=== PATIENT | male | born 1965 | race Caucasian/White ===

== ENCOUNTER 2020-07-29 06:48 | Outpatient (REF) | payer MEDICAID, SELFPAY ==
[2020-07-29 08:15] LABS: INTERNATIONAL NORM RATIO 3.4 (0.9-1.1); Prothrombin Time 40.4 SEC (10.8-13.0)
== END 2020-07-29 06:49 | disposition home or self-care (01) ==
LOC: HO.LAB 06:48
PROVIDERS: PCP Internal Medicine; Visit Provider Pharmacist
DX: Z95.2 Presence of prosthetic heart valve (principal)
CPT/HCPCS: 36415; 85610

== ENCOUNTER 2020-08-05 06:44 | Outpatient (REF) | payer MEDICAID, SELFPAY ==
[2020-08-05 07:52] LABS: INTERNATIONAL NORM RATIO 2.4 (0.9-1.1); Prothrombin Time 29.1 SEC (10.8-13.0)
== END 2020-08-05 06:45 | disposition home or self-care (01) ==
LOC: HO.LABR 06:44
PROVIDERS: PCP Internal Medicine; Visit Provider Pharmacist
DX: Z95.2 Presence of prosthetic heart valve (principal)
CPT/HCPCS: 36415; 85610

== ENCOUNTER 2020-08-12 06:46 | Outpatient (REF) | payer MEDICAID, SELFPAY ==
[2020-08-12 08:30] LABS: Prothrombin Time 24.5 SEC (10.8-13.0)
== END 2020-08-12 06:47 | disposition home or self-care (01) ==
LOC: HO.LABR 06:46
PROVIDERS: Visit Provider Pharmacist
DX: Z95.2 Presence of prosthetic heart valve (principal)
CPT/HCPCS: 36415; 85610

== ENCOUNTER 2020-08-15 07:01 | Outpatient (REF) | payer MEDICAID, SELFPAY ==
[2020-08-15 08:21] LABS: INTERNATIONAL NORM RATIO 3.2 (0.9-1.1)
== END 2020-08-15 07:02 | disposition home or self-care (01) ==
LOC: HO.LABR 07:01
PROVIDERS: Visit Provider Pharmacist
DX: Z95.2 Presence of prosthetic heart valve (principal)
CPT/HCPCS: 36415; 85610

== ENCOUNTER 2020-08-22 07:08 | Outpatient (REF) | payer MEDICAID, SELFPAY ==
[2020-08-22 08:06] LABS: INTERNATIONAL NORM RATIO 3.6 (0.9-1.1); Prothrombin Time 43.8 SEC (10.8-13.0)
== END 2020-08-22 07:09 | disposition home or self-care (01) ==
LOC: HO.LAB 07:08
PROVIDERS: Visit Provider Pharmacist
DX: Z95.2 Presence of prosthetic heart valve (principal)
CPT/HCPCS: 36415; 85610

== ENCOUNTER 2020-08-29 06:44 | Outpatient (REF) | payer MEDICAID, SELFPAY ==
[2020-08-29 07:38] LABS: INTERNATIONAL NORM RATIO 3.6 (0.9-1.1); Prothrombin Time 42.8 SEC (10.8-13.0)
== END 2020-08-29 06:45 | disposition home or self-care (01) ==
LOC: HO.LABR 06:44
PROVIDERS: Visit Provider Pharmacist
DX: Z95.2 Presence of prosthetic heart valve (principal)
CPT/HCPCS: 36415; 85610

== ENCOUNTER 2020-09-05 07:10 | Outpatient (REF) | payer MEDICAID, SELFPAY ==
[2020-09-05 08:44] LABS: INTERNATIONAL NORM RATIO 2.8 (0.9-1.1); Prothrombin Time 33.9 SEC (10.8-13.0)
== END 2020-09-05 07:11 | disposition home or self-care (01) ==
LOC: HO.LABR 07:10
PROVIDERS: Visit Provider Pharmacist
DX: Z95.2 Presence of prosthetic heart valve (principal)
CPT/HCPCS: 36415; 85610

== ENCOUNTER 2020-09-12 07:18 | Outpatient (REF) | payer MEDICAID, SELFPAY ==
[2020-09-12 07:45] LABS: INTERNATIONAL NORM RATIO 3.1 (0.9-1.1); Prothrombin Time 37.2 SEC (10.8-13.0)
== END 2020-09-12 07:19 | disposition home or self-care (01) ==
LOC: HO.LABR 07:18
PROVIDERS: Visit Provider Pharmacist
DX: Z95.2 Presence of prosthetic heart valve (principal)
CPT/HCPCS: 36415; 85610

== ENCOUNTER 2020-09-23 06:58 | Outpatient (REF) | payer MEDICAID, SELFPAY ==
[2020-09-23 07:52] LABS: INTERNATIONAL NORM RATIO 1.9 (0.9-1.1)
== END 2020-09-23 06:59 | disposition home or self-care (01) ==
LOC: HO.LABR 06:58
PROVIDERS: PCP Registered Nurse; Visit Provider Pharmacist
DX: Z95.2 Presence of prosthetic heart valve (principal)
CPT/HCPCS: 36415; 85610

== ENCOUNTER 2020-09-26 07:18 | Outpatient (REF) | payer MEDICAID, SELFPAY ==
[2020-09-26 09:14] LABS: INTERNATIONAL NORM RATIO 2.7 (0.9-1.1); Prothrombin Time 32.2 SEC (10.8-13.0)
== END 2020-09-26 07:19 | disposition home or self-care (01) ==
LOC: HO.LABR 07:18
PROVIDERS: PCP Registered Nurse; Visit Provider Pharmacist
DX: Z95.2 Presence of prosthetic heart valve (principal)
CPT/HCPCS: 36415; 85610

== ENCOUNTER 2020-10-03 07:23 | Outpatient (REF) | payer MEDICAID, SELFPAY ==
[2020-10-03 09:02] LABS: INTERNATIONAL NORM RATIO 2.5 (0.9-1.1); Prothrombin Time 29.7 SEC (10.8-13.0)
== END 2020-10-03 07:24 | disposition home or self-care (01) ==
LOC: HO.LABR 07:23
PROVIDERS: PCP Registered Nurse; Visit Provider Pharmacist
DX: Z95.2 Presence of prosthetic heart valve (principal); Z51.81 Encounter for therapeutic drug level monitoring
CPT/HCPCS: 36415; 85610

== ENCOUNTER 2020-10-16 06:57 | Outpatient (REF) | payer MEDICAID, SELFPAY ==
[2020-10-16 07:38] LABS: Prothrombin Time 36.2 SEC (10.8-13.0)
== END 2020-10-16 06:58 | disposition home or self-care (01) ==
LOC: HO.LABR 06:57
PROVIDERS: PCP Registered Nurse; Visit Provider Pharmacist
DX: Z95.2 Presence of prosthetic heart valve (principal)
CPT/HCPCS: 36415; 85610

== ENCOUNTER 2020-11-06 07:38 | Outpatient (REF) | payer MEDICAID, SELFPAY ==
[2020-11-06 08:28] LABS: INTERNATIONAL NORM RATIO 3.6 (0.9-1.1); Prothrombin Time 43.1 SEC (10.8-13.0)
== END 2020-11-06 07:39 | disposition home or self-care (01) ==
LOC: HO.LABR 07:38
PROVIDERS: PCP Registered Nurse; Visit Provider Pharmacist
DX: Z95.2 Presence of prosthetic heart valve (principal)
CPT/HCPCS: 36415; 85610

== ENCOUNTER 2020-11-27 07:01 | Outpatient (REF) | payer MEDICAID, SELFPAY ==
[2020-11-27 07:52] LABS: INTERNATIONAL NORM RATIO 3.3 (0.9-1.1); Prothrombin Time 39.4 SEC (10.8-13.0)
== END 2020-11-27 07:02 | disposition home or self-care (01) ==
LOC: HO.LABR 07:01
PROVIDERS: PCP Registered Nurse; Visit Provider Pharmacist
DX: Z95.2 Presence of prosthetic heart valve (principal)
CPT/HCPCS: 36415; 85610

== ENCOUNTER 2020-12-18 06:29 | Outpatient (REF) | payer MEDICAID, SELFPAY ==
[2020-12-18 07:20] LABS: INTERNATIONAL NORM RATIO 2.4 (0.9-1.1); Prothrombin Time 28.3 SEC (10.8-13.0)
== END 2020-12-18 06:30 | disposition home or self-care (01) ==
LOC: HO.LABR 06:29
PROVIDERS: PCP Registered Nurse; Visit Provider Pharmacist
DX: Z95.2 Presence of prosthetic heart valve (principal)
CPT/HCPCS: 36415; 85610

== ENCOUNTER 2021-01-08 06:42 | Outpatient (REF) | payer MEDICAID, SELFPAY ==
[2021-01-08 07:18] LABS: INTERNATIONAL NORM RATIO 3.3 (0.9-1.1); Prothrombin Time 39.4 SEC (10.8-13.0)
== END 2021-01-08 06:43 | disposition home or self-care (01) ==
LOC: HO.LABR 06:42
PROVIDERS: PCP Registered Nurse; Visit Provider Pharmacist
DX: Z95.2 Presence of prosthetic heart valve (principal)
CPT/HCPCS: 36415; 85610

== ENCOUNTER → 2021-01-29 07:12 | Outpatient (REF) | payer MEDICAID, SELFPAY ==
[2021-01-29 08:09] LABS: INTERNATIONAL NORM RATIO 2.7 (0.9-1.1); Prothrombin Time 32.3 SEC (10.8-13.0)
--- NOTE | 2021-01-29 09:30 | CA_ITS ---
Transthoracic Echocardiogram Patient (Last, First, Middle): Danis Mauricio, Gender: Male Date of : 1965 Age: 55 Procedure Date: 01/29/2021 Procedure Type: Transthoracic Echocardiogram Location: OP Height: 172.72 cm Weight: 63.5 kg BSA: 1.76 m2 Heart Rate: bpm BP: 122 / 80 mmHg Railway Signal Operator: Referring MD: Luiz Costa MD E Commerce Solution Architect: Julio Cesar Johnston MD Symptoms: I42.9 CARDIOMYOPATHY Study Quality: Fair ECG Rhythm: Sinus Conclusions: - 1. Severe LV systolic dysfunction by biplane method with LVEF of 25-30% with impaired relaxation filling pattern 2. Mechanical prosthesis in mitral position which appears to be function normally with mean gradient of 4 mm of mercury 3. Normal RV systolic pressure 4. No pericardial effusion Findings Left Ventricle Normal left ventricular cavity size. There is normal left ventricular wall thickness. The left ventricular systolic function is severely decreased. The visually estimated ejection fraction is between 25-30%. There is severe global hypokinesis. There is paradoxical septal motion consistent with post operative status. Spectral Doppler is indicative of an impaired relaxation filling pattern. Right Ventricle Normal right ventricular cavity size and systolic function. Atria The left atrium was not well visualized. Interatrial shunt cannot be excluded. The right atrium is normal in size. Aortic Valve Normal aortic valve structure and function. There is no aortic valve stenosis. There is no aortic valve regurgitation. Mitral Valve A mechanical prosthetic mitral valve is present. The prosthetic mitral valve appears to be functioning normally. The mitral valve was not well visualized. The mean mitral valve gradient is 4.00 mmHg. Mean gradient across mitral valve of 4 mm of mercury at heart rate of 81 beats per minute which is at acceptable level. The valve is well seated without abnormal rocking motion. Mitral regurgitation cannot be evaluated on this study Pulmonic Valve The pulmonic valve was not well visualized. Tricuspid Valve Likely normal tricuspid valve structure and function. The right ventricular systolic pressure is normal. The right ventricular systolic pressure is 19 mmHg. Normal right atrial pressure. There is no evidence of pulmonary hypertension. Great Vessels All visible segments of the aorta are normal in size. The pulmonary artery was not well visualized. Venous The inferior vena cava is normal in size and collapses greater than 50% with inspiration. Pericardium/Pleural There is no evidence of pericardial effusion. Prior Study Comparison No prior study available for comparison. Measurements 2D Linear Measurements IVSd: 0.78 0.6-0.9/0.6-1.0 cm LVIDd: 4.28 3.9-5.3/4.2-5.9 cm LVIDd Index: 2.43 2.4-3.2/2.2-3.1 cm/m2 LVIDs: 3.47 2.0-3.6 cm LVPWd: 0.86 0.7-1.1 cm Ao Root: 2.90 2.1-3.5 cm LA Diam: 3.30 2.7-3.8/3.0-4.0 cm LAIDs Index: 1.88 1.5-2.3 cm/m2 LV Mass: 134.02 67-162/88-224 g LV Mass Index: 76.15 43-95/49-115 g/m2 LVOT Diam: 1.90 3.0+(-)1.3 cm 2D Systolic Function EF 4C: 35.90 >55% EF 2C: 12.80 >55% Mitral Valve MV VTI: 0.38 MV Pk Romeo: 1.48 MV Mn Romeo: 0.94 MV Pk Grad: 9.00 MV Mn Grad: 5.00 MV Pk E: 1.19 MV PK A: 1.45 MV Decel Time: 155.00 E/A: 0.80 E'Lateral: 7.40 E'Medial: 6.20 E/E' Med: 19.20 E/E' Lat: 16.10 PHT: 45.00 MVA PHT: 4.89 MVA Continuity: 1.60 Decel [place]: 7.70 Aortic Valve AoV Pk Romeo: 1.24 AoV Mn Romeo: 0.85 AoV VTI: 0.26 AoV Pk Grad: 6.00 Aov Mn Grad: 3.00 BUBBA Cont.VTI: 2.33 LVOT LVOT Pk Romeo: 0.87 LVOT Mn Romeo: 0.51 LVOT VTI: 0.21 LVOT Pk Grad: 3.00 LVOT Mn Grad: 1.00 LVOT Diam: 1.90 LVOT Area: 2.84 Diastolic Function MV Pk E: 1.19 MV Pk A: 1.45 E/A: 0.80 E'Medial: 6.20 E/E' Med: 19.20 E' Laterial: 7.40 E/E' Lat: 16.10 Tricuspid Valve TR Pk Romeo: 1.99 TR Pk Grad: 16.00 RA Press: 3.00 RVSP: 19.00 Great Vessels Aorta Ao Root-2D: 2.90 2.0-3.7 cm Pulmonary Valve PV Pk Romeo: 0.98 Peak PV Grad: 4.00 Updated in Other Vendor System with Status of Final Julio Cesar Johnston MD electronically signed on 01/29/2021 5:16:19 PM with status of Final
== END ==
LOC: HO.CARD 07:12
PROVIDERS: Absent Provider Pharmacist; PCP Registered Nurse; Visit Provider Internal Medicine Cardiovascular Disease
DX: I42.9 Cardiomyopathy, unspecified (principal); Z95.2 Presence of prosthetic heart valve
CPT/HCPCS: 36415; 85610; 93306

== ENCOUNTER 2021-02-03 07:27 | Outpatient (REF) | payer MEDICAID, SELFPAY ==
[2021-02-03 08:45] LABS: INTERNATIONAL NORM RATIO 1.4 (0.9-1.1); Prothrombin Time 16.4 SEC (10.8-13.0)
== END 2021-02-03 07:28 | disposition home or self-care (01) ==
LOC: HO.LABR 07:27
PROVIDERS: PCP Registered Nurse; Visit Provider Pharmacist
DX: Z95.2 Presence of prosthetic heart valve (principal)
CPT/HCPCS: 36415; 85610

== ENCOUNTER 2021-02-06 06:35 | Day surgery (SDC) | payer MEDICAID, SELFPAY ==
[2021-02-03 09:24] VITALS: BMI 22.8
--- NOTE | 2021-02-05 10:26 | HO.ANESPROP2 ---
Documented by User: Renetta Tomas 02/05/21 10:30 HPI - Anesthesia Eval Consult details Narrative: 55yo M for Colonoscopy Coumadin for Mitral Valve Replacement - to bridge with lovenox Cardiac clear @ moderate risk PMFSH Active Problems Active Problems: All Active Problems (Updated 01/31/21 @ 12:54 by Carlene Hanson) History of mitral valve repair (Acute) On anticoagulant therapy (Acute) Screening for colon cancer (Acute) Past Medical History Medical History Elevated cholesterol On anticoagulant therapy Screening for colon cancer Family History Family History Father No problems noted. Mother Hx of breast cancer Surgical History Surgical History Hx of mitral valve replacement Hx of removal of cyst Social History Social History Alcohol intake: never Smoking Status: Never smoker Use of substances other than those prescribed or required for medical reasons: Yes Have you been hit, kicked, punched, or otherwise hurt by someone within the past year? If so, by whom?: No Advance Directives: Yes Advance Directives Information Provided: Yes Advance Directives on File: Yes Advance Directives Date on File: 07/31/20 Meds Allergies Allergy/AdvReac Type Severity Reaction Status Date / Time No Known Allergies Allergy Unverified 07/11/20 16:18 Home Medications Medication Instructions Recorded Confirmed Last Taken Type atorvastatin 40 mg tablet 40 mg PO BEDTIME 11/06/20 02/03/21 Unknown History warfarin 2 mg tablet 2 mg PO DAILY 11/06/20 02/03/21 Unknown History Exam Exam Date and Time: February 05, 2021 1026 Height,Weight and Vital Signs: Height 5 ft 7 in Weight 66.09 kg Narrative Narrative: Echo 01/29/21 Conclusions: - 1. Severe LV systolic dysfunction by biplane method with LVEF of 25-30% with impaired relaxation filling pattern 2. Mechanical prosthesis in mitral position which appears to be function normally with mean gradient of 4 mm of mercury 3. Normal RV systolic pressure 4. No pericardial effusion EKG 04/2020 SR with short OR @ 90 Assessment and Plan Assessment Anesthesia Assessment: Chart Reviewed Documented by User: Mónica Polk 02/06/21 07:31 PMFSH Past Medical History Medical History Elevated cholesterol On anticoagulant therapy Screening for colon cancer Family History Family History Father No problems noted. Mother Hx of breast cancer Surgical History Surgical History Hx of mitral valve replacement Hx of removal of cyst Social History Social History Alcohol intake: never Smoking Status: Never smoker Use of substances other than those prescribed or required for medical reasons: Yes Have you been hit, kicked, punched, or otherwise hurt by someone within the past year? If so, by whom?: No Advance Directives: Yes Advance Directives Information Provided: Yes Advance Directives on File: Yes Advance Directives Date on File: 07/31/20 Meds Allergies Allergy/AdvReac Type Severity Reaction Status Date / Time No Known Allergies Allergy Unverified 07/11/20 16:18 Home Medications Medication Instructions Recorded Confirmed Last Taken Type atorvastatin 40 mg tablet 40 mg PO BEDTIME 11/06/20 02/03/21 Unknown History warfarin 2 mg tablet 2 mg PO DAILY 11/06/20 02/03/21 Unknown History Exam Airway Mallampati Class: II TM Dist: >3cm Neck ROM: Full Loose/Missing/Broken Teeth: No Heart: RRR Lungs: CTA Assessment and Plan Assessment Anesthesia Assessment: Anesthesia Plan Discussed and Chart Reviewed Final Anesthetic Review NPO: Yes ASA Class: III Final Preanesthetic Review: Meds/Allgs Chart Reviewed, Consent Obtained/Reviewed and Anes Risks/Benef Reviewed Patient Risk: Intermediate Procedure Risk: Low Anesthetic Plan Anesthetic Plan: MAC: Disposition: Standard PACU
[2021-02-06 06:45] VITALS: BP 126/85; PULSE 94; RESP 18; TEMP 36.2; O2SAT 99
[2021-02-06 06:59] LABS: INTERNATIONAL NORM RATIO 1.1 (0.9-1.1); Prothrombin Time 12.6 SEC (10.8-13.0)
--- NOTE | 2021-02-06 07:08 | P.OP_ITS ---
Operative Note Operative Note Date of Service: 02/06/21 Narrative: Pre-op diagnosis: Colon cancer screening Post-op diagnosis: other (These colon polyps, diverticulosis, hemorrhoids) Procedure: COLONOSCOPY TILL CECUM WITH BIOPSIES Consent: Indications for the procedure and potential complications of bleeding, perforation, reaction to medications and missed diagnosis were discussed with the patient and informed consent was obtained. Instrument: Olympus PCF H 190 L variable stiffness pediatric colonoscope Monitoring: Vital signs and clinical assessment, intermittent blood pressure monitoring, continuous EKG monitoring, Pulse oximetry and Carbon Dioxide monitoring were done throughout the procedure. Colon withdrawl time was 14 minutes. Procedure: The patient was placed in the left lateral decubitis position and pre-procedure medications were administered. After a digital rectal examination of the ano-rectum, the video colonoscope was inserted into the rectum and advanced through the colon to the cecum. The colonoscope was slowly withdrawn in a retrograde panoramic fashion and the colon mucosa was carefully examined including a retroflexed view of the rectum. Findings and interventions are described below. Procedure Difficulty: Without difficulty Findings: Terminal Ileum: Not evaluated Cecum: Normal Ascending Colon: Normal Transverse Colon: Normal Descending Colon: Normal Sigmoid Colon: A few 3-4 mm diminutive polyps in recto-sigmoid colon - two were removed with a cold biopsy. Moderate diverticulosis Rectum: A few 3-4 mm diminutive polyps in recto-sigmoid colon. Ano-rectum: Moderate internal hemorrhoids Colon preparation: Good Impression and Post Procedure Diagnosis: Colonoscopy Findings: Two small diminutive appearing polyps removed Moderate diverticulosis seen in the sigmoid colon Moderate hemorrhoids on retroflexed exam. Plan: Await pathology results Pt to resume warfarin at previous dose tonight and have a prothrombin time checked on 02/11/21. Continue Lovenox injections till 02/10/21 Patient has an appointment on 03/05/21 in the GI Clinic with Randi Morris M.D.. Repeat Colonoscopy interval based on path results - in 5 years if polyps are adenomatous and 10 years if polyps are hyperplastic. Above findings were reviewed with the patient and colon polyps and diverticulosis handouts were given in the discharge area Surgeon: Tomas Barrios MD Anesthesia: MAC (Yumiko Banerjee, KAYLYNN) Motor Vehicle Dispatcher: Carmen Telles Estimated blood loss (mL): 0 Pathology: other (A. Sigmoid colon polyps) Condition: stable Disposition: PACU
--- NOTE | 2021-02-06 07:08 | MHC.SHP ---
Pre-Procedural Eval Section A The patient is an INPATIENT: No The History & Physical has been completed within 30 days and I have reviewed it.: No Section B Chief Complaint: Screening Present Medications: see Short Stay Collaborative assessment Medical History: Significant History (On anticoagulant therapy, Screening for colon cancer) History of Previous Operations: Relevant previous surgery/procedure and date(s) (History of mitral valve repair, Hx of removal of cyst) Allergies: Allergies Allergy/AdvReac Type Severity Reaction Status Date / Time No Known Allergies Allergy Unverified 07/11/20 16:18 Review of Systems Sugical H&P ROS: Negative: Constitution, Cardiovascular, Respiratory and Gastrointestinal Exam Surgical H&P Exam: Normal: Heart, Normal: Lungs, Normal: Extremities and Normal: Abdomen Plan Diagnosis/Plan: Unchanged I have reviewed the history and physical and performed a pertinent physical examination on my patient. No changes have occurred unless specified.
[2021-02-06] MEDS: Lactated Ringers 1,000 ML 20 ML IVCONT (07:14)
[2021-02-06 08:10] VITALS: BP 103/73; PULSE 83; RESP 20; TEMP 36.2; O2SAT 100
[2021-02-06 08:25] VITALS: BP 105/78; PULSE 80; RESP 18; O2SAT 98
== END 2021-02-06 08:55 | disposition home or self-care (01) ==
PROVIDERS: Nurse Practitioner; PCP Registered Nurse; Visit Provider Internal Medicine Gastroenterology
PROC: 0DJD8ZZ Inspection of Lower Intestinal Tract, Via Natural or Artificial Opening Endoscopic (ICD-10-PCS; CPT 45378; principal; 2021-02-06 07:30)
DX: Z12.11 Encounter for screening for malignant neoplasm of colon (principal); K63.5 Polyp of colon; K57.30 Diverticulosis of large intestine without perforation or abscess without bleeding; K64.8 Other hemorrhoids; Z95.2 Presence of prosthetic heart valve; Z79.01 Long term (current) use of anticoagulants; Z79.899 Other long term (current) drug therapy
CPT/HCPCS: 45380; 36415; 85610; 88305

== ENCOUNTER 2021-02-10 06:48 | Outpatient (REF) | payer MEDICAID, SELFPAY ==
[2021-02-10 08:49] LABS: INTERNATIONAL NORM RATIO 1.3 (0.9-1.1); Prothrombin Time 15.7 SEC (10.8-13.0)
== END 2021-02-10 06:49 | disposition home or self-care (01) ==
LOC: HO.LABR 06:48
PROVIDERS: PCP Registered Nurse; Visit Provider Pharmacist
DX: Z95.2 Presence of prosthetic heart valve (principal)
CPT/HCPCS: 36415; 85610

== ENCOUNTER 2021-02-12 07:08 | Outpatient (REF) | payer MEDICAID, SELFPAY ==
[2021-02-12 08:22] LABS: INTERNATIONAL NORM RATIO 1.9 (0.9-1.1); Prothrombin Time 22.7 SEC (10.8-13.0)
== END 2021-02-12 07:09 | disposition home or self-care (01) ==
LOC: HO.LABR 07:08
PROVIDERS: PCP Registered Nurse; Visit Provider Pharmacist
DX: Z95.2 Presence of prosthetic heart valve (principal); Z79.01 Long term (current) use of anticoagulants; Z51.81 Encounter for therapeutic drug level monitoring
CPT/HCPCS: 36415; 85610

== ENCOUNTER 2021-02-14 06:37 | Outpatient (REF) | payer MEDICAID, SELFPAY ==
[2021-02-14 07:10] LABS: INTERNATIONAL NORM RATIO 2.5 (0.9-1.1); Prothrombin Time 29.5 SEC (10.8-13.0)
== END 2021-02-14 06:38 | disposition home or self-care (01) ==
LOC: HO.LABR 06:37
PROVIDERS: PCP Registered Nurse; Visit Provider Pharmacist
DX: Z95.2 Presence of prosthetic heart valve (principal); Z79.01 Long term (current) use of anticoagulants; Z51.81 Encounter for therapeutic drug level monitoring
CPT/HCPCS: 36415; 85610

== ENCOUNTER 2021-02-18 06:51 | Outpatient (REF) | payer MEDICAID, SELFPAY ==
[2021-02-18 07:29] LABS: INTERNATIONAL NORM RATIO 1.9 (0.9-1.1); Prothrombin Time 22.8 SEC (10.8-13.0)
== END 2021-02-18 06:52 | disposition home or self-care (01) ==
LOC: HO.LABR 06:51
PROVIDERS: PCP Registered Nurse; Visit Provider Pharmacist
DX: Z95.2 Presence of prosthetic heart valve (principal)
CPT/HCPCS: 36415; 85610

== ENCOUNTER 2021-02-21 06:34 | Outpatient (REF) | payer MEDICAID, SELFPAY ==
[2021-02-21 08:23] LABS: INTERNATIONAL NORM RATIO 2.3 (0.9-1.1); Prothrombin Time 27.2 SEC (10.8-13.0)
== END 2021-02-21 06:35 | disposition home or self-care (01) ==
LOC: HO.LABR 06:34
PROVIDERS: PCP Registered Nurse; Visit Provider Pharmacist
DX: Z95.2 Presence of prosthetic heart valve (principal)
CPT/HCPCS: 36415; 85610

== ENCOUNTER 2021-02-26 06:52 | Outpatient (REF) | payer MEDICAID, SELFPAY ==
[2021-02-26 09:06] LABS: INTERNATIONAL NORM RATIO 3.3 (0.9-1.1); Prothrombin Time 39.8 SEC (10.8-13.0)
== END 2021-02-26 06:53 | disposition home or self-care (01) ==
LOC: HO.LABR 06:52
PROVIDERS: PCP Registered Nurse; Visit Provider Pharmacist
DX: Z95.2 Presence of prosthetic heart valve (principal)
CPT/HCPCS: 36415; 85610

== ENCOUNTER 2021-03-05 06:51 | Outpatient (REF) | payer MEDICAID, SELFPAY ==
[2021-03-05 07:50] LABS: Prothrombin Time 23.7 SEC (10.8-13.0)
== END 2021-03-05 06:52 | disposition home or self-care (01) ==
LOC: HO.LABR 06:51
PROVIDERS: PCP Registered Nurse; Visit Provider Pharmacist
DX: Z95.2 Presence of prosthetic heart valve (principal)
CPT/HCPCS: 36415; 85610

== ENCOUNTER 2021-03-10 06:44 | Outpatient (REF) | payer MEDICAID, SELFPAY ==
[2021-03-10 07:08] LABS: INTERNATIONAL NORM RATIO 1.9 (0.9-1.1); Prothrombin Time 22.4 SEC (10.8-13.0)
== END 2021-03-10 06:45 | disposition home or self-care (01) ==
LOC: HO.LABR 06:44
PROVIDERS: PCP Registered Nurse; Visit Provider Pharmacist
DX: Z95.2 Presence of prosthetic heart valve (principal)
CPT/HCPCS: 36415; 85610

== ENCOUNTER 2021-03-13 06:31 | Outpatient (REF) | payer MEDICAID, SELFPAY ==
[2021-03-13 07:26] LABS: INTERNATIONAL NORM RATIO 2.4 (0.9-1.1); Prothrombin Time 28.8 SEC (10.8-13.0)
== END 2021-03-13 06:32 | disposition home or self-care (01) ==
LOC: HO.LABR 06:31
PROVIDERS: PCP Registered Nurse; Visit Provider Pharmacist
DX: Z95.2 Presence of prosthetic heart valve (principal)
CPT/HCPCS: 36415; 85610

== ENCOUNTER 2021-03-19 06:41 | Outpatient (REF) | payer MEDICAID, SELFPAY ==
[2021-03-19 07:58] LABS: INTERNATIONAL NORM RATIO 2.3 (0.9-1.1); Prothrombin Time 27.6 SEC (10.8-13.0)
== END 2021-03-19 06:42 | disposition home or self-care (01) ==
LOC: HO.LABR 06:41
PROVIDERS: PCP Registered Nurse; Visit Provider Pharmacist
DX: Z95.2 Presence of prosthetic heart valve (principal)
CPT/HCPCS: 36415; 85610

== ENCOUNTER 2021-03-31 06:30 | Outpatient (REF) | payer MEDICAID, SELFPAY ==
[2021-03-31 07:11] LABS: INTERNATIONAL NORM RATIO 1.6 (0.9-1.1); Prothrombin Time 18.9 SEC (10.8-13.0)
== END 2021-03-31 06:31 | disposition home or self-care (01) ==
LOC: HO.LABR 06:30
PROVIDERS: PCP Registered Nurse; Visit Provider Pharmacist
DX: Z95.2 Presence of prosthetic heart valve (principal)
CPT/HCPCS: 36415; 85610

== ENCOUNTER 2021-04-02 06:31 | Outpatient (REF) | payer MEDICAID, SELFPAY ==
[2021-04-02 08:14] LABS: INTERNATIONAL NORM RATIO 2.9 (0.9-1.1); Prothrombin Time 34.4 SEC (10.8-13.0)
== END 2021-04-02 06:32 | disposition home or self-care (01) ==
LOC: HO.LABR 06:31
PROVIDERS: PCP Registered Nurse; Visit Provider Pharmacist
DX: Z95.2 Presence of prosthetic heart valve (principal)
CPT/HCPCS: 36415; 85610

== ENCOUNTER 2021-04-09 06:39 | Outpatient (REF) | payer MEDICAID, SELFPAY ==
[2021-04-09 08:08] LABS: INTERNATIONAL NORM RATIO 2.7 (0.9-1.1)
== END 2021-04-09 06:40 | disposition home or self-care (01) ==
LOC: HO.LABR 06:39
PROVIDERS: Visit Provider Pharmacist
DX: Z95.2 Presence of prosthetic heart valve (principal)
CPT/HCPCS: 36415; 85610

== ENCOUNTER 2021-04-29 09:26 | Outpatient (REF) | payer MEDICAID, SELFPAY ==
[2021-04-29 10:29] LABS: INTERNATIONAL NORM RATIO 2.9 (0.9-1.1); Prothrombin Time 33.4 SEC (9.9-13.0)
== END 2021-04-29 09:27 | disposition home or self-care (01) ==
LOC: HO.LAB 09:26
PROVIDERS: PCP Registered Nurse; Visit Provider Pharmacist
DX: Z95.2 Presence of prosthetic heart valve (principal); Z79.01 Long term (current) use of anticoagulants; Z51.81 Encounter for therapeutic drug level monitoring
CPT/HCPCS: 36415; 85610

== ENCOUNTER 2021-05-13 06:36 | Outpatient (REF) | payer MEDICAID, SELFPAY ==
[2021-05-13 07:57] LABS: INTERNATIONAL NORM RATIO 3.8 (0.9-1.1)
== END 2021-05-13 06:37 | disposition home or self-care (01) ==
LOC: HO.LABR 06:36
PROVIDERS: PCP Registered Nurse; Visit Provider Pharmacist
DX: Z95.2 Presence of prosthetic heart valve (principal)
CPT/HCPCS: 36415; 85610

== ENCOUNTER 2021-05-27 06:52 | Outpatient (REF) | payer MEDICAID, SELFPAY ==
[2021-05-27 07:38] LABS: INTERNATIONAL NORM RATIO 3.3 (0.9-1.1); Prothrombin Time 38.3 SEC (9.9-13.0)
== END 2021-05-27 06:53 | disposition home or self-care (01) ==
LOC: HO.LABR 06:52
PROVIDERS: PCP Registered Nurse; Visit Provider Pharmacist
DX: Z95.2 Presence of prosthetic heart valve (principal)
CPT/HCPCS: 36415; 85610

== ENCOUNTER 2021-06-11 06:46 | Outpatient (REF) | payer MEDICAID, SELFPAY ==
[2021-06-11 07:47] LABS: INTERNATIONAL NORM RATIO 3.4 (0.9-1.1); Prothrombin Time 39.1 SEC (9.9-13.0)
== END 2021-06-11 06:47 | disposition home or self-care (01) ==
LOC: HO.LABR 06:46
PROVIDERS: PCP Registered Nurse; Visit Provider Pharmacist
DX: Z95.2 Presence of prosthetic heart valve (principal)
CPT/HCPCS: 36415; 85610

== ENCOUNTER 2021-07-02 07:03 | Outpatient (REF) | payer MEDICAID, SELFPAY ==
[2021-07-02 07:59] LABS: INTERNATIONAL NORM RATIO 2.5 (0.9-1.1); Prothrombin Time 28.5 SEC (9.9-13.0)
== END 2021-07-02 07:04 | disposition home or self-care (01) ==
LOC: HO.LABR 07:03
PROVIDERS: PCP Registered Nurse; Visit Provider Pharmacist
DX: Z95.2 Presence of prosthetic heart valve (principal)
CPT/HCPCS: 36415; 85610

== ENCOUNTER 2021-07-21 06:42 | Outpatient (REF) | payer MEDICAID, SELFPAY ==
[2021-07-21 09:04] LABS: INTERNATIONAL NORM RATIO 4.5 (0.9-1.1); Prothrombin Time 52.3 SEC (9.9-13.0)
== END 2021-07-21 06:43 | disposition home or self-care (01) ==
LOC: HO.LABR 06:42
PROVIDERS: PCP Registered Nurse; Visit Provider Pharmacist
DX: Z95.2 Presence of prosthetic heart valve (principal); Z79.01 Long term (current) use of anticoagulants; Z51.81 Encounter for therapeutic drug level monitoring
CPT/HCPCS: 36415; 85610

== ENCOUNTER 2021-08-06 06:29 | Outpatient (REF) | payer MEDICAID, SELFPAY ==
[2021-08-06 07:28] LABS: INTERNATIONAL NORM RATIO 3.8 (0.9-1.1); Prothrombin Time 44.9 SEC (9.9-13.0)
== END 2021-08-06 06:30 | disposition home or self-care (01) ==
LOC: HO.LABR 06:29
PROVIDERS: PCP Registered Nurse; Visit Provider Pharmacist
DX: Z95.2 Presence of prosthetic heart valve (principal)
CPT/HCPCS: 36415; 85610

== ENCOUNTER 2021-08-13 06:29 | Outpatient (REF) | payer MEDICAID, SELFPAY ==
[2021-08-13 07:35] LABS: INTERNATIONAL NORM RATIO 3.9 (0.9-1.1); Prothrombin Time 45.7 SEC (9.9-13.0)
== END 2021-08-13 06:30 | disposition home or self-care (01) ==
LOC: HO.LABR 06:29
PROVIDERS: PCP Nurse Practitioner Family; Visit Provider Pharmacist
DX: Z95.2 Presence of prosthetic heart valve (principal)
CPT/HCPCS: 36415; 85610

== ENCOUNTER 2021-08-18 06:34 | Outpatient (REF) | payer MEDICAID, SELFPAY ==
[2021-08-18 08:01] LABS: INTERNATIONAL NORM RATIO 2.5 (0.9-1.1); Prothrombin Time 28.6 SEC (9.9-13.0)
== END 2021-08-18 06:35 | disposition home or self-care (01) ==
LOC: HO.LABR 06:34
PROVIDERS: PCP Registered Nurse; Visit Provider Pharmacist
DX: Z95.2 Presence of prosthetic heart valve (principal)
CPT/HCPCS: 36415; 85610

== ENCOUNTER 2021-08-25 06:46 | Outpatient (REF) | payer MEDICAID, SELFPAY ==
[2021-08-25 07:36] LABS: INTERNATIONAL NORM RATIO 3.5 (0.9-1.1); Prothrombin Time 41.1 SEC (9.9-13.0)
== END 2021-08-25 06:47 | disposition home or self-care (01) ==
LOC: HO.LABR 06:46
PROVIDERS: PCP Registered Nurse; Visit Provider Pharmacist
DX: Z95.2 Presence of prosthetic heart valve (principal)
CPT/HCPCS: 36415; 85610

== ENCOUNTER 2021-09-04 06:31 | Outpatient (REF) | payer MEDICAID, SELFPAY ==
[2021-09-04 07:44] LABS: INTERNATIONAL NORM RATIO 3.2 (0.9-1.1); Prothrombin Time 37.4 SEC (9.9-13.0)
== END 2021-09-04 06:32 | disposition home or self-care (01) ==
LOC: HO.LABR 06:31
PROVIDERS: PCP Registered Nurse; Visit Provider Pharmacist
DX: Z95.2 Presence of prosthetic heart valve (principal)
CPT/HCPCS: 36415; 85610

== ENCOUNTER 2021-09-12 09:56 | Outpatient (REF) | payer MEDICAID, SELFPAY ==
--- NOTE | ~2021-09-12 | XR_ITS ---
EXAMINATION: XR TIBIA AND FIBULA, LEFT CLINICAL INFORMATION: Localized swelling, mass and lump left lower leg. COMPARISON: None TECHNIQUE: AP and lateral views of the left tibia and fibula were obtained. FINDINGS: Focal soft tissue swelling is noted along the anterior aspect of the proximal shaft of the tibia. There is no underlying bony abnormality. The remainder of the tibia and fibula are normal. There is vascular calcification. XR/XR tibia fibula LT 2V IMPRESSION: Focal soft tissue swelling. No bony abnormality.
== END 2021-09-12 09:57 | disposition home or self-care (01) ==
LOC: HO.XRAY 09:56
PROVIDERS: Absent Provider Registered Nurse; PCP Registered Nurse; Visit Provider Registered Nurse Community Health
DX: R22.42 Localized swelling, mass and lump, left lower limb (principal)
CPT/HCPCS: 73590

== ENCOUNTER 2021-09-17 06:32 | Outpatient (REF) | payer MEDICAID, SELFPAY ==
[2021-09-17 07:44] LABS: INTERNATIONAL NORM RATIO 2.8 (0.9-1.1); Prothrombin Time 32.5 SEC (9.9-13.0)
== END 2021-09-17 06:33 | disposition home or self-care (01) ==
LOC: HO.LABR 06:32
PROVIDERS: PCP Registered Nurse; Visit Provider Pharmacist
DX: Z95.2 Presence of prosthetic heart valve (principal)
CPT/HCPCS: 36415; 85610

== ENCOUNTER 2021-10-01 06:31 | Outpatient (REF) | payer MEDICAID, SELFPAY ==
[2021-10-01 07:40] LABS: Prothrombin Time 22.7 SEC (9.9-13.0)
== END 2021-10-01 06:32 | disposition home or self-care (01) ==
LOC: HO.LABR 06:31
PROVIDERS: PCP Registered Nurse; Visit Provider Pharmacist
DX: Z95.2 Presence of prosthetic heart valve (principal)
CPT/HCPCS: 36415; 85610

== ENCOUNTER 2021-10-08 06:42 | Outpatient (REF) | payer MEDICAID, SELFPAY ==
[2021-10-08 07:26] LABS: INTERNATIONAL NORM RATIO 2.7 (0.9-1.1); Prothrombin Time 30.9 SEC (9.9-13.0)
== END 2021-10-08 06:43 | disposition home or self-care (01) ==
LOC: HO.LABR 06:42
PROVIDERS: PCP Registered Nurse; Visit Provider Pharmacist
DX: Z95.2 Presence of prosthetic heart valve (principal)
CPT/HCPCS: 36415; 85610

== ENCOUNTER 2021-10-15 06:26 | Outpatient (REF) | payer MEDICAID, SELFPAY ==
[2021-10-15 07:09] LABS: INTERNATIONAL NORM RATIO 2.6 (0.9-1.1); Prothrombin Time 29.9 SEC (9.9-13.0)
== END 2021-10-15 06:27 | disposition home or self-care (01) ==
LOC: HO.LABR 06:26
PROVIDERS: PCP Registered Nurse; Visit Provider Pharmacist
DX: Z95.2 Presence of prosthetic heart valve (principal)
CPT/HCPCS: 36415; 85610

== ENCOUNTER 2021-10-22 07:09 | Outpatient (REF) | payer MEDICAID, SELFPAY ==
[2021-10-22 07:44] LABS: INTERNATIONAL NORM RATIO 2.6 (0.9-1.1); Prothrombin Time 30.2 SEC (9.9-13.0)
== END 2021-10-22 07:10 | disposition home or self-care (01) ==
LOC: HO.LABR 07:09
PROVIDERS: PCP Registered Nurse; Visit Provider Pharmacist
DX: Z95.2 Presence of prosthetic heart valve (principal); Z79.01 Long term (current) use of anticoagulants; Z51.81 Encounter for therapeutic drug level monitoring
CPT/HCPCS: 36415; 85610

== ENCOUNTER 2021-11-05 06:31 | Outpatient (REF) | payer MEDICAID, SELFPAY ==
[2021-11-05 07:31] LABS: INTERNATIONAL NORM RATIO 2.8 (0.9-1.1); Prothrombin Time 32.9 SEC (9.9-13.0)
== END 2021-11-05 06:32 | disposition home or self-care (01) ==
LOC: HO.LABR 06:31
PROVIDERS: PCP Registered Nurse; Visit Provider Pharmacist
DX: Z95.2 Presence of prosthetic heart valve (principal)
CPT/HCPCS: 36415; 85610

== ENCOUNTER 2021-11-26 06:44 | Outpatient (REF) | payer MEDICAID, SELFPAY ==
[2021-11-26 07:15] LABS: Prothrombin Time 34.6 SEC (9.9-13.0)
== END 2021-11-26 06:45 | disposition home or self-care (01) ==
LOC: HO.LABR 06:44
PROVIDERS: PCP Registered Nurse; Visit Provider Pharmacist
DX: Z95.2 Presence of prosthetic heart valve (principal)
CPT/HCPCS: 36415; 85610

== ENCOUNTER 2021-12-24 06:56 | Outpatient (REF) | payer MEDICAID, SELFPAY ==
[2021-12-24 08:22] LABS: Prothrombin Time 35.3 SEC (9.9-13.0)
== END 2021-12-24 06:57 | disposition home or self-care (01) ==
LOC: HO.LABR 06:56
PROVIDERS: PCP Registered Nurse; Visit Provider Pharmacist
DX: Z95.2 Presence of prosthetic heart valve (principal)
CPT/HCPCS: 36415; 85610

== ENCOUNTER 2022-01-21 06:36 | Outpatient (REF) | payer MEDICAID, SELFPAY ==
[2022-01-21 07:44] LABS: INTERNATIONAL NORM RATIO 3.1 (0.9-1.1); Prothrombin Time 35.7 SEC (9.9-13.0)
== END 2022-01-21 06:37 | disposition home or self-care (01) ==
LOC: HO.LABR 06:36
PROVIDERS: PCP Registered Nurse; Visit Provider Pharmacist
DX: Z95.2 Presence of prosthetic heart valve (principal)
CPT/HCPCS: 36415; 85610

== ENCOUNTER 2022-02-19 06:10 | Outpatient (REF) | payer MEDICAID, SELFPAY ==
[2022-02-19 07:45] LABS: Prothrombin Time 75.9 SEC (9.9-13.0)
[2022-02-19 08:04] LABS: INTERNATIONAL NORM RATIO 6.4 (0.9-1.1)
== END 2022-02-19 06:11 | disposition home or self-care (01) ==
LOC: HO.LABR 06:10
PROVIDERS: PCP Registered Nurse; Visit Provider Pharmacist
DX: Z95.2 Presence of prosthetic heart valve (principal)
CPT/HCPCS: 36415; 85610

== ENCOUNTER 2022-02-20 06:30 | Outpatient (REF) | payer MEDICAID, SELFPAY ==
[2022-02-20 07:50] LABS: INTERNATIONAL NORM RATIO 4.9 (0.9-1.1)
== END 2022-02-20 06:31 | disposition home or self-care (01) ==
LOC: HO.LABR 06:30
PROVIDERS: PCP Registered Nurse; Visit Provider Pharmacist
DX: Z95.2 Presence of prosthetic heart valve (principal)
CPT/HCPCS: 36415; 85610

== ENCOUNTER 2022-02-23 07:24 | Outpatient (REF) | payer MEDICAID, SELFPAY ==
[2022-02-23 08:15] LABS: INTERNATIONAL NORM RATIO 2.5 (0.9-1.1); Prothrombin Time 29.5 SEC (9.9-13.0)
== END 2022-02-23 07:25 | disposition home or self-care (01) ==
LOC: HO.LABR 07:24
PROVIDERS: Visit Provider Pharmacist
DX: Z95.2 Presence of prosthetic heart valve (principal)
CPT/HCPCS: 36415; 85610

== ENCOUNTER 2022-02-23 08:43 | Observation (INO) | payer MEDICAID, SELFPAY ==
--- NOTE | ~2022-02-23 | US_ITS ---
EXAMINATION: US-RIGHT CALF. CLINICAL INFORMATION: Right lower extremity pain and swelling. COMPARISON: None TECHNIQUE: Targeted ultrasound of the right medial calf. FINDINGS: Targeted ultrasound of the right medial calf posteriorly corresponding to the site of the pain and swelling shows abnormal sonographic appearance of the medial head of the gastrocnemius muscle showing discontinuity near the myotendinous junction, consistent with tear. Evidence of soft tissue hematoma is also noted within the muscle belly. Follow-up MRI may be considered for further confirmation, if clinically appropriate. US/US extremity nonvascular IMPRESSION: Abnormal ultrasound suggestive of medial head of the right gastrocnemius muscle tear at the myotendinous junction. Follow-up MRI may be considered for further confirmation, if clinically appropriate.
[2022-02-23 08:55] VITALS: BP 129/85; PULSE 99; RESP 14; TEMP 35.9; O2SAT 97; BMI 21.2
--- NOTE | 2022-02-23 12:44 | ED.LOWEXIN ---
HPI - Extremity Injury (Lower) General Chief Complaint: Extremity Injury, Lower Stated Complaint: pain in right foot and calf Time Seen by Provider: 02/23/22 10:20 Source: patient Mode of arrival: ambulatory History of Present Illness HPI Narrative: 56-year-old male with a past medical history hyperlipidemia, valve replacement on Coumadin, presenting to the ED complaining of right calf pain and swelling s/p mechanical fall yesterday. States was standing on a metal metal gave how and fell, landing on feet standing upright. Admits since incident unable to bear weight secondary to calf pain/tightness. Denies numbness, tingling, weakness, injury to the area MD complaint: leg injury Onset (ago): day(s) Related Data Home Medications Medication Instructions Recorded Confirmed atorvastatin 40 mg tablet 40 mg PO BEDTIME 11/06/20 02/03/21 warfarin 2 mg tablet 2 mg PO DAILY 11/06/20 02/03/21 Allergies Allergy/AdvReac Type Severity Reaction Status Date / Time No Known Allergies Allergy Unverified 07/11/20 16:18 Review of Systems Review of Systems: Constitutional: No Fever, No Chills ENT/Mouth: No Ear Pain, No Nasal Congestion, No Sinus Pain, No Hoarseness, No sore throat, No Rhinorrhea, No Swallowing Difficulty Cardiovascular: No Chest Pain, No SOB Respiratory: No Cough, No Sputum, No Wheezing Gastrointestinal: No Nausea, No Vomiting, No Diarrhea, No Constipation, No Abdominal pain Genitourinary:, No Dysuria, No Urinary Frequency, No Hematuria, No Urinary Incontinence, No Urgency, No Flank Pain Musculoskeletal: + joint pain, No Myalgias, + Joint Swelling Skin: No Skin Lesions, No rash Neuro: No Weakness, No Numbness, No Paresthesias Yes all other systems are reviewed and are negative [facility] Past Medical History Attestation statement: The following information was validated with the patient. Medical History Elevated cholesterol On anticoagulant therapy Screening for colon cancer Surgical History Hx of mitral valve replacement Hx of removal of cyst Family History Family History Father No problems noted. Mother Hx of breast cancer Social History Social History Alcohol intake: never Advance Directives: Yes Advance Directives on File: Yes Advance Directives Date on File: 07/31/20 Physical Exam Vital Signs: Vital Signs: Last Vital Signs Temp 96.7 F L 02/23/22 08:55 Pulse 99 02/23/22 08:55 Resp 14 02/23/22 08:55 BP 129/85 02/23/22 08:55 Pulse Ox 97 02/23/22 08:55 BMI result Body Mass Index 21.2 Const: General: cooperative, healthy appearing and no acute distress Orientation/consciousness: patient oriented x3 Limitations: no limitations HEENT: Head: Yes normal to inspection and Yes atraumatic Ears: hearing grossly normal bilaterally General nose exam: Normal external nose present Face and sinus: Yes normal facial exam Eyes: General: appearance normal, both eyes and all related structures EOM: EOMs intact bilaterally Neck: Neck: Yes normal visual inspection and Yes no meningeal signs Resp: Effort & Inspection: normal respiratory effort and no respiratory distress Cardio: Rate: regular rate Heart sounds: S1 normal heart sound present and S2 normal heart sound present Peripheral pulses: dorsalis pedis present GI: Inspection: Yes normal to inspection Skin: Rashes: no rashes Wounds: no wounds Neuro: General: patient oriented x3, tone normal and no meningeal signs Gait exam (Neuro): Normal gait present Extrem: Other: Please refer to image above. +right proximal calf with noted swelling, tense but compartments soft, tender to palpation. Mazariegos test negative. Neurovascular intact distally. No ecchymosis/erythema Course Course Course Narrative: US extremity nonvascular IMPRESSION: Abnormal ultrasound suggestive of medial head of the right gastrocnemius muscle tear at the myotendinous junction. Follow-up MRI may be considered for further confirmation, if clinically appropriate. > INR 2.5 on outpatient labs this morning. -Case discussed with Dr. Branch who also evaluated patient in the ED. Concern with swelling/hematoma and muscle tensity for impending compartment syndrome. Plan will be to admit for observation. Orthopedics Dr. Orellana consulted and will evaluate patient in the ED MDM - Extremity Injury (Lower) MDM Narrative Medical decision making narrative: 56-year-old male with a past medical history hyperlipidemia, valve replacement on Coumadin, presenting to the ED complaining of right calf pain and swelling s/p mechanical fall yesterday. On exam vital signs stable, in the ED, physical exam as above. Concern for gastrocnemius muscle tear versus Achilles tendon injury. Low concern for DVT. Low concern for compartment syndrome at this time Plan: US Medical Records Attestation: I reviewed the patient's medical records. Lab Data Attestation: I reviewed the patient's lab results. Discharge Plan Discharge Clinical Impression: Gastrocnemius tear Patient Disposition: Admitted as Observation
--- NOTE | 2022-02-23 14:08 | P.HPHOSP_ITS ---
History of Present Illness Date of Service: 02/23/22 Chief Complaint: right calf pain and swelling 56-year-old male with a past medical history hyperlipidemia, [employer] Mechanical mitral valve since April 2020 on Coumadin, presenting to the ED complaining of right calf pain and swelling s/p mechanical fall yesterday.? States was standing on a metal, his leg gave out and and fell, landing on feet standing upright.? He has since been having difficulty bearing weight and has noted pain and swelling in the right calf. Ultrasound is suggestive of medial head of the right gastrocnemius muscle tear at the myotendinous junction. INR is 2.2. There was no head injury during the fall Review of Systems Review of Systems: Gen: no fever Resp: no sob, no cough CV: no chest, no TODD, no leg edema GI: No n/v, no abd pain Neuro: No confusion MSK: pain in the right calf Yes all other systems are reviewed and are negative [facility] Medical History Elevated cholesterol On anticoagulant therapy Screening for colon cancer Family History Father No problems noted. Mother Hx of breast cancer Surgical History Hx of mitral valve replacement Hx of removal of cyst Social History Alcohol intake: never Advance Directives: Yes Advance Directives on File: Yes Advance Directives Date on File: 07/31/20 Meds Allergies Allergy/AdvReac Type Severity Reaction Status Date / Time No Known Allergies Allergy Unverified 07/11/20 16:18 Home Medications Medication Instructions Recorded Confirmed Last Taken Type atorvastatin 40 mg tablet 40 mg PO BEDTIME 11/06/20 02/03/21 Unknown History warfarin 2 mg tablet 2 mg PO DAILY 11/06/20 02/03/21 Unknown History Physical Exam Vital Signs and Narrative: Vital Signs: Last Vital Signs Temp 96.7 F L 02/23/22 08:55 Pulse 99 02/23/22 08:55 Resp 14 02/23/22 08:55 BP 129/85 02/23/22 08:55 Pulse Ox 97 02/23/22 08:55 BMI result Body Mass Index 21.2 Const: Other: Constitutional: Alert, in no distress, Mental Status: Oriented to person, place and time. Eyes: Pupils are equal, round and reactive to light. Ear, Nose and Throat: Oropharynx clear, mucous membranes moist. Ears and nose without eformities. Trachea midline. Respiratory: Clear to auscultation. No wheezing, rales or rhonchi. Cardiovascular: S1 S2 regular. No murmurs, rubs or gallops. Gastrointestinal: Abdomen soft, non-tender, non-distended. Normal bowel sounds.? Neurologic: Cranial nerves II-XII grossly intact. No focal neurological deficits. Moves all extremities spontaneously.? Skin: No rashes or lesions.? Musculoskeletal: No cyanosis or clubbing, noted tense, swelling and tenderness of the right calf, there is no cynosis, normal distal palses bilaterally Psychiatric: Normal mood and affect? Results Labs CBC and Chem 7: 02/23/22 14:42 02/23/22 14:02 Imaging Radiologist's Impressions: Impressions Extremity Ultrasound 02/23/22 11:17 IMPRESSION: Abnormal ultrasound suggestive of medial head of the right gastrocnemius muscle tear at the myotendinous junction. Follow-up MRI may be considered for further confirmation, if clinically appropriate. Assessment and Plan (1) Gastrocnemius tear: Status: Acute (2) History of mitral valve repair: Status: Acute (3) On anticoagulant therapy: Status: Acute Plan 56 year old male with [employer] Ger[employer] mechanical mitral valve on coumadin here with medial head of the right gastrocnemius muscle tear at the myotendinous junction with associated hematoma.. plan: Given that patient states the injury is stable since yesterday, good pulse and no evidence of compartment syndrome, han observe without reversing INR given that he has a mechanical valve with in mitral position with extremely manjula risk for thombotic event, will consult ortho. Will reserve doing an MRI unless deemed appropriate by ortho. He will likely need just conservative management with crutches, ofloading Ortho boots. Pain control. oxycodone for pain. Quality Stroke Does the patient have a stroke diagnosis?: No VTE Prior VTE?: No VTE Risk Level:: Medical - low VTE Device Contraindication: Treatment Not Tolerated VTE Drug Contraindication: N/A - Med Ordered
[2022-02-23 14:11] LABS: MANUAL DIFF FLAG NO
[2022-02-23 14:24] LABS: COVID-19 Test Negative (Negative)
[2022-02-23 14:33] LABS: Anion Gap 11 (12-20); Blood Urea Nitrogen 14 mg/dL (9-16); Calcium 9.7 mg/dL (8.4-10.2); Carbon Dioxide 27 mmol/L (22-29); Chloride 105 mmol/L (96-108); Creatinine Clr Calc Pharmacy 85.1; Estimated Glomerular Filt Rate > 60; Glucose Random 99 mg/dL (60-115); Potassium 4.5 mmol/L (3.3-5.1); Sodium 138 mmol/L (135-145)
[2022-02-23 14:37] LABS: Basophils Absolute Auto 0.1 X10*3/uL (0.0-0.2); Basophils Percent Auto 0.5 % (0-2); Eosinophils Percent Auto 0.3 % (0-4); Hematocrit 42.6 % (42.0-52.0); Hemoglobin 13.6 g/dl (14.0-18.0); Imm Gran Abs Auto 0.04 X10*3/uL (0.00-0.03); Imm Gran Pct Auto 0.4 % (0.0-0.4); Lymphocytes Absolute Auto 1.9 X10*3/uL (1.2-4.9); Lymphocytes Percent Auto 17.4 % (20-40); Mean Corpuscular HGB Conc 31.9 g/dl (31.0-36.0); Mean Corpuscular Hemoglobin 27.4 pg (27.0-33.0); Mean Corpuscular Volume 85.9 fL (80.0-98.0); Mean Platelet Volume 11.5 fL (9.4-12.4); Monocytes Absolute Auto 0.8 X10*3/uL (0.1-1.2); Monocytes Percent Auto 7.1 % (2-11); Neutrophils Absolute Auto 8.3 x10*3/uL (2.0-8.3); Neutrophils Percent Auto 74.3 % (45-73); Platelet Count 247 X10*3/uL (160-400); Red Blood Count 4.96 X10*6/uL (4.60-5.80); White Blood Count 11.2 X10*3/uL (4.8-10.8)
[2022-02-23 14:49] LABS: Hematocrit 39.9 % (42.0-52.0); Hemoglobin 12.9 g/dl (14.0-18.0); Mean Corpuscular HGB Conc 32.3 g/dl (31.0-36.0); Mean Corpuscular Hemoglobin 27.6 pg (27.0-33.0); Mean Corpuscular Volume 85.3 fL (80.0-98.0); Platelet Count 223 X10*3/uL (160-400); Red Blood Count 4.68 X10*6/uL (4.60-5.80); White Blood Count 9.4 X10*3/uL (4.8-10.8)
[2022-02-23] MEDS: 0.9 % Sodium Chloride Flush 3 ML SYRINGE IVFLUSH (16:12)
[2022-02-23 16:25] VITALS: BP 129/82; PULSE 88; RESP 16; TEMP 36.7; O2SAT 99
--- NOTE | 2022-02-23 18:30 | PHA.MEDREC ---
Pharmacy Consult ? Medication Reconciliation Pharmacy has completed the medication reconciliation. Patient had handwritten list of meds with him. he states he did not take any medications today. He reported taking 7 mg of warfarin on and wed and 8 mg on all other days. spoke with pt via yard goods salesperson.
--- NOTE | 2022-02-23 20:08 | PC.NURSE ---
REPORT CALLED TO RN ON S3.
[2022-02-23 21:06] VITALS: BP 113/67; PULSE 85; RESP 16; TEMP 36.6; O2SAT 98
[2022-02-23 22:35] VITALS: BMI 21.2
[2022-02-23 23:50] VITALS: BP 110/71; PULSE 86; RESP 17; TEMP 36.8; O2SAT 95
[2022-02-24] MEDS: 0.9 % Sodium Chloride Flush 3 ML SYRINGE IVFLUSH ×3 (01:12→17:32)
[2022-02-24] MEDS: oxyCODONE HCl Immed Release 5 MG TABLET PO (01:29)
--- NOTE | 2022-02-24 03:37 | PC.NURSE ---
Addendum entered by Trudy Walker RN 02/24/22 03:42: Dr. Bowman was paged for diet order. Original Note: Assumed care on pt at 1999, alert and oriented, jig boring machine operator for metal was called in alter, noted with swelling and tenderness on the right calf and hard to palpate circumference was measured at 38cm, +PP, special boot was in place and maintained, prn Oxycodone given with effect.
[2022-02-24 03:41] VITALS: BP 117/79; PULSE 85; RESP 17; TEMP 36.3; O2SAT 96
[2022-02-24 06:06] LABS: INTERNATIONAL NORM RATIO 2.7 (0.9-1.1); Prothrombin Time 31.6 SEC (9.9-13.0)
[2022-02-24 07:30] VITALS: BP 110/72; PULSE 83; RESP 18; TEMP 36; O2SAT 100
--- NOTE | 2022-02-24 08:35 | P.PNIM_ITS ---
Subjective Subjective Date of Service: 02/24/22 Interval History: right calf pain and swelling Review of Systems still has calf pain Denies any chest pain shortness breath abdominal pain fever chills Physical Exam Vital Signs: Vital Signs: Last Vital Signs Temp 96.8 F 02/24/22 07:30 Pulse 83 02/24/22 07:30 Resp 18 02/24/22 07:30 BP 110/72 02/24/22 07:30 Pulse Ox 100 02/24/22 07:30 BMI result Body Mass Index 21.2 Appearance: Alert.? Oriented X3.? not in distress.? cvs: rrr, [id number] , no murmur res: clear to auscultation ,no rhonchii or wheezing abd: no rebound or guarding ,nt, bs present. ext pulses present , no cyanosis , right calf pain and swelling. neuro: axo3 , nonfocal. Objective Data Active Medications Acetaminophen (Acetaminophen 325 Mg Tablet) 650 mg PO Q6H PRN PRN Reason: Pain, Mild (Pain Scale 1-3) Amiodarone HCl (Amiodarone Hcl 200 Mg Tablet) 200 mg PO DAILY [facility] Atorvastatin Calcium (Atorvastatin Calcium 40 Mg Tablet) 40 mg PO BEDTIME PEG Docusate Sodium (Docusate Sodium 100 Mg Capsule) 100 mg PO BID PRN PRN Reason: constipation Furosemide (Furosemide 20 Mg Tablet) 20 mg PO DAILY [facility]; Protocol Melatonin (Melatonin 3 Mg Tablet) 6 mg PO BEDTIME PRN PRN Reason: Insomnia Metoprolol Succinate (Metoprolol Succinate Er 50 Mg Tab.Er.24h) 50 mg PO DAILY [facility]; Protocol Oxycodone HCl (Oxycodone Hcl Immed Release 5 Mg Tablet) 5 mg PO Q6H PRN PRN Reason: Pain, Severe (Pain Scale 7-10) Last Admin: 02/24/22 01:29 Dose: 5 mg Documented by: АНДРЕЙ Sacubitril/Valsartan (Sacubitril/Valsartan 1 Tab Tablet) 1 tab PO BID [facility]; Protocol Sodium Chloride (0.9 % Sodium Chloride Flush 3 Ml Syringe) 3 ml IVFLUSH QSHIFT [facility] Last Admin: 02/24/22 01:12 Dose: 3 ml Documented by: АНДРЕЙ Labs CBC & Chem 7: 02/23/22 14:42 02/23/22 14:02 Labs: Laboratory Results - last 24 hr 02/23/22 02/23/22 02/23/22 13:53 14:02 14:02 MCV 85.9 MCH 27.4 MCHC 31.9 RDW 15.0 Plt Count 247 MPV 11.5 Immature Gran % (Auto) 0.4 Neut % (Auto) 74.3 H Lymph % (Auto) 17.4 L [place] % (Auto) 7.1 Eos % (Auto) 0.3 Baso % (Auto) 0.5 Lymph # (Auto) 1.9 [place] # (Auto) 0.8 Eos # (Auto) 0.0 Baso # (Auto) 0.1 Abs Immat Gran (auto) 0.04 H Absolute Neuts (auto) 8.3 Absolute Nucleated RBC 0.000 Nucleated RBC % (auto) 0.0 PT INR Anion Gap 11 L Estim Creat Clear Calc 85.1 Estimated GFR > 60 Random Glucose 99 Calcium 9.7 COVID-19 ([facility]) Negative COVID-19 Clin Com See Note 02/23/22 02/24/22 14:42 05:30 MCV 85.3 MCH 27.6 MCHC 32.3 RDW 15.0 Plt Count 223 MPV 11.0 Immature Gran % (Auto) Neut % (Auto) Lymph % (Auto) [place] % (Auto) Eos % (Auto) Baso % (Auto) Lymph # (Auto) [place] # (Auto) Eos # (Auto) Baso # (Auto) Abs Immat Gran (auto) Absolute Neuts (auto) Absolute Nucleated RBC 0.000 Nucleated RBC % (auto) 0.0 PT 31.6 H INR 2.7 H Anion Gap Estim Creat Clear Calc Estimated GFR Random Glucose Calcium COVID-19 ([facility]) COVID-19 Clin Com Assessment and Plan (1) History of mitral valve repair: Status: Acute (2) Gastrocnemius tear: Status: Acute Plan 56 year old male with [facility] Gerardo mechanical mitral valve on coumadin here with ?medial head of the right gastrocnemius muscle tear at the myotendinous junction with associated hematoma.. 1. right gastrocnemius muscle tear at the myotendinous junction with associated hematoma. moniter closely inr 2.7 ortho eval pending 2. hlp: continue statin 3.hx pf [facility] Gerardo mechanical mitral valve on coumadin: inr 2.7 continue amio,bb,lasix cardio eval pending -for further warfrain use. dvt prophylax: warfarin need for inpatient:right gastrocnemius muscle tear at the myotendinous junction with associated hematoma Quality Stroke Does the patient have a stroke diagnosis?: No VTE Prior VTE?: No VTE Risk Level:: Medical - low VTE Device Contraindication: Treatment Not Tolerated VTE Drug Contraindication: N/A - Med Ordered
[2022-02-24] MEDS: Sacubitril/Valsartan 24/26 1 TAB TABLET PO ×2 (10:34→19:31)
[2022-02-24] MEDS: Metoprolol Succinate ER 50 MG TAB.ER.24H PO (10:34)
[2022-02-24] MEDS: Amiodarone HCL 200 MG TABLET PO (10:35)
[2022-02-24] MEDS: Furosemide 20 MG TABLET PO (10:35)
[2022-02-24 11:20] VITALS: BP 118/79; PULSE 87; RESP 18; TEMP 36.2; O2SAT 100
--- NOTE | 2022-02-24 12:25 | HE.PHANOTE ---
beverly cantrell at Dr Calderon's office, pt on amiodarone
--- NOTE | 2022-02-24 14:33 | MHC.CM.PN ---
JUVENAL 02/24, EMR REVIEWED, PT ADMITTED AFTER A FALL W/RIGHT CALF INJURY, PLAN FOR PT TO SEE ORTHO/CARDIOLOGY AND HOSPITALIST REPORT HE ANTIC PT TO REMAIN AT [facility] 1-2 DAYS. CM MET W/PT VIA ROUTE SPECIALIST, PT REPORTS HE IS INDEPENDENT W/ALL CARE, DENIES USE OF DME AND NO HOME SERVICES, PT DOES HAVE CRUTCHES AND OFFLOADING ORTHO BOOT. PT VERIFIES PCP IS AT [facility] AND CM WET POUR MIXER CONFIRMS PT SEES DWAY[facility], LAST SEEN IN DECEMBER AND NEXT APPT SCHED 03/04 AT 4PM. PT REPORTS HE IS COVID VACC X3 HOWEVER UNSURE IF HE HAD MODERNA OR FIZER, PT PROVIDED W/EDUCATION ON HCP'S AND CURRENTLY DECLINES TO COMPLETE ONE. D/C HOME VS HOME W/SERVICES, PT'S LIZ SQUIRES FOR TRANSPORT.
--- NOTE | 2022-02-24 15:11 | P.CONCA_ITS ---
History of Present Illness History of Present Illness Date of Service: 02/24/22 Requesting physician: Carlie Barreto Chief complaint: mechanical mitral valve, gastrocnemius tear Narrative: 56-year-old gentleman who has background history of mitral valve replacement with mechanical mitral valve and has been on aspirin and Coumadin. He is presenting for fall with injury to right calf and gastrocnemius muscle tear. We have been asked to help manage his Coumadin. It appears he has been seen by Orthopedic and they are thinking about conservatively managing him. He has no other symptoms right now. His leg is in a brace. [facility] Past Medical History Medical History Elevated cholesterol On anticoagulant therapy Screening for colon cancer Family History Family History Father No problems noted. Mother Hx of breast cancer Surgical History Surgical History Hx of mitral valve replacement Hx of removal of cyst Social History Social History Household Members: Spouse and Family Housing: Apartment Do you presently have visiting nurse or other home services: No Alcohol intake: never Patient Tobacco Use Status: Never used Tobacco Use of substances other than those prescribed or required for medical reasons: No Currently Displaying Signs/Symptoms of Drug Intoxication Withdrawal: No Have you been hit, kicked, punched, or otherwise hurt by someone within the past year? If so, by whom?: No Do you feel safe in your current relationship?: No Is there a partner from a previous relationship who is making you feel unsafe now?: No Are you made to feel afraid or neglected: No Advance Directives: Yes Advance Directives Information Provided: No Advance Directives on File: Yes Advance Directives Date on File: 07/31/20 Do you have thoughts of harming others: None Do you have a plan to hurt others: No Plan Recently lost weight without trying: No Eating poorly because of decreased appetite: No Nutrition Risks: No Nutritional Risk Poor oral hygiene: No service: No Current occupational status: employed Meds Allergies Allergy/AdvReac Type Severity Reaction Status Date / Time No Known Allergies Allergy Unverified 07/11/20 16:18 Active Medications: Current Medications Acetaminophen (Acetaminophen 325 Mg Tablet) 650 mg PO Q6H PRN PRN Reason: Pain, Mild (Pain Scale 1-3) Amiodarone HCl (Amiodarone Hcl 200 Mg Tablet) 200 mg PO DAILY [facility] Last Admin: 02/24/22 10:35 Dose: 200 mg Documented by: Atorvastatin Calcium (Atorvastatin Calcium 40 Mg Tablet) 40 mg PO BEDTIME [facility] Docusate Sodium (Docusate Sodium 100 Mg Capsule) 100 mg PO BID PRN PRN Reason: constipation Furosemide (Furosemide 20 Mg Tablet) 20 mg PO DAILY [facility]; Protocol Last Admin: 02/24/22 10:35 Dose: 20 mg Documented by: Melatonin (Melatonin 3 Mg Tablet) 6 mg PO BEDTIME PRN PRN Reason: Insomnia Metoprolol Succinate (Metoprolol Succinate Er 50 Mg Tab.Er.24h) 50 mg PO DAILY [facility]; Protocol Last Admin: 02/24/22 10:34 Dose: 50 mg Documented by: Oxycodone HCl (Oxycodone Hcl Immed Release 5 Mg Tablet) 5 mg PO Q6H PRN PRN Reason: Pain, Severe (Pain Scale 7-10) Last Admin: 02/24/22 01:29 Dose: 5 mg Documented by: Sacubitril/Valsartan (Sacubitril/Valsartan 1 Tab Tablet) 1 tab PO BID [facility]; Protocol Last Admin: 02/24/22 10:34 Dose: 1 tab Documented by: Sodium Chloride (0.9 % Sodium Chloride Flush 3 Ml Syringe) 3 ml IVFSH [facility] Last Admin: 02/24/22 10:35 Dose: 3 ml Documented by: Home Medications Medication Instructions Recorded Confirmed Last Taken Type amiodarone 200 mg tablet 1 tab PO DAILY 02/23/22 02/23/22 02/22/22 History aspirin 81 mg tablet,delayed 81 mg PO DAILY 02/23/22 02/23/22 02/22/22 History release atorvastatin 40 mg tablet 1 tab PO DAILY 02/23/22 02/23/22 02/22/22 History docusate sodium 100 mg capsule 1 cap PO BID PRN 02/23/22 02/23/22 Unknown History furosemide 20 mg tablet 1 tab PO DAILY 02/23/22 02/23/22 02/22/22 History metoprolol succinate 50 mg 1 tab PO DAILY 02/23/22 02/23/22 02/22/22 History tablet,extended release 24 hr sacubitril 24 mg-valsartan 26 mg 1 tab PO BID 02/23/22 02/23/22 02/22/22 History tablet (Entresto) warfarin 2 mg tablet 7 mg PO TUWE@1800 02/23/22 02/23/22 02/18/22 History warfarin 2 mg tablet 8 mg PO SUMOTHFRSA@1800 02/23/22 02/23/22 02/22/22 History Physical Exam Vital Signs: Vital Signs: Last Vital Signs Temp 97.1 F 02/24/22 11:20 Pulse 87 02/24/22 11:20 Resp 18 02/24/22 11:20 BP 118/79 02/24/22 11:20 Pulse Ox 100 02/24/22 11:20 BMI result Body Mass Index 21.2 GENERAL APPEARANCE: in no acute distress, pleasant. NECK: no carotid bruit, no jugular venous distention. SKIN: no suspicious lesions, warm and dry. HEART: no murmurs, regular rate and rhythm. First heart sound is mechanical. LUNGS: clear to auscultation bilaterally. ABDOMEN: soft, nontender. EXTREMITIES: no edema. Right calf is swollen and tender. PERIPHERAL PULSES: equal. NEUROLOGIC: No gross deficits, AAO X 3 Objective Labs and Meds Result diagrams: 02/23/22 14:42 02/23/22 14:02 Lab results: Laboratory Results - last 24 hr 02/24/22 05:30 PT 31.6 H INR 2.7 H Assessment and Plan (1) On anticoagulant therapy: Status: Acute (2) Gastrocnemius tear: Status: Acute (3) History of mitral valve repair: Status: Acute Plan 56-year-old gentleman who is presenting with mechanical injury to his right calf and muscle tear. He has bleeding and swelling in the right calf. No neurological issues or concerns for compartment syndrome. He has a mechanical mitral valve which is high risk for thrombosis when anticoagulation is stopped. I think the treatment for this situation is conservative. I think the Coumadin should not be stopped and he should stay on Coumadin going forward with INR target of 2.5-3.5. I think he can hold aspirin for now till he has improvement in his muscle tear and the hematoma improves. At that stage aspirin can be resumed too. Follow-up with his algorithm developer at [facility]. Signing off. Thank you for allowing me to participate in the care of your patient. Please feel free to contact me if you have any questions. Procedures Date of Service Date of Service: 02/24/22
[2022-02-24 15:38] VITALS: BP 118/86; PULSE 90; RESP 18; TEMP 36.2; O2SAT 100
[2022-02-24] MEDS: Atorvastatin Calcium 40 MG TABLET PO (19:34)
[2022-02-24] MEDS: Warfarin Sodium 4 MG, Warfarin Sodium 3 MG 7 MG PO (19:43)
[2022-02-24 19:47] VITALS: BP 102/75; PULSE 90; RESP 18; TEMP 36.6; O2SAT 100
[2022-02-24 23:33] VITALS: BP 100/70; PULSE 85; RESP 18; TEMP 36.1; O2SAT 100
[2022-02-25] MEDS: 0.9 % Sodium Chloride Flush 3 ML SYRINGE IVFLUSH ×2 (01:03→09:35)
[2022-02-25 03:32] VITALS: BP 93/56; PULSE 101; RESP 17; TEMP 36.4; O2SAT 99
[2022-02-25 06:52] LABS: Hematocrit 46.2 % (42.0-52.0); Hemoglobin 14.4 g/dl (14.0-18.0)
[2022-02-25 07:06] LABS: INTERNATIONAL NORM RATIO 2.7 (0.9-1.1); Prothrombin Time 31.3 SEC (9.9-13.0)
[2022-02-25 07:51] VITALS: BP 109/78; PULSE 96; RESP 18; TEMP 36.3; O2SAT 100
[2022-02-25] MEDS: Metoprolol Succinate ER 50 MG TAB.ER.24H PO (09:34)
[2022-02-25] MEDS: Furosemide 20 MG TABLET PO (09:35)
[2022-02-25] MEDS: Sacubitril/Valsartan 24/26 1 TAB TABLET PO (09:35)
[2022-02-25] MEDS: Amiodarone HCL 200 MG TABLET PO (09:35)
--- NOTE | 2022-02-25 11:48 | PM.CNOR ---
History of Present Illness HPI Consult date: 02/24/22 Chief complaint: mechanical mitral valve, gastrocnemius tear Narrative: 56-year-old male with a past medical history hyperlipidemia, valve replacement on Coumadin, who came to the ED complaining of right calf pain and swelling s/p mechanical fall 1 day ago.? States he was standing on a piece of metal which gave out and he fell, landing on his feet standing upright.? He states since the incident he has been unable to bear weight secondary to calf pain/tightness. He was admitted to the medical service and orthopedics was consulted. ? Review of Systems Review of Systems: negative except for hpi PMFSH Past Medical History Medical History Elevated cholesterol On anticoagulant therapy Screening for colon cancer Family History Family History Father No problems noted. Mother Hx of breast cancer Surgical History Surgical History Hx of mitral valve replacement Hx of removal of cyst Social History Social History Household Members: Spouse and Family Housing: Apartment Do you presently have visiting nurse or other home services: No Alcohol intake: never Patient Tobacco Use Status: Never used Tobacco Advance Directives Date on File: 07/31/20 service: No Current occupational status: employed Meds Allergies Allergy/AdvReac Type Severity Reaction Status Date / Time No Known Allergies Allergy Unverified 03/09/22 09:56 Active Medications: Current Medications Acetaminophen (Acetaminophen 325 Mg Tablet) 650 mg PO Q6H PRN PRN Reason: Pain, Mild (Pain Scale 1-3) Amiodarone HCl (Amiodarone Hcl 200 Mg Tablet) 200 mg PO DAILY [facility] Last Admin: 02/25/22 09:35 Dose: 200 mg Documented by: Atorvastatin Calcium (Atorvastatin Calcium 40 Mg Tablet) 40 mg PO BEDTIME PEG Last Admin: 02/24/22 19:34 Dose: 40 mg Documented by: Docusate Sodium (Docusate Sodium 100 Mg Capsule) 100 mg PO BID PRN PRN Reason: constipation Furosemide (Furosemide 20 Mg Tablet) 20 mg PO DAILY [facility]; Protocol Last Admin: 02/25/22 09:35 Dose: 20 mg Documented by: Melatonin (Melatonin 3 Mg Tablet) 6 mg PO BEDTIME PRN PRN Reason: Insomnia Metoprolol Succinate (Metoprolol Succinate Er 50 Mg Tab.Er.24h) 50 mg PO DAILY [facility]; Protocol Last Admin: 02/25/22 09:34 Dose: 50 mg Documented by: Oxycodone HCl (Oxycodone Hcl Immed Release 5 Mg Tablet) 5 mg PO Q6H PRN PRN Reason: Pain, Severe (Pain Scale 7-10) Last Admin: 02/24/22 01:29 Dose: 5 mg Documented by: Sacubitril/Valsartan (Sacubitril/Valsartan 24/26 1 Tab Tablet) 1 tab PO BID [facility]; Protocol Last Admin: 02/25/22 09:35 Dose: 1 tab Documented by: Sodium Chloride (0.9 % Sodium Chloride Flush 3 Ml Syringe) 3 ml IVFLUSH [facility] Last Admin: 02/25/22 09:35 Dose: 3 ml Documented by: Warfarin Sodium (Warfarin Sodium 4 Mg Tablet) 8 mg PO SUMOTHFRSA@1800 [facility] Warfarin Sodium 4 mg/ Warfarin (Sodium 3 mg) 7 mg PO TuWe@1800 [facility] Last Admin: 02/24/22 19:43 Dose: 7 mg Documented by: Home Medications Medication Instructions Recorded Confirmed Last Taken Type amiodarone 200 mg tablet 1 tab PO DAILY 02/23/22 02/23/22 02/22/22 History aspirin 81 mg tablet,delayed 81 mg PO DAILY 02/23/22 02/23/22 02/22/22 History release atorvastatin 40 mg tablet 1 tab PO DAILY 02/23/22 02/23/22 02/22/22 History docusate sodium 100 mg capsule 1 cap PO BID PRN 02/23/22 02/23/22 Unknown History furosemide 20 mg tablet 1 tab PO DAILY 02/23/22 02/23/22 02/22/22 History metoprolol succinate 50 mg 1 tab PO DAILY 02/23/22 02/23/22 02/22/22 History tablet,extended release 24 hr sacubitril 24 mg-valsartan 26 mg 1 tab PO BID 02/23/22 02/23/22 02/22/22 History tablet (Entresto) warfarin 2 mg tablet 7 mg PO TUWE@1800 02/23/22 02/23/22 02/18/22 History warfarin 2 mg tablet 8 mg PO SUMOTHFRSA@1800 02/23/22 02/23/22 02/22/22 History Physical Exam Vital Signs: Vital Signs: Last Vital Signs Temp 97.4 F 02/25/22 07:51 Pulse 96 02/25/22 07:51 Resp 18 02/25/22 07:51 BP 109/78 02/25/22 07:51 Pulse Ox 100 02/25/22 07:51 BMI result Body Mass Index 21.2 Const: General: cooperative, healthy appearing, comfortable and no acute distress Extrem: Other: Right calf intact, no muscle deformity, there is pain along the belly of the calf muscle with bruising. He is anle to plantar and dorsi flex. NVI. Results Labs Result Diagrams: 02/25/22 06:00 02/23/22 14:02 Labs: Abnormal lab results 02/25/22 Range/Units 06:00 PT 31.3 H (9.9-13.0) SEC INR 2.7 H (0.9-1.1) H & H 02/23/22 02/23/22 02/25/22 Range/Units 14:02 14:42 06:00 Hgb 13.6 L 12.9 L 14.4 (14.0-18.0) g/dl Hct 42.6 39.9 L 46.2 (42.0-52.0) % Coagulation 02/24/22 02/25/22 Range/Units 05:30 06:00 INR 2.7 H 2.7 H (0.9-1.1) All other labs normal. Assessment and Plan (1) Gastrocnemius tear: Status: Acute Plan Gastroc tear right calf, He can wbat and work on ankle pumps and elevation. No surgical intervention warranted. Can follow up out patient as needed. Procedures Date of Service Date of Service: 02/24/22
[2022-02-25 12:00] VITALS: BP 96/67; PULSE 79; RESP 18; TEMP 36.2; O2SAT 100
--- NOTE | 2022-02-25 13:26 | PM.DS ---
DS: Providers Provider Date of Service: 02/25/22 Date of admission: 02/23/22 15:54 Primary care physician: [facility] Consults: 02/23/22 15:54 Consult to Orthopedics Routine Consulting Provider: Bryan Orellana Reason for consultation: uggestive of medial head of the right gastrocnemius muscle tear 02/24/22 08:27 Consult to Cardiology Routine Consulting Provider: [facility] Reason for consultation: fall/right gasterocenmius muscle tear/hematoma/mech valve/AC Has provider been notified: No DS: Diagnosis Discharge Diagnosis (1) Gastrocnemius tear: Status: Acute DS: Summary Hospital Course Hospital Course: 56-year-old male with a past medical history hyperlipidemia, [facility] Gerardo Mechanical mitral valve? since April 2020 on Coumadin, presenting to the ED complaining of right calf pain and swelling s/p mechanical fall yesterday.? States was standing on a metal, his leg gave out and and fell, landing on feet standing upright.? He has since been having difficulty bearing weight and has noted pain and swelling in the right calf. Ultrasound is suggestive??of medial head of the right gastrocnemius muscle tear at the myotendinous junction.?INR is 2.2. There was no head injury during the fall. Hospital course: Patient came with gastrocnemius tear right calf and hematoma: Admitted for monitoring and surgical evaluation-seen by surgery recommended conservative management-with wbat and work on ankle pump and elevation. No surgical intervention and outpatient follow-up with Ortho. Patient was seen by cardiology due to mechanical mitral wall on Coumadin and aspirin-patient INR is therapeutic in 2.7 range, cardio recommended to hold off aspirin for a week until sees PCP and reassess his right calf, continue warfarin and monitor INR and cbc outpatientin 1week. Further management outpatient as per PCP. Above management discussed with the patient in detail length he understand and in agreement with the above plan, time spent 50 minutes and 50% time spent on counseling. Significant findings: As above. Procedures performed: None. Treatment and response: As above. Complications: None. Time Spent with Patient Time attestation: Total time spent providing and/or coordinating discharge services: Discharge coordination time: Greater than 30 minutes Quality: Safe Use of Opioids Does Pt have an Active Cancer Diagnosis on the Problem List?: No Quality: Stroke Does the patient have a stroke diagnosis?: No Physical Exam Vital Signs: Vital Signs: Last Vital Signs Temp 97.2 F 02/25/22 12:00 Pulse 79 02/25/22 12:00 Resp 18 02/25/22 12:00 BP 96/67 02/25/22 12:00 Pulse Ox 100 02/25/22 12:00 BMI result Body Mass Index 21.2 Appearance: Alert.? Oriented X3.? not in distress.? cvs: rrr, [id number] , no murmur res: clear to auscultation ,no rhonchii or wheezing abd: no rebound or guarding ,nt, bs present. ext pulses present , no cyanosis , right calf pain and swelling seems improved significantly. able to move right knee much better today. neuro: axo3 , nonfocal. DS: Data Data Completed and Pending Labs on day of discharge: Laboratory Results - last 24 hr 02/25/22 02/25/22 06:00 06:00 Hgb 14.4 Hct 46.2 PT 31.3 H INR 2.7 H US/US extremity nonvascular IMPRESSION: Abnormal ultrasound suggestive of medial head of the right gastrocnemius muscle tear at the myotendinous junction. Follow-up MRI may be considered for further confirmation, if clinically appropriate. Additional Comments Additional comments: ? 02/23/22 02/23/22 02/23/22 ? 13:53 14:02 14:02 MCV ? ?85.9 ? MCH ? ?27.4 ? MCHC ? ?31.9 ? RDW ? ?15.0 ? Plt Count ? ?247 ? MPV ? ?11.5 ? Immature Gran % (Auto) ? ?0.4 ? Neut % (Auto) ? ?74.3 H ? Lymph % (Auto) ? ?17.4 L ? [place] % (Auto) ? ?7.1 ? Eos % (Auto) ? ?0.3 ? Baso % (Auto) ? ?0.5 ? Lymph # (Auto) ? ?1.9 ? [place] # (Auto) ? ?0.8 ? Eos # (Auto) ? ?0.0 ? Baso # (Auto) ? ?0.1 ? Abs Immat Gran (auto) ? ?0.04 H ? Absolute Neuts (auto) ? ?8.3 ? Absolute Nucleated RBC ? ?0.000 ? Nucleated RBC % (auto) ? ?0.0 ? PT ? ? ? INR ? ? ? Anion Gap ? ? ?11 L Estim Creat Clear Calc ? ? ?85.1 Estimated GFR ? ? ?> 60 Random Glucose ? ? ?99 Calcium ? ? ?9.7 COVID-19 ([facility]) ?Negative ? ? COVID-19 Clin Com ?See Note ? ? ? 02/23/22 02/24/22 ? 14:42 05:30 MCV ?85.3 ? MCH ?27.6 ? MCHC ?32.3 ? RDW ?15.0 ? Plt Count ?223 ? MPV ?11.0 Discharge Plan Discharge Patient Disposition: Home, Self-Care Discharge Diagnosis: Gastroc tear right calf. Referrals: Bryan Orellana MD [Physician] - 1 Week (follow up outpatiently ) Eliza Carmona FNP [Nurse Practitioner] - 03/04/22 4:00 pm () Discharge Medications: New acetaminophen [Athenol] 325 mg tablet 650 mg PO Q6H PRN (Reason: pain) Qty: 10 0RF Continued atorvastatin 40 mg tablet 1 tab PO DAILY 0RF amiodarone 200 mg tablet 1 tab PO DAILY 0RF metoprolol succinate 50 mg tablet extended release 24 hr 1 tab PO DAILY 0RF warfarin 2 mg tablet 8 mg PO SUMOTHFRSA@1800 0RF warfarin 2 mg tablet 7 mg PO TUWE@1800 0RF docusate sodium 100 mg capsule 1 cap PO BID PRN (Reason: constipation) 0RF furosemide 20 mg tablet 1 tab PO DAILY 0RF Entresto 24-26 mg tablet 1 tab PO BID 0RF Held aspirin 81 mg Tablet,Delayed Release (Dr/Ec) 81 mg PO DAILY 0RF Hold Instructions: Resume on 03/03/22. start in 1week after sees pcp. Discharge Orders: Discharge Order (Routine); Ordered 02/25/22 Ordered By: Carlie Barreto Diet: advance to usual diet Activity on Discharge: As tolerated Stand Alone Forms: Patient Portal Discharge page Care Plan Goals: Patient came with gastrocnemius tear right calf and hematoma: Admitted for monitoring and surgical evaluation-seen by surgery recommended conservative management-with wbat and work on ankle pump and elevation. No surgical intervention and outpatient follow-up with Ortho. Patient was seen by cardiology due to mechanical mitral wall on Coumadin and aspirin-patient INR is therapeutic in 2.7 range, cardio recommended to hold off aspirin for a week until sees PCP and reassess his right calf, continue warfarin and monitor INR and cbc outpatientin 1week. Further management outpatient as per PCP. Health Concerns: As above. Plan of Treatment: As above. Assessment: As above. Discharge Date/Time: 02/25/22 15:48
--- NOTE | 2022-02-25 13:27 | MHC.CM.PN ---
PATIENT IS DISCHARGED HOME - SELF CARE RN AWARE OF PLAN.
== END 2022-02-25 15:48 | disposition home or self-care (01) ==
LOC: HO.ED 13:45 → HO.EDOVER 16:09 → HO.S3 19:20
PROVIDERS: Physician Assistant; Admitting Provider Internal Medicine; Emergency Provider Emergency Medicine; PCP Registered Nurse; Visit Provider Internal Medicine
DX: S86.111A Strain of other muscle(s) and tendon(s) of posterior muscle group at lower leg level, right leg, initial encounter (principal); W18.30XA Fall on same level, unspecified, initial encounter; Y93.9 Activity, unspecified; Y92.9 Unspecified place or not applicable; Y99.8 Other external cause status; E78.5 Hyperlipidemia, unspecified; E78.00 Pure hypercholesterolemia, unspecified; Z20.822 Contact with and (suspected) exposure to COVID-19; Z95.2 Presence of prosthetic heart valve; Z98.890 Other specified postprocedural states; Z79.01 Long term (current) use of anticoagulants; Z79.899 Other long term (current) drug therapy
CPT/HCPCS: 36415; 76882; 80048; 85014; 85018; 85025; 85027; 85610; 87635; 99218; 99285

== ENCOUNTER 2022-03-06 07:48 | Outpatient (REF) | payer MEDICAID, SELFPAY ==
[2022-03-06 08:45] LABS: INTERNATIONAL NORM RATIO 3.3 (0.9-1.1); Prothrombin Time 38.5 SEC (9.9-13.0)
== END 2022-03-06 07:49 | disposition home or self-care (01) ==
LOC: HO.LABR 07:48
PROVIDERS: PCP Registered Nurse; Visit Provider Pharmacist
DX: Z95.2 Presence of prosthetic heart valve (principal); Z79.01 Long term (current) use of anticoagulants
CPT/HCPCS: 36415; 85610

== ENCOUNTER → 2022-03-09 09:43 | Outpatient (BNVA) | payer MEDICAID, SELFPAY | PROVIDERS: PCP Registered Nurse; Visit Provider Physician Assistant | DX: S86.111A Strain of other muscle(s) and tendon(s) of posterior muscle group at lower leg level, right leg, initial encounter (principal) | CPT/HCPCS: 99212 ==

== ENCOUNTER 2022-03-10 07:31 | Outpatient (REF) | payer MEDICAID, SELFPAY ==
[2022-03-10 08:24] LABS: INTERNATIONAL NORM RATIO 3.2 (0.9-1.1); Prothrombin Time 37.8 SEC (9.9-13.0)
== END 2022-03-10 07:32 | disposition home or self-care (01) ==
LOC: HO.LABR 07:31
PROVIDERS: PCP Registered Nurse; Visit Provider Pharmacist
DX: Z95.2 Presence of prosthetic heart valve (principal)
CPT/HCPCS: 36415; 85610

== ENCOUNTER 2022-03-17 06:59 | Outpatient (REF) | payer MEDICAID, SELFPAY ==
[2022-03-17 07:32] LABS: INTERNATIONAL NORM RATIO 3.3 (0.9-1.1)
== END 2022-03-17 07:00 | disposition home or self-care (01) ==
LOC: HO.LABR 06:59
PROVIDERS: PCP Registered Nurse; Visit Provider Pharmacist
DX: Z95.2 Presence of prosthetic heart valve (principal)
CPT/HCPCS: 36415; 85610

== ENCOUNTER 2022-03-25 06:38 | Outpatient (REF) | payer MEDICAID, SELFPAY ==
[2022-03-25 07:22] LABS: Prothrombin Time 34.5 SEC (9.9-13.0)
== END 2022-03-25 06:39 | disposition home or self-care (01) ==
LOC: HO.LABR 06:38
PROVIDERS: PCP Registered Nurse; Visit Provider Pharmacist
DX: Z95.2 Presence of prosthetic heart valve (principal)
CPT/HCPCS: 36415; 85610

== ENCOUNTER → 2022-04-06 09:37 | Outpatient (BNVA) | payer MEDICAID, SELFPAY | PROVIDERS: PCP Registered Nurse; Visit Provider Physician Assistant | DX: S86.111D Strain of other muscle(s) and tendon(s) of posterior muscle group at lower leg level, right leg, subsequent encounter (principal) | CPT/HCPCS: 99212 ==

== ENCOUNTER 2022-04-08 06:42 | Outpatient (REF) | payer MEDICAID, SELFPAY ==
[2022-04-08 07:18] LABS: INTERNATIONAL NORM RATIO 3.6 (0.9-1.1); Prothrombin Time 42.3 SEC (9.9-13.0)
== END 2022-04-08 06:43 | disposition home or self-care (01) ==
LOC: HO.LABR 06:42
PROVIDERS: PCP Registered Nurse; Visit Provider Pharmacist
DX: Z95.2 Presence of prosthetic heart valve (principal)
CPT/HCPCS: 36415; 85610

== ENCOUNTER 2022-04-22 06:21 | Outpatient (REF) | payer MEDICAID, SELFPAY ==
[2022-04-22 08:23] LABS: INTERNATIONAL NORM RATIO 4.8 (0.9-1.1)
== END 2022-04-22 06:22 | disposition home or self-care (01) ==
LOC: HO.LABR 06:21
PROVIDERS: PCP Registered Nurse; Visit Provider Pharmacist
DX: Z95.2 Presence of prosthetic heart valve (principal)
CPT/HCPCS: 36415; 85610

== ENCOUNTER 2022-04-24 07:25 | Outpatient (REF) | payer MEDICAID, SELFPAY ==
[2022-04-24 08:17] LABS: INTERNATIONAL NORM RATIO 2.1 (0.9-1.1); Prothrombin Time 24.3 SEC (10.0-13.1)
== END 2022-04-24 07:26 | disposition home or self-care (01) ==
LOC: HO.LABR 07:25
PROVIDERS: PCP Registered Nurse; Visit Provider Pharmacist
DX: Z95.2 Presence of prosthetic heart valve (principal)
CPT/HCPCS: 36415; 85610

== ENCOUNTER 2022-04-30 06:50 | Outpatient (REF) | payer MEDICAID, SELFPAY ==
[2022-04-30 07:40] LABS: INTERNATIONAL NORM RATIO 4.3 (0.9-1.1); Prothrombin Time 52.2 SEC (10.0-13.1)
== END 2022-04-30 06:51 | disposition home or self-care (01) ==
LOC: HO.LABR 06:50
PROVIDERS: PCP Registered Nurse; Visit Provider Pharmacist
DX: Z95.2 Presence of prosthetic heart valve (principal); Z79.01 Long term (current) use of anticoagulants
CPT/HCPCS: 36415; 85610

== ENCOUNTER 2022-05-04 06:29 | Outpatient (REF) | payer MEDICAID, SELFPAY ==
[2022-05-04 08:17] LABS: INTERNATIONAL NORM RATIO 3.8 (0.9-1.1)
== END 2022-05-04 06:30 | disposition home or self-care (01) ==
LOC: HO.LABR 06:29
PROVIDERS: PCP Registered Nurse; Visit Provider Pharmacist
DX: Z95.2 Presence of prosthetic heart valve (principal)
CPT/HCPCS: 36415; 85610

== ENCOUNTER 2022-05-11 06:16 | Outpatient (REF) | payer MEDICAID, SELFPAY ==
[2022-05-11 07:30] LABS: INTERNATIONAL NORM RATIO 4.8 (0.9-1.1); Prothrombin Time 59.2 SEC (10.0-13.1)
== END 2022-05-11 06:17 | disposition home or self-care (01) ==
LOC: HO.LABR 06:16
PROVIDERS: PCP Registered Nurse; Visit Provider Pharmacist
DX: Z95.2 Presence of prosthetic heart valve (principal)
CPT/HCPCS: 36415; 85610

== ENCOUNTER 2022-05-14 06:35 | Outpatient (REF) | payer MEDICAID, SELFPAY ==
[2022-05-14 07:38] LABS: INTERNATIONAL NORM RATIO 4.4 (0.9-1.1); Prothrombin Time 54.1 SEC (10.0-13.1)
== END 2022-05-14 06:36 | disposition home or self-care (01) ==
LOC: HO.LABR 06:35
PROVIDERS: PCP Registered Nurse; Visit Provider Pharmacist
DX: Z95.2 Presence of prosthetic heart valve (principal)
CPT/HCPCS: 36415; 85610

== ENCOUNTER 2022-05-19 06:46 | Outpatient (REF) | payer MEDICAID, SELFPAY ==
[2022-05-19 07:36] LABS: INTERNATIONAL NORM RATIO 4.2 (0.9-1.1); Prothrombin Time 51.4 SEC (10.0-13.1)
== END 2022-05-19 06:47 | disposition home or self-care (01) ==
LOC: HO.LABR 06:46
PROVIDERS: PCP Registered Nurse; Visit Provider Pharmacist
DX: Z95.2 Presence of prosthetic heart valve (principal)
CPT/HCPCS: 36415; 85610

== ENCOUNTER 2022-05-25 06:46 | Outpatient (REF) | payer MEDICAID, SELFPAY ==
[2022-05-25 07:35] LABS: INTERNATIONAL NORM RATIO 3.6 (0.9-1.1); Prothrombin Time 44.1 SEC (10.0-13.1)
== END 2022-05-25 06:47 | disposition home or self-care (01) ==
LOC: HO.LAB 06:46
PROVIDERS: Visit Provider Pharmacist
DX: Z95.2 Presence of prosthetic heart valve (principal)
CPT/HCPCS: 36415; 85610

== ENCOUNTER 2022-06-01 06:50 | Outpatient (REF) | payer MEDICAID, SELFPAY ==
[2022-06-01 07:36] LABS: Prothrombin Time 84.6 SEC (10.0-13.1)
[2022-06-01 09:37] LABS: INTERNATIONAL NORM RATIO 6.8 (0.9-1.1)
== END 2022-06-01 06:51 | disposition home or self-care (01) ==
LOC: HO.LABR 06:50
PROVIDERS: PCP Registered Nurse; Visit Provider Pharmacist
DX: Z95.2 Presence of prosthetic heart valve (principal)
CPT/HCPCS: 36415; 85610

== ENCOUNTER 2022-06-03 06:55 | Outpatient (REF) | payer MEDICAID, SELFPAY ==
[2022-06-03 07:43] LABS: INTERNATIONAL NORM RATIO 3.4 (0.9-1.1); Prothrombin Time 40.9 SEC (10.0-13.1)
== END 2022-06-03 06:56 | disposition home or self-care (01) ==
LOC: HO.LAB 06:55
PROVIDERS: PCP Registered Nurse; Visit Provider Pharmacist
DX: Z95.2 Presence of prosthetic heart valve (principal)
CPT/HCPCS: 36415; 85610

== ENCOUNTER 2022-06-08 06:41 | Outpatient (REF) | payer MEDICAID, SELFPAY ==
[2022-06-08 08:01] LABS: INTERNATIONAL NORM RATIO 3.5 (0.9-1.1); Prothrombin Time 41.8 SEC (10.0-13.1)
== END 2022-06-08 06:42 | disposition home or self-care (01) ==
LOC: HO.LABR 06:41
PROVIDERS: PCP Registered Nurse; Visit Provider Pharmacist
DX: Z95.2 Presence of prosthetic heart valve (principal)
CPT/HCPCS: 36415; 85610

== ENCOUNTER 2022-06-12 07:19 | Outpatient (REF) | payer MEDICAID, SELFPAY ==
[2022-06-12 07:56] LABS: INTERNATIONAL NORM RATIO 4.1 (0.9-1.1); Prothrombin Time 50.5 SEC (10.0-13.1)
== END 2022-06-12 07:20 | disposition home or self-care (01) ==
LOC: HO.LABR 07:19
PROVIDERS: PCP Registered Nurse; Visit Provider Pharmacist
DX: Z95.2 Presence of prosthetic heart valve (principal)
CPT/HCPCS: 36415; 85610

== ENCOUNTER 2022-06-18 06:49 | Outpatient (REF) | payer MEDICAID, SELFPAY ==
[2022-06-18 07:45] LABS: INTERNATIONAL NORM RATIO 3.8 (0.9-1.1); Prothrombin Time 46.4 SEC (10.0-13.1)
== END 2022-06-18 06:50 | disposition home or self-care (01) ==
LOC: HO.LABR 06:49
PROVIDERS: PCP Registered Nurse; Visit Provider Pharmacist
DX: Z95.2 Presence of prosthetic heart valve (principal)
CPT/HCPCS: 36415; 85610

== ENCOUNTER 2022-06-23 06:56 | Outpatient (REF) | payer MEDICAID, SELFPAY ==
[2022-06-23 07:55] LABS: INTERNATIONAL NORM RATIO 4.7 (0.9-1.1); Prothrombin Time 58.1 SEC (10.0-13.1)
== END 2022-06-23 06:57 | disposition home or self-care (01) ==
LOC: HO.LABR 06:56
PROVIDERS: PCP Registered Nurse; Visit Provider Pharmacist
DX: Z95.2 Presence of prosthetic heart valve (principal)
CPT/HCPCS: 36415; 85610

== ENCOUNTER 2022-06-26 13:17 | Outpatient (REF) | payer MEDICAID, SELFPAY ==
[2022-06-26 14:05] LABS: INTERNATIONAL NORM RATIO 2.6 (0.9-1.1); Prothrombin Time 31.6 SEC (10.0-13.1)
== END 2022-06-26 13:18 | disposition home or self-care (01) ==
LOC: HO.LABR 13:17
PROVIDERS: PCP Registered Nurse; Visit Provider Pharmacist
DX: Z95.2 Presence of prosthetic heart valve (principal)
CPT/HCPCS: 36415; 85610

== ENCOUNTER 2022-07-03 06:38 | Outpatient (REF) | payer MEDICAID, SELFPAY ==
[2022-07-03 07:27] LABS: INTERNATIONAL NORM RATIO 2.8 (0.9-1.1); Prothrombin Time 34.1 SEC (10.0-13.1)
== END 2022-07-03 06:39 | disposition home or self-care (01) ==
LOC: HO.LABR 06:38
PROVIDERS: PCP Registered Nurse; Visit Provider Pharmacist
DX: Z95.2 Presence of prosthetic heart valve (principal)
CPT/HCPCS: 36415; 85610

== ENCOUNTER 2022-07-10 06:51 | Outpatient (REF) | payer MEDICAID, SELFPAY ==
[2022-07-10 07:38] LABS: Prothrombin Time 35.6 SEC (10.0-13.1)
== END 2022-07-10 06:52 | disposition home or self-care (01) ==
LOC: HO.LABR 06:51
PROVIDERS: PCP Registered Nurse; Visit Provider Pharmacist
DX: Z95.2 Presence of prosthetic heart valve (principal)
CPT/HCPCS: 36415; 85610

== ENCOUNTER 2022-07-16 06:29 | Outpatient (REF) | payer MEDICAID, SELFPAY ==
[2022-07-16 07:52] LABS: INTERNATIONAL NORM RATIO 4.2 (0.9-1.1); Prothrombin Time 51.6 SEC (10.0-13.1)
== END 2022-07-16 06:30 | disposition home or self-care (01) ==
LOC: HO.LABR 06:29
PROVIDERS: PCP Registered Nurse; Visit Provider Pharmacist
DX: Z95.2 Presence of prosthetic heart valve (principal)
CPT/HCPCS: 36415; 85610

== ENCOUNTER 2022-07-23 06:44 | Outpatient (REF) | payer MEDICAID, SELFPAY ==
[2022-07-23 08:15] LABS: INTERNATIONAL NORM RATIO 3.5 (0.9-1.1); Prothrombin Time 41.9 SEC (10.0-13.1)
== END 2022-07-23 06:45 | disposition home or self-care (01) ==
LOC: HO.LABR 06:44
PROVIDERS: PCP Registered Nurse; Visit Provider Pharmacist
DX: Z95.2 Presence of prosthetic heart valve (principal)
CPT/HCPCS: 36415; 85610

== ENCOUNTER 2022-07-30 06:34 | Outpatient (REF) | payer MEDICAID, SELFPAY ==
[2022-07-30 07:37] LABS: Prothrombin Time 24.2 SEC (10.0-13.1)
== END 2022-07-30 06:35 | disposition home or self-care (01) ==
LOC: HO.LABR 06:34
PROVIDERS: PCP Registered Nurse; Visit Provider Pharmacist
DX: Z95.2 Presence of prosthetic heart valve (principal)
CPT/HCPCS: 36415; 85610

== ENCOUNTER 2022-08-06 06:35 | Outpatient (REF) | payer MEDICAID, SELFPAY ==
[2022-08-06 07:26] LABS: INTERNATIONAL NORM RATIO 2.8 (0.9-1.1); Prothrombin Time 33.1 SEC (10.0-13.1)
== END 2022-08-06 06:36 | disposition home or self-care (01) ==
LOC: HO.LABR 06:35
PROVIDERS: PCP Registered Nurse; Visit Provider Pharmacist
DX: Z95.2 Presence of prosthetic heart valve (principal)
CPT/HCPCS: 36415; 85610

== ENCOUNTER 2022-08-13 06:28 | Outpatient (REF) | payer MEDICAID, SELFPAY ==
[2022-08-13 07:37] LABS: INTERNATIONAL NORM RATIO 2.8 (0.9-1.1); Prothrombin Time 33.9 SEC (10.0-13.1)
== END 2022-08-13 06:29 | disposition home or self-care (01) ==
LOC: HO.LABR 06:28
PROVIDERS: PCP Registered Nurse; Visit Provider Pharmacist
DX: Z95.2 Presence of prosthetic heart valve (principal)
CPT/HCPCS: 36415; 85610

== ENCOUNTER 2022-08-20 06:39 | Outpatient (REF) | payer MEDICAID, SELFPAY ==
[2022-08-20 07:34] LABS: INTERNATIONAL NORM RATIO 2.1 (0.9-1.1); Prothrombin Time 25.1 SEC (10.0-13.1)
== END 2022-08-20 06:40 | disposition home or self-care (01) ==
LOC: HO.LABR 06:39
PROVIDERS: PCP Registered Nurse; Visit Provider Pharmacist
DX: Z95.2 Presence of prosthetic heart valve (principal)
CPT/HCPCS: 36415; 85610

== ENCOUNTER 2022-08-27 07:07 | Outpatient (REF) | payer MEDICAID, SELFPAY ==
[2022-08-27 07:31] LABS: INTERNATIONAL NORM RATIO 3.4 (0.9-1.1); Prothrombin Time 41.6 SEC (10.0-13.1)
== END 2022-08-27 07:08 | disposition home or self-care (01) ==
LOC: HO.LABR 07:07
PROVIDERS: PCP Registered Nurse; Visit Provider Pharmacist
DX: Z95.2 Presence of prosthetic heart valve (principal)
CPT/HCPCS: 36415; 85610

== ENCOUNTER 2022-09-03 06:41 | Outpatient (REF) | payer MEDICAID, SELFPAY ==
[2022-09-03 07:47] LABS: INTERNATIONAL NORM RATIO 4.2 (0.9-1.1); Prothrombin Time 51.6 SEC (10.0-13.1)
== END 2022-09-03 06:42 | disposition home or self-care (01) ==
LOC: HO.LABR 06:41
PROVIDERS: PCP Registered Nurse; Visit Provider Pharmacist
DX: Z95.2 Presence of prosthetic heart valve (principal)
CPT/HCPCS: 36415; 85610

== ENCOUNTER 2022-09-10 06:59 | Outpatient (REF) | payer MEDICAID, SELFPAY ==
[2022-09-10 07:32] LABS: INTERNATIONAL NORM RATIO 2.9 (0.9-1.1); Prothrombin Time 35.4 SEC (10.0-13.1)
== END 2022-09-10 07:00 | disposition home or self-care (01) ==
LOC: HO.LABR 06:59
PROVIDERS: PCP Registered Nurse; Visit Provider Pharmacist
DX: Z95.2 Presence of prosthetic heart valve (principal)
CPT/HCPCS: 36415; 85610

== ENCOUNTER 2022-09-16 06:51 | Outpatient (REF) | payer MEDICAID, SELFPAY ==
[2022-09-16 07:33] LABS: INTERNATIONAL NORM RATIO 2.4 (0.9-1.1); Prothrombin Time 28.6 SEC (10.0-13.1)
== END 2022-09-16 06:52 | disposition home or self-care (01) ==
LOC: HO.LABR 06:51
PROVIDERS: PCP Registered Nurse; Visit Provider Pharmacist
DX: Z95.2 Presence of prosthetic heart valve (principal)
CPT/HCPCS: 36415; 85610

== ENCOUNTER 2022-09-24 06:50 | Outpatient (REF) | payer MEDICAID, SELFPAY ==
[2022-09-24 07:45] LABS: INTERNATIONAL NORM RATIO 2.9 (0.9-1.1); Prothrombin Time 34.2 SEC (10.0-13.1)
== END 2022-09-24 06:51 | disposition home or self-care (01) ==
LOC: HO.LABR 06:50
PROVIDERS: PCP Registered Nurse; Visit Provider Pharmacist
DX: Z95.2 Presence of prosthetic heart valve (principal)
CPT/HCPCS: 36415; 85610

== ENCOUNTER 2022-10-05 07:27 | Outpatient (REF) | payer MEDICAID, SELFPAY ==
[2022-10-05 08:41] LABS: INTERNATIONAL NORM RATIO 2.7 (0.9-1.1); Prothrombin Time 32.1 SEC (10.0-13.1)
== END 2022-10-05 07:28 | disposition home or self-care (01) ==
LOC: HO.LABR 07:27
PROVIDERS: Visit Provider Pharmacist
DX: Z95.2 Presence of prosthetic heart valve (principal)
CPT/HCPCS: 36415; 85610

== ENCOUNTER 2022-10-12 06:34 | Outpatient (REF) | payer MEDICAID, SELFPAY ==
[2022-10-12 08:00] LABS: INTERNATIONAL NORM RATIO 2.7 (0.9-1.1); Prothrombin Time 32.5 SEC (10.0-13.1)
== END 2022-10-12 06:35 | disposition home or self-care (01) ==
LOC: HO.LABR 06:34
PROVIDERS: PCP Registered Nurse; Visit Provider Pharmacist
DX: Z95.2 Presence of prosthetic heart valve (principal)
CPT/HCPCS: 36415; 85610

== ENCOUNTER 2022-10-27 06:40 | Outpatient (REF) | payer MEDICAID, SELFPAY ==
[2022-10-27 07:52] LABS: INTERNATIONAL NORM RATIO 2.2 (0.9-1.1); Prothrombin Time 25.9 SEC (10.0-13.1)
== END 2022-10-27 06:41 | disposition home or self-care (01) ==
LOC: HO.LABR 06:40
PROVIDERS: PCP Registered Nurse; Visit Provider Pharmacist
DX: Z95.2 Presence of prosthetic heart valve (principal)
CPT/HCPCS: 36415; 85610

== ENCOUNTER 2022-11-10 06:57 | Outpatient (REF) | payer MEDICAID, SELFPAY ==
[2022-11-10 07:50] LABS: INTERNATIONAL NORM RATIO 1.9 (0.9-1.1)
== END 2022-11-10 06:58 | disposition home or self-care (01) ==
LOC: HO.LABR 06:57
PROVIDERS: PCP Registered Nurse; Visit Provider Pharmacist
DX: Z95.2 Presence of prosthetic heart valve (principal)
CPT/HCPCS: 36415; 85610

== ENCOUNTER 2022-11-17 08:03 | Outpatient (REF) | payer MEDICAID, SELFPAY ==
[2022-11-17 08:38] LABS: INTERNATIONAL NORM RATIO 1.7 (0.9-1.1); Prothrombin Time 19.9 SEC (10.0-13.1)
== END 2022-11-17 08:04 | disposition home or self-care (01) ==
LOC: HO.LABR 08:03
PROVIDERS: PCP Registered Nurse; Visit Provider Pharmacist
DX: Z95.2 Presence of prosthetic heart valve (principal)
CPT/HCPCS: 36415; 85610

== ENCOUNTER 2022-11-19 06:21 | Outpatient (REF) | payer MEDICAID, SELFPAY ==
[2022-11-19 07:32] LABS: INTERNATIONAL NORM RATIO 2.2 (0.9-1.1); Prothrombin Time 26.2 SEC (10.0-13.1)
== END 2022-11-19 06:22 | disposition home or self-care (01) ==
LOC: HO.LABR 06:21
PROVIDERS: PCP Registered Nurse; Visit Provider Pharmacist
DX: Z95.2 Presence of prosthetic heart valve (principal)
CPT/HCPCS: 36415; 85610

== ENCOUNTER 2022-11-24 06:37 | Outpatient (REF) | payer MEDICAID, SELFPAY ==
[2022-11-24 08:09] LABS: INTERNATIONAL NORM RATIO 1.7 (0.9-1.1); Prothrombin Time 19.6 SEC (10.0-13.1)
== END 2022-11-24 06:38 | disposition home or self-care (01) ==
LOC: HO.LABR 06:37
PROVIDERS: PCP Registered Nurse; Visit Provider Pharmacist
DX: Z95.2 Presence of prosthetic heart valve (principal)
CPT/HCPCS: 36415; 85610

== ENCOUNTER 2022-11-26 06:40 | Outpatient (REF) | payer MEDICAID, SELFPAY ==
[2022-11-26 07:54] LABS: INTERNATIONAL NORM RATIO 2.2 (0.9-1.1); Prothrombin Time 26.3 SEC (10.0-13.1)
== END 2022-11-26 06:41 | disposition home or self-care (01) ==
LOC: HO.LAB 06:40
PROVIDERS: PCP Registered Nurse; Visit Provider Pharmacist
DX: Z95.2 Presence of prosthetic heart valve (principal)
CPT/HCPCS: 36415; 85610

== ENCOUNTER 2022-12-01 06:38 | Outpatient (REF) | payer MEDICAID, SELFPAY ==
[2022-12-01 07:33] LABS: INTERNATIONAL NORM RATIO 2.6 (0.9-1.1); Prothrombin Time 31.3 SEC (10.0-13.1)
== END 2022-12-01 06:39 | disposition home or self-care (01) ==
LOC: HO.LABR 06:38
PROVIDERS: PCP Registered Nurse; Visit Provider Pharmacist
DX: Z95.2 Presence of prosthetic heart valve (principal)
CPT/HCPCS: 36415; 85610

== ENCOUNTER 2022-12-08 06:37 | Outpatient (REF) | payer MEDICAID, SELFPAY ==
[2022-12-08 07:40] LABS: INTERNATIONAL NORM RATIO 2.4 (0.9-1.1)
== END 2022-12-08 06:38 | disposition home or self-care (01) ==
LOC: HO.LABR 06:37
PROVIDERS: PCP Registered Nurse; Visit Provider Pharmacist
DX: Z95.2 Presence of prosthetic heart valve (principal)
CPT/HCPCS: 36415; 85610

== ENCOUNTER 2022-12-15 06:39 | Outpatient (REF) | payer MEDICAID, SELFPAY ==
[2022-12-15 08:20] LABS: INTERNATIONAL NORM RATIO 3.4 (0.9-1.1)
== END 2022-12-15 06:40 | disposition home or self-care (01) ==
LOC: HO.LABR 06:39
PROVIDERS: PCP Registered Nurse; Visit Provider Pharmacist
DX: Z95.2 Presence of prosthetic heart valve (principal)
CPT/HCPCS: 36415; 85610

== ENCOUNTER 2022-12-22 07:10 | Outpatient (REF) | payer MEDICAID, SELFPAY ==
[2022-12-22 08:00] LABS: INTERNATIONAL NORM RATIO 3.3 (0.9-1.1); Prothrombin Time 39.4 SEC (10.0-13.1)
== END 2022-12-22 07:11 | disposition home or self-care (01) ==
LOC: HO.LABR 07:10
PROVIDERS: PCP Registered Nurse; Visit Provider Pharmacist
DX: Z95.2 Presence of prosthetic heart valve (principal)
CPT/HCPCS: 36415; 85610

== ENCOUNTER 2022-12-29 06:56 | Outpatient (REF) | payer MEDICAID, SELFPAY ==
[2022-12-29 07:49] LABS: INTERNATIONAL NORM RATIO 2.9 (0.9-1.1); Prothrombin Time 35.3 SEC (10.0-13.1)
== END 2022-12-29 06:57 | disposition home or self-care (01) ==
LOC: HO.LABR 06:56
PROVIDERS: PCP Registered Nurse; Visit Provider Pharmacist
DX: Z95.2 Presence of prosthetic heart valve (principal)
CPT/HCPCS: 36415; 85610

== ENCOUNTER 2023-01-12 07:07 | Outpatient (REF) | payer MEDICAID, SELFPAY ==
[2023-01-12 07:46] LABS: Prothrombin Time 36.4 SEC (10.0-13.1)
== END 2023-01-12 07:08 | disposition home or self-care (01) ==
LOC: HO.LABR 07:07
PROVIDERS: PCP Registered Nurse; Visit Provider Pharmacist
DX: Z95.2 Presence of prosthetic heart valve (principal)
CPT/HCPCS: 36415; 85610

== ENCOUNTER 2023-01-26 06:56 | Outpatient (REF) | payer MEDICAID, SELFPAY ==
[2023-01-26 07:55] LABS: INTERNATIONAL NORM RATIO 1.9 (0.9-1.1); Prothrombin Time 22.4 SEC (10.0-13.1)
== END 2023-01-26 06:57 | disposition home or self-care (01) ==
LOC: HO.LABR 06:56
PROVIDERS: Visit Provider Pharmacist
DX: Z95.2 Presence of prosthetic heart valve (principal)
CPT/HCPCS: 36415; 85610

== ENCOUNTER 2023-01-29 06:47 | Outpatient (REF) | payer MEDICAID, SELFPAY ==
[2023-01-29 07:27] LABS: INTERNATIONAL NORM RATIO 2.7 (0.9-1.1); Prothrombin Time 32.5 SEC (10.0-13.1)
== END 2023-01-29 06:48 | disposition home or self-care (01) ==
LOC: HO.LABR 06:47
PROVIDERS: Visit Provider Pharmacist
DX: Z95.2 Presence of prosthetic heart valve (principal)
CPT/HCPCS: 36415; 85610

== ENCOUNTER 2023-02-10 06:40 | Outpatient (REF) | payer MEDICAID, SELFPAY ==
[2023-02-10 07:21] LABS: INTERNATIONAL NORM RATIO 3.1 (0.9-1.1)
== END 2023-02-10 06:41 | disposition home or self-care (01) ==
LOC: HO.LABR 06:40
PROVIDERS: PCP Registered Nurse; Visit Provider Pharmacist
DX: Z95.2 Presence of prosthetic heart valve (principal)
CPT/HCPCS: 36415; 85610

== ENCOUNTER 2023-02-17 06:30 | Outpatient (REF) | payer MEDICAID, SELFPAY ==
[2023-02-17 07:27] LABS: INTERNATIONAL NORM RATIO 2.8 (0.9-1.1); Prothrombin Time 33.8 SEC (10.0-13.1)
== END 2023-02-17 06:31 | disposition home or self-care (01) ==
LOC: HO.LABR 06:30
PROVIDERS: PCP Registered Nurse; Visit Provider Pharmacist
DX: Z95.2 Presence of prosthetic heart valve (principal)
CPT/HCPCS: 36415; 85610

== ENCOUNTER 2023-03-03 06:49 | Outpatient (REF) | payer MEDICAID, SELFPAY ==
[2023-03-03 07:41] LABS: INTERNATIONAL NORM RATIO 2.8 (0.9-1.1); Prothrombin Time 34.1 SEC (10.0-13.1)
== END 2023-03-03 06:50 | disposition home or self-care (01) ==
LOC: HO.LABR 06:49
PROVIDERS: PCP Registered Nurse; Visit Provider Pharmacist
DX: Z95.2 Presence of prosthetic heart valve (principal)
CPT/HCPCS: 36415; 85610

== ENCOUNTER 2023-03-17 06:35 | Outpatient (REF) | payer MEDICAID, SELFPAY ==
[2023-03-17 08:27] LABS: INTERNATIONAL NORM RATIO 2.9 (0.9-1.1); Prothrombin Time 34.2 SEC (10.0-13.1)
== END 2023-03-17 06:36 | disposition home or self-care (01) ==
LOC: HO.LABR 06:35
PROVIDERS: PCP Registered Nurse; Visit Provider Pharmacist
DX: Z95.2 Presence of prosthetic heart valve (principal)
CPT/HCPCS: 36415; 85610

== ENCOUNTER 2023-04-01 06:17 | Outpatient (REF) | payer MEDICAID, SELFPAY ==
[2023-04-01 07:47] LABS: INTERNATIONAL NORM RATIO 2.6 (0.9-1.1); Prothrombin Time 31.1 SEC (10.0-13.1)
== END 2023-04-01 06:18 | disposition home or self-care (01) ==
LOC: HO.LABR 06:17
PROVIDERS: PCP Registered Nurse; Visit Provider Pharmacist
DX: Z95.2 Presence of prosthetic heart valve (principal)
CPT/HCPCS: 36415; 85610

== ENCOUNTER 2023-04-22 08:22 | Outpatient (REF) | payer MEDICAID, SELFPAY ==
[2023-04-22 09:08] LABS: INTERNATIONAL NORM RATIO 2.2 (0.9-1.1)
== END 2023-04-22 08:23 | disposition home or self-care (01) ==
LOC: HO.LAB 08:22
PROVIDERS: Visit Provider Pharmacist
DX: Z95.2 Presence of prosthetic heart valve (principal)
CPT/HCPCS: 36415; 85610

== ENCOUNTER 2023-05-14 06:32 | Outpatient (REF) | payer MEDICAID, SELFPAY ==
[2023-05-14 08:55] LABS: Prothrombin Time 36.5 SEC (10.0-13.1)
== END 2023-05-14 06:33 | disposition home or self-care (01) ==
LOC: HO.LABR 06:32
PROVIDERS: PCP Registered Nurse; Visit Provider Pharmacist
DX: Z95.2 Presence of prosthetic heart valve (principal)
CPT/HCPCS: 36415; 85610

== ENCOUNTER 2023-06-10 06:42 | Outpatient (REF) | payer MEDICAID, SELFPAY ==
[2023-06-10 07:40] LABS: INTERNATIONAL NORM RATIO 3.1 (0.9-1.1); Prothrombin Time 37.8 SEC (11.1-13.3)
== END 2023-06-10 06:43 | disposition home or self-care (01) ==
LOC: HO.LABR 06:42
PROVIDERS: PCP Registered Nurse; Visit Provider Pharmacist
DX: Z95.2 Presence of prosthetic heart valve (principal)
CPT/HCPCS: 36415; 85610

== ENCOUNTER 2023-07-07 06:29 | Outpatient (REF) | payer MEDICAID, SELFPAY ==
[2023-07-07 07:30] LABS: Prothrombin Time 90.3 SEC (11.1-13.3)
[2023-07-07 08:37] LABS: INTERNATIONAL NORM RATIO 7.4 (0.9-1.1)
== END 2023-07-07 06:30 | disposition home or self-care (01) ==
LOC: HO.LABR 06:29
PROVIDERS: PCP Registered Nurse; Visit Provider Pharmacist
DX: Z95.2 Presence of prosthetic heart valve (principal)
CPT/HCPCS: 36415; 85610

== ENCOUNTER 2023-07-09 06:24 | Outpatient (REF) | payer MEDICAID, SELFPAY ==
[2023-07-09 08:53] LABS: INTERNATIONAL NORM RATIO 3.3 (0.9-1.1); Prothrombin Time 40.1 SEC (11.1-13.3)
== END 2023-07-09 06:25 | disposition home or self-care (01) ==
LOC: HO.LABR 06:24
PROVIDERS: PCP Registered Nurse; Visit Provider Pharmacist
DX: Z95.2 Presence of prosthetic heart valve (principal)
CPT/HCPCS: 36415; 85610

== ENCOUNTER 2023-07-15 06:33 | Outpatient (REF) | payer MEDICAID, SELFPAY ==
[2023-07-15 07:34] LABS: INTERNATIONAL NORM RATIO 4.3 (0.9-1.1); Prothrombin Time 52.3 SEC (11.1-13.3)
== END 2023-07-15 06:34 | disposition home or self-care (01) ==
LOC: HO.LABR 06:33
PROVIDERS: PCP Registered Nurse; Visit Provider Pharmacist
DX: Z95.2 Presence of prosthetic heart valve (principal)
CPT/HCPCS: 36415; 85610

== ENCOUNTER 2023-07-22 06:34 | Outpatient (REF) | payer MEDICAID, SELFPAY ==
[2023-07-22 07:12] LABS: INTERNATIONAL NORM RATIO 4.8 (0.9-1.1); Prothrombin Time 58.4 SEC (11.1-13.3)
== END 2023-07-22 06:35 | disposition home or self-care (01) ==
LOC: HO.LABR 06:34
PROVIDERS: PCP Registered Nurse; Visit Provider Pharmacist
DX: Z95.2 Presence of prosthetic heart valve (principal)
CPT/HCPCS: 36415; 85610

== ENCOUNTER 2023-08-10 06:28 | Outpatient (REF) | payer MEDICAID, SELFPAY ==
[2023-08-10 07:50] LABS: INTERNATIONAL NORM RATIO 2.7 (0.9-1.1); Prothrombin Time 33.3 SEC (11.1-13.3)
== END 2023-08-10 06:29 | disposition home or self-care (01) ==
LOC: HO.LABR 06:28
PROVIDERS: PCP Registered Nurse; Visit Provider Pharmacist
DX: Z95.2 Presence of prosthetic heart valve (principal)
CPT/HCPCS: 36415; 85610

== ENCOUNTER 2023-08-17 06:39 | Outpatient (REF) | payer MEDICAID, SELFPAY ==
[2023-08-17 07:39] LABS: INTERNATIONAL NORM RATIO 3.2 (0.9-1.1); Prothrombin Time 38.7 SEC (11.1-13.3)
== END 2023-08-17 06:40 | disposition home or self-care (01) ==
LOC: HO.LABR 06:39
PROVIDERS: PCP Registered Nurse; Visit Provider Pharmacist
DX: Z95.2 Presence of prosthetic heart valve (principal)
CPT/HCPCS: 36415; 85610

== ENCOUNTER 2023-08-23 08:11 | Outpatient (REF) | payer MEDICAID, SELFPAY ==
[2023-08-23 12:15] LABS: Cholesterol 142 mg/dL (<200); HDL Cholesterol 39 mg/dL (>40); LDL Cholesterol Calculated 83 mg/dL (<100); Triglycerides 101 mg/dL (<150)
== END 2023-08-23 08:12 | disposition home or self-care (01) ==
LOC: HO.HHCL 08:11
PROVIDERS: Visit Provider Registered Nurse
DX: E78.2 Mixed hyperlipidemia (principal)
CPT/HCPCS: 36415; 80061

== ENCOUNTER 2023-08-24 06:17 | Outpatient (REF) | payer MEDICAID, SELFPAY ==
[2023-08-24 07:35] LABS: INTERNATIONAL NORM RATIO 4.9 (0.9-1.1); Prothrombin Time 59.5 SEC (11.1-13.3)
== END 2023-08-24 06:18 | disposition home or self-care (01) ==
LOC: HO.LABR 06:17
PROVIDERS: PCP Registered Nurse; Visit Provider Pharmacist
DX: Z95.2 Presence of prosthetic heart valve (principal)
CPT/HCPCS: 36415; 85610

== ENCOUNTER 2023-08-30 06:40 | Outpatient (REF) | payer MEDICAID, SELFPAY ==
[2023-08-30 07:39] LABS: INTERNATIONAL NORM RATIO 3.8 (0.9-1.1)
== END 2023-08-30 06:41 | disposition home or self-care (01) ==
LOC: HO.LAB 06:40
PROVIDERS: PCP Registered Nurse; Visit Provider Pharmacist
DX: Z95.2 Presence of prosthetic heart valve (principal)
CPT/HCPCS: 36415; 85610

== ENCOUNTER 2023-09-06 06:33 | Outpatient (REF) | payer MEDICAID, SELFPAY ==
[2023-09-06 07:46] LABS: INTERNATIONAL NORM RATIO 3.6 (0.9-1.1); Prothrombin Time 43.7 SEC (11.1-13.3)
== END 2023-09-06 06:34 | disposition home or self-care (01) ==
LOC: HO.LABR 06:33
PROVIDERS: PCP Registered Nurse; Visit Provider Pharmacist
DX: Z95.2 Presence of prosthetic heart valve (principal)
CPT/HCPCS: 36415; 85610

== ENCOUNTER 2023-09-22 06:48 | Outpatient (REF) | payer MEDICAID, SELFPAY ==
[2023-09-22 07:40] LABS: INTERNATIONAL NORM RATIO 2.4 (0.9-1.1); Prothrombin Time 29.4 SEC (11.1-13.3)
== END 2023-09-22 06:49 | disposition home or self-care (01) ==
LOC: HO.LABR 06:48
PROVIDERS: PCP Registered Nurse; Visit Provider Pharmacist
DX: Z95.2 Presence of prosthetic heart valve (principal)
CPT/HCPCS: 36415; 85610

== ENCOUNTER 2023-10-06 07:25 | Outpatient (REF) | payer MEDICAID, SELFPAY ==
[2023-10-06 08:17] LABS: INTERNATIONAL NORM RATIO 3.5 (0.9-1.1); Prothrombin Time 42.6 SEC (11.1-13.3)
== END 2023-10-06 07:26 | disposition home or self-care (01) ==
LOC: HO.LABR 07:25
PROVIDERS: Visit Provider Pharmacist
DX: Z95.2 Presence of prosthetic heart valve (principal)
CPT/HCPCS: 36415; 85610

== ENCOUNTER 2023-10-20 06:42 | Outpatient (REF) | payer MEDICAID, SELFPAY ==
[2023-10-20 07:32] LABS: INTERNATIONAL NORM RATIO 3.9 (0.9-1.1); Prothrombin Time 47.2 SEC (11.1-13.3)
== END 2023-10-20 06:43 | disposition home or self-care (01) ==
LOC: HO.LABR 06:42
PROVIDERS: Visit Provider Pharmacist
DX: Z95.2 Presence of prosthetic heart valve (principal); Z79.01 Long term (current) use of anticoagulants
CPT/HCPCS: 36415; 85610

== ENCOUNTER 2023-11-03 06:35 | Outpatient (REF) | payer MEDICAID, SELFPAY ==
[2023-11-03 07:44] LABS: INTERNATIONAL NORM RATIO 2.6 (0.9-1.1); Prothrombin Time 31.8 SEC (11.1-13.3)
== END 2023-11-03 06:36 | disposition home or self-care (01) ==
LOC: HO.LABR 06:35
PROVIDERS: Visit Provider Pharmacist
DX: Z95.2 Presence of prosthetic heart valve (principal)
CPT/HCPCS: 36415; 85610

== ENCOUNTER 2023-11-17 06:53 | Outpatient (REF) | payer MEDICAID, SELFPAY ==
[2023-11-17 08:17] LABS: INTERNATIONAL NORM RATIO 3.3 (0.9-1.1); Prothrombin Time 39.6 SEC (11.1-13.3)
== END 2023-11-17 06:54 | disposition home or self-care (01) ==
LOC: HO.LAB 06:53
PROVIDERS: PCP Registered Nurse; Visit Provider Pharmacist
DX: Z95.2 Presence of prosthetic heart valve (principal)
CPT/HCPCS: 36415; 85610

== ENCOUNTER 2023-12-01 06:50 | Outpatient (REF) | payer MEDICAID, SELFPAY ==
[2023-12-01 07:47] LABS: INTERNATIONAL NORM RATIO 3.6 (0.9-1.1); Prothrombin Time 43.3 SEC (11.1-13.3)
== END 2023-12-01 06:51 | disposition home or self-care (01) ==
LOC: HO.LABR 06:50
PROVIDERS: PCP Registered Nurse; Visit Provider Pharmacist
DX: Z95.2 Presence of prosthetic heart valve (principal); Z51.81 Encounter for therapeutic drug level monitoring; Z79.01 Long term (current) use of anticoagulants
CPT/HCPCS: 36415; 85610

== ENCOUNTER 2023-12-15 06:38 | Outpatient (REF) | payer MEDICAID, SELFPAY ==
[2023-12-15 07:03] LABS: INTERNATIONAL NORM RATIO 3.7 (0.9-1.1)
== END 2023-12-15 06:39 | disposition home or self-care (01) ==
LOC: HO.LAB 06:38
PROVIDERS: PCP Registered Nurse; Visit Provider Pharmacist
DX: Z95.2 Presence of prosthetic heart valve (principal)
CPT/HCPCS: 36415; 85610

== ENCOUNTER 2023-12-22 07:03 | Outpatient (REF) | payer MEDICAID, SELFPAY ==
[2023-12-22 07:36] LABS: INTERNATIONAL NORM RATIO 3.5 (0.9-1.1); Prothrombin Time 42.5 SEC (11.1-13.3)
== END 2023-12-22 07:04 | disposition home or self-care (01) ==
LOC: HO.LABR 07:03
PROVIDERS: PCP Registered Nurse; Visit Provider Pharmacist
DX: Z95.2 Presence of prosthetic heart valve (principal)
CPT/HCPCS: 36415; 85610

== ENCOUNTER 2024-01-04 07:37 | Outpatient (REF) | payer MEDICAID, SELFPAY ==
[2024-01-04 08:35] LABS: INTERNATIONAL NORM RATIO 1.3 (0.9-1.1); Prothrombin Time 15.2 SEC (11.1-13.3)
== END 2024-01-04 07:38 | disposition home or self-care (01) ==
LOC: HO.LABR 07:37
PROVIDERS: PCP Registered Nurse; Visit Provider Pharmacist
DX: Z95.2 Presence of prosthetic heart valve (principal)
CPT/HCPCS: 36415; 85610

== ENCOUNTER 2024-01-07 07:19 | Outpatient (REF) | payer MEDICAID, SELFPAY ==
[2024-01-07 07:59] LABS: INTERNATIONAL NORM RATIO 1.6 (0.9-1.1); Prothrombin Time 19.6 SEC (11.1-13.3)
== END 2024-01-07 07:20 | disposition home or self-care (01) ==
LOC: HO.LABR 07:19
PROVIDERS: PCP Registered Nurse; Visit Provider Pharmacist
DX: Z95.2 Presence of prosthetic heart valve (principal)
CPT/HCPCS: 36415; 85610

== ENCOUNTER 2024-01-13 06:30 | Outpatient (REF) | payer MEDICAID, SELFPAY ==
[2024-01-13 07:30] LABS: INTERNATIONAL NORM RATIO 3.2 (0.9-1.1)
== END 2024-01-13 06:31 | disposition home or self-care (01) ==
LOC: HO.LABR 06:30
PROVIDERS: PCP Registered Nurse; Visit Provider Pharmacist
DX: Z95.2 Presence of prosthetic heart valve (principal); Z79.01 Long term (current) use of anticoagulants; Z51.81 Encounter for therapeutic drug level monitoring
CPT/HCPCS: 36415; 85610

== ENCOUNTER 2024-01-19 07:02 | Outpatient (REF) | payer MEDICAID, SELFPAY ==
[2024-01-19 07:24] LABS: INTERNATIONAL NORM RATIO 4.1 (0.9-1.1); Prothrombin Time 49.4 SEC (11.1-13.3)
== END 2024-01-19 07:03 | disposition home or self-care (01) ==
LOC: HO.LABR 07:02
PROVIDERS: PCP Registered Nurse; Visit Provider Pharmacist
DX: Z95.2 Presence of prosthetic heart valve (principal)
CPT/HCPCS: 36415; 85610

== ENCOUNTER 2024-01-26 06:32 | Outpatient (REF) | payer MEDICAID, SELFPAY ==
[2024-01-26 07:22] LABS: INTERNATIONAL NORM RATIO 1.8 (0.9-1.1); Prothrombin Time 22.1 SEC (11.1-13.3)
== END 2024-01-26 06:33 | disposition home or self-care (01) ==
LOC: HO.LABR 06:32
PROVIDERS: PCP Registered Nurse; Visit Provider Pharmacist
DX: Z95.2 Presence of prosthetic heart valve (principal)
CPT/HCPCS: 36415; 85610

== ENCOUNTER 2024-02-02 07:00 | Outpatient (REF) | payer MEDICAID, SELFPAY ==
[2024-02-02 07:53] LABS: INTERNATIONAL NORM RATIO 3.1 (0.9-1.1); Prothrombin Time 37.6 SEC (11.1-13.3)
== END 2024-02-02 07:01 | disposition home or self-care (01) ==
LOC: HO.LABR 07:00
PROVIDERS: PCP Registered Nurse; Visit Provider Pharmacist
DX: Z95.2 Presence of prosthetic heart valve (principal)
CPT/HCPCS: 36415; 85610

== ENCOUNTER 2024-02-16 06:30 | Outpatient (REF) | payer MEDICAID, SELFPAY ==
[2024-02-16 08:40] LABS: Prothrombin Time 23.8 SEC (11.1-13.3)
== END 2024-02-16 06:31 | disposition home or self-care (01) ==
LOC: HO.LABR 06:30
PROVIDERS: PCP Registered Nurse; Visit Provider Pharmacist
DX: Z95.2 Presence of prosthetic heart valve (principal)
CPT/HCPCS: 36415; 85610

== ENCOUNTER 2024-03-01 06:26 | Outpatient (REF) | payer MEDICAID, SELFPAY ==
[2024-03-01 08:11] LABS: INTERNATIONAL NORM RATIO 1.9 (0.9-1.1); Prothrombin Time 23.6 SEC (11.1-13.3)
== END 2024-03-01 06:27 | disposition home or self-care (01) ==
LOC: HO.LABR 06:26
PROVIDERS: PCP Registered Nurse; Visit Provider Pharmacist
DX: Z95.2 Presence of prosthetic heart valve (principal)
CPT/HCPCS: 36415; 85610

== ENCOUNTER 2024-03-15 06:12 | Outpatient (REF) | payer MEDICAID, SELFPAY ==
[2024-03-15 08:00] LABS: INTERNATIONAL NORM RATIO 1.6 (0.9-1.1); Prothrombin Time 19.8 SEC (11.1-13.3)
== END 2024-03-15 06:13 | disposition home or self-care (01) ==
LOC: HO.LABR 06:12
PROVIDERS: PCP Registered Nurse; Visit Provider Pharmacist
DX: Z95.2 Presence of prosthetic heart valve (principal)
CPT/HCPCS: 36415; 85610

== ENCOUNTER 2024-03-21 06:15 | Outpatient (REF) | payer MEDICAID, SELFPAY ==
[2024-03-21 08:20] LABS: INTERNATIONAL NORM RATIO 2.7 (0.9-1.1); Prothrombin Time 32.8 SEC (11.1-13.3)
== END 2024-03-21 06:16 | disposition home or self-care (01) ==
LOC: HO.LABR 06:15
PROVIDERS: PCP Registered Nurse; Visit Provider Pharmacist
DX: Z95.2 Presence of prosthetic heart valve (principal)
CPT/HCPCS: 36415; 85610

== ENCOUNTER 2024-03-28 06:18 | Outpatient (REF) | payer MEDICAID, SELFPAY ==
[2024-03-28 08:10] LABS: INTERNATIONAL NORM RATIO 2.2 (0.9-1.1); Prothrombin Time 27.3 SEC (11.1-13.3)
== END 2024-03-28 06:19 | disposition home or self-care (01) ==
LOC: HO.LABR 06:18
PROVIDERS: PCP Registered Nurse; Visit Provider Pharmacist
DX: Z95.2 Presence of prosthetic heart valve (principal)
CPT/HCPCS: 36415; 85610

== ENCOUNTER 2024-04-04 06:15 | Outpatient (REF) | payer MEDICAID, SELFPAY ==
[2024-04-04 07:38] LABS: INTERNATIONAL NORM RATIO 2.6 (0.9-1.1); Prothrombin Time 31.6 SEC (11.1-13.3)
== END 2024-04-04 06:16 | disposition home or self-care (01) ==
LOC: HO.LABR 06:15
PROVIDERS: PCP Registered Nurse; Visit Provider Pharmacist
DX: Z95.2 Presence of prosthetic heart valve (principal)
CPT/HCPCS: 36415; 85610

== ENCOUNTER 2024-04-11 06:21 | Outpatient (REF) | payer MEDICAID, SELFPAY ==
[2024-04-11 08:16] LABS: INTERNATIONAL NORM RATIO 2.5 (0.9-1.1)
== END 2024-04-11 06:22 | disposition home or self-care (01) ==
LOC: HO.LABR 06:21
PROVIDERS: PCP Registered Nurse; Visit Provider Pharmacist
DX: Z95.2 Presence of prosthetic heart valve (principal)
CPT/HCPCS: 36415; 85610

== ENCOUNTER 2024-04-24 06:59 | Outpatient (REF) | payer MEDICAID, SELFPAY ==
[2024-04-24 08:38] LABS: INTERNATIONAL NORM RATIO 2.4 (0.9-1.1); Prothrombin Time 29.7 SEC (11.1-13.3)
== END 2024-04-24 07:00 | disposition home or self-care (01) ==
LOC: HO.LABR 06:59
PROVIDERS: PCP Registered Nurse; Visit Provider Pharmacist
DX: Z95.2 Presence of prosthetic heart valve (principal)
CPT/HCPCS: 36415; 85610

== ENCOUNTER 2024-05-08 06:30 | Outpatient (REF) | payer MEDICAID, SELFPAY ==
[2024-05-08 07:10] LABS: Prothrombin Time 24.4 SEC (11.1-13.3)
== END 2024-05-08 06:31 | disposition home or self-care (01) ==
LOC: HO.LAB 06:30
PROVIDERS: PCP Registered Nurse; Visit Provider Pharmacist
DX: Z95.2 Presence of prosthetic heart valve (principal)
CPT/HCPCS: 36415; 85610

== ENCOUNTER 2024-05-15 06:19 | Outpatient (REF) | payer MEDICAID, SELFPAY ==
[2024-05-15 08:10] LABS: INTERNATIONAL NORM RATIO 2.4 (0.9-1.1); Prothrombin Time 29.1 SEC (11.1-13.3)
== END 2024-05-15 06:20 | disposition home or self-care (01) ==
LOC: HO.LABR 06:19
PROVIDERS: PCP Registered Nurse; Visit Provider Pharmacist
DX: Z95.2 Presence of prosthetic heart valve (principal)
CPT/HCPCS: 36415; 85610

== ENCOUNTER 2024-05-22 06:32 | Outpatient (REF) | payer MEDICAID, SELFPAY ==
[2024-05-22 07:55] LABS: INTERNATIONAL NORM RATIO 1.8 (0.9-1.1); Prothrombin Time 21.4 SEC (11.1-13.3)
== END 2024-05-22 06:33 | disposition home or self-care (01) ==
LOC: HO.LAB 06:32
PROVIDERS: PCP Registered Nurse; Visit Provider Pharmacist
DX: Z95.2 Presence of prosthetic heart valve (principal)
CPT/HCPCS: 36415; 85610

== ENCOUNTER 2024-05-29 06:32 | Outpatient (REF) | payer MEDICAID, SELFPAY ==
[2024-05-29 07:42] LABS: INTERNATIONAL NORM RATIO 3.3 (0.9-1.1); Prothrombin Time 40.5 SEC (11.1-13.3)
== END 2024-05-29 06:33 | disposition home or self-care (01) ==
LOC: HO.LABR 06:32
PROVIDERS: PCP Registered Nurse; Visit Provider Pharmacist
DX: Z95.2 Presence of prosthetic heart valve (principal)
CPT/HCPCS: 36415; 85610

== ENCOUNTER 2024-06-05 06:27 | Outpatient (REF) | payer MEDICAID, SELFPAY ==
[2024-06-05 07:08] LABS: INTERNATIONAL NORM RATIO 3.5 (0.9-1.1)
== END 2024-06-05 06:28 | disposition home or self-care (01) ==
LOC: HO.LABR 06:27
PROVIDERS: PCP Registered Nurse; Visit Provider Pharmacist
DX: Z95.2 Presence of prosthetic heart valve (principal)
CPT/HCPCS: 36415; 85610

== ENCOUNTER 2024-06-12 06:44 | Outpatient (REF) | payer MEDICAID, SELFPAY ==
[2024-06-12 07:21] LABS: INTERNATIONAL NORM RATIO 2.9 (0.9-1.1); Prothrombin Time 35.4 SEC (11.1-13.3)
== END 2024-06-12 06:45 | disposition home or self-care (01) ==
LOC: HO.LABR 06:44
PROVIDERS: PCP Registered Nurse; Visit Provider Pharmacist
DX: Z95.2 Presence of prosthetic heart valve (principal)
CPT/HCPCS: 36415; 85610

== ENCOUNTER 2024-06-23 06:44 | Outpatient (REF) | payer MEDICARE, SELFPAY ==
[2024-06-23 07:19] LABS: INTERNATIONAL NORM RATIO 2.9 (0.9-1.1); Prothrombin Time 35.8 SEC (11.1-13.3)
== END 2024-06-23 06:45 | disposition home or self-care (01) ==
LOC: HO.LABR 06:44
PROVIDERS: PCP Registered Nurse; Visit Provider Pharmacist
DX: Z95.2 Presence of prosthetic heart valve (principal)
CPT/HCPCS: 36415; 85610

== ENCOUNTER 2024-06-27 06:51 | Outpatient (REF) | payer MEDICARE, SELFPAY ==
[2024-06-27 07:05] LABS: MANUAL DIFF FLAG NO
[2024-06-27 07:27] LABS: Basophils Percent Auto 0.7 % (0-2); Eosinophils Absolute Auto 0.2 X10*3/uL (0.0-0.4); Eosinophils Percent Auto 2.9 % (0-4); Hemoglobin 14.3 g/dl (14.0-18.0); Imm Gran Abs Auto 0.01 X10*3/uL (0.00-0.03); Imm Gran Pct Auto 0.2 % (0.0-0.4); Lymphocytes Absolute Auto 1.5 X10*3/uL (1.2-4.9); Lymphocytes Percent Auto 26.4 % (20-40); Mean Corpuscular HGB Conc 32.5 g/dl (31.0-36.0); Mean Corpuscular Hemoglobin 27.8 pg (27.0-33.0); Mean Corpuscular Volume 85.4 fL (80.0-98.0); Mean Platelet Volume 11.1 fL (9.4-12.4); Monocytes Absolute Auto 0.4 X10*3/uL (0.1-1.2); Monocytes Percent Auto 7.8 % (2-11); Neutrophils Absolute Auto 3.4 x10*3/uL (2.0-8.3); Platelet Count 233 X10*3/uL (160-400); Red Blood Count 5.15 X10*6/uL (4.60-5.80); Red Cell Distribution Width 14.4 % (11.0-16.0); White Blood Count 5.5 X10*3/uL (4.8-10.8)
[2024-06-27 07:35] LABS: Estimated Average Glucose 105 mg/dL; Hemoglobin A1c % 5.3 % (<6.0)
[2024-06-27 08:05] LABS: Alanine Aminotransferase 36 U/L (0-40); Albumin Level 4.1 g/dL (3.5-5.0); Alkaline Phosphatase 58 U/L (39-117); Anion Gap 11 (12-20); Aspartate Amino Transferase 27 U/L (5-37); Bilirubin Total 0.6 mg/dL (0.0-1.0); Blood Urea Nitrogen 11 mg/dL (9-16); Calcium 9.2 mg/dL (8.4-10.2); Carbon Dioxide 27 mmol/L (22-29); Chloride 109 mmol/L (96-108); Cholesterol 144 mg/dL (<200); Estimated Glomerular Filt Rate > 60; Glucose Random 100 mg/dL (60-115); HDL Cholesterol 36 mg/dL (>40); LDL Cholesterol Calculated 85 mg/dL (<100); Sodium 143 mmol/L (135-145); Triglycerides 116 mg/dL (<150)
[2024-06-27 08:11] LABS: Prostate Specific Antigen 0.55 ng/mL (<0.05-4.0)
[2024-06-27 08:13] LABS: HBc Num1 0.09 S/CO (0.00-0.79); HBsAGNum1 0.28 S/CO (0.00-0.99); HIV AB/AG Nonreactive (Nonreactive); HIV Num 1 0.06 S/CO (0.00-0.99); Hepatitis B Core Antibody Nonreactive (Nonreactive); Hepatitis B Surface Antigen Negative (Negative); ~Hepatitis B Surface Antibody NONREACTIVE (Nonreactive)
[2024-06-27 08:18] LABS: Creatinine Urine 320.43 mg/dL; Microalbum/Creatinine Ratio Ur 13.4 ug/mg cr (<30)
[2024-06-27 08:23] LABS: TSH reflex Free T4 1.74 uIU/mL (0.32-4.0)
[2024-06-28 11:53] LABS: HCV Log PCR <1.18 NOT DETECTED Log IU/mL (NOT DETECTED); HepC Viral Load <15 NOT DETECTED IU/mL (NOT DETECTED)
[2024-06-28 16:09] LABS: RPR Rapid Plasma Reagin NON-REACTIVE (NON-REACTIVE)
== END 2024-06-27 06:52 | disposition home or self-care (01) ==
LOC: HO.LAB 06:51
PROVIDERS: PCP Registered Nurse; Visit Provider Registered Nurse
DX: Z00.00 Encounter for general adult medical examination without abnormal findings (principal); N52.9 Male erectile dysfunction, unspecified; Z12.5 Encounter for screening for malignant neoplasm of prostate; Z13.1 Encounter for screening for diabetes mellitus
CPT/HCPCS: 36415; 80053; 80061; 82043; 82570; 83036; 84153; 84443; 85025; 86592; 86704; 86706; 87340; 87389; 87522

== ENCOUNTER 2024-07-07 06:19 | Outpatient (REF) | payer MEDICARE, SELFPAY ==
[2024-07-07 07:24] LABS: INTERNATIONAL NORM RATIO 3.4 (0.9-1.1); Prothrombin Time 41.6 SEC (11.1-13.3)
== END 2024-07-07 06:20 | disposition home or self-care (01) ==
LOC: HO.LABR 06:19
PROVIDERS: PCP Registered Nurse; Visit Provider Pharmacist
DX: Z95.2 Presence of prosthetic heart valve (principal)
CPT/HCPCS: 36415; 85610

== ENCOUNTER 2024-07-21 06:24 | Outpatient (REF) | payer MEDICARE, SELFPAY ==
[2024-07-21 07:18] LABS: INTERNATIONAL NORM RATIO 2.6 (0.9-1.1); Prothrombin Time 30.2 SEC (10.9-12.4)
== END 2024-07-21 06:25 | disposition home or self-care (01) ==
LOC: HO.LABR 06:24
PROVIDERS: PCP Registered Nurse; Visit Provider Pharmacist
DX: Z95.2 Presence of prosthetic heart valve (principal)
CPT/HCPCS: 36415; 85610

== ENCOUNTER 2024-08-04 06:33 | Outpatient (REF) | payer MEDICARE, SELFPAY ==
[2024-08-04 07:44] LABS: INTERNATIONAL NORM RATIO 2.7 (0.9-1.1); Prothrombin Time 31.8 SEC (10.9-12.4)
== END 2024-08-04 06:34 | disposition home or self-care (01) ==
LOC: HO.LAB 06:33
PROVIDERS: PCP Registered Nurse; Visit Provider Pharmacist
DX: Z95.2 Presence of prosthetic heart valve (principal)
CPT/HCPCS: 36415; 85610

== ENCOUNTER 2024-08-17 06:31 | Outpatient (REF) | payer MEDICARE, SELFPAY ==
[2024-08-17 08:02] LABS: INTERNATIONAL NORM RATIO 2.9 (0.9-1.1); Prothrombin Time 33.5 SEC (10.9-12.4)
== END 2024-08-17 06:32 | disposition home or self-care (01) ==
LOC: HO.LABR 06:31
PROVIDERS: PCP Registered Nurse; Visit Provider Pharmacist
DX: Z95.2 Presence of prosthetic heart valve (principal)
CPT/HCPCS: 36415; 85610

== ENCOUNTER 2024-08-18 13:04 | Outpatient (AMB) | payer MEDICARE, SELFPAY ==
--- NOTE | 2024-08-18 13:08 | A.OFFVIS_ITS ---
Intake Visit Reasons: erectile dysfunction Intake Note: Patient is present for ERECTILE DYSFUNTION Urology Medication:FUROSEMIDE Antibiotics allergies: NONE Blood Thinner:NONE Punch Press Feeder Required: No Allergies No Known Allergies Allergy (Verified 08/18/24 13:09) HPI Comments Details: Danis is a 58-year-old gentleman who is here as a new patient evaluation for concerns regarding erections. He states that the problem has been worsening over the last few years. He denies irritative voiding symptoms. I have discussed further evaluation with testosterone level and other pertinent hormone levels. PFSH Medical History Elevated cholesterol On anticoagulant therapy Screening for colon cancer Surgical History Hx of mitral valve replacement Hx of removal of cyst Family History Father No problems noted. Mother Hx of breast cancer Social History Household Members: Spouse and Family Housing: Apartment Do you presently have visiting nurse or other home services: No Alcohol intake: never Patient Tobacco Use Status: Never used Tobacco Advance Directives Date on File: 07/31/20 service: No Current occupational status: employed Review of Systems Const All systems reviewed & are unremarkable except as noted in HPI and below Reports no additional complaints Eyes Reports no additional complaints ENT Reports no additional complaints Card Reports no additional complaints Resp Reports no additional complaints GI Reports no additional complaints Reports as per HPI Musc Reports no additional complaints Skin/Breast Reports system reviewed and no additional complaints, except as documented Neuro Reports no additional complaints Psych Reports no additional complaints Endo Reports no additional complaints Vitaly/Lymph Reports no additional complaints Aller/Immun Reports no additional complaints Physical Exam Const General: healthy appearing, no acute distress and well developed Orientation/consciousness: patient oriented x3 HEENT Head: Yes normocephalic and Yes atraumatic Eyes Conjunctivae: conjunctivae normal Neck Neck: Yes normal visual inspection Chest Chest palpation & inspection: normal inspection of the chest Resp Effort & Inspection: normal respiratory effort Cardio Rate: regular rate GI Inspection: Yes normal to inspection Palpation (GI): Soft to palpation Skin General skin exam: no rashes or lesions noted Neuro General: patient oriented x3 Extrem General: No pedal edema Psych Appearance: grossly normal Affect: normal affect Results AMB Urinalysis, Automated UA Leukoctes 0 Yudy/uL Last Edit by DEVANTE Hernandez on 08/18/24 13:29 UA Nitrite Negative Last Edit by DEVANTE Hernandez on 08/18/24 13:29 UA Urobilinogen 0.2 mg/dL Last Edit by DEVANTE Heranndez on 08/18/24 13:2 9 UA Protein 0 mg/dL Last Edit by DEVANTE Hernandez on 08/18/24 13:29 UA pH 6.0 Last Edit by DEVANTE Hernandez on 08/18/24 13:29 UA Blood 0 Ramin/uL Last Edit by DEVANTE Hernandez on 08/18/24 13:29 UA Specific Diggs 1.025 Last Edit by DEVANTE Hernandez on 08/18/24 13: 29 UA Ketone Positive Last Edit by DEVANTE Hernandez on 08/18/24 13:29 UA Bilirubin 0 mg/dL Last Edit by DEVANTE Hernandez on 08/18/24 13:29 UA Glucose 0 mg/dL Last Edit by DEVANTE Hernandez on 08/18/24 13:29 Results Reviewed Results Reviewed: Laboratory Last Values Urine pH (Auto) 6.0 08/18/24 13:28 Specific Diggs (Auto) 1.025 08/18/24 13:28 Urine Protein (Auto) 0 mg/dL 08/18/24 13:28 Glucose (UA)(Auto) 0 mg/dL 08/18/24 13:28 Urine Ketones (Auto) Positive 08/18/24 13:28 Urine Blood (Auto) 0 Ramin/uL 08/18/24 13:28 Urine Nitrite (Auto) Negative 08/18/24 13:28 Urine Bilirubin (Auto) 0 mg/dL 08/18/24 13:28 Urine Urobilinogen (Auto) 0.2 mg/dL 08/18/24 13:28 Leukocyte Esterase (Auto) 0 Yudy/uL 08/18/24 13:28 Assessment & Plan Assessment & Plan (1) Erectile dysfunction: Code(s): N52.9 - Male erectile dysfunction, unspecified Category: Medical (2) Screening PSA (prostate specific antigen): Code(s): Z12.5 - Encounter for screening for malignant neoplasm of prostate Category: Medical Plan Check hormone levels Orders: Orders AMB Urinalysis Automated 08/18/24 Z13.9 - Encounter for screening, unspecified Patient Instructions: The patient had an opportunity to ask questions regarding treatment plan. The patient expressed understanding and agreement with the above treatment plan. The patient is aware they should contact our office by phone for worsening of their current condition or the appearance of new symptoms. Compliance is encouraged with any medications and followup testing that is ordered. It is a privilege to be allowed the opportunity to participate in the urologic care of your patient. If you have any questions or concerns regarding treatment for the above conditions please do not hesitate to contact me. The office telephone contact is [phone]. This note is constructed in part using voice recognition software. While every effort has been made to ensure accuracy electrotherapist errors may have been included. Yours sincerely, Kale Whelan MD Coding Level of Care Code New Pt Level 3 (40108) Diagnoses Erectile dysfunction N52.9 Screening PSA (prostate specific antigen) Z12.5
== END 2024-08-18 14:15 | disposition home or self-care (01) ==
PROVIDERS: PCP Registered Nurse; Visit Provider Urology
DX: N52.9 Male erectile dysfunction, unspecified (principal); Z12.5 Encounter for screening for malignant neoplasm of prostate
CPT/HCPCS: 99203

== ENCOUNTER → 2024-08-18 13:04 | Outpatient (BNVA) | payer MEDICARE, SELFPAY | PROVIDERS: PCP Registered Nurse; Visit Provider Urology | DX: Z12.5 Encounter for screening for malignant neoplasm of prostate (principal); N52.9 Male erectile dysfunction, unspecified | CPT/HCPCS: 81003; 99202 ==

== ENCOUNTER 2024-08-31 06:39 | Outpatient (REF) | payer MEDICARE, SELFPAY ==
[2024-08-31 07:20] LABS: INTERNATIONAL NORM RATIO 2.3 (0.9-1.1)
== END 2024-08-31 06:40 | disposition home or self-care (01) ==
LOC: HO.LAB 06:39
PROVIDERS: PCP Registered Nurse; Visit Provider Pharmacist
DX: Z95.2 Presence of prosthetic heart valve (principal)
CPT/HCPCS: 36415; 85610

== ENCOUNTER 2024-09-11 07:09 | Outpatient (REF) | payer MEDICARE, SELFPAY ==
[2024-09-11 08:00] LABS: Glucose Fasting 96 mg/dL (60-99)
[2024-09-11 08:24] LABS: PSA,Total (Free>4and<10) 0.56 ng/mL (0.00-4.00)
[2024-09-12 10:09] LABS: Follicle Stimulating Hormone 5.6 mIU/mL (1.4-12.8); Lutenizing Hormone 4.5 mIU/mL (1.5-9.3)
[2024-09-16 14:33] LABS: Testosterone, Free 97.1 pg/mL (35.0-155.0); Testosterone, Total 555 ng/dL (250-1100)
== END 2024-09-11 07:10 | disposition home or self-care (01) ==
LOC: HO.LAB 07:09
PROVIDERS: PCP Registered Nurse; Visit Provider Urology
DX: N52.9 Male erectile dysfunction, unspecified (principal); Z12.5 Encounter for screening for malignant neoplasm of prostate
CPT/HCPCS: 36415; 82947; 83001; 83002; 84146; 84153; 84402; 84403

== ENCOUNTER 2024-09-14 06:42 | Outpatient (REF) | payer MEDICARE, SELFPAY ==
[2024-09-14 07:35] LABS: INTERNATIONAL NORM RATIO 2.7 (0.9-1.1); Prothrombin Time 31.8 SEC (10.9-12.4)
== END 2024-09-14 06:43 | disposition home or self-care (01) ==
LOC: HO.LABR 06:42
PROVIDERS: PCP Registered Nurse; Visit Provider Pharmacist
DX: Z95.2 Presence of prosthetic heart valve (principal)
CPT/HCPCS: 36415; 85610

== ENCOUNTER 2024-09-28 06:39 | Outpatient (REF) | payer MEDICARE, SELFPAY ==
[2024-09-28 07:46] LABS: INTERNATIONAL NORM RATIO 2.2 (0.9-1.1); Prothrombin Time 26.2 SEC (10.9-12.4)
== END 2024-09-28 06:40 | disposition home or self-care (01) ==
LOC: HO.LABR 06:39
PROVIDERS: PCP Registered Nurse; Visit Provider Pharmacist
DX: Z95.2 Presence of prosthetic heart valve (principal)
CPT/HCPCS: 36415; 85610

== ENCOUNTER 2024-09-28 11:54 | Outpatient (AMB) | payer MEDICARE, SELFPAY ==
--- NOTE | 2024-09-28 11:56 | A.OFFVIS_ITS ---
Intake Visit Reasons: 4w/Testo(set) Intake Note: Patient is Present for Telephone Follow Up Testosterone Urology Med: None Antibiotic Allergy: None Blood Thinner: Warfarin, Aspirin Recent lab: 09/11- PSA- 0.56 Testosterone- 555 FSH- 5.6 LH- 4.5 Trail Construction Worker Required: Yes Trail Construction Worker Language: Ukrainian Accompanied by: Self / Same As Patient Allergies No Known Allergies Allergy (Verified 09/28/24 12:05) HPI Comments Details: 09/28/24--kayla is a 59-year-old male who I am following for erectile dysfunction. Discussed testosterone results are within normal limits. Normal testosterone levels. Tadalafil 5 mg daily. Recent lab: 09/11- PSA- 0.56 Testosterone- 555 FSH- 5.6 LH- 4.5 Review of chart: 08/18/24--Danis is a 58-year-old gentleman who is here as a new patient evaluation for concerns regarding erections. He states that the problem has been worsening over the last few years. He denies irritative voiding symptoms. I have discussed further evaluation with testosterone level and other pertinent hormone levels. [facility] Medical History Elevated cholesterol On anticoagulant therapy Screening for colon cancer Surgical History Hx of mitral valve replacement Hx of removal of cyst Family History Father No problems noted. Mother Hx of breast cancer Social History Household Members: Spouse and Family Housing: Apartment Do you presently have visiting nurse or other home services: No Alcohol intake: never Patient Tobacco Use Status: Never used Tobacco Advance Directives Date on File: 07/31/20 service: No Current occupational status: employed Review of Systems Const All systems reviewed & are unremarkable except as noted in HPI and below Reports no additional complaints Eyes Reports no additional complaints ENT Reports no additional complaints Card Reports no additional complaints Resp Reports no additional complaints GI Reports no additional complaints Reports as per HPI Musc Reports no additional complaints Skin/Breast Reports system reviewed and no additional complaints, except as documented Neuro Reports no additional complaints Psych Reports no additional complaints Endo Reports no additional complaints Vitaly/Lymph Reports no additional complaints Aller/Immun Reports no additional complaints Telehealth Telehealth Telehealth Platform: Telephone Location of provider rendering services: practice address Location of patient: address on file Patient Identification confirmed using: Name, : Yes Telehealth method: voice only Patient verbally consented to treatment: Yes Patient verbally consented to billing insurance company: Yes Patient informed of any privacy concerns related to visit: Yes Assessment & Plan Assessment & Plan (1) Erectile dysfunction: Code(s): N52.9 - Male erectile dysfunction, unspecified Category: Medical (2) Screening PSA (prostate specific antigen): Code(s): Z12.5 - Encounter for screening for malignant neoplasm of prostate Category: Medical Plan ED. normal testosterone levels. Tadalafil 5 mg daily. Patient Instructions: The patient had an opportunity to ask questions regarding treatment plan. The patient expressed understanding and agreement with the above treatment plan. The patient is aware they should contact our office by phone for worsening of their current condition or the appearance of new symptoms. Compliance is encouraged with any medications and followup testing that is ordered. It is a privilege to be allowed the opportunity to participate in the urologic care of your patient. If you have any questions or concerns regarding treatment for the above conditions please do not hesitate to contact me. The office telephone contact is [phone]. This note is constructed in part using voice recognition software. While every effort has been made to ensure accuracy garnett fixer errors may have been included. Yours sincerely, Kale Whelan MD Coding Level of Care Code Tele Est Pt Level 3 (09644) Diagnoses Erectile dysfunction N52.9 Screening PSA (prostate specific antigen) Z12.5
== END 2024-09-28 13:55 | disposition home or self-care (01) ==
LOC: HO.HUSH 11:54
PROVIDERS: PCP Registered Nurse; Visit Provider Urology
DX: N52.9 Male erectile dysfunction, unspecified (principal); Z12.5 Encounter for screening for malignant neoplasm of prostate
CPT/HCPCS: 99442

== ENCOUNTER 2024-10-10 07:00 | Outpatient (REF) | payer MEDICARE, SELFPAY ==
[2024-10-10 08:41] LABS: INTERNATIONAL NORM RATIO 2.6 (0.9-1.1); Prothrombin Time 30.4 SEC (10.9-12.4)
== END 2024-10-10 07:01 | disposition home or self-care (01) ==
LOC: HO.LABR 07:00
PROVIDERS: PCP Registered Nurse; Visit Provider Pharmacist
DX: Z95.2 Presence of prosthetic heart valve (principal)
CPT/HCPCS: 36415; 85610

== ENCOUNTER 2024-10-30 06:45 | Outpatient (REF) | payer MEDICARE, SELFPAY ==
[2024-10-30 08:23] LABS: INTERNATIONAL NORM RATIO 3.2 (0.9-1.1); Prothrombin Time 37.5 SEC (10.9-12.4)
== END 2024-10-30 06:46 | disposition home or self-care (01) ==
LOC: HO.LABR 06:45
PROVIDERS: PCP Registered Nurse; Visit Provider Pharmacist
DX: Z95.2 Presence of prosthetic heart valve (principal)
CPT/HCPCS: 36415; 85610

== ENCOUNTER 2024-11-27 07:12 | Outpatient (REF) | payer MEDICARE, SELFPAY ==
--- OUTSIDE RECORDS SUMMARY | 2024-11-27 07:14 | XMS_ITS | Encounter Summary ---
Author Organization [employer] Address [address] [place] [address] Care Team Providers Care E Learning Specialist Name Role Phone Eliza Carmona KELL Primary Care Provider [phone] Kale Spencer MD Unavailable Encounter Details Date Type Department Care Team (Latest Contact Info) Description 11/03/2024 Travel Social History Tobacco Use Types Packs/Day Years Used Date Smoking Tobacco: Never Smokeless Tobacco: Never Alcohol Use Standard Drinks/Week Comments Never 0 (1 standard drink = 0.6 oz pur e alcohol) Depression Answer Date Recorded Patient Health Questionnaire-9 Score 3 11/03/2024 Patient Health Questionnaire-9 Score 3 11/03/2024 Last PHQ-9: Questionnaire Data Not on file 0 11/03/2024 Housing Stability Answer Date Recorded What is your housing situation today? I have violeta flores 11/03/[address] you li ve. Do you have problems with any of the following? I am not sure 11/03/2024 Food Insecurity Answer Date Recorded Within the past 12 months, y ou worried that your food would run out before you got money to buy more: Never True 11/03/2024 Within the past 12 months,th e food you bought just didn't last and you didn't have enough money to get more: Never True 07/2025 Transportation Answer Date Recorded In the past 12 months, has l ack of transportation kept you from medical appts, meetings, work or from getting things needed for daily living? No 11/03/2024 Utilities Answer Date Recorded In the past 12 months, has t he electric, gas, oil or water company threatened to shut off services in your home? No 11/03/2024 Depression Answer Date Recorded Patient Health Questionnaire-2 Score 2 11/03/2024 Internet Access Answer Date Recorded Internet Access Q1 Yes 11/03/2024 Internet Access Q2 Not on file 11/03/2024 Sex and Gender Information Value Date Recorded Sex Assigned at Male 08/24/2022 10:17 AM EDT Legal Sex Male 10:17 AM EDT Gender Identity Male 08/24/2022 10:17 AM EDT Sexual Orientation Choose not to disclose 2021 10:17 AM EDT documented as of this encounter Plan of Treatment Not on file documented as of this encounter Visit Diagnoses Not on filedocumented in this encounter Additional Health Concerns Assessment Noted Time PHQ-9 Depression Total Score: 3 11/03/19 1:27 PM EST documented as of this encounter Care Teams E Learning Specialist Relationship Specialty Start Date End Date Eliza Camrona FNP [address] [place] [phone] PCP - General Family Medicine 08/15/21 Kale Spencer MD [address] [place] [address] [place] [id number] Urology 11/03/24 documented as of this encounter
--- OUTSIDE RECORDS SUMMARY | 2024-11-27 07:14 | XMS_ITS | Encounter Summary ---
Author Organization [employer] Address [address] [place] [address] Care Team Providers Care Contract Designer Name Role Phone Eliza Carmona KELL Primary Care Provider [phone] Kale Spencer MD Unavailable Encounter Details Date Type Department Care Team (Late st Contact Info) Description 07/03/2024 Orders Only [facility] [address] [place], [place] [phone] ProviderShakira MD Social History Tobacco Use Types Packs/Day Years Used Date Smoking Tobacco: Never Smokeless Tobacco: Never Alcohol Use Standard Drinks/Week Comments Never 0 (1 standard drink = 0.6 oz pur e alcohol) Depression Answer Date Recorded Patient Health Questionnaire-9 Score 7 08/13/2023 Patient Health Questionnaire-9 Score 7 08/13/2023 Last PHQ-9: Questionnaire Data Not on file 1 Housing Stability Answer Date Recorded What is your housing situation today? I have violetabakari flores 08/13/[address] you li ve. Do you have problems with any of the following? None of the above 08/13/2023 Food Insecurity Answer Date Recorded Within the past 12 months, y ou worried that your food would run out before you got money to buy more: Never True 08/13/2023 Within the past 12 months,th e food you bought just didn't last and you didn't have enough money to get more: Never True Transportation Answer Date Recorded In the past 12 months, has l ack of transportation kept you from medical appts, meetings, work or from getting things needed for daily living? No 08/13/2023 Utilities Answer Date Recorded In the past 12 months, has t he electric, gas, oil or water [employer] threatened to shut off services in your home? No 08/13/2023 Depression Answer Date Recorded Patient Health Questionnaire-2 Score 2 08/13/2023 Sex and Gender Information Value Date Recorded Sex Assigned at Male 08/24/2022 10:17 AM EDT Legal Sex Male 10:17 AM EDT Gender Identity Male 08/24/2022 10:17 AM EDT Sexual Orientation Choose not to disclose 2021 10:17 AM EDT documented as of this encounter Plan of Treatment Not on file documented as of this encounter Procedures Procedure Name Priority Date/Time Associated Diagnosis Comments PSA, TOTAL WITH REFLEX TO PSA, FREE Routine 09/11/2024 7:20 AM EST PROLACTIN Routine 09/11/2024 7:20 AM EST TESTOSTERONE, FREE (DIALYSIS) AND TOTAL,MS Routine 09/11/2024 7:20 AM EST LH Routine 09/11/2024 7:20 AM EST FSH Routine 09/11/2024 7:20 AM EST GLUCOSE Routine 09/11/2024 7:20 AM EST HM COLONOSCOPY Routine 03/06/2021 2:24 PM EDT documented in this encounter Results * Testosterone, Free (Dialysis) And Total, MS (09/11/2024 7:20 AM EST) Testosterone, Total 555 250 - 1100 ng/dL [facility] Comment:For additional infor isai, please refer [email or web address].Bridgestream.Software 2000/faq/[email or web address](This link is being provided for informational/educational purposes only.)This test was developed and its analytical performancecharacteristics have been determined by [employer] [place], [place]. It hasnot been cleared or approved by the U.S. Food and DrugAdministration. This assay has been validated pursuantto the CLIA regulations and is used for clinicalpurposes. Testosterone, Free 97.1 35.0 - 155.0 pg/mL [facility] Comment:This test was develo ped and its analytical performancecharacteristics have been determined by [employer] [place], [place]. It hasnot been cleared or approved by the U.S. Food and DrugAdministration. This assay has been validated pursuantto the CLIA regulations and is used for clinicalpurposes.THIS TEST WAS PERFORMED AT:[employer] [place] [address]YWPISKNPRAVEEN DUBOIS MD,PHD 09/11/2024 7:20 AM EST 09/11/2024 7:20 AM EST Generic External Data Provider LAB BLOOD ORDERAB LES Final Result Performing Organization Address [facility]/ZIP Co de Phone Number [facility] [address] [place] [phone] * Prolactin (09/11/2024 7:20 AM EST) Prolactin 18.0 2.0 - 18.0 ng/mL [facility] Comment:THIS TEST WAS PERFOR MED AT:[employer] [id number] [place] [address]LWIILTORY SOTO MD 09/11/2024 7:20 AM EST 09/11/2024 7:20 AM EST Generic External Data Provider LAB BLOOD ORDERAB LES Final Result Performing Organization Address [facility] Co de Phone Number [facility] [address] [place] [phone] * LH (09/11/2024 7:20 AM EST) Lutenizing Hormone 4.5 1.5 - 9.3 mIU/mL [facility] Comment:THIS TEST WAS PERFOR MED AT:[employer] [id number] [place] [address]AGRYATORY SOTO MD 09/11/2024 7:20 AM EST 09/11/2024 7:20 AM EST Generic External Data Provider LAB BLOOD ORDERAB LES Final Result Performing Organization Address [facility]/ZIP Co de Phone Number [facility] [address] [place] [phone] * FSH (09/11/2024 7:20 AM EST) Follicle Stimulating Hormone 5.6 1.4 - 12.8 mIU/mL [facility] Comment:THIS TEST WAS PERFOR MED AT:[facility] [place] [phone] SOTO MD 09/11/2024 7:20 AM EST 09/11/2024 7:20 AM EST Generic External Data Provider LAB BLOOD ORDERAB LES Final Result Performing Organization Address City/[facility]/ZIP Co de Phone Number [facility] [address] [place] [phone] * PSA, Total With Reflex to PSA, Free (09/11/2024 7:20 AM EST) PSA,Total (Free>4and<10) 0.56 0.00 - 4.00 ng/mL [facility] Comment:A Free PSA was not p erformed: The percentage of Free PSA can be used to enhance the differentiation of prostate cancer from benign prostatic disease in subjects whose PSA levels are between 4.0 and 10.0 ng/mL. For subjects whose PSA levels are below 4.0 or above 10.0 ng/mL, the risk of prostate cancer is determined on the basis of the PSA alone. Therefore the % Free PSA is recommended only for those subjects whose PSA levels are between 4.0 and 10.0 ng/mL.PSA methodology: Kumar Alinity i ChemiluminescentMicroparticle Immunoassay (CMIA) 09/11/2024 7:20 AM EST 09/11/2024 7:20 AM EST us Generic External Data Provider LAB BLOOD ORDERAB LES Final Result Performing Organization Address [facility] Co de Phone Number [facility] [address] [place] [phone] [phone] * Glucose (09/11/2024 7:20 AM EST) Glucose Fasting 96 60 - 99 mg/dL [facility] 09/11/2024 7:20 AM EST 09/11/2024 7:20 AM EST Generic External Data Provider LAB BLOOD ORDERAB LES Final Result Performing Organization Address [facility] de Phone Number [facility] [address] [place] [phone] * Hm Colonoscopy (03/06/2021 2:24 PM EDT) Historical Provider HEALTH MAINTENANCE Final Result documented in this encounter Visit Diagnoses Not on filedocumented in this encounter Additional Health Concerns Assessment Noted Time PHQ-9 Depression Total Score: 7 08/13/20 23 9:49 AM EDT documented as of this encounter Care Teams Contract Designer Relationship Specialty Start Date End Date Eliza Carmona FNP [address] [place] [phone] PCP - General Family Medicine 08/15/21 Kale Spencer MD [address] [place] [address] Urology 11/03/24 documented as of this encounter
--- OUTSIDE RECORDS SUMMARY | 2024-11-27 07:14 | XMS_ITS | Encounter Summary ---
Author Organization [employer] Address [address] [facility] [address] [place] [address] Care Team Providers Care Cra Name Role Phone Eliza Carmona Primary Care Provider Kale Spencer MD Unavailable Encounter Details Date Type Department Care Team (Latest Contact Info) Description 11/03/2024 1:45 PM EST Office Visit [facility] MED & PEDS [address] [place], [place] [phone] Eliza Carmona FNP [address] [place], [place] [phone] Other restrictive cardiomyopathy (CMS/HCC) (Primary Dx); Encounter for immunization; Erectile dysfunction, unspecified erectile dysfunction type Social History Tobacco Use Types Packs/Day Years [...] AM EDT documented as of this encounter Last Filed Vital Signs Vital Sign Reading Time Taken Comments Blood Pressure 115/70 11/03/2024 1:16 PM EST Pulse 90 11/03/2024 1:16 PM EST Temperature 36.6 ??C (97.8 ??F) 11/03/2024 1:16 PM ES T Respiratory Rate 20 11/03/2024 1:16 PM EST Oxygen Saturation 99% 11/03/2024 1:16 PM EST Inhaled Oxygen Concentration - - Weight 63 kg (139 lb) 11/03/2024 1:16 PM EST Height 172.7 cm (5' 8 ) 11/03/2024 1:16 PM EST Body Mass Index 21.13 11/03/2024 1:16 PM EST documented in this encounter Progress Notes * Eliza Carmona, KELL - 11/03/2024 1:45 PM EST Subjective: Danis Mauricio is a 59 y.o. male with a history of mitral valve repair (2016) with subsequent mitral valve replacement with mechanical valve (March 2020) on chronic coumadin, HTN, HLD, and cardiomyopathy who presents to the office for a follow up visit - CDM. HPI: Last PCP appt: 06/12/24. Doing well overall. Recent unexpected passing of his father in [place].Encouraged to follow-up if interested in speaking with one of our behavioral health team members Established with [facility] urology for erectile dysfunction. Hormone testing normal. Continues with tadalafil 5 mg daily with good response. Denies any shortness of breath chest pain or palpitations. Reports consistent med adherence at home. Social History Social History Narrative - School/employment: Has not been employed following the mitral valve replacement d/t the dizziness. Education up to 8th grade in [place]. - Exercise: During winter, uses indoor bicycle 2-3 times per week for exercise - Diet: Tries to eat a low fat, low salt diet given cardiac history - Living: Lives with a female watch dial printer (not ). Feels safe in current living situation. - Mental Health: Reports doing well overall. Has social support with family and friends Review of Systems Constitutional: Negative for chills and fever. Respiratory: Negative for shortness of breath and wheezing. Cardiovascular: Negative for chest pain and palpitations. Gastrointestinal: Negative for diarrhea and vomiting. Genitourinary: Negative for penile pain, penile swelling and testicular pain. Neurological: Negative for headaches. Objective Visit Vitals BP 115/70 (BP Location: Left arm, Patient Position: Sitting, BP Cuff Size: Adult) Pulse 90 Temp 97.8 ??F (36.6 ??C) (Oral) Resp 20 Ht 5' 8 (1.727 m) Wt 139 lb (63 kg) SpO2 99% BMI 21.13 kg/m?? Smoking Status Never BSA 1.74 m?? Physical Exam Vitals reviewed. Constitutional: Appearance: Normal appearance. HENT: Head: Atraumatic. Right Ear: External ear normal. Left Ear: External ear normal. Cardiovascular: Rate and Rhythm: Normal rate and regular rhythm. Heart sounds: No murmur heard. Pulmonary: Effort: Pulmonary effort is normal. Breath sounds: Normal breath sounds. Neurological: Mental Status: He is alert and oriented to person, place, and time. Psychiatric: Mood and Affect: Mood normal. Behavior: Behavior normal. Assessment/Plan Problem List Items Addressed This Visit Circulatory Other restrictive cardiomyopathy (CMS/HCC) - Primary Overview Nov 2022: Nuclear Stress Test, EF 43%, no sign of ischemia Followed by [facility] - Dr. Costa 08/29/24: ADRIANNA - ordered by Dr. Costa. Stable compared to previous. EF 50-55%. Mild-to-mod tricuspid regurgitation present, no evidence of pulm HTN. Current Assessment & Plan -Continue DASH diet -Continue current CARDs regimen: furosemide 20mg daily sacubetril-valsartan 24-26mg tablet BID (provider will call office to request that med be sent to [facility] pharmacy) metoprolol succinate ER 50mg daily aspirin 81mg daily amiodarone 200mg daily atorvastatin 80mg at daily (forgot to take when at bedtime) LDL goal < 70 -Monitor BP daily and when symptomatic. Call office with any concerns or worsening of symptoms Relevant Medications atorvastatin (Lipitor) 80 MG tablet Genitourinary Erectile dysfunction Overview Following with [facility] urology (Dr. Whelan) Continues with tadalafil 5mg daily with good response Current Assessment & Plan Cont current therapy Other Visit Diagnoses Encounter for immunization Relevant Orders FLU VACCINE TRIVALENT (Fluarix) 6 mo + (Completed) HEPATITIS B VACCINE ADULT 20 yrs + (Completed) Follow up: 3 months chronic conditions, sooner PRN documented in this encounter Miscellaneous Notes * Assessment & Plan Note - KELL Kearney - 11/03/2024 1:42 PM ESTAssociated Problem(s): Erectile dysfunction Cont current therapy * Assessment & Plan Note - KELL Kearney - 11/03/2024 1:39 PM ESTAssociated Problem(s): Other restrictive cardiomyopathy (CMS/HCC) -Continue DASH diet -Continue current CARDs regimen: furosemide 20mg daily sacubetril-valsartan 24-26mg tablet BID (provider will call office to request that med be sent to [facility] pharmacy) metoprolol succinate ER 50mg daily aspirin 81mg daily amiodarone 200mg daily atorvastatin 80mg at daily (forgot to take when at bedtime) LDL goal < 70 -Monitor BP daily and when symptomatic. Call office with any concerns or worsening of symptoms documented in this encounter Plan of Treatment Not on file documented as of this encounter Visit Diagnoses Diagnosis Other restrictive cardiomyopathy (CMS/HCC)- Primary Encounter for immunization Erectile dysfunction, unspecified erectile dysfunction type documented in this encounter Additional Health Concerns Assessment Noted Time PHQ-9 Depression Total Score: 3 11/03/19 25 1:27 PM EST documented as of this encounter Care Teams Cra Relationship Specialty Start Date End Date Eliza Carmona FNP [address] [place] [id number] PCP - General Family Medicine 08/15/21 Kale Spencer MD [address] [place] [address] [place] [id number] Urology 11/03/24 documented as of this encounter
--- OUTSIDE RECORDS SUMMARY | 2024-11-27 07:14 | XMS_ITS | Encounter Summary ---
Author Organization [employer] Address [address] [facility] 7[address] [place] [address] Care Team Providers Care Control Panel Operator Name Role Phone Eliza Carmona Primary Care Provider [phone] Kale Spencer MD Unavailable Reason for Visit * Reason Comments Med Refill Encounter Details Date Type Department Care Team ([facility] st Contact Info) Description 01/30/2023 Refill [facility] CHC MED & PEDS [address] [place] [address] Allyssa Yoo FNP [address] [place] [address] Dept [place] [address] Nasal congestion Social History Tobacco Use Types Packs/Day Years Used Date Smoking Tobacco: Never Smokeless Tobacco: Never Alcohol Use Standard Drinks/Week Comments Never 0 (1 standard drink = 0.6 oz pur e alcohol) Sex and Gender Information Value Date Recorded Sex Assigned at Male 08/24/2022 10:17 AM EDT Legal Sex Male 10:17 AM EDT Gender Identity Male 08/24/2022 10:17 AM EDT Sexual Orientation Choose not to disclose 2021 10:17 AM EDT documented as of this encounter Plan of Treatment Not on file documented as of this encounter Visit Diagnoses Diagnosis Nasal congestion Other diseases of nasal cavity and sinuses documented in this encounter Care Teams Control Panel Operator Relationship Specialty Start Date End Date Eliza Carmona FNP [address] [place] [address] PCP - General Family Medicine 08/15/21 Kale Spencer MD [address] [place] [address] Drive [address] [place] [address] Urology 11/03/24 documented as of this encounter
--- OUTSIDE RECORDS SUMMARY | 2024-11-27 07:14 | XMS_ITS | Encounter Summary ---
Author Organization [employer] Address [address] [facility] 7[address] [place] [address] Care Team Providers Care Performance Manager Name Role Phone Eliza Carmona Primary Care Provider [phone] Kale Spencer MD Unavailable Reason for Visit * Reason Comments Med Refill Encounter Details Date Type Department Care Team ([facility] Contact Info) Description 03/13/2023 Refill [facility] CHC MED & PEDS [address] [place], [place] [phone] Eliza Carmona FNP [address] [place] [address] Nasal congestion Social History Tobacco Use Types [...] not to disclose 2021 10:17 AM EDT COVID-19 Exposure Response Date Recorded In the last 10 days, have yo u been in contact with someone who was confirmed or suspected to have Coronavirus/COVID-19? No / Unsure 03/08/2023 8:35 AM EDT documented as of this encounter Plan of Treatment Not on file documented as of this encounter Visit Diagnoses Diagnosis Nasal congestion Other diseases of nasal cavity and sinuses documented in this encounter Care Teams Performance Manager Relationship Specialty Start Date End Date Eliza Carmona FNP [address] [place] [address] PCP - General Family Medicine 08/15/21 Kale Spencer MD [address] [place] [address] Drive [address] [place] [address] Urology 11/03/24 documented as of this encounter
--- OUTSIDE RECORDS SUMMARY | 2024-11-27 07:14 | XMS_ITS | Clinical Summary ---
Author Organization [employer] Address [address] [facility] [address] [place] [address] Care Team Providers Care Product Management Intern Name Role Phone Eliza Carmona KELL Primary Care Provider [phone] Kale Spencer MD Unavailable Allergies No known active allergies Medications amiodarone (Pacerone) 200 MG tablet Take 200 mg by mouth in the morning. 04/08/20 22 Active aspirin (Scott Low Dose) 81 MG EC tablet Take 1 tablet by mouth in the morning. 06/21/20 17 Active chlorhexidine (Peridex) 0.12 % solution SWISH 15 ML'S IN MOUTH FOR 30 SECONDS THEN SPIT OUT 2 TIMES A DAY AFTER MEALS 01/20/20 22 Active furosemide (Lasix) 20 MG tablet Take 20 mg by mouth in the morning. 07/21/20 22 Active sacubitril-valsart an (Entresto) 24-26 MG tablet Take 1 tablet by mouth every 12 (twelve) hours. Active warfarin (Coumadin) 5 MG tablet TAKE 1 TABLET BY MOUTH DAILY,INSTR: DIRECTED BY THE COUMADIN CLINIC 08/06/20 22 Active fluticasone (Flonase) 50 MCG/ACT nasal sprayIndications:S ensation of fullness in right ear ADMINISTER 1 SPRAY INTO EACH NOSTRIL IF NEEDED EACH DAY (NASAL CONGESTION OR SENSATION OF EAR FULLNESS). SHAKE GENTLY. BEFORE FIRST USE, PRIME PUMP. AFTER USE, CLEAN TIP AND REPLACE CAP. 48 mL 1 11/30/19 23 Active ketotifen (Zaditor) 0.025 % ophthalmic solution Administer 1 drop into both eyes if needed in the morning and at bedtime (seasonal alleriges). 5 mL 2 03/08/20 23 Active lidocaine (Lidoderm) 5 % patchIndications:U pper back pain on right side Apply 1 patch topically in the morning. Remove & discard patch within 12 hours or as directed by MD. 30 patch 3 11/26/19 24 Active acetaminophen (Tylenol) 325 MG tabletIndications: Upper back pain on right side Take 1-2 tablets every 6 hours as needed for pain or fever 100 tablet 1 11/26/19 24 Active metoprolol succinate XL (Toprol-XL) 50 MG 24 hr tabletIndications: Palpitations TOME IDA TABLETA TODOS LOS THOMPSON 90 tablet 3 12/05/19 24 Active docusate sodium (Colace) 100 MG capsuleIndications :Constipation, unspecified constipation type Take 1 capsule (100 mg) by mouth if needed in the morning and at bedtime for constipation. 180 capsule 3 03/13/20 24 Active atorvastatin (Lipitor) 80 MG tabletIndications: Other restrictive cardiomyopathy (CMS/HCC) Take 1 tablet (80 mg) by mouth Once per day. 90 tablet 1 11/03/19 25 026 Active atorvastatin (Lipitor) 40 MG tabletIndications: Hyperlipidemia, unspecified TOME IDA TABLETA POR VIA ORAL TODOS [place] THOMPSON ANTES DE ACOSTAR PARA COLESTEROL 90 tablet 3 10/04/20 23 025 Discontin ued(Dose adjustmen t) Active Problems Problem Noted Date Diagnosed Date Erectile dysfunction 11/03/2024 Overview (11/03/2024): [place] [facility] [place]hel[place]) Continues with tadalafil 5mg daily with good response Assessment & Plan (11/03/2024 1:42 PM EST): Cont current therapy Constipation 03/14/2024 Assessment & Plan (03/14/2024 8:05 AM EDT): -Cont Colace BID PRN -Encourage fiber-rich diet and adequate hydration Routine health maintenance 03/08/2023 Overview (06/13/2024): Optometry: CEE 03/12/22 Dental: [facility] [place] [facility] [place]. Check path report for follow up interval. PSA: ordered 06/12/24 Assessment & Plan (08/15/2023 6:17 PM EDT): ?? Optometry: CEE 03/12/22 ?? Dental: pt to present to [facility] Dental after today's appt to request scheduling for tooth extraction. ?? Colonoscopy: completed January 2021 - due January 2031 ?? COVID-19 Vaccine: primary series complete, boosted x 1. Encouraged updated booster. ?? Flu and pneumococcal vaccines administered today. VIS sheets provided. Assessment & Plan (03/08/2023 9:32 AM EDT): ?? Optometry: CEE 03/12/22 ?? Dental: pt to present to [facility] Dental after today's appt to request scheduling for tooth extraction. Pre-op completed Aril 2021 ?? Colonoscopy: completed January 2021 - due January 2031 ?? COVID-19 Vaccine: primary series complete, boosted x 1. Encouraged bivalent booster. History of Coumadin therapy 03/08/2023 Overview (08/15/2023): ?? Managed by [facility] ?? Per Cards consult note March 2023 Dr. Costa: For dental procedures should have abx prophylactic, but does NOT need to stop coumadin. Essential hypertension 10/26/2022 Assessment & Plan (06/13/2024 11:09 AM EDT): - Well controlled - Continue DASH diet and lifestyle interventions Continue current CARDs medication regimen: furosemide 20mg daily metoprolol succinate ER 50mg daily Entresto 24-26mg BID amiodarone 200mg daily atorvastatin 40mg nightly Assessment & Plan (08/15/2023 6:15 PM EDT): Continue DASH diet Continue current CARDs medication regimen: ?? furosemide 20mg daily ?? metoprolol succinate ER 50mg daily ?? Entresto 24-26mg BID ?? amiodarone 200mg daily ?? atorvastatin 40mg nightly Assessment & Plan (03/08/2023 7:40 AM EDT): Continue DASH diet Continue current CARDs medication regimen: ?? furosemide 20mg daily ?? lisinopril 5mg daily ?? metoprolol succinate ER 50mg daily ?? aspirin 81mg daily ?? amiodarone 200mg daily ?? 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 - Dr. Costa 08/29/24: ADRIANNA - ordered by Dr. Costa. Stable compared to previous. EF 50-55%. Mild-to-mod tricuspid regurgitation present, no evidence of pulm HTN. Assessment & Plan (11/03/2024 1:40 PM EST): -Continue DASH diet -Continue current CARDs regimen: furosemide 20mg daily sacubetril-valsartan 24-26mg tablet BID (provider will call office to request that med be sent to [facility] pharmacy) metoprolol succinate ER 50mg daily aspirin 81mg daily amiodarone 200mg daily atorvastatin 80mg at daily (forgot to take when at bedtime) LDL goal < 70 -Monitor BP daily and when symptomatic. Call office with any concerns or worsening of symptoms Assessment & Plan (08/15/2023 6:11 PM EDT): -Continue DASH diet -Continue current CARDs regimen: ?? furosemide 20mg daily ?? sacubetril-valsartan 24-26mg tablet BID (provider will call office to request that med be sent to [facility] pharmacy) ?? metoprolol succinate ER 50mg daily ?? aspirin 81mg daily ?? amiodarone 200mg daily ?? atorvastatin 40mg at bedtime -Monitor BP daily and when symptomatic. Call office with any concerns or worsening of symptoms Assessment & Plan (10/26/2022 10:25 AM EST): -EKG without acute concern -Continue DASH diet -Continue current CARDs regimen: -furosemide 20mg daily -sacubetril-valsartan 24-26mg tablet BID -metoprolol succinate ER 50mg daily -aspirin 81mg daily -amiodarone 200mg daily -atorvastatin 40mg at bedtime -Monitor BP daily and when symptomatic. Call office with any concerns or worsening of symptoms Dizziness 01/17/2022 Hyperlipidemia 07/19/2017 Assessment & Plan (03/14/2024 8:06 AM EDT): -LDL goal < 70 -Lipid panel Jul 2023: TC 142, LDL 83, HDL 39, TG 101 -Continues with atorvastatin 40mg daily. Continue taking in the morning as was forgetting to take before bed. Assessment & Plan (11/28/2023 9:19 AM EST): -LDL goal < 70 -Lipid panel Jul 2023: TC 142, LDL 83, HDL 39, TG 101 -Continues with atorvastatin 40mg daily. Currently taking in the morning instead of evening. Encouraged to take statin before bed and increase lifestyle interventions. -If continues to be above goal despite plan above, consider increase to atorvastatin 80mg nightly Assessment & Plan (08/15/2023 6:16 PM EDT): FLP ordered Mitral valve prolapse 07/19/2017 Encounters Date Type Department Care Team Description 11/03/2024 1:45 PM EST Office Visit [facility] [address] [place] [address] Eliza Carmona FNP Other restrictive cardiomyopathy (CMS/HCC) (Primary Dx); Encounter for immunization; Erectile dysfunction, unspecified erectile dysfunction type 11/03/2024 Travel 10/30/2024 Telephone [facility] [address] [place] [address] Mark Conn MA Chart Prep 09/28/2024 Travel 09/12/2024 Telephone [facility] [address] [place] [address] Eliza Carmona FNP September recall from Last 3 Months Immunizations Name Administration Dates Next Due Hep B, adult 11/03/2024 Influenza injectable quadriv alent preservative free 08/13/2023,08/10/2022,06/28/2020,08/28,08/09/2017 Influenza, seasonal, injecta ble, preservative free 11/03/2024 Pneumococcal Conjugate PCV 20 08/13/2023 Pneumococcal Polysaccharide PPSV23 06/17/2017 Td (adult), 5 Lf tetanus tox oid, preservative free, adsorbed 02/08/2017 Tdap 08/28/2019 Zoster, Recombinant 06/22/2022,04/08/2022 Social History Tobacco Use Types Packs/Day Years Used Date Smoking Tobacco: Never Smokeless Tobacco: Never Tobacco Cessation:Counseling Given: Not Answered Alcohol Use Standard Drinks/Week Comments Never 0 [...] not to disclose 2021 10:17 AM EDT Last Filed Vital Signs Vital Sign Reading [...] Mass Index 21.13 11/03/2024 1:16 PM EST Plan of Treatment Health Maintenance Due Date Last Done Comments CT Colonography 1965 FIT DNA/Cologuard 1965 FIT 1965 FOBT 1965 Sigmoidoscopy 1965 Dental X-Ray: Bitewings 01/20/2023 01/19/2022, 05/18 COVID-19 Vaccine ( season) 2024 01/19/2022, 06/03/2021, 05/13/2021 Dental Oral Exam 07/30/2024 01/28/2024, , 01/19/2022, Additional history exists Dental Prophylaxis 08/26/2024 02/23/2024 Hepatitis B Vaccines (2 of 3 - 19+ 3-dose series) 12/01/2024 11/03/2024 Dental X-Ray: Full Mouth 01/20/2025 01/19/2022, 04/25 Alcohol/Substance Use Screening 11/03/2025 11/03/2024 Depression Screening 11/03/2025 11/03/2024, 11/03/19 SDOH Screening 11/03/2025 11/03/2024 Tobacco Screening 11/03/2025 11/03/2024 Lipid Panel 06/27/2029 06/27/2024, 07/27, 11/11/2021 DTaP/Tdap/Td Vaccines (2 - Td or Tdap) 08/28/2029 08/28/2019, 02/08/2017 Colonoscopy 03/06/2031 03/06/2021 Colorectal Cancer Screening 03/06/2031 RSV Patients and Patients Aged 60 years or older (1 - 1-dose 75+ series) 2040 Zoster Vaccines Completed 06/22/2022, 04/08/2022 Pneumococcal Vaccine: 50+ Years Completed 08/13/2023, 06/17/2017 Pneumococcal Vaccine: Pediatrics (0 to 5 Years) and At-Risk Patients (6 to 49) Years) Completed 08/13/2023, 06/17/2017 HIV Screening Completed 06/27/2024, 11/11/2021 Hepatitis C Screening Completed 06/27/2024, 022 Influenza Vaccine Completed 11/03/2024, , 08/10/2022, Additional history exists HIB Vaccines Aged Out No longer eligi ble based on patient's age to complete this topic HPV Vaccines Aged Out No longer eligi ble based on patient's age to complete this topic Hepatitis A Vaccines Aged Out No long er eligible based on patient's age to complete this topic IPV Vaccines Aged Out No longer eligi ble based on patient's age to complete this topic Meningococcal Vaccine Aged Out No salma jamila eligible based on patient's age to complete this topic RSV under 20 months Aged Out No longe r eligible based on patient's age to complete this topic Rotavirus Vaccines Aged Out No longer eligible based on patient's age to complete this topic Procedures Procedure Name Priority Date/Time Associated Diagnosis Comments TESTOSTERONE, FREE (DIALYSIS) AND TOTAL,MS Routine 09/11/2024 7:20 AM EST PROLACTIN Routine 09/11/2024 7:20 AM EST LH Routine 09/11/2024 7:20 AM EST FSH Routine 09/11/2024 7:20 AM EST PSA, TOTAL WITH REFLEX TO PSA, FREE Routine 09/11/2024 7:20 AM EST GLUCOSE Routine 09/11/2024 7:20 AM EST HEPATITIS C VIRAL RNA, QUANTITATIVE, REAL-TIME PCR Routine 06/27/2024 6:57 AM EDT Routine health maintenance HIV 1/2 ANTIGEN/ANTIBODY, FOURTH GENERATION W/RFL Routine 06/27/2024 6:57 AM EDT Routine health maintenance LIPID PANEL, STANDARD Routine 06/27/2024 6:57 AM EDT Routine health maintenance PROPHYLAXIS - ADULT Routine 02/23/2024 9 :00 AM EDT PERIODIC ORAL EVALUATION - ESTABLISHED PATIENT Routine 01/28/2024 8:00 AM EDT DIAGNOSTIC - DIAGNOSTIC IMAGING - INTRAORAL - COMPREHENSIVE SERIES OF RADIOGRAPHIC IMAGES Routine 01/19/2022 12:00 AM EDT HM COLONOSCOPY Routine 03/06/2021 2:24 PM EDT from Last 3 Months or Most Recently Relevant to Health Maintenance Results * PSA, Total With Reflex to PSA, Free (09/11/2024 7:20 AM EST) PSA,Total (Free>4and<10) 0.56 0.00 - 4.00 ng/mL [facility] Comment:A Free PSA was not [...] Provider LAB BLOOD ORDERAB LES Final Result [facility] [address] [place] [address] [phone] * Prolactin (09/11/2024 7:20 AM EST) Prolactin 18.0 2.0 - 18.0 ng/mL [facility] Comment:THIS TEST WAS PERFOR MED AT:[facility] [address] [id number] SOTO MD 09/11/2024 7:20 AM EST 09/11/2024 7:20 AM EST us Generic External Data Provider LAB BLOOD ORDERAB LES Final Result [facility] [address] [place] [phone] * Testosterone, Free (Dialysis) And Total, MS (09/11/2024 7:20 AM EST) Testosterone, Total 555 250 - 1100 ng/dL [facility] Comment:For additional infor mation, please refer tohttp://education.Averail/faq/YvzitEpzvbhlwxxitRNMGVOWDV419(This link is being provided for informational/educational purposes only.)This test was developed and its analytical performancecharacteristics have been determined by [employer] [place], [place]. It hasnot been cleared or approved by the U.S. Food and DrugAdministration. This assay has been validated pursuantto the CLIA regulations and is used for clinicalpurposes. Testosterone, Free 97.1 35.0 - 155.0 pg/mL [facility] Comment:This test was develo ped and its analytical performancecharacteristics have been determined by [employer] [place], [place]. It hasnot been cleared or approved by the U.S. Food and DrugAdministration. This assay has been validated pursuantto the CLIA regulations and is used for clinicalpurposes.THIS TEST WAS PERFORMED AT:[facility]/[employer] [id number] [place] [id number] DUBOIS MD,PHD 09/11/2024 7:20 AM EST 09/11/2024 7:20 AM EST us Generic External Data Provider LAB BLOOD ORDERAB LES Final Result Performing Organization Address [facility] Co de Phone Number [facility] [address] [place] [phone] * LH (09/11/2024 7:20 AM EST) Lutenizing Hormone 4.5 1.5 - 9.3 mIU/mL [facility] Comment:THIS TEST WAS PERFOR MED AT:[facility] [address] [phone] SOTO MD 09/11/2024 7:20 AM EST 09/11/2024 7:20 AM EST us Generic External Data Provider LAB BLOOD ORDERAB LES Final Result Performing Organization Address [facility] de Phone Number [facility] [address] [place] [phone] * FSH (09/11/2024 7:20 AM EST) Follicle Stimulating Hormone 5.6 1.4 - 12.8 mIU/mL [facility] Comment:THIS TEST WAS PERFOR MED AT:[facility] [address] [phone] SOTO MD 09/11/2024 7:20 AM EST 09/11/2024 7:20 AM EST us Generic External Data Provider LAB BLOOD ORDERAB LES Final Result Performing Organization Address [facility]/ZIP Co de Phone Number [facility] [address] [place] [phone] * Glucose (09/11/2024 7:20 AM EST) Pathologist [facility] Glucose Fasting 96 60 - 99 mg/dL [facility] 09/11/2024 7:20 AM EST 09/11/2024 7:20 AM EST us Generic External Data Provider LAB BLOOD ORDERAB LES Final Result Performing Organization Address [facility] Co de Phone Number [facility] [address] [place] [phone] * Hepatitis C Viral RNA, Quantitative, Real-Time PCR (06/27/2024 6:57 AM EDT) [facility] Hepatitis C Viral Load <15 NOT DETECTED NOT DETECTED IU/mL [facility] HCV Log PCR <1.18 NOT DETECTED NOT DETECTED Log IU/mL [facility] Comment:For additional infor isai, please refer tohttp://education.Averail/faq/MTN90c7(This link is being provided for informational/educational purposes only.)THIS TEST WAS PERFORMED AT:[facility] [place] [phone] SOTO MD Blood 06/27/2024 6:57 AM EDT 06/27/2024 7:03 AM EDT us Eliza Carmona [employer] LAB BLOOD ORDERABLES Final Res ult Performing Organization Address [facility] Co de Phone Number [facility] [address] [place] [phone] * HIV-1/2 Antigen and Antibodies, Fourth Generation, with Reflexes (06/27/2024 6:57 AM EDT) [facility] HIV AB/AG Nonreactive Nonreactive [facility] Comment:HIV-1 p24 Ag and/or HIV-1/HIV-2 Ab not detected.A test result that is nonreactive does not exclude thepossibility of exposure to or infection with HIV-1 and/orHIV-2. Nonreactive results in this assay for individualswith prior exposure to HIV-1 and/or HIV-2 may be due toantigen and antibody levels that are below the limit ofdetection of this assay.[employer] HIV Ag/Ab Combo assay result andsupplemental assay results should be interpreted inconjunction with the patient's clinical presentation,history and other laboratory results. If the results areinconsistent with clinical evidence, additional testing issuggested to confirm the result. Blood Venous blood specimen / Unknown 06/27/2024 6:57 AM EDT 06/27/2024 7:03 AM EDT us Eliza Carmona [employer] LAB BLOOD ORDERABLES Final Res ult [facility] [address] [place] [phone] * (ABNORMAL) Lipid Panel, Standard (06/27/2024 6:57 AM EDT) Triglycerides 116 <150 mg/dL [facility] Comment:Desirable Triglyceri de: less than 150 mg/dLBorderline High Triglyceride 150-199 mg/dLHigh Triglyceride: 200-499 mg/dLVery High Triglyceride: greater than or equal to 5OO mg/dL Cholesterol 144 <200 mg/dL [facility] Comment:Desirable Cholestero l: less than 200 mg/dLBorderline High Cholesterol: 200-239 mg/dLHigh Cholesterol: greater than 239 mg/dL LDL Cholesterol Calculated 85 <100 mg/dL [facility] Comment:Desirable LDL: less than 100 mg/dLNear Optimal/Above Optimal LDL: 110- 129 mg/dLBorderline High LDL: 130-159 mg/dLHigh LDL: 160-189 mg/dLVery High LDL: greater than or equal to 190 mg/dL HDL Cholesterol 36(L) >40 mg/dL [facility] Comment:Desirable HDL: great er than 40 mg/dL Note: This HDL assay may give artificially low results in patients with liver disease. Blood Venous blood specimen / Unknown 06/27/2024 6:57 AM EDT 06/27/2024 7:03 AM EDT Eliza Carmona [employer] LAB BLOOD ORDERABLES Final Res ult [facility] [address] [place] [phone] * Hm Colonoscopy (03/06/2021 2:24 PM EDT) Historical Provider MD HEALTH MAINTENANCE Final Result from Last 3 Months or Most Recently Relevant to Health Maintenance Insurance [facility] Member Subscriber Plan / Payer (Ef fective 2024-Present) Name:Danis Mauricio Relation to Subscriber:Self Name:Danis Mauricio Payer ID:Not on file Group ID:[id number] Type:Not on file Address: [address] [facility] [facility] ST[facility] Care Teams Product Management Intern Relationship Specialty Start Date End Date Eliza Carmona FNP [address] [place] [address] PCP - General Family Medicine 08/15/21 Kale Spencer MD [address] [place] [address] Urology 11/03/24
--- OUTSIDE RECORDS SUMMARY | 2024-11-27 07:14 | XMS_ITS | Encounter Summary ---
Author Organization [employer] Address [address] [place] [address] Care Team Providers Care Psychologist Military Personnel Name Role Phone Eliza Carmona KELL Primary Care Provider [phone] Kale Spencer MD Unavailable Encounter Details Date Type Department Care Team ([facility] st Contact Info) Description 10/12/2022 Orders Only [facility] [address] [place], [place] [phone] Joellen Broussard LPN Social History Tobacco Use Types Packs/Day Years Used Date Smoking Tobacco: Never Assessed Sex and Gender Information Value Date Recorded Sex Assigned at Male 08/24/2022 10:17 AM EDT Legal Sex Male 10:17 AM EDT Gender Identity Male 08/24/2022 10:17 AM EDT Sexual Orientation Choose not to disclose 2021 10:17 AM EDT documented as of this encounter Plan of Treatment Not on file documented as of this encounter Procedures Procedure Name Priority Date/Time Associated Diagnosis Comments PROTHROMBIN TIME-INR Routine 09/22/2023 7:05 AM EST PROTHROMBIN TIME-INR Routine 04/01/2023 6:27 AM EDT PROTHROMBIN TIME-INR Routine 03/17/2023 6:43 AM EDT PROTHROMBIN TIME-INR Routine 03/03/2023 6:54 AM EDT PROTHROMBIN TIME-INR Routine 02/17/2023 6:36 AM EDT PROTHROMBIN TIME-INR Routine 02/10/2023 6:43 AM EDT PROTHROMBIN TIME-INR Routine 01/29/2023 6:54 AM EDT PROTHROMBIN TIME-INR Routine 01/26/2023 7:01 AM EDT PROTHROMBIN TIME-INR Routine 01/12/2023 7:14 AM EDT PROTHROMBIN TIME-INR Routine 12/29/2022 7:02 AM EST PROTHROMBIN TIME-INR Routine 12/22/2022 7:14 AM EST PROTHROMBIN TIME-INR Routine 12/15/2022 6:41 AM EST PROTHROMBIN TIME-INR Routine 12/08/2022 6:48 AM EST PROTHROMBIN TIME-INR Routine 12/01/2022 6:43 AM EST PROTHROMBIN TIME-INR Routine 11/26/2022 6:42 AM EST documented in this encounter Results * (ABNORMAL) Prothrombin Time-INR (09/22/2023 7:05 AM EST) Prothrombin Time 29.4(H) 11.1 - 13.3 SEC [facility] INTERNATIONAL NORM RATIO 2.4(H) 0.9 - 1.1 [facility] Comment:INTERNATIONAL NORMAL IZED RATIO (INR) REFERENCE RANGES Reference RangeFor patients not on anticoagulant therapy: 0.9 - 1.1INR ranges for oral anticoagulanttherapy:For prevention and treatment of venous thrombosis and pulmonary embolism: 2.0 - 3.0For acute myocardial infarction with aspirin therapy: 2.0 - 3.0For acute myocardial infarction without aspirin therapy: 3.0 - 4.0For patients with mechanical prosthetic heart valves: 2.5 - 3.5 09/22/2023 7:05 AM EST 09/22/2023 7:05 AM EST us Generic External Data Provider LAB BLOOD ORDERAB LES Final Result Performing Organization Address City/[facility]/ZIP Co de Phone Number [facility] [address] [place] [phone] * (ABNORMAL) Prothrombin Time-INR (04/01/2023 6:27 AM EDT) Prothrombin Time 31.1(H) 10.0 - 13.1 [facility] INTERNATIONAL NORM RATIO 2.6(H) 0.9 - 1.1 [facility] Comment:INTERNATIONAL NORMAL IZED RATIO (INR) REFERENCE RANGES Reference RangeFor patients not on anticoagulant therapy: 0.9 - 1.1INR ranges for oral anticoagulanttherapy:For prevention and treatment of venous thrombosis and pulmonary embolism: 2.0 - 3.0For acute myocardial infarction with aspirin therapy: 2.0 - 3.0For acute myocardial infarction without aspirin therapy: 3.0 - 4.0For patients with mechanical prosthetic heart valves: 2.5 - 3.5 04/01/2023 6:27 AM EDT 04/01/2023 6:27 AM EDT [facility] External Provider LAB BLO OD ORDERABLES Final Result Performing Organization Address [facility] Co de Phone Number [facility] [address] [place] [phone] * (ABNORMAL) Prothrombin Time-INR (03/17/2023 6:43 AM EDT) Prothrombin Time 34.2(H) 10.0 - 13.1 [facility] INTERNATIONAL NORM RATIO 2.9(H) 0.9 - 1.1 [facility] Comment:INTERNATIONAL NORMAL IZED RATIO (INR) REFERENCE RANGES Reference RangeFor patients not on anticoagulant therapy: 0.9 - 1.1INR ranges for oral anticoagulanttherapy:For prevention and treatment of venous thrombosis and pulmonary embolism: 2.0 - 3.0For acute myocardial infarction with aspirin therapy: 2.0 - 3.0For acute myocardial infarction without aspirin therapy: 3.0 - 4.0For patients with mechanical prosthetic heart valves: 2.5 - 3.5 03/17/2023 6:43 AM EDT 03/17/2023 6:43 AM EDT [facility] External Provider LAB BLO OD ORDERABLES Final Result Performing Organization Address [facility] de Phone Number [facility] [address] [place] [phone] * (ABNORMAL) Prothrombin Time-INR (03/03/2023 6:54 AM EDT) Prothrombin Time 34.1(H) 10.0 - 13.1 [facility] INTERNATIONAL NORM RATIO 2.8(H) 0.9 - 1.1 [facility] Comment:INTERNATIONAL NORMAL IZED RATIO (INR) REFERENCE RANGES Reference RangeFor patients not on anticoagulant therapy: 0.9 - 1.1INR ranges for oral anticoagulanttherapy:For prevention and treatment of venous thrombosis and pulmonary embolism: 2.0 - 3.0For acute myocardial infarction with aspirin therapy: 2.0 - 3.0For acute myocardial infarction without aspirin therapy: 3.0 - 4.0For patients with mechanical prosthetic heart valves: 2.5 - 3.5 03/03/2023 6:54 AM EDT 03/03/2023 6:54 AM EDT [facility] External Provider LAB BLO OD ORDERABLES Final Result Performing Organization Address [facility] de Phone Number [facility] [address] [place] [phone] * (ABNORMAL) Prothrombin Time-INR (02/17/2023 6:36 AM EDT) Prothrombin Time 33.8(H) 10.0 - 13.1 [facility] INTERNATIONAL NORM RATIO 2.8(H) 0.9 - 1.1 [facility] Comment:INTERNATIONAL NORMAL IZED RATIO (INR) REFERENCE RANGES Reference RangeFor patients not on anticoagulant therapy: 0.9 - 1.1INR ranges for oral anticoagulanttherapy:For prevention and treatment of venous thrombosis and pulmonary embolism: 2.0 - 3.0For acute myocardial infarction with aspirin therapy: 2.0 - 3.0For acute myocardial infarction without aspirin therapy: 3.0 - 4.0For patients with mechanical prosthetic heart valves: 2.5 - 3.5 02/17/2023 6:36 AM EDT 02/17/2023 6:36 AM EDT [facility] External Provider LAB BLO OD ORDERABLES Final Result Performing Organization Address [facility] Co de Phone Number [facility] [address] [place] [address] [phone] * (ABNORMAL) Prothrombin Time-INR (02/10/2023 6:43 AM EDT) Prothrombin Time 37.0(H) 10.0 - 13.1 [facility] INTERNATIONAL NORM RATIO 3.1(H) 0.9 - 1.1 [facility] Comment:INTERNATIONAL NORMAL IZED RATIO (INR) REFERENCE RANGES Reference RangeFor patients not on anticoagulant therapy: 0.9 - 1.1INR ranges for oral anticoagulanttherapy:For prevention and treatment of venous thrombosis and pulmonary embolism: 2.0 - 3.0For acute myocardial infarction with aspirin therapy: 2.0 - 3.0For acute myocardial infarction without aspirin therapy: 3.0 - 4.0For patients with mechanical prosthetic heart valves: 2.5 - 3.5 02/10/2023 6:43 AM EDT 02/10/2023 6:43 AM EDT [facility] External Provider LAB BLO OD ORDERABLES Final Result Performing Organization Address [facility] Co de Phone Number [facility] [address] [place] [address] [phone] * (ABNORMAL) Prothrombin Time-INR (01/29/2023 6:54 AM EDT) Prothrombin Time 32.5(H) 10.0 - 13.1 [facility] INTERNATIONAL NORM RATIO 2.7(H) 0.9 - 1.1 [facility] Comment:INTERNATIONAL NORMAL IZED RATIO (INR) REFERENCE RANGES Reference RangeFor patients not on anticoagulant therapy: 0.9 - 1.1INR ranges for oral anticoagulanttherapy:For prevention and treatment of venous thrombosis and pulmonary embolism: 2.0 - 3.0For acute myocardial infarction with aspirin therapy: 2.0 - 3.0For acute myocardial infarction without aspirin therapy: 3.0 - 4.0For patients with mechanical prosthetic heart valves: 2.5 - 3.5 01/29/2023 6:54 AM EDT 01/29/2023 6:54 AM EDT [facility] External Provider LAB BLO OD ORDERABLES Final Result Performing Organization Address [facility] de Phone Number [facility] [address] [place] [address] [phone] * (ABNORMAL) Prothrombin Time-INR (01/26/2023 7:01 AM EDT) Prothrombin Time 22.4(H) 10.0 - 13.1 SEC [facility] INTERNATIONAL NORM RATIO 1.9(H) 0.9 - 1.1 [facility] Comment:INTERNATIONAL NORMAL IZED RATIO (INR) REFERENCE RANGES Reference RangeFor patients not on anticoagulant therapy: 0.9 - 1.1INR ranges for oral anticoagulanttherapy:For prevention and treatment of venous thrombosis and pulmonary embolism: 2.0 - 3.0For acute myocardial infarction with aspirin therapy: 2.0 - 3.0For acute myocardial infarction without aspirin therapy: 3.0 - 4.0For patients with mechanical prosthetic heart valves: 2.5 - 3.5 01/26/2023 7:01 AM EDT 01/26/2023 7:01 AM EDT [facility] External Provider LAB BLO OD ORDERABLES Final Result Performing Organization Address [facility] de Phone Number [facility] [address] [place] [address] [phone] * (ABNORMAL) Prothrombin Time-INR (01/12/2023 7:14 AM EDT) Prothrombin Time 36.4(H) 10.0 - 13.1 SEC [facility] INTERNATIONAL NORM RATIO 3.0(H) 0.9 - 1.1 [facility] Comment:INTERNATIONAL NORMAL IZED RATIO (INR) REFERENCE RANGES Reference RangeFor patients not on anticoagulant therapy: 0.9 - 1.1INR ranges for oral anticoagulanttherapy:For prevention and treatment of venous thrombosis and pulmonary embolism: 2.0 - 3.0For acute myocardial infarction with aspirin therapy: 2.0 - 3.0For acute myocardial infarction without aspirin therapy: 3.0 - 4.0For patients with mechanical prosthetic heart valves: 2.5 - 3.5 01/12/2023 7:14 AM EDT 01/12/2023 7:14 AM EDT [facility] External Provider LAB BLO OD ORDERABLES Final Result Performing Organization Address City/State/[facility] Co de Phone Number [facility] [address] [place] [address] [phone] * (ABNORMAL) Prothrombin Time-INR (12/29/2022 7:02 AM EST) Prothrombin Time 35.3(H) 10.0 - 13.1 SEC [facility] INTERNATIONAL NORM RATIO 2.9(H) 0.9 - 1.1 [facility] Comment:INTERNATIONAL NORMAL IZED RATIO (INR) REFERENCE RANGES Reference RangeFor patients not on anticoagulant therapy: 0.9 - 1.1INR ranges for oral anticoagulanttherapy:For prevention and treatment of venous thrombosis and pulmonary embolism: 2.0 - 3.0For acute myocardial infarction with aspirin therapy: 2.0 - 3.0For acute myocardial infarction without aspirin therapy: 3.0 - 4.0For patients with mechanical prosthetic heart valves: 2.5 - 3.5 12/29/2022 7:02 AM EST 12/29/2022 7:02 AM EST [facility] External Provider LAB BLO OD ORDERABLES Final Result Performing Organization Address [facility] Co de Phone Number [facility] [address] [place] [address] [phone] * (ABNORMAL) Prothrombin Time-INR (12/22/2022 7:14 AM EST) Prothrombin Time 39.4(H) 10.0 - 13.1 SEC [facility] INTERNATIONAL NORM RATIO 3.3(H) 0.9 - 1.1 [facility] Comment:INTERNATIONAL NORMAL IZED RATIO (INR) REFERENCE RANGES Reference RangeFor patients not on anticoagulant therapy: 0.9 - 1.1INR ranges for oral anticoagulanttherapy:For prevention and treatment of venous thrombosis and pulmonary embolism: 2.0 - 3.0For acute myocardial infarction with aspirin therapy: 2.0 - 3.0For acute myocardial infarction without aspirin therapy: 3.0 - 4.0For patients with mechanical prosthetic heart valves: 2.5 - 3.5 12/22/2022 7:14 AM EST 12/22/2022 7:15 AM EST [facility] External Provider LAB BLO OD ORDERABLES Final Result Performing Organization Address [facility] de Phone Number [facility] [address] [place] [address] [phone] * (ABNORMAL) Prothrombin Time-INR (12/15/2022 6:41 AM EST) Prothrombin Time 41.0(H) 10.0 - 13.1 SEC [facility] INTERNATIONAL NORM RATIO 3.4(H) 0.9 - 1.1 [facility] Comment:INTERNATIONAL NORMAL IZED RATIO (INR) REFERENCE RANGES Reference RangeFor patients not on anticoagulant therapy: 0.9 - 1.1INR ranges for oral anticoagulanttherapy:For prevention and treatment of venous thrombosis and pulmonary embolism: 2.0 - 3.0For acute myocardial infarction with aspirin therapy: 2.0 - 3.0For acute myocardial infarction without aspirin therapy: 3.0 - 4.0For patients with mechanical prosthetic heart valves: 2.5 - 3.5 12/15/2022 6:41 AM EST 12/15/2022 6:41 AM EST [facility] External Provider LAB BLO OD ORDERABLES Final Result Performing Organization Address [facility] Co de Phone Number [facility] [address] [place] [address] [phone] * (ABNORMAL) Prothrombin Time-INR (12/08/2022 6:48 AM EST) Prothrombin Time 29.0(H) 10.0 - 13.1 SEC [facility] INTERNATIONAL NORM RATIO 2.4(H) 0.9 - 1.1 [facility] Comment:INTERNATIONAL NORMAL IZED RATIO (INR) REFERENCE RANGES Reference RangeFor patients not on anticoagulant therapy: 0.9 - 1.1INR ranges for oral anticoagulanttherapy:For prevention and treatment of venous thrombosis and pulmonary embolism: 2.0 - 3.0For acute myocardial infarction with aspirin therapy: 2.0 - 3.0For acute myocardial infarction without aspirin therapy: 3.0 - 4.0For patients with mechanical prosthetic heart valves: 2.5 - 3.5 12/08/2022 6:48 AM EST 12/08/2022 6:50 AM EST [facility] External Provider LAB BLO OD ORDERABLES Final Result Performing Organization Address [facility] Co de Phone Number [facility] [address] [place] [address] [phone] * (ABNORMAL) Prothrombin Time-INR (12/01/2022 6:43 AM EST) Prothrombin Time 31.3(H) 10.0 - 13.1 SEC [facility] INTERNATIONAL NORM RATIO 2.6(H) 0.9 - 1.1 [facility] Comment:INTERNATIONAL NORMAL IZED RATIO (INR) REFERENCE RANGES Reference RangeFor patients not on anticoagulant therapy: 0.9 - 1.1INR ranges for oral anticoagulanttherapy:For prevention and treatment of venous thrombosis and pulmonary embolism: 2.0 - 3.0For acute myocardial infarction with aspirin therapy: 2.0 - 3.0For acute myocardial infarction without aspirin therapy: 3.0 - 4.0For patients with mechanical prosthetic heart valves: 2.5 - 3.5 12/01/2022 6:43 AM EST 12/01/2022 6:43 AM EST [facility] External Provider LAB BLO OD ORDERABLES Final Result Performing Organization Address [facility] Co de Phone Number [facility] [address] [place] [phone] * (ABNORMAL) Prothrombin Time-INR (11/26/2022 6:42 AM EST) Prothrombin Time 26.3(H) 10.0 - 13.1 SEC [facility] INTERNATIONAL NORM RATIO 2.2(H) 0.9 - 1.1 [facility] Comment:INTERNATIONAL NORMAL IZED RATIO (INR) REFERENCE RANGES Reference RangeFor patients not on anticoagulant therapy: 0.9 - 1.1INR ranges for oral anticoagulanttherapy:For prevention and treatment of venous thrombosis and pulmonary embolism: 2.0 - 3.0For acute myocardial infarction with aspirin therapy: 2.0 - 3.0For acute myocardial infarction without aspirin therapy: 3.0 - 4.0For patients with mechanical prosthetic heart valves: 2.5 - 3.5 11/26/2022 6:42 AM EST 11/26/2022 6:43 AM EST [facility] External Provider LAB BLO OD ORDERABLES Final Result Performing Organization Address [facility] Co de Phone Number [facility] [address] [place] [address] [phone] documented in this encounter Visit Diagnoses Not on filedocumented in this encounter Care Teams Psychologist Military Personnel Relationship Specialty Start Date End Date Eliza Carmona FNP [address] [place] [address] PCP - General Family Medicine 08/15/21 Kale Spencer MD [address] [place], [place] [phone] Urology 11/03/24 documented as of this encounter
[2024-11-27 08:15] LABS: INTERNATIONAL NORM RATIO 2.5 (0.9-1.1); Prothrombin Time 29.4 SEC (10.9-12.4)
== END 2024-11-27 07:13 | disposition home or self-care (01) ==
LOC: HO.LABR 07:12
PROVIDERS: PCP Registered Nurse; Visit Provider Pharmacist
DX: Z95.2 Presence of prosthetic heart valve (principal)
CPT/HCPCS: 36415; 85610

== ENCOUNTER 2024-12-25 06:48 | Outpatient (REF) | payer MEDICARE, SELFPAY ==
[2024-12-25 07:18] LABS: INTERNATIONAL NORM RATIO 1.1 (0.9-1.1)
== END 2024-12-25 06:49 | disposition home or self-care (01) ==
LOC: HO.LABR 06:48
PROVIDERS: PCP Registered Nurse; Visit Provider Pharmacist
DX: Z95.2 Presence of prosthetic heart valve (principal)
CPT/HCPCS: 36415; 85610

== ENCOUNTER 2024-12-28 06:33 | Outpatient (REF) | payer OTHER, SELFPAY ==
--- OUTSIDE RECORDS SUMMARY | 2024-12-28 06:36 | XMS_ITS | Encounter Summary ---
Author Organization [employer] Address [address] [place] [address] Care Team Providers Care [employer] Name Role Phone Elzia Carmona KELL Primary Care Provider [phone] Kale Spencer MD Unavailable Encounter Details Date Type Department Care Team (Late st Contact Info) Description 07/03/2024 Orders Only [facility] [address] [place], [place] [phone] ProviderShakira MD Social History Tobacco Use Types [...] t he electric, gas, oil or water [employer] threatened to shut off services in your [...] Testosterone, Total 555 250 - 1100 ng/dL [facility] Comment:For additional infor isai, please refer tohttp://education.[employer]/faq/IahjzYygioxgcpqtyOOMZHVZPU402(This link is being provided for informational/educational purposes only.)This test was developed and its analytical performancecharacteristics have been determined by [employer] [place], [place]. It hasnot been cleared or approved by the U.S. Food and DrugAdministration. This assay has been validated pursuantto the CLIA regulations and is used for clinicalpurposes. Testosterone, Free 97.1 35.0 - 155.0 pg/mL [facility] Comment:This test was develo ped and its analytical performancecharacteristics have been determined by [employer] [place]. It hasnot been cleared or approved by the U.S. Food and DrugAdministration. This assay has been validated pursuantto the CLIA regulations and is used for clinicalpurposes.THIS TEST WAS PERFORMED AT:[employer] [place] [address]NVPGRUKPRAVEEN DUBOIS MD,PHD 09/11/2024 7:20 AM EST 09/11/2024 7:20 AM EST Generic External Data Provider LAB BLOOD ORDERAB LES Final Result Performing Organization Address [facility]/ZIP Co de Phone Number [facility] [address] [place] [phone] * Prolactin (09/11/2024 7:20 AM EST) Prolactin 18.0 2.0 - 18.0 ng/mL [facility] Comment:THIS TEST WAS PERFOR MED AT:[employer] [id number] [place] [address]WOKZZTORY SOTO MD 09/11/2024 7:20 AM EST 09/11/2024 7:20 AM EST Generic External Data Provider LAB BLOOD ORDERAB LES Final Result Performing Organization Address [facility] Co de Phone Number [facility] [address] [place] [address] [phone] * LH (09/11/2024 7:20 AM EST) Lutenizing Hormone 4.5 1.5 - 9.3 mIU/mL [facility] Comment:THIS TEST WAS PERFOR MED AT:[employer] [id number] [place] [address]ZUWTLTORY SOTO MD 09/11/2024 7:20 AM EST 09/11/2024 7:20 AM EST Generic External Data Provider LAB BLOOD ORDERAB LES Final Result Performing Organization Address [facility]/ZIP Co de Phone Number [facility] [address] [place] [phone] * FSH (09/11/2024 7:20 AM EST) Follicle Stimulating Hormone 5.6 1.4 - 12.8 mIU/mL [facility] Comment:THIS TEST WAS PERFOR MED AT:[employer] [place] [id number] SOTO MD 09/11/2024 7:20 AM EST 09/11/2024 7:20 AM EST Generic External Data Provider LAB BLOOD ORDERAB LES Final Result Performing Organization Address City/[facility]/ZIP Co de Phone Number [facility] [address] [place] [phone] * PSA, Total With Reflex to PSA, Free (09/11/2024 7:20 AM EST) PSA,Total (Free>4and<10) 0.56 0.00 - 4.00 ng/mL [facility] Comment:A Free PSA was not [...] ORDERAB LES Final Result Performing Organization Address [facility] Co de Phone Number [facility] [address] [place] [address] [phone] * Glucose (09/11/2024 7:20 AM EST) Glucose Fasting 96 60 - 99 mg/dL [facility] 09/11/2024 7:20 AM EST 09/11/2024 7:20 AM EST Generic External Data Provider LAB BLOOD ORDERAB LES Final Result Performing Organization Address [facility] de Phone Number [facility] [address] [place] [phone] * Hm Colonoscopy (03/06/2021 2:24 PM EDT) Historical Provider HEALTH MAINTENANCE Final Result documented in this encounter Visit Diagnoses Not on filedocumented in this encounter Additional Health Concerns Assessment Noted Time PHQ-9 Depression Total Score: 7 08/13/20 23 9:49 AM EDT documented as of this encounter Care Teams [employer] Relationship Specialty Start Date End Date Eliza Carmona FNP [address] [place] [phone] PCP - General Family Medicine 08/15/21 Kale Spencer MD [address] [place] [address] Urology 11/03/24 documented as of this encounter
--- OUTSIDE RECORDS SUMMARY | 2024-12-28 06:36 | XMS_ITS | Clinical Summary ---
Author Organization [employer] Address [address] [facility] 7t [place] [address] Care Team Providers Care Limousine Rental Clerk Name Role Phone Eliza Carmona KELL Primary Care Provider [phone] Kale Spencer MD Unavailable Allergies No known [...] mouth in the morning. 07/21/20 22 Active sacubitril-valsar alcantar (Entresto) 24-26 MG tablet Take 1 tablet by mouth every 12 (twelve) hours. Active warfarin (Coumadin) 5 MG tablet TAKE 1 TABLET BY MOUTH DAILY,INSTR:A S DIRECTED BY THE [facility] 08/06/20 22 Active fluticasone (Flonase) 50 MCG/ACT nasal sprayIndications: Sensation of fullness in right ear ADMINISTER 1 [...] 03/08/20 23 Active lidocaine (Lidoderm) 5 % patchIndications: Upper back pain on right side Apply 1 patch topically in the morning. Remove & discard patch within 12 hours or as directed by MD. 30 patch 3 11/26/19 24 Active acetaminophen (Tylenol) 325 MG tabletIndications :Upper back pain on right side Take 1-2 tablets every 6 hours as needed for pain or fever 100 tablet 1 11/26/19 24 Active docusate sodium (Colace) 100 MG capsuleIndication s:Constipation, unspecified constipation type Take 1 capsule (100 mg) by mouth if needed in the morning and at bedtime for constipation. 180 capsule 3 03/13/20 24 Active atorvastatin (Lipitor) 80 MG tabletIndications :Other restrictive cardiomyopathy (CMS/HCC) Take 1 tablet (80 mg) by mouth Once per day. 90 tablet 1 11/03/19 25 2025 Active metoprolol succinate XL (Toprol-XL) 50 MG 24 hr tabletIndications :Palpitations TAKE 1 TABLET BY MOUTH EVERY DAY 90 tablet 3 12/22/19 25 Active metoprolol succinate XL (Toprol-XL) 50 MG 24 hr tabletIndications :Palpitations TOME IDA TABLETA TODOS [place] THOM[place] 90 tablet 3 12/05/19 24 2024 Discontinued Active Problems Problem Noted Date Diagnosed Date Erectile dysfunction 11/03/2024 Overview (11/03/2024): Following with [facility] urology (Dr. Whelan) Continues with tadalafil 5mg daily with good response Assessment & Plan (11/03/2024 1:42 PM EST): Cont current therapy Constipation 03/14/2024 Assessment & Plan (03/14/2024 8:05 AM EDT): -Cont Colace BID PRN -Encourage fiber-rich diet and adequate hydration Routine health maintenance 03/08/2023 Overview (06/13/2024): Optometry: CEE 03/12/22 Dental: [facility] Dental Colonoscopy: 02/06/21 at [facility] - Dr. Barrios. Check path report for follow up interval. PSA: ordered 06/12/24 Assessment & Plan (08/15/2023 6:17 PM EDT): ?? Optometry: CEE 03/12/22 ?? Dental: pt to present to [facility] Dental after today's appt to request scheduling for tooth extraction. ?? Colonoscopy: completed January 2021 - due January 2031 ?? COVID-19 Vaccine: primary series complete, boosted x 1. Encouraged updated booster. ?? Flu and pneumococcal vaccines administered today. VIS sheets provided. Assessment & Plan (03/08/2023 9:32 AM EDT): ?? Optometry: CEE 03/12/22 ?? Dental: pt to present to [facility] after today's appt to request scheduling for tooth extraction. Pre-op completed Aril 2021 ?? Colonoscopy: completed January 2021 - due January 2031 ?? COVID-19 Vaccine: primary series complete, boosted x 1. Encouraged bivalent booster. History of Coumadin therapy 03/08/2023 Overview (08/15/2023): ?? Managed by [facility] ?? Per Cards consult [...] 43%, no sign of ischemia Followed by [facility] - Dr. Costa 08/29/24: ADRIANNA - ordered by Dr. Costa. Stable compared to previous. EF 50-55%. Mild-to-mod tricuspid regurgitation present, no evidence of pulm HTN. Assessment & Plan (11/03/2024 1:40 PM EST): -Continue DASH diet -Continue current CARDs regimen: furosemide 20mg daily sacubetril-valsartan 24-26mg tablet BID (provider will call office to request that med be sent to [facility] pharmacy) metoprolol succinate ER 50mg daily [...] to request that med be sent to [facility] pharmacy) ?? metoprolol succinate ER 50mg [...] Encounters Date Type Department Care Team Description 12/22/2024 Refill [facility] [address] [place] [address] Eliza Carmona FNP Palpitations 11/03/2024 1:45 PM EST Office Visit [facility] [address] [place] [address] Eliza Carmona FNP Other restrictive cardiomyopathy (CMS/HCC) (Primary Dx); Encounter for immunization; Erectile dysfunction, unspecified erectile dysfunction type 11/03/2024 Travel 10/30/2024 Telephone [facility] [address] [place] [address] Mark Conn MA Chart Prep from Last 3 Months Immunizations Name Administration [...] 11/03/2025 11/03/2024 Depression Screening 11/03/2025 11/03/2024, 11/03/19 25 SDOH Screening 11/03/2025 11/03/2024 Tobacco Screening 11/03/2025 11/03/2024 Lipid Panel 06/27/2029 06/27/2024, 07/27, 11/11/2021 DTaP/Tdap/Td Vaccines (2 - Td or Tdap) 08/28/2029 08/28/2019, 02/08/2017 Colonoscopy 03/06/2031 03/06/2021 Colorectal Cancer Screening 03/06/2031 RSV Patients and Patients Aged 60 years or older (1 - 1-dose 75+ series) 2040 Zoster Vaccines Completed 06/22/2022, 04/08/2022 Pneumococcal Vaccine: 50+ Years Completed 08/13/2023, 06/17/2017 HIV Screening Completed 06/27/2024, [...] Procedure Name Priority Date/Time Associated Diagnosis Comments HEPATITIS C VIRAL RNA, QUANTITATIVE, REAL-TIME PCR Routine 06/27/2024 6:57 AM EDT Routine health maintenance HIV 1/2 ANTIGEN/ANTIBODY, FOURTH GENERATION W/RFL Routine 06/27/2024 6:57 AM EDT Routine health maintenance LIPID PANEL, STANDARD Routine 06/27/2024 6:57 AM EDT Routine health maintenance PROPHYLAXIS - ADULT Routine 02/23/2024 9 :00 AM EDT PERIODIC ORAL EVALUATION - ESTABLISHED PATIENT Routine 01/28/2024 8:00 AM EDT INTRAORAL - COMPLETE SERIES OF RADIOGRAPHIC IMAGES Routine 01/19/2022 12:00 AM EDT HM COLONOSCOPY Routine 03/06/2021 2:24 PM EDT from Last 3 Months or Most Recently Relevant to Health Maintenance Results * Hepatitis C Viral RNA, Quantitative, Real-Time PCR (06/27/2024 6:57 AM EDT) Pathologist [facility] Hepatitis C Viral Load <15 NOT DETECTED NOT DETECTED IU/mL [facility] HCV Log PCR <1.18 NOT DETECTED NOT DETECTED Log IU/mL [facility] Comment:For additional infor isai, please refer tohttp://education.[employer]/faq/NKE76i3(This link is being provided for informational/educational purposes only.)THIS TEST WAS PERFORMED AT:[facility] [place] [phone] SOTO MD Blood 06/27/2024 6:57 AM EDT 06/27/2024 7:03 AM EDT Eliza Carmona DESIGN CHIEF LAB BLOOD ORDERABLES Final Res ult [facility] [address] [place] [address] [phone] * HIV-1/2 Antigen and Antibodies, Fourth Generation, with Reflexes (06/27/2024 6:57 AM EDT) Pathologist [facility] HIV AB/AG Nonreactive Nonreactive [facility] Comment:HIV-1 p24 Ag and/or HIV-1/HIV-2 Ab not detected.A test result that is nonreactive does not exclude thepossibility of exposure to or infection with HIV-1 and/orHIV-2. Nonreactive results in this assay for individualswith prior exposure to HIV-1 and/or HIV-2 may be due toantigen and antibody levels that are below the limit ofdetection of this assay.The APGR Green HIV Ag/Ab Combo assay result andsupplemental assay results should be interpreted inconjunction with the patient's clinical presentation,history and other laboratory results. If the results areinconsistent with clinical evidence, additional testing issuggested to confirm the result. Blood Venous blood specimen / Unknown 06/27/2024 6:57 AM EDT 06/27/2024 7:03 AM EDT us Eliza Garylucas [facility] LAB BLOOD ORDERABLES Final Res ult Performing Organization Address [facility] Co de Phone Number [facility] [address] [place] [address] [phone] * (ABNORMAL) Lipid Panel, Standard (06/27/2024 6:57 AM EDT) Triglycerides 116 <150 mg/dL [facility] Comment:Desirable Triglyceri de: less than 150 mg/dLBorderline High Triglyceride 150-199 mg/dLHigh Triglyceride: 200-499 mg/dLVery High Triglyceride: greater than or equal to 5OO mg/dL Cholesterol 144 <200 mg/dL [facility] Comment:Desirable Cholestero l: less than 200 mg/dLBorderline High Cholesterol: 200-239 mg/dLHigh Cholesterol: greater than 239 mg/dL LDL Cholesterol Calculated 85 <100 mg/dL [facility] Comment:Desirable LDL: less than 100 mg/dLNear Optimal/Above Optimal LDL: 110- 129 mg/dLBorderline High LDL: 130-159 mg/dLHigh LDL: 160-189 mg/dLVery High LDL: greater than or equal to 190 mg/dL HDL Cholesterol 36(L) >40 mg/dL [facility] Comment:Desirable HDL: great er than 40 mg/dL Note: This HDL assay may give artificially low results in patients with liver disease. Blood Venous blood specimen / Unknown 06/27/2024 6:57 AM EDT 06/27/2024 7:03 AM EDT us Eliza Carmona [facility] BLOOD ORDERABLES Final Res ult Performing Organization Address [facility]/ZIP Co de Phone Number [facility] [address] [place] [address] [phone] * Hm Colonoscopy (03/06/2021 2:24 PM EDT) Historical Provider HEALTH MAINTENANCE Final Result from Last 3 Months or Most Recently Relevant to Health Maintenance Insurance [facility] Member Subscriber Plan / Payer (Ef fective 2024-Present) Name:Danis Mauricio Relation to Subscriber:Self Name:Danis Mauricio Payer ID:Not on file Group ID:[id number] Type:Not on file Address: [address] ST[facility]ARD [facility] STAND ADULT DENTAL - [facility] Care Teams Limousine Rental Clerk Relationship Specialty Start Date End Date Eliza Carmona FNP [address] [place] [address] PCP - General Family Medicine 08/15/[address] [place] [address] Urology 11/03/24
--- OUTSIDE RECORDS SUMMARY | 2024-12-28 06:36 | XMS_ITS | Encounter Summary ---
Author Organization [employer] Address [address] [facility] [address] [address] [place] [address] Care Team Providers Care Automatic Lathe Operator Name Role Phone Eliza Carmona Primary Care Provider [phone] Kale Spencer MD Unavailable Reason for Visit * Reason Comments Med Refill Encounter Details Date Type Department Care Team ([facility] st Contact Info) Description 12/22/2024 Refill [facility] [address] [place] [address] Eliza Carmona FNP [address] [place] [address] Palpitations Social History Tobacco Use Types Packs/Day Years [...] as of this encounter Visit Diagnoses Diagnosis Palpitations documented in this encounter Additional Health Concerns Assessment Noted Time PHQ-9 Depression Total Score: 3 11/03/19 25 1:27 PM EST documented as of this encounter Care Teams Automatic Lathe Operator Relationship Specialty Start Date End Date Eliza Carmona FNP [address] [place] [phone] PCP - General Family Medicine 08/15/21 Kale Spencer MD [address] [place] [phone] Urology 11/03/24 documented as of this encounter
--- OUTSIDE RECORDS SUMMARY | 2024-12-28 06:36 | XMS_ITS | Encounter Summary ---
Author Organization [employer] Address [address] [facility] [address] [place] [address] Care Team Providers Care Prosthetic Makeup Designer Name Role Phone Eliza Carmona Primary Care Provider [phone] Kale Spencer MD Unavailable Reason for Visit * Reason Comments Med Refill Encounter Details Date Type Department Care Team ([facility] Contact Info) Description 03/13/2023 Refill [facility] [address] [place], [place] [phone] Eliza Carmona FNP [address] [place] [address] Nasal congestion Social History Tobacco Use Types [...] sinuses documented in this encounter Care Teams Prosthetic Makeup Designer Relationship Specialty Start Date End Date Eliza Carmona FNP [address] [place] [address] PCP - General Family Medicine 08/15/21 Kale Spencer MD [address] [place] [address] Drive [address] [place] [address] Urology 11/03/24 documented as of this encounter
--- OUTSIDE RECORDS SUMMARY | 2024-12-28 06:36 | XMS_ITS | Encounter Summary ---
Author Organization [employer] Address [address] [facility] 7t [place] [address] Care Team Providers Care Brick Mason Name Role Phone Eliza Carmona Primary Care Provider [phone] Kale Spencer MD Unavailable Reason for Visit * Reason Comments Med Refill Encounter Details Date Type Department Care Team ([facility] st Contact Info) Description 01/30/2023 Refill [facility] [address] [place] [address] Allyssa Yoo FNP [address] [place] [address] Dept [place] [address] Nasal congestion Social History Tobacco Use Types [...] sinuses documented in this encounter Care Teams Brick Mason Relationship Specialty Start Date End Date Eliza Carmona FNP [address] [place] [address] PCP - General Family Medicine 08/15/21 Kale Spencer MD [address] [place] [address] Drive [address] [place] [address] Urology 11/03/24 documented as of this encounter
--- OUTSIDE RECORDS SUMMARY | 2024-12-28 06:36 | XMS_ITS | Encounter Summary ---
Author Organization [employer] Address [address] [facility] [address] [place] [address] Care Team Providers Care Maintenance Worker Swimming Pool Name Role Phone Eliza Carmona KELL Primary Care Provider [phone] Kale Spencer MD Unavailable Encounter Details Date Type Department Care Team ([facility] st Contact Info) Description 10/12/2022 Orders Only [facility] [address] [place], [place] [phone] Joellen Broussard LPN Social History Tobacco Use [...] Prothrombin Time 29.4(H) 11.1 - 13.3 SEC [facility] INTERNATIONAL NORM RATIO 2.4(H) 0.9 - 1.1 [facility] Comment:INTERNATIONAL NORMAL IZED RATIO (INR) REFERENCE [...] ORDERAB LES Final Result Performing Organization Address City/[facility]/ZIP Co de Phone Number [facility] [address] [place] [phone] * (ABNORMAL) Prothrombin Time-INR (04/01/2023 6:27 AM EDT) Prothrombin Time 31.1(H) 10.0 - 13.1 [facility] INTERNATIONAL NORM RATIO 2.6(H) 0.9 - 1.1 [facility] Comment:INTERNATIONAL NORMAL IZED RATIO (INR) REFERENCE [...] 6:27 AM EDT 04/01/2023 6:27 AM EDT [facility] External Provider LAB BLO OD ORDERABLES Final Result Performing Organization Address [facility] Co de Phone Number [facility] [address] [place] [phone] * (ABNORMAL) Prothrombin Time-INR (03/17/2023 6:43 AM EDT) Prothrombin Time 34.2(H) 10.0 - 13.1 SEC [facility] INTERNATIONAL NORM RATIO 2.9(H) 0.9 - 1.1 [facility] Comment:INTERNATIONAL NORMAL IZED RATIO (INR) REFERENCE [...] 6:43 AM EDT 03/17/2023 6:43 AM EDT [facility] External Provider LAB BLO OD ORDERABLES Final Result Performing Organization Address [facility] de Phone Number [facility] [address] [place] [phone] * (ABNORMAL) Prothrombin Time-INR (03/03/2023 6:54 AM EDT) Prothrombin Time 34.1(H) 10.0 - 13.1 [facility] INTERNATIONAL NORM RATIO 2.8(H) 0.9 - 1.1 [facility] Comment:INTERNATIONAL NORMAL IZED RATIO (INR) REFERENCE [...] 6:54 AM EDT 03/03/2023 6:54 AM EDT [facility] External Provider LAB BLO OD ORDERABLES Final Result Performing Organization Address [facility] de Phone Number [facility] [address] [place] [phone] * (ABNORMAL) Prothrombin Time-INR (02/17/2023 6:36 AM EDT) Prothrombin Time 33.8(H) 10.0 - 13.1 [facility] INTERNATIONAL NORM RATIO 2.8(H) 0.9 - 1.1 [facility] Comment:INTERNATIONAL NORMAL IZED RATIO (INR) REFERENCE [...] 6:36 AM EDT 02/17/2023 6:36 AM EDT [facility] External Provider LAB BLO OD ORDERABLES Final Result Performing Organization Address [facility] Co de Phone Number [facility] [address] [place] [address] [phone] * (ABNORMAL) Prothrombin Time-INR (02/10/2023 6:43 AM EDT) Prothrombin Time 37.0(H) 10.0 - 13.1 [facility] INTERNATIONAL NORM RATIO 3.1(H) 0.9 - 1.1 [facility] Comment:INTERNATIONAL NORMAL IZED RATIO (INR) REFERENCE [...] 6:43 AM EDT 02/10/2023 6:43 AM EDT [facility] External Provider LAB BLO OD ORDERABLES Final Result Performing Organization Address [facility] Co de Phone Number [facility] [address] [place] [address] [phone] * (ABNORMAL) Prothrombin Time-INR (01/29/2023 6:54 AM EDT) Prothrombin Time 32.5(H) 10.0 - 13.1 [facility] INTERNATIONAL NORM RATIO 2.7(H) 0.9 - 1.1 [facility] Comment:INTERNATIONAL NORMAL IZED RATIO (INR) REFERENCE [...] 6:54 AM EDT 01/29/2023 6:54 AM EDT [facility] External Provider LAB BLO OD ORDERABLES Final Result Performing Organization Address [facility] de Phone Number [facility] [address] [place] [phone] * (ABNORMAL) Prothrombin Time-INR (01/26/2023 7:01 AM EDT) Prothrombin Time 22.4(H) 10.0 - 13.1 SEC [facility] INTERNATIONAL NORM RATIO 1.9(H) 0.9 - 1.1 [facility] Comment:INTERNATIONAL NORMAL IZED RATIO (INR) REFERENCE [...] 7:01 AM EDT 01/26/2023 7:01 AM EDT [facility] External Provider LAB BLO OD ORDERABLES Final Result Performing Organization Address [facility] de Phone Number [facility] [address] [place] [phone] * (ABNORMAL) Prothrombin Time-INR (01/12/2023 7:14 AM EDT) Prothrombin Time 36.4(H) 10.0 - 13.1 [facility] INTERNATIONAL NORM RATIO 3.0(H) 0.9 - 1.1 [facility] Comment:INTERNATIONAL NORMAL IZED RATIO (INR) REFERENCE [...] 7:14 AM EDT 01/12/2023 7:14 AM EDT [facility] External Provider LAB BLO OD ORDERABLES Final Result Performing Organization Address City/State/[facility] Co de Phone Number [facility] [address] [place] [phone] * (ABNORMAL) Prothrombin Time-INR (12/29/2022 7:02 AM EST) Prothrombin Time 35.3(H) 10.0 - 13.1 [facility] INTERNATIONAL NORM RATIO 2.9(H) 0.9 - 1.1 [facility] Comment:INTERNATIONAL NORMAL IZED RATIO (INR) REFERENCE [...] 7:02 AM EST 12/29/2022 7:02 AM EST [facility] External Provider LAB BLO OD ORDERABLES Final Result Performing Organization Address [facility] Co de Phone Number [facility] [address] [place] [phone] * (ABNORMAL) Prothrombin Time-INR (12/22/2022 7:14 AM EST) Prothrombin Time 39.4(H) 10.0 - 13.1 SEC [facility] INTERNATIONAL NORM RATIO 3.3(H) 0.9 - 1.1 [facility] Comment:INTERNATIONAL NORMAL IZED RATIO (INR) REFERENCE [...] 7:14 AM EST 12/22/2022 7:15 AM EST [facility] External Provider LAB BLO OD ORDERABLES Final Result Performing Organization Address [facility] de Phone Number [facility] [address] [place] [phone] * (ABNORMAL) Prothrombin Time-INR (12/15/2022 6:41 AM EST) Prothrombin Time 41.0(H) 10.0 - 13.1 SEC [facility] INTERNATIONAL NORM RATIO 3.4(H) 0.9 - 1.1 [facility] Comment:INTERNATIONAL NORMAL IZED RATIO (INR) REFERENCE [...] 6:41 AM EST 12/15/2022 6:41 AM EST [facility] External Provider LAB BLO OD ORDERABLES Final Result Performing Organization Address [facility] Co de Phone Number [facility] [address] [place] [phone] * (ABNORMAL) Prothrombin Time-INR (12/08/2022 6:48 AM EST) Prothrombin Time 29.0(H) 10.0 - 13.1 SEC [facility] INTERNATIONAL NORM RATIO 2.4(H) 0.9 - 1.1 [facility] Comment:INTERNATIONAL NORMAL IZED RATIO (INR) REFERENCE [...] 6:48 AM EST 12/08/2022 6:50 AM EST [facility] External Provider LAB BLO OD ORDERABLES Final Result Performing Organization Address [facility] Co de Phone Number [facility] [address] [place] [phone] * (ABNORMAL) Prothrombin Time-INR (12/01/2022 6:43 AM EST) Prothrombin Time 31.3(H) 10.0 - 13.1 [facility] INTERNATIONAL NORM RATIO 2.6(H) 0.9 - 1.1 [facility] Comment:INTERNATIONAL NORMAL IZED RATIO (INR) REFERENCE [...] 6:43 AM EST 12/01/2022 6:43 AM EST [facility] External Provider LAB BLO OD ORDERABLES Final Result Performing Organization Address [facility] Co de Phone Number [facility] [address] [place] [phone] [phone] * (ABNORMAL) Prothrombin Time-INR (11/26/2022 6:42 AM EST) Prothrombin Time 26.3(H) 10.0 - 13.1 [facility] INTERNATIONAL NORM RATIO 2.2(H) 0.9 - 1.1 [facility] Comment:INTERNATIONAL NORMAL IZED RATIO (INR) REFERENCE [...] 6:42 AM EST 11/26/2022 6:43 AM EST [facility] External Provider LAB BLO OD ORDERABLES Final Result Performing Organization Address [facility] Co de Phone Number [facility] [address] [place] [phone] documented in this encounter Visit Diagnoses Not on filedocumented in this encounter Care Teams Maintenance Worker Swimming Pool Relationship Specialty Start Date End Date Eliza Carmona FNP [address] [place] [address] PCP - General Family Medicine 08/15/21 Kale Spencer MD [address] [place], [place] [phone] Urology 11/03/24 documented as of this encounter
[2024-12-28 07:40] LABS: INTERNATIONAL NORM RATIO 2.1 (0.9-1.1)
== END 2024-12-28 06:34 | disposition home or self-care (01) ==
LOC: HO.LABR 06:33
PROVIDERS: PCP Registered Nurse; Visit Provider Pharmacist
DX: Z95.2 Presence of prosthetic heart valve (principal)
CPT/HCPCS: 36415; 85610

== ENCOUNTER 2025-01-03 06:22 | Outpatient (REF) | payer OTHER, SELFPAY ==
--- OUTSIDE RECORDS SUMMARY | 2025-01-03 06:24 | XMS_ITS | Encounter Summary ---
Author Organization [employer] Address [address] [facility] [address] 7t [place] [address] Care Team Providers Care Oracle Application Consultant Name Role Phone Eliza Carmona Primary Care Provider [phone] Kale Spencer MD Unavailable Reason for Visit * Reason Comments Med Refill Encounter Details Date Type Department Care Team ([facility] st Contact Info) Description 12/22/2024 Refill [facility] MEDICINE [address] [place] [address] Eliza Carmona FNP [address] [place] [address] Palpitations Social History Tobacco Use Types Packs/Day [...] documented as of this encounter Care Teams Oracle Application Consultant Relationship Specialty Start Date End Date Eliza Carmona FNP [address] [place] [id number] PCP - General Family Medicine 08/15/21 Kale Spencer MD [address] [place] [address] Urology 11/03/24 documented as of this encounter
--- OUTSIDE RECORDS SUMMARY | 2025-01-03 06:24 | XMS_ITS | Encounter Summary ---
Author Organization [employer] Address 75 [facility] 7t [place] [address] Care Team Providers Care Hoisting Engineer Name Role Phone Eliza Carmona [employer] Primary Care Provider [phone] Kale Spencer MD Unavailable Reason for Visit * Reason Onset Date Comments January01/02/2025 Encounter Details Date Type Department Care Team ([facility] Contact Info) Description 01/02/2025 Telephone [facility] MED & PEDS [address] [place], [place] [phone] Eliza Carmona FNP [address] [place], [place] [phone] January recall Social History Tobacco Use Types Packs/Day Years [...] AM EDT documented as of this encounter Miscellaneous Notes * Telephone Encounter - Mark Epstein MA - 01/02/2025 5:32 PM EDT Telephone call to patient to schedule a recall appointment. No answer, Left voicemail to return call to clinic.. Recall letter sent. Visit type: Follow up Appointment notes: Chronic conditions Month due: January With: Kristine Please schedule appointment above if patient returns call documented in this encounter Plan of Treatment Not on file documented as of this encounter Visit Diagnoses Not on filedocumented in this encounter Additional Health Concerns Assessment Noted Time PHQ-9 Depression Total Score: 3 11/03/19 25 1:27 PM EST documented as of this encounter Care Teams Hoisting Engineer Relationship Specialty Start Date End Date Eliza Carmona FNP [address] [place] [address] PCP - General Family Medicine 08/15/21 Kale Spencer MD [address] [place] [address] Urology 11/03/24 documented as of this encounter
--- OUTSIDE RECORDS SUMMARY | 2025-01-03 06:25 | XMS_ITS | Clinical Summary ---
Author Organization [employer] Address 75 [facility] 7t [place] [address] Care Team Providers Care Tablet Making Machine Operator Name Role Phone Eliza Carmona KELL Primary Care Provider [phone] Kale Spencer MD Unavailable Allergies No known [...] Erectile dysfunction 11/03/2024 Overview (11/03/2024): Following with [facility] urology (Dr. Whelan) Continues with tadalafil 5mg daily with good response Assessment & Plan (11/03/2024 1:42 PM EST): Cont current therapy Constipation 03/14/2024 Assessment & Plan (03/14/2024 8:05 AM EDT): -Cont Colace BID PRN -Encourage fiber-rich diet and adequate hydration Routine health maintenance 03/08/2023 Overview (06/13/2024): Optometry: [facility] 03/12/22 Dental: [facility] Dental Colonoscopy: 02/06/21 at [facility] - Dr. Barrios. Check path report for follow up interval. PSA: ordered 06/12/24 Assessment & Plan (08/15/2023 6:17 PM EDT): ?? Optometry: [facility]EE 03/12/22 ?? Dental: pt to present to [facility] Dental after today's appt to request scheduling for tooth extraction. ?? Colonoscopy: completed January 2021 - due January 2031 ?? COVID-19 Vaccine: primary series complete, boosted x 1. Encouraged updated booster. ?? Flu and pneumococcal vaccines administered today. VIS sheets provided. Assessment & Plan (03/08/2023 9:32 AM EDT): ?? Optometry: [facility]EE 03/12/22 ?? Dental: pt to present to [facility] Dental after today's appt to request scheduling for tooth extraction. Pre-op completed Aril 2021 ?? Colonoscopy: completed January 2021 - due January 2031 ?? COVID-19 Vaccine: primary series complete, boosted x 1. Encouraged bivalent booster. History of Coumadin therapy 03/08/2023 Overview (08/15/2023): ?? Managed by [facility] ?? Per Cards consult [...] 43%, no sign of ischemia Followed by [facility] - Dr. Costa 08/29/24: ADRIANNA - ordered by Dr. Costa. Stable compared to previous. EF 50-55%. Mild-to-mod tricuspid regurgitation present, no evidence of pulm HTN. Assessment & Plan (11/03/2024 1:40 PM EST): -Continue DASH diet -Continue current CARDs regimen: furosemide 20mg daily sacubetril-valsartan 24-26mg tablet BID (provider will call office to request that med be sent to [facility] pharmacy) metoprolol succinate ER 50mg [...] to request that med be sent to [facility] pharmacy) ?? metoprolol succinate ER 50mg [...] Encounters Date Type Department Care Team Description 01/02/2025 Telephone [facility] MED & PEDS [address] [place] [address] Eliza Carmona FNP Shahida recall 12/22/2024 Refill [facility] MEDICINE [address] [place] [address] Eliza Carmona FNP Palpitations 11/03/2024 1:45 PM EST Office Visit [facility] [address] [place] [address] Eliza Carmona FNP Other restrictive cardiomyopathy (CMS/HCC) (Primary Dx); Encounter for immunization; Erectile dysfunction, unspecified erectile dysfunction type 11/03/2024 Travel 10/30/2024 Telephone [facility] [address] [place] [address] Mark Conn MA Chart Prep from Last [...] Real-Time PCR (06/27/2024 6:57 AM EDT) Pathologist [facility] Hepatitis C Viral Load <15 NOT DETECTED NOT DETECTED IU/mL [facility] HCV Log PCR <1.18 NOT DETECTED NOT DETECTED Log IU/mL [facility] Comment:For additional infor mation, please refer tohttp://education.[employer]/faq/CYX76n4(This link is being provided for informational/educational purposes only.)THIS TEST WAS PERFORMED AT:[employer] [place] [phone] SOTO MD Blood 06/27/2024 6:57 AM EDT 06/27/2024 7:03 AM EDT Eliza Carmona SEALER OPERATOR LAB BLOOD ORDERABLES Final Res ult [facility] [address] [place] [address] [phone] * HIV-1/2 Antigen and Antibodies, Fourth Generation, with Reflexes (06/27/2024 6:57 AM EDT) Pathologist [facility] HIV AB/AG Nonreactive Nonreactive [facility] Comment:HIV-1 p24 Ag and/or HIV-1/HIV-2 Ab not detected.A test result that is nonreactive does not exclude thepossibility of exposure to or infection with HIV-1 and/orHIV-2. Nonreactive results in this assay for individualswith prior exposure to HIV-1 and/or HIV-2 may be due toantigen and antibody levels that are below the limit ofdetection of this assay.[employer] HIV Ag/Ab Combo assay result andsupplemental assay results should be interpreted inconjunction with the patient's clinical presentation,history and other laboratory results. If the results areinconsistent with clinical evidence, additional testing issuggested to confirm the result. Blood Venous blood specimen / Unknown 06/27/2024 6:57 AM EDT 06/27/2024 7:03 AM EDT Eliza Carmona [facility] LAB BLOOD ORDERABLES Final Res ult Performing Organization Address [facility]/ZIP Co de Phone Number [facility] [address] [place] [address] [phone] * (ABNORMAL) Lipid Panel, Standard (06/27/2024 6:57 AM EDT) Triglycerides 116 <150 mg/dL [facility] Comment:Desirable Triglyceri de: less than 150 mg/dLBorderline High Triglyceride 150-199 mg/dLHigh Triglyceride: 200-499 mg/dLVery High Triglyceride: greater than or equal to 5OO mg/dL Cholesterol 144 <200 mg/dL [facility] Comment:Desirable Cholestero l: less than 200 mg/dLBorderline High Cholesterol: 200-239 mg/dLHigh Cholesterol: greater than 239 mg/dL LDL Cholesterol Calculated 85 <100 mg/dL [facility] Comment:Desirable LDL: less than 100 mg/dLNear Optimal/Above Optimal LDL: 110- 129 mg/dLBorderline High LDL: 130-159 mg/dLHigh LDL: 160-189 mg/dLVery High LDL: greater than or equal to 190 mg/dL HDL Cholesterol 36(L) >40 mg/dL [facility] Comment:Desirable HDL: great er than 40 mg/dL Note: This HDL assay may give artificially low results in patients with liver disease. Blood Venous blood specimen / Unknown 06/27/2024 6:57 AM EDT 06/27/2024 7:03 AM EDT Eliza Carmona SEALER OPERATOR LAB BLOOD ORDERABLES Final Res ult Performing Organization Address [facility]/ZIP Co de Phone Number [facility] [address] [place] [address] [phone] * Hm Colonoscopy (03/06/2021 2:24 PM EDT) us Historical Provider MD HEALTH MAINTENANCE Final Result from Last 3 Months or Most Recently Relevant to Health Maintenance Insurance [facility] Member Subscriber Plan / Payer (Ef fective 2024-Present) Name:India Mauricioel Relation to Subscriber:Self Name:Hang Danis Payer ID:Not on file Group ID:[id number] Type:Not on file Address: [address] [facility] MEDICAID STAND ADULT DENTAL - [facility] [employer] Care Teams Tablet Making Machine Operator Relationship Specialty Start Date End Date Eliza Carmona FNP [address] [place] [address] PCP - General Family Medicine 08/15/21 Kale Spencer MD [address] [place] [address] Drive [address] [place] [address] Urology 11/03/24
--- OUTSIDE RECORDS SUMMARY | 2025-01-03 06:25 | XMS_ITS | Encounter Summary ---
Author Organization [employer] Address [address] [facility] [address] 7t [place] [address] Care Team Providers Care Auto Damage Trainee Name Role Phone Eliza Carmona KELL Primary Care Provider [phone] Kale Spencer MD Unavailable Encounter Details Date Type Department Care Team (Late st Contact Info) Description 07/03/2024 Orders Only [facility] MED & PEDS [address] [place], [place] [phone] ProviderShakira MD Social History Tobacco Use Types [...] t he electric, gas, oil or water [employer] threatened to shut off services in your [...] Testosterone, Total 555 250 - 1100 ng/dL [facility] Comment:For additional infor isai, please refer tohttp://education.[employer]/faq/TprrtPsqtplllivsyIIEZRWRAL559(This link is being provided for informational/educational purposes only.)This test was developed and its analytical performancecharacteristics have been determined by [employer] [place], [place]. It hasnot been cleared or approved by the U.S. Food and DrugAdministration. This assay has been validated pursuantto the CLIA regulations and is used for clinicalpurposes. Testosterone, Free 97.1 35.0 - 155.0 pg/mL [facility] Comment:This test was develo ped and its analytical performancecharacteristics have been determined by [employer] [place]. It hasnot been cleared or approved by the U.S. Food and DrugAdministration. This assay has been validated pursuantto the CLIA regulations and is used for clinicalpurposes.THIS TEST WAS PERFORMED AT:[facility] [place] [address]DEAGJTSPRAVEEN DUBOIS MD,PHD 09/11/2024 7:20 AM EST 09/11/2024 7:20 AM EST Generic External Data Provider LAB BLOOD ORDERAB LES Final Result Performing Organization Address [facility]/ZIP Co de Phone Number [facility] [address] [place] [phone] * Prolactin (09/11/2024 7:20 AM EST) Prolactin 18.0 2.0 - 18.0 ng/mL [facility] Comment:THIS TEST WAS PERFOR MED AT:[facility] [address] [place] [address]ZARORTORY SOTO MD 09/11/2024 7:20 AM EST 09/11/2024 7:20 AM EST Generic External Data Provider LAB BLOOD ORDERAB LES Final Result Performing Organization Address [facility] Co de Phone Number [facility] [address] [place] [phone] * LH (09/11/2024 7:20 AM EST) Lutenizing Hormone 4.5 1.5 - 9.3 mIU/mL [facility] Comment:THIS TEST WAS PERFOR MED AT:[facility] [id number] [place] [address]XFCGPTORY SOTO MD 09/11/2024 7:20 AM EST 09/11/2024 7:20 AM EST Generic External Data Provider LAB BLOOD ORDERAB LES Final Result Performing Organization Address [facility]/ZIP Co de Phone Number [facility] [address] [place] [phone] [phone] * FSH (09/11/2024 7:20 AM EST) Follicle Stimulating Hormone 5.6 1.4 - 12.8 mIU/mL [facility] Comment:THIS TEST WAS PERFOR MED AT:[employer] [place] [id number] SOTO MD 09/11/2024 7:20 AM EST 09/11/2024 7:20 AM EST Generic External Data Provider LAB BLOOD ORDERAB LES Final Result Performing Organization Address City/[facility]/ZIP Co de Phone Number [facility] [address] [place] [phone] [phone] * PSA, Total With Reflex to PSA, Free (09/11/2024 7:20 AM EST) PSA,Total (Free>4and<10) 0.56 0.00 - 4.00 ng/mL [facility] Comment:A Free PSA was not [...] ORDERAB LES Final Result Performing Organization Address [facility] Co de Phone Number [facility] [address] [place] [phone] * Glucose (09/11/2024 7:20 AM EST) Glucose Fasting 96 60 - 99 mg/dL [facility] 09/11/2024 7:20 AM EST 09/11/2024 7:20 AM EST Generic External Data Provider LAB BLOOD ORDERAB LES Final Result Performing Organization Address [facility] de Phone Number [facility] [address] [place] [address] [phone] * Hm Colonoscopy (03/06/2021 2:24 PM EDT) Historical Provider HEALTH MAINTENANCE Final Result documented in this encounter Visit Diagnoses Not on filedocumented in this encounter Additional Health Concerns Assessment Noted Time PHQ-9 Depression Total Score: 7 08/13/20 23 9:49 AM EDT documented as of this encounter Care Teams Auto Damage Trainee Relationship Specialty Start Date End Date Eliza Carmona FNP [address] [place] [address] PCP - General Family Medicine 08/15/21 Kale Spencer MD [address] [place] [address] Urology 11/03/24 documented as of this encounter
--- OUTSIDE RECORDS SUMMARY | 2025-01-03 06:25 | XMS_ITS | Encounter Summary ---
Author Organization [employer] Address 75 [facility] 7t [place] [address] Care Team Providers Care President Finance Company Name Role Phone Eliza Carmona Primary Care Provider [phone] Kale Spencer MD Unavailable Reason for Visit * Reason Comments Med Refill Encounter Details Date Type Department Care Team ([facility] Contact Info) Description 03/13/2023 Refill [facility] MED [facility] PEDS [address] [place], [place] [phone] Eliza Carmona FNP [address] [place] [address] Nasal congestion Social History Tobacco Use Types [...] sinuses documented in this encounter Care Teams President Finance Company Relationship Specialty Start Date End Date Eliza Carmona FNP [address] [place] [address] PCP - General Family Medicine 08/15/21 Kale Spencer MD [address] [place] [address] Drive [address] [place] [address] Urology 11/03/24 documented as of this encounter
--- OUTSIDE RECORDS SUMMARY | 2025-01-03 06:25 | XMS_ITS | Encounter Summary ---
Author Organization [employer] Address 75 [facility] 7t [place] [address] Care Team Providers Care Spring Machine Operator Name Role Phone Eliza Carmona Primary Care Provider [phone] Kale Spencer MD Unavailable Reason for Visit * Reason Comments Med Refill Encounter Details Date Type Department Care Team ([facility] st Contact Info) Description 01/30/[address] [facility] CH[facility] MED & PEDS [address] [place] [address] Allyssa Yoo FNP [address] [place] [address] Dept [place] [address] Nasal congestion Social History Tobacco Use Types [...] sinuses documented in this encounter Care Teams Spring Machine Operator Relationship Specialty Start Date End Date Eliza Carmona FNP [address] [place] [address] PCP - General Family Medicine 08/15/21 Kale Spencer MD [address] [place] [address] Drive [address] [place] [address] Urology 11/03/24 documented as of this encounter
--- OUTSIDE RECORDS SUMMARY | 2025-01-03 06:25 | XMS_ITS | Encounter Summary ---
Author Organization [employer] Address [address] [address] [place] [address] Care Team Providers Care Head Irrigator Name Role Phone Eliza Carmona KELL Primary Care Provider [phone] Kale Spencer MD Unavailable Encounter Details Date Type Department Care Team ([facility] st Contact Info) Description 10/12/2022 Orders Only [facility] [address], [place] [phone] Joellen Broussard LPN Social History Tobacco Use [...] Prothrombin Time 29.4(H) 11.1 - 13.3 SEC [facility] INTERNATIONAL NORM RATIO 2.4(H) 0.9 - 1.1 [facility] Comment:INTERNATIONAL NORMAL IZED RATIO (INR) REFERENCE [...] ORDERAB LES Final Result Performing Organization Address City/[facility]/ZIP Co de Phone Number [facility] [address] [place] [phone] * (ABNORMAL) Prothrombin Time-INR (04/01/2023 6:27 AM EDT) Prothrombin Time 31.1(H) 10.0 - 13.1 SEC [facility] INTERNATIONAL NORM RATIO 2.6(H) 0.9 - 1.1 [facility] Comment:INTERNATIONAL NORMAL IZED RATIO (INR) REFERENCE [...] 6:27 AM EDT 04/01/2023 6:27 AM EDT [facility] External Provider LAB BLO OD ORDERABLES Final Result Performing Organization Address [facility] Co de Phone Number [facility] [address] [place] [phone] * (ABNORMAL) Prothrombin Time-INR (03/17/2023 6:43 AM EDT) Prothrombin Time 34.2(H) 10.0 - 13.1 SEC [facility] INTERNATIONAL NORM RATIO 2.9(H) 0.9 - 1.1 [facility] Comment:INTERNATIONAL NORMAL IZED RATIO (INR) REFERENCE [...] 6:43 AM EDT 03/17/2023 6:43 AM EDT [facility] External Provider LAB BLO OD ORDERABLES Final Result Performing Organization Address [facility] de Phone Number [facility] [address] [place] [phone] * (ABNORMAL) Prothrombin Time-INR (03/03/2023 6:54 AM EDT) Prothrombin Time 34.1(H) 10.0 - 13.1 SEC [facility] INTERNATIONAL NORM RATIO 2.8(H) 0.9 - 1.1 [facility] Comment:INTERNATIONAL NORMAL IZED RATIO (INR) REFERENCE [...] 6:54 AM EDT 03/03/2023 6:54 AM EDT [facility] External Provider LAB BLO OD ORDERABLES Final Result Performing Organization Address [facility] de Phone Number [facility] [address] [place] [phone] * (ABNORMAL) Prothrombin Time-INR (02/17/2023 6:36 AM EDT) Prothrombin Time 33.8(H) 10.0 - 13.1 SEC [facility] INTERNATIONAL NORM RATIO 2.8(H) 0.9 - 1.1 [facility] Comment:INTERNATIONAL NORMAL IZED RATIO (INR) REFERENCE [...] 6:36 AM EDT 02/17/2023 6:36 AM EDT [facility] External Provider LAB BLO OD ORDERABLES Final Result Performing Organization Address [facility] Co de Phone Number [facility] [address] [place] [address] [phone] * (ABNORMAL) Prothrombin Time-INR (02/10/2023 6:43 AM EDT) Prothrombin Time 37.0(H) 10.0 - 13.1 SEC [facility] INTERNATIONAL NORM RATIO 3.1(H) 0.9 - 1.1 [facility] Comment:INTERNATIONAL NORMAL IZED RATIO (INR) REFERENCE [...] 6:43 AM EDT 02/10/2023 6:43 AM EDT [facility] External Provider LAB BLO OD ORDERABLES Final Result Performing Organization Address [facility] Co de Phone Number [facility] [address] [place] [address] [phone] * (ABNORMAL) Prothrombin Time-INR (01/29/2023 6:54 AM EDT) Prothrombin Time 32.5(H) 10.0 - 13.1 SEC [facility] INTERNATIONAL NORM RATIO 2.7(H) 0.9 - 1.1 [facility] Comment:INTERNATIONAL NORMAL IZED RATIO (INR) REFERENCE [...] 6:54 AM EDT 01/29/2023 6:54 AM EDT [facility] External Provider LAB BLO OD ORDERABLES Final Result Performing Organization Address [facility] de Phone Number [facility] [address] [place] [phone] * (ABNORMAL) Prothrombin Time-INR (01/26/2023 7:01 AM EDT) Prothrombin Time 22.4(H) 10.0 - 13.1 SEC [facility] INTERNATIONAL NORM RATIO 1.9(H) 0.9 - 1.1 [facility] Comment:INTERNATIONAL NORMAL IZED RATIO (INR) REFERENCE [...] 7:01 AM EDT 01/26/2023 7:01 AM EDT [facility] External Provider LAB BLO OD ORDERABLES Final Result Performing Organization Address [facility] de Phone Number [facility] [address] [place] [phone] * (ABNORMAL) Prothrombin Time-INR (01/12/2023 7:14 AM EDT) Prothrombin Time 36.4(H) 10.0 - 13.1 SEC [facility] INTERNATIONAL NORM RATIO 3.0(H) 0.9 - 1.1 [facility] Comment:INTERNATIONAL NORMAL IZED RATIO (INR) REFERENCE [...] 7:14 AM EDT 01/12/2023 7:14 AM EDT [facility] External Provider LAB BLO OD ORDERABLES Final Result Performing Organization Address City/State/[facility] Co de Phone Number [facility] [address] [place] [address] [phone] * (ABNORMAL) Prothrombin Time-INR (12/29/2022 7:02 AM EST) Prothrombin Time 35.3(H) 10.0 - 13.1 SEC [facility] INTERNATIONAL NORM RATIO 2.9(H) 0.9 - 1.1 [facility] Comment:INTERNATIONAL NORMAL IZED RATIO (INR) REFERENCE [...] 7:02 AM EST 12/29/2022 7:02 AM EST [facility] External Provider LAB BLO OD ORDERABLES Final Result Performing Organization Address [facility] Co de Phone Number [facility] [address] [place] [address] [phone] * (ABNORMAL) Prothrombin Time-INR (12/22/2022 7:14 AM EST) Prothrombin Time 39.4(H) 10.0 - 13.1 SEC [facility] INTERNATIONAL NORM RATIO 3.3(H) 0.9 - 1.1 [facility] Comment:INTERNATIONAL NORMAL IZED RATIO (INR) REFERENCE [...] 7:14 AM EST 12/22/2022 7:15 AM EST [facility] External Provider LAB BLO OD ORDERABLES Final Result Performing Organization Address [facility] de Phone Number [facility] [address] [place] [address] [phone] * (ABNORMAL) Prothrombin Time-INR (12/15/2022 6:41 AM EST) Prothrombin Time 41.0(H) 10.0 - 13.1 SEC [facility] INTERNATIONAL NORM RATIO 3.4(H) 0.9 - 1.1 [facility] Comment:INTERNATIONAL NORMAL IZED RATIO (INR) REFERENCE [...] 6:41 AM EST 12/15/2022 6:41 AM EST [facility] External Provider LAB BLO OD ORDERABLES Final Result Performing Organization Address [facility] Co de Phone Number [facility] [address] [place] [address] [phone] * (ABNORMAL) Prothrombin Time-INR (12/08/2022 6:48 AM EST) Prothrombin Time 29.0(H) 10.0 - 13.1 SEC [facility] INTERNATIONAL NORM RATIO 2.4(H) 0.9 - 1.1 [facility] Comment:INTERNATIONAL NORMAL IZED RATIO (INR) REFERENCE [...] 6:48 AM EST 12/08/2022 6:50 AM EST [facility] External Provider LAB BLO OD ORDERABLES Final Result Performing Organization Address [facility] Co de Phone Number [facility] [address] [place] [phone] * (ABNORMAL) Prothrombin Time-INR (12/01/2022 6:43 AM EST) Prothrombin Time 31.3(H) 10.0 - 13.1 SEC [facility] INTERNATIONAL NORM RATIO 2.6(H) 0.9 - 1.1 [facility] Comment:INTERNATIONAL NORMAL IZED RATIO (INR) REFERENCE [...] 6:43 AM EST 12/01/2022 6:43 AM EST [facility] External Provider LAB BLO OD ORDERABLES Final Result Performing Organization Address [facility] Co de Phone Number [facility] [address] [place] [phone] [phone] * (ABNORMAL) Prothrombin Time-INR (11/26/2022 6:42 AM EST) Prothrombin Time 26.3(H) 10.0 - 13.1 SEC [facility] INTERNATIONAL NORM RATIO 2.2(H) 0.9 - 1.1 [facility] Comment:INTERNATIONAL NORMAL IZED RATIO (INR) REFERENCE [...] 6:42 AM EST 11/26/2022 6:43 AM EST [facility] External Provider LAB BLO OD ORDERABLES Final Result Performing Organization Address [facility] Co de Phone Number [facility] [address] [place] [address] [phone] documented in this encounter Visit Diagnoses Not on filedocumented in this encounter Care Teams Head Irrigator Relationship Specialty Start Date End Date Eliza Carmona FNP [address] [place] [address] PCP - General Family Medicine 08/15/21 Kale Spencer MD [address] [place], [place] [phone] Urology 11/03/24 documented as of this encounter
[2025-01-03 07:12] LABS: INTERNATIONAL NORM RATIO 2.9 (0.9-1.1); Prothrombin Time 34.4 SEC (10.9-12.4)
== END 2025-01-03 06:23 | disposition home or self-care (01) ==
LOC: HO.LABR 06:22
PROVIDERS: PCP Registered Nurse; Visit Provider Pharmacist
DX: Z95.2 Presence of prosthetic heart valve (principal)
CPT/HCPCS: 36415; 85610

== ENCOUNTER 2025-01-10 06:32 | Outpatient (REF) | payer OTHER, SELFPAY ==
[2025-01-10 07:22] LABS: INTERNATIONAL NORM RATIO 3.2 (0.9-1.1); Prothrombin Time 37.2 SEC (10.9-12.4)
== END 2025-01-10 06:33 | disposition home or self-care (01) ==
LOC: HO.LABR 06:32
PROVIDERS: PCP Registered Nurse; Visit Provider Pharmacist
DX: Z95.2 Presence of prosthetic heart valve (principal)
CPT/HCPCS: 36415; 85610

== ENCOUNTER 2025-01-24 06:36 | Outpatient (REF) | payer MEDICARE, SELFPAY ==
--- OUTSIDE RECORDS SUMMARY | 2025-01-24 06:39 | XMS_ITS | Encounter Summary ---
Author Organization [employer] Address [address] [facility] 7t [place] [address] Care Team Providers Care Thermoforming Operator Name Role Phone Eliza Carmona Primary Care Provider [phone] Kale Spnecer MD Unavailable Reason for Visit * Reason Comments Med Refill Encounter Details Date Type Department Care Team ([facility] Contact Info) Description 03/13/2023 Refill [facility] MED [facility] PEDS [address] [place] [address] Eliza Carmona FNP [address] [place] [address] Nasal congestion Social History Tobacco Use Types [...] as of this encounter Plan of Treatment Upcoming Encounters Date Type Department Care Team ([facility] Contact Info) Description 04/16/2025 9:00 AM EDT Office Visit [facility] [address] [place] [address] Eliza Carmona FNP [address] [place] [address] documented as of this encounter Visit Diagnoses Diagnosis Nasal congestion Other diseases of nasal cavity and sinuses documented in this encounter Care Teams Thermoforming Operator Relationship Specialty Start Date End Date Eliza Carmona FNP [address] [place] [address] PCP - General Family Medicine 08/15/21 Kale Spencer MD [address] [place] [address] [address] [place] [phone] Urology 11/03/24 documented as of this encounter
--- OUTSIDE RECORDS SUMMARY | 2025-01-24 06:39 | XMS_ITS | Clinical Summary ---
Author Organization [employer] Address [address] [facility] 7t [place] [address] Care Team Providers Care Center Machine Operator Name Role Phone Eliza Carmona KELL Primary Care Provider [phone] Kale Spencer MD Unavailable Allergies No known active allergies Medications amiodarone (Pacerone) 200 MG tablet Take 200 mg by mouth in the morning. 2 Active aspirin (Scott Low Dose) 81 MG EC tablet Take 1 tablet by mouth in the morning. 7 Active chlorhexidine (Peridex) 0.12 % solution SWISH 15 ML'S IN MOUTH FOR 30 SECONDS THEN SPIT OUT 2 TIMES A DAY AFTER MEALS 2 Active furosemide (Lasix) 20 MG tablet Take 20 mg by mouth in the morning. 2 Active sacubitril-valsart an (Entresto) 24-26 MG tablet Take 1 tablet by mouth every 12 (twelve) hours. Active warfarin (Coumadin) 5 MG tablet TAKE 1 TABLET BY MOUTH DAILY,INSTR: DIRECTED BY THE COUMADIN CLINIC 2 Active fluticasone (Flonase) 50 MCG/ACT nasal sprayIndications:S ensation of fullness in right ear ADMINISTER 1 SPRAY INTO EACH NOSTRIL IF NEEDED EACH DAY (NASAL CONGESTION OR SENSATION OF EAR FULLNESS). SHAKE GENTLY. BEFORE FIRST USE, PRIME PUMP. AFTER USE, CLEAN TIP AND REPLACE CAP. 48 mL 1 3 Active ketotifen (Zaditor) 0.025 % ophthalmic solution Administer 1 drop into both eyes if needed in the morning and at bedtime (seasonal alleriges). 5 mL 2 3 Active lidocaine (Lidoderm) 5 % patchIndications:U pper back pain on right side Apply 1 patch topically in the morning. Remove & discard patch within 12 hours or as directed by . 30 patch 3 4 Active acetaminophen (Tylenol) 325 MG tabletIndications: Upper back pain on right side Take 1-2 tablets every 6 hours as needed for pain or fever 100 tablet 1 4 Active docusate sodium (Colace) 100 MG capsuleIndications :Constipation, unspecified constipation type Take 1 capsule (100 mg) by mouth if needed in the morning and at bedtime for constipation. 180 capsule 3 4 Active atorvastatin (Lipitor) 80 MG tabletIndications: Other restrictive cardiomyopathy (CMS/HCC) Take 1 tablet (80 mg) by mouth Once per day. 90 tablet 1 5 026 Active metoprolol succinate XL (Toprol-XL) 50 MG 24 hr tabletIndications: Palpitations TAKE 1 TABLET BY MOUTH EVERY DAY 90 tablet 3 5 Active Active Problems Problem Noted Date Diagnosed Date Erectile dysfunction 11/03/2024 Overview (11/03/2024): Following with [facility] urology (Dr. Whelan) Continues with tadalafil 5mg daily with good response Assessment & Plan (11/03/2024 1:42 PM EST): Cont current therapy Constipation 03/14/2024 Assessment & Plan (03/14/2024 8:05 AM EDT): -Cont Colace BID PRN -Encourage fiber-rich diet and adequate hydration Routine health maintenance 03/08/2023 Overview (06/13/2024): Optometry: CEE 03/12/22 Dental: [facility] Dental Colonoscopy: 02/06/21 at [facility] - Dr. Barrios. Check path report for follow up interval. PSA: ordered 06/12/24 Assessment & Plan (08/15/2023 6:17 PM EDT): ?? Optometry: CEE 03/12/22 ?? Dental: pt to present to [facility] Dental after today's appt to request scheduling for tooth extraction. ?? Colonoscopy: completed January 2021 - due January 2031 ?? COVID-19 Vaccine: primary series complete, boosted x 1. Encouraged updated booster. ?? Flu and pneumococcal vaccines administered today. VIS sheets provided. Assessment & Plan (03/08/2023 9:32 AM EDT): ?? Optometry: CEE 03/12/22 ?? Dental: pt to present to [facility] Dental after today's appt to request scheduling for tooth extraction. Pre-op completed Aril 2021 ?? Colonoscopy: completed January 2021 - due January 2031 ?? COVID-19 Vaccine: primary series complete, boosted x 1. Encouraged bivalent booster. History of Coumadin therapy 03/08/2023 Overview (08/15/2023): ?? Managed by [facility] ?? Per Cards consult note March 2023 Dr. Costa: For dental procedures should have abx prophylactic, but does NOT need to stop coumadin. Essential hypertension 10/26/2022 Assessment & Plan (06/13/2024 11:09 AM EDT): - Well controlled - Continue DASH diet and lifestyle interventions Continue current [facility] medication regimen: furosemide 20mg daily metoprolol succinate [...] 43%, no sign of ischemia Followed by [facility] - Dr. Costa 08/29/24: ADRIANNA - ordered by Dr. Costa. Stable compared to previous. EF 50-55%. Mild-to-mod tricuspid regurgitation present, no evidence of pulm HTN. Assessment & Plan (11/03/2024 1:40 PM EST): -Continue DASH diet -Continue current CARDs regimen: furosemide 20mg daily sacubetril-valsartan 24-26mg tablet BID (provider will call office to request that med be sent to [facility] pharmacy) metoprolol succinate ER 50mg daily aspirin [...] to request that med be sent to [facility] pharmacy) ?? metoprolol succinate ER 50mg daily [...] Type Department Care Team Description 01/02/2025 Telephone [facility] MED [facility] PEDS [address] [place] [address] Eliza Carmona FNP January12/22/2024 Refill [facility] [address] [place] [address] Eliza Carmona FNP Palpitations 11/03/2024 1:45 PM EST Office Visit [facility] [address] [place] [address] Eliza Carmona FNP Other restrictive cardiomyopathy (CMS/HCC) (Primary Dx); Encounter for immunization; Erectile dysfunction, unspecified erectile dysfunction type 11/03/2024 Travel 10/30/2024 Telephone [facility] MED [facility]ED[facility] [address] [place] [address] Mark Conn [place] Chart Prep from Last [...] 11/03/2024 1:16 PM EST Plan of Treatment Upcoming Encounters Date Type Department Care Team (Late st Contact Info) Description 04/16/2025 9:00 AM EDT Office Visit [facility] MED [facility] PEDS [address] [place] [address] Eliza Carmona FNP [address] [place] [address] Health Maintenance Due Date Last Done Comments [...] Real-Time PCR (06/27/2024 6:57 AM EDT) Pathologist [facility] Hepatitis C Viral Load <15 NOT DETECTED NOT DETECTED IU/mL [facility] HCV Log PCR <1.18 NOT DETECTED NOT DETECTED Log IU/mL [facility] Comment:For additional infor isai, please refer tohttp://education.[employer]/faq/VLS66j6(This link is being provided for informational/educational purposes only.)THIS TEST WAS PERFORMED AT:[facility] [place] [phone] SOTO MD Blood 06/27/2024 6:57 AM EDT 06/27/2024 7:03 AM EDT Eliza Carmona ACCOUNT PLANNER LAB BLOOD ORDERABLES Final Res ult [facility] [address] [place] [address] [phone] * HIV-1/2 Antigen and Antibodies, Fourth Generation, with Reflexes (06/27/2024 6:57 AM EDT) Pathologist [facility] HIV AB/AG Nonreactive Nonreactive [facility] Comment:HIV-1 p24 Ag and/or HIV-1/HIV-2 Ab not detected.A test result that is nonreactive does not exclude thepossibility of exposure to or infection with HIV-1 and/orHIV-2. Nonreactive results in this assay for individualswith prior exposure to HIV-1 and/or HIV-2 may be due toantigen and antibody levels that are below the limit ofdetection of this assay.The [employer]icofxp HIV Ag/Ab Combo assay result andsupplemental assay results should be interpreted inconjunction with the patient's clinical presentation,history and other laboratory results. If the results areinconsistent with clinical evidence, additional testing issuggested to confirm the result. Blood Venous blood specimen / Unknown 06/27/2024 6:57 AM EDT 06/27/2024 7:03 [address] [facility] BLOOD ORDERABLES Final Res ult Performing Organization Address City/[facility] Co de Phone Number [facility] [address] [place] [phone] * (ABNORMAL) Lipid Panel, Standard (06/27/2024 6:57 AM EDT) Triglycerides 116 <150 mg/dL [facility] Comment:Desirable Triglyceri de: less than 150 mg/dLBorderline High Triglyceride 150-199 mg/dLHigh Triglyceride: 200-499 mg/dLVery High Triglyceride: greater than or equal to 5OO mg/dL Cholesterol 144 <200 mg/dL [facility] Comment:Desirable Cholestero l: less than 200 mg/dLBorderline High Cholesterol: 200-239 mg/dLHigh Cholesterol: greater than 239 mg/dL LDL Cholesterol Calculated 85 <100 mg/dL [facility] Comment:Desirable LDL: less than 100 mg/dLNear Optimal/Above Optimal LDL: 110- 129 mg/dLBorderline High LDL: 130-159 mg/dLHigh LDL: 160-189 mg/dLVery High LDL: greater than or equal to 190 mg/dL HDL Cholesterol 36(L) >40 mg/dL [facility] Comment:Desirable HDL: great er than 40 mg/dL Note: This HDL assay may give artificially low results in patients with liver disease. Blood Venous blood specimen / Unknown 06/27/2024 6:57 AM EDT 06/27/2024 7:[address] [facility] BLOOD ORDERABLES Final Res ult [facility] [address] [place] [phone] * Hm Colonoscopy (03/06/2021 2:24 PM EDT) us Historical Provider HEALTH MAINTENANCE Final Result from Last 3 Months or Most Recently Relevant to Health Maintenance Insurance * Guarantor: Danis Mauricio Account Type Relation to Patient Date of Phone Billing Address Personal/Family Self 1965 [address] [place] [phone] [facility] [place] STAND ADULT [facility] * Guarantor: Danis Mauricio Account Type Relation to Patient Date of Phone Billing Address Personal/Family Self [address] [place] [phone] * Guarantor: Danis Mauricio Account Type Relation to Patient Date of Phone Billing Address Personal/Family Self [address] [place] [phone] * Guarantor: Danis Mauricio Account Type Relation to Patient Date of Phone Billing Address Personal/Family Self [address] [place] [phone] Care Teams Center Machine Operator Relationship Specialty Start Date End Date Eliza Carmona FNP [address] [place] [address] PCP - General Family Medicine 08/15/21 Kale Spencer MD [address] [place] [address] Urology 11/03/24
--- OUTSIDE RECORDS SUMMARY | 2025-01-24 06:39 | XMS_ITS | Encounter Summary ---
Author Organization [employer] Address [address] [place] [address] 7t [place] [address] Care Team Providers Care Community Pharmacist Name Role Phone Eliza Carmona Primary Care Provider [phone] Kale Spencer MD Unavailable Reason for Visit * Reason Comments Med Refill Encounter Details Date Type Department Care Team (Late st Contact Info) Description 01/30/2023 Refill [facility] MED & PEDS [address] [place] [address] Allyssa Yoo FNP [address] [facility] [place] [address] Nasal congestion Social History Tobacco Use Types [...] Description 04/16/2025 9:00 AM EDT Office Visit [facility] MED [facility] PED[facility] [address] [place], [place] [phone] Eliza Carmona FNP [address] [place] [address] documented as of this encounter Visit Diagnoses Diagnosis Nasal congestion Other diseases of nasal cavity and sinuses documented in this encounter Care Teams Community Pharmacist Relationship Specialty Start Date End Date Eliza Carmona FNP [address] [place] [address] PCP - General Family Medicine 08/15/21 Kale Spencer MD [address] [facility] [address] [place] [phone] Urology 11/03/24 documented as of this encounter
--- OUTSIDE RECORDS SUMMARY | 2025-01-24 06:39 | XMS_ITS | Encounter Summary ---
Author Organization [employer] Address [address] [facility] 7t [place] [address] Care Team Providers Care Rn Faculty Name Role Phone Eliza Carmona Primary Care Provider [phone] Kale Spencer MD Unavailable Encounter Details Date Type Department Care Team (Late st Contact Info) Description 10/12/2022 Orders Only [facility] [address], [place] [phone] Joellen Broussard LPN Social History Tobacco Use [...] Description 04/16/2025 9:00 AM EDT Office Visit [facility] PEDS [address] [place] [address] Eliza Carmona FNP [address] [place] [address] documented as of this encounter Procedures Procedure [...] Prothrombin Time 29.4(H) 11.1 - 13.3 [facility] INTERNATIONAL NORM RATIO 2.4(H) 0.9 - 1.1 [facility] Comment:INTERNATIONAL NORMAL IZED RATIO (INR) [...] 7:05 AM EST 09/22/2023 7:05 AM EST [facility] [place] [place] External Data Provider LAB BLOOD ORDERAB LES Final Result Performing Organization Address [facility] Co de Phone Number [facility] [address] [place] [address] [phone] * (ABNORMAL) Prothrombin Time-INR (04/01/2023 6:27 AM EDT) Prothrombin Time 31.1(H) 10.0 - 13.1 [facility] INTERNATIONAL NORM RATIO 2.6(H) 0.9 - 1.1 [facility] Comment:INTERNATIONAL NORMAL IZED RATIO (INR) [...] 6:27 AM EDT 04/01/2023 6:27 AM EDT [facility] External Provider LAB BLO OD ORDERABLES Final Result Performing Organization Address [facility] Co de Phone Number [facility] [address] [place] [address] [phone] * (ABNORMAL) Prothrombin Time-INR (03/17/2023 6:43 AM EDT) Prothrombin Time 34.2(H) 10.0 - 13.1 [facility] INTERNATIONAL NORM RATIO 2.9(H) 0.9 - 1.1 [facility] Comment:INTERNATIONAL NORMAL IZED RATIO (INR) [...] 6:43 AM EDT 03/17/2023 6:43 AM EDT [facility] External Provider LAB BLO OD ORDERABLES Final Result Performing Organization Address [facility] Co de Phone Number [facility] [address] [place] [address] [phone] * (ABNORMAL) Prothrombin Time-INR (03/03/2023 6:54 AM EDT) Prothrombin Time 34.1(H) 10.0 - 13.1 [facility] INTERNATIONAL NORM RATIO 2.8(H) 0.9 - 1.1 [facility] Comment:INTERNATIONAL NORMAL IZED RATIO (INR) [...] 6:54 AM EDT 03/03/2023 6:54 AM EDT [facility] External Provider LAB BLO OD ORDERABLES Final Result Performing Organization Address [facility] de Phone Number [facility] [address] [place] [address] [phone] * (ABNORMAL) Prothrombin Time-INR (02/17/2023 6:36 AM EDT) Prothrombin Time 33.8(H) 10.0 - 13.1 [facility] INTERNATIONAL NORM RATIO 2.8(H) 0.9 - 1.1 [facility] Comment:INTERNATIONAL NORMAL IZED RATIO (INR) [...] 6:36 AM EDT 02/17/2023 6:36 AM EDT [facility] External Provider LAB BLO OD ORDERABLES Final Result Performing Organization Address [facility] Co de Phone Number [facility] [address] [place] [address] [phone] * (ABNORMAL) Prothrombin Time-INR (02/10/2023 6:43 AM EDT) Prothrombin Time 37.0(H) 10.0 - 13.1 [facility] INTERNATIONAL NORM RATIO 3.1(H) 0.9 - 1.1 [facility] Comment:INTERNATIONAL NORMAL IZED RATIO (INR) [...] 6:43 AM EDT 02/10/2023 6:43 AM EDT [facility] External Provider LAB BLO OD ORDERABLES Final Result Performing Organization Address City/[facility]/ZIP Co de Phone Number [facility] [address] [place] [phone] * (ABNORMAL) Prothrombin Time-INR (01/29/2023 6:54 AM EDT) Prothrombin Time 32.5(H) 10.0 - 13.1 [facility] INTERNATIONAL NORM RATIO 2.7(H) 0.9 - 1.1 [facility] Comment:INTERNATIONAL NORMAL IZED RATIO (INR) [...] 6:54 AM EDT 01/29/2023 6:54 AM EDT [facility] External Provider LAB BLO OD ORDERABLES Final Result Performing Organization Address City/State/[facility] Co de Phone Number [facility] [address] [place] [address] [phone] * (ABNORMAL) Prothrombin Time-INR (01/26/2023 7:01 AM EDT) Prothrombin Time 22.4(H) 10.0 - 13.1 [facility] INTERNATIONAL NORM RATIO 1.9(H) 0.9 - 1.1 [facility] Comment:INTERNATIONAL NORMAL IZED RATIO (INR) [...] 7:01 AM EDT 01/26/2023 7:01 AM EDT [facility] External Provider LAB BLO OD ORDERABLES Final Result Performing Organization Address [facility] Co de Phone Number [facility] [address] [place] [address] [phone] * (ABNORMAL) Prothrombin Time-INR (01/12/2023 7:14 AM EDT) Prothrombin Time 36.4(H) 10.0 - 13.1 [facility] INTERNATIONAL NORM RATIO 3.0(H) 0.9 - 1.1 [facility] Comment:INTERNATIONAL NORMAL IZED RATIO (INR) REFERENCE RANGES Reference RangeFor patients not on anticoagulant therapy: 0.9 - 1.1INR ranges for oral anticoagulanttherapy:For prevention and treatment of venous thrombosis and pulmonary embolism: 2.0 - 3.0For acute myocardial infarction with aspirin therapy: 2.0 - 3.0For acute myocardial infarction without aspirin therapy: 3.0 - 4.0For patients with mechanical prosthetic heart valves: 2.5 - 3.5 01/12/2023 7:1 4 AM EDT 01/12/2023 7:14 AM EDT [facility] External Provider LAB BLO OD ORDERABLES Final Result Performing Organization Address [facility] Co de Phone Number [facility] [address] [place] [address] [phone] * (ABNORMAL) Prothrombin Time-INR (12/29/2022 7:02 AM EST) Prothrombin Time 35.3(H) 10.0 - 13.1 [facility] INTERNATIONAL NORM RATIO 2.9(H) 0.9 - 1.1 [facility] Comment:INTERNATIONAL NORMAL IZED RATIO (INR) [...] 7:02 AM EST 12/29/2022 7:02 AM EST [facility] External Provider LAB BLO OD ORDERABLES Final Result Performing Organization Address [facility] Co de Phone Number [facility] [address] [place] [address] [phone] * (ABNORMAL) Prothrombin Time-INR (12/22/2022 7:14 AM EST) Prothrombin Time 39.4(H) 10.0 - 13.1 [facility] INTERNATIONAL NORM RATIO 3.3(H) 0.9 - 1.1 [facility] Comment:INTERNATIONAL NORMAL IZED RATIO (INR) [...] 7:14 AM EST 12/22/2022 7:15 AM EST [facility] External Provider LAB BLO OD ORDERABLES Final Result Performing Organization Address [facility] Co de Phone Number [facility] [address] [place] [address] [phone] * (ABNORMAL) Prothrombin Time-INR (12/15/2022 6:41 AM EST) Prothrombin Time 41.0(H) 10.0 - 13.1 [facility] INTERNATIONAL NORM RATIO 3.4(H) 0.9 - 1.1 [facility] Comment:INTERNATIONAL NORMAL IZED RATIO (INR) [...] 6:41 AM EST 12/15/2022 6:41 AM EST [facility] External Provider LAB BLO OD ORDERABLES Final Result Performing Organization Address [facility] Co de Phone Number [facility] [address] [place] [address] [phone] * (ABNORMAL) Prothrombin Time-INR (12/08/2022 6:48 AM EST) Prothrombin Time 29.0(H) 10.0 - 13.1 [facility] INTERNATIONAL NORM RATIO 2.4(H) 0.9 - 1.1 [facility] Comment:INTERNATIONAL NORMAL IZED RATIO (INR) [...] 6:48 AM EST 12/08/2022 6:50 AM EST [facility] External Provider LAB BLO OD ORDERABLES Final Result Performing Organization Address [facility] Co de Phone Number [facility] [address] [place] [address] [phone] * (ABNORMAL) Prothrombin Time-INR (12/01/2022 6:43 AM EST) Prothrombin Time 31.3(H) 10.0 - 13.1 [facility] INTERNATIONAL NORM RATIO 2.6(H) 0.9 - 1.1 [facility] Comment:INTERNATIONAL NORMAL IZED RATIO (INR) [...] 6:43 AM EST 12/01/2022 6:43 AM EST [facility] External Provider LAB BLO OD ORDERABLES Final Result Performing Organization Address [facility] Co de Phone Number [facility] [address] [place] [address] [phone] * (ABNORMAL) Prothrombin Time-INR (11/26/2022 6:42 AM EST) Prothrombin Time 26.3(H) 10.0 - 13.1 [facility] INTERNATIONAL NORM RATIO 2.2(H) 0.9 - 1.1 [facility] Comment:INTERNATIONAL NORMAL IZED RATIO (INR) [...] 6:42 AM EST 11/26/2022 6:43 AM EST [facility] External Provider LAB BLO OD ORDERABLES Final Result Performing Organization Address [facility] Co de Phone Number [facility] [address] [place] [address] [phone] documented in this encounter Visit Diagnoses Not on filedocumented in this encounter Care Teams Rn Faculty Relationship Specialty Start Date End Date Eliza Carmona FNP [address] [place] [address] PCP - General Family Medicine 08/15/21 Kale Spencer MD [address] [place] [address] Drive [address] [place] [address] Urology 11/03/24 documented as of this encounter
--- OUTSIDE RECORDS SUMMARY | 2025-01-24 06:39 | XMS_ITS | Encounter Summary ---
Author Organization [employer] Address [address] [facility] [address] [place] [address] Care Team Providers Care Market Survey Representative Name Role Phone Eliza Carmona KELL Primary Care Provider [phone] Kale Spencer MD Unavailable Encounter Details Date Type Department Care Team (Late st Contact Info) Description 07/03/2024 Orders Only [facility] MED & PEDS [address] [place], [place] [phone] ProviderShakira MD Social History Tobacco Use Types [...] 04/16/2025 9:00 AM EDT Office Visit [facility] [address] [place], [place] [phone] Eliza Carmona, AGRICULTURAL CHEMICALS INSPECTOR [address] [place] [address] documented as of this encounter Procedures Procedure [...] Testosterone, Total 555 250 - 1100 ng/dL [facility] Comment:For additional infor isai, please refer tohttp://education.Written/faq/OxhqmEuynrqlglyxaECEHCNIUZ180(This link is being provided for informational/educational purposes only.)This test was developed and its analytical performancecharacteristics have been determined by [employer] [place]. It hasnot been cleared or approved by the U.S. Food and DrugAdministration. This assay has been validated pursuantto the CLIA regulations and is used for clinicalpurposes. Testosterone, Free 97.1 35.0 - 155.0 pg/mL [facility] Comment:This test was develo ped and its analytical performancecharacteristics have been determined by [employer]. It hasnot been cleared or approved by the U.S. Food and DrugAdministration. This assay has been validated pursuantto the CLIA regulations and is used for clinicalpurposes.THIS TEST WAS PERFORMED AT:[employer]/[facility] [place] [address]OINNPAIPRAVEEN DUBOIS MD,PHD 09/11/2024 7:20 AM EST 09/11/2024 7:20 AM EST Generic External Data Provider LAB BLOOD ORDERAB LES Final Result Performing Organization Address [facility] Co de Phone Number [facility] [address] [place] [phone] * Prolactin (09/11/2024 7:20 AM EST) Prolactin 18.0 2.0 - 18.0 ng/mL [facility] Comment:THIS TEST WAS PERFOR MED AT:[employer] [address] [phone] SOTO MD 09/11/2024 7:20 AM EST 09/11/2024 7:20 AM EST us Generic External Data Provider LAB BLOOD ORDERAB LES Final Result Performing Organization Address [facility]/ZIP Co de Phone Number [facility] [address] [place] [phone] * LH (09/11/2024 7:20 AM EST) Lutenizing Hormone 4.5 1.5 - 9.3 mIU/mL [facility] Comment:THIS TEST WAS PERFOR MED AT:[employer] [address] [phone] SOTO MD 09/11/2024 7:20 AM EST 09/11/2024 7:20 AM EST Generic External Data Provider LAB BLOOD ORDERAB LES Final Result Performing Organization Address [facility]/ZIP Co de Phone Number [facility] [address] [place] [phone] * FSH (09/11/2024 7:20 AM EST) Follicle Stimulating Hormone 5.6 1.4 - 12.8 mIU/mL [facility] Comment:THIS TEST WAS PERFOR MED AT:[employer] [address] [id number] SOTO MD 09/11/2024 7:20 AM EST 09/11/2024 7:20 AM EST us Generic External Data Provider LAB BLOOD ORDERAB LES Final Result Performing Organization Address City/[facility] Co de Phone Number [facility] [address] [place] [address] [phone] * PSA, Total With Reflex to PSA, Free (09/11/2024 7:20 AM EST) PSA,Total (Free>4and<10) 0.56 0.00 - 4.00 ng/mL [facility] Comment:A Free PSA was not [...] ORDERAB LES Final Result Performing Organization Address City/[facility] Co de Phone Number [facility] [address] [place] [phone] * Glucose (09/11/2024 7:20 AM EST) Glucose Fasting 96 60 - 99 mg/dL [facility] 09/11/2024 7:20 AM EST 09/11/2024 7:20 AM EST us Generic External Data Provider LAB BLOOD ORDERAB LES Final Result Performing Organization Address [facility] Co de Phone Number [facility] [address] [place] [phone] * Hm Colonoscopy (03/06/2021 2:24 PM EDT) Historical Provider HEALTH MAINTENANCE Final Result documented in this encounter Visit Diagnoses Not on filedocumented in this encounter Additional Health Concerns Assessment Noted Time PHQ-9 Depression Total Score: 7 08/13/20 23 9:49 AM EDT documented as of this encounter Care Teams Market Survey Representative Relationship Specialty Start Date End Date Eliza Carmona FNP [address] [place] [address] PCP - General Family Medicine 08/15/21 Kale Spencer MD [address] [place] [address] Urology 11/03/24 documented as of this encounter
[2025-01-24 07:42] LABS: INTERNATIONAL NORM RATIO 2.9 (0.9-1.1); Prothrombin Time 33.8 SEC (10.9-12.4)
== END 2025-01-24 06:37 | disposition home or self-care (01) ==
LOC: HO.LAB 06:36
PROVIDERS: PCP Registered Nurse; Visit Provider Pharmacist
DX: Z95.2 Presence of prosthetic heart valve (principal)
CPT/HCPCS: 36415; 85610

== ENCOUNTER 2025-01-25 07:50 | Outpatient (AMB) | payer MEDICARE, SELFPAY ==
--- OUTSIDE RECORDS SUMMARY | 2025-01-25 07:53 | XMS_ITS | Clinical Summary ---
Author Organization [employer] Address [address] [facility] 7t [place] [address] Care Team Providers Care Operator Technician Name Role Phone Eliza Carmona KELL Primary Care Provider [phone] Kale Spencer MD Unavailable Allergies No known [...] Erectile dysfunction 11/03/2024 Overview (11/03/2024): Following with [facility] urology (Dr. Whelan) Continues with tadalafil 5mg daily with good response Assessment & Plan (11/03/2024 1:42 PM EST): Cont current therapy Constipation 03/14/2024 Assessment & Plan (03/14/2024 8:05 AM EDT): -Cont Colace BID PRN -Encourage fiber-rich diet and adequate hydration Routine health maintenance 03/08/2023 Overview (06/13/2024): Optometry: CEE 03/12/22 Dental: [facility] Colonoscopy: 02/06/21 at [facility] - Dr. Barrios. Check path report for follow up interval. PSA: ordered 06/12/24 Assessment & Plan (08/15/2023 6:17 PM EDT): ?? Optometry: CEE 03/12/22 ?? Dental: pt to present to [facility] after today's appt to request scheduling for tooth extraction. ?? Colonoscopy: completed January 2021 - due January 2031 ?? COVID-19 Vaccine: primary series complete, boosted x 1. Encouraged updated booster. ?? Flu and pneumococcal vaccines administered today. VIS sheets provided. Assessment & Plan (03/08/2023 9:32 AM EDT): ?? Optometry: CEE 03/12/22 ?? Dental: pt to present to [facility] Dental after today's appt to request scheduling for tooth extraction. Pre-op completed Aril 2021 ?? Colonoscopy: completed January 2021 - due January 2031 ?? COVID-19 Vaccine: primary series complete, boosted x 1. Encouraged bivalent booster. History of Coumadin therapy 03/08/2023 Overview (08/15/2023): ?? Managed by [facility] ?? Per Cards consult note March 2023 Dr. Costa: For dental procedures should have abx prophylactic, but does NOT need to stop coumadin. Essential hypertension 10/26/2022 Assessment & Plan (06/13/2024 11:09 AM EDT): - Well controlled - Continue DASH diet and lifestyle interventions Continue current [facility] medication regimen: furosemide 20mg daily metoprolol succinate [...] to request that med be sent to [facility] pharmacy) metoprolol succinate ER 50mg [...] to request that med be sent to [facility] pharmacy) ?? metoprolol succinate ER [...] Department Care Team Description 01/02/2025 Telephone [facility] MED & PEDS [address] [place] [address] Eliza Carmona FNP January12/22/2024 Refill [facility] [address] [place] [address] Eliza Carmona FNP Palpitations 11/03/2024 1:45 PM EST Office Visit [facility] MED & PEDS [address] [place] [address] Eliza Carmona FNP Other restrictive cardiomyopathy (CMS/HCC) (Primary Dx); Encounter for immunization; Erectile dysfunction, unspecified erectile dysfunction type 11/03/2024 Travel 10/30/2024 Telephone [facility] MED & PEDS [address] [place] [address] Mark Conn [place] Chart Prep from Last [...] 04/16/2025 9:00 AM EDT Office Visit [facility] MED & PEDS [address] [place] [address] Eliza Carmona FNP [address] [place] [address] Health Maintenance Due Date Last Done Comments [...] Real-Time PCR (06/27/2024 6:57 AM EDT) Pathologist [facility] Hepatitis C Viral Load <15 NOT DETECTED NOT DETECTED IU/mL [facility] HCV Log PCR <1.18 NOT DETECTED NOT DETECTED Log IU/mL [facility] Comment:For additional infor isai, please refer tohttp://education.[employer]/faq/JCO51c7(This link is being provided for informational/educational purposes only.)THIS TEST WAS PERFORMED AT:[employer] [place] [id number] SOTO MD Blood 06/27/2024 6:57 AM EDT 06/27/2024 7:03 AM EDT Eliza Carmona [employer] LAB BLOOD ORDERABLES Final Res ult [facility] [address] [place] [phone] * HIV-1/2 Antigen and Antibodies, Fourth Generation, with Reflexes (06/27/2024 6:57 AM EDT) Pathologist [facility] HIV AB/AG Nonreactive Nonreactive [facility] Comment:HIV-1 p24 Ag and/or HIV-1/HIV-2 Ab not detected.A test result that is nonreactive does not exclude thepossibility of exposure to or infection with HIV-1 and/orHIV-2. Nonreactive results in this assay for individualswith prior exposure to HIV-1 and/or HIV-2 may be due toantigen and antibody levels that are below the limit ofdetection of this assay.The [employer] HIV Ag/Ab Combo assay result andsupplemental assay results should be interpreted inconjunction with the patient's clinical presentation,history and other laboratory results. If the results areinconsistent with clinical evidence, additional testing issuggested to confirm the result. Blood Venous blood specimen / Unknown 06/27/2024 6:57 AM EDT 06/27/2024 7:03 AM EDT Eliza Carmona [facility] LAB BLOOD ORDERABLES Final Res ult Performing Organization Address City/[facility] Co de Phone Number [facility] [address] [place] [phone] * (ABNORMAL) Lipid Panel, Standard (06/27/2024 6:57 AM EDT) Triglycerides 116 <150 mg/dL [facility] Comment:Desirable Triglyceri de: less than 150 mg/dLBorderline High Triglyceride 150-199 mg/dLHigh Triglyceride: 200-499 mg/dLVery High Triglyceride: greater than or equal to 5OO mg/dL Cholesterol 144 <200 mg/dL [facility] Comment:Desirable Cholestero l: less than 200 mg/dLBorderline High Cholesterol: 200-239 mg/dLHigh Cholesterol: greater than 239 mg/dL LDL Cholesterol Calculated 85 <100 mg/dL [facility] Comment:Desirable LDL: less than 100 mg/dLNear Optimal/Above Optimal LDL: 110- 129 mg/dLBorderline High LDL: 130-159 mg/dLHigh LDL: 160-189 mg/dLVery High LDL: greater than or equal to 190 mg/dL HDL Cholesterol 36(L) >40 mg/dL [facility] Comment:Desirable HDL: great er than 40 mg/dL Note: This HDL assay may give artificially low results in patients with liver disease. Blood Venous blood specimen / Unknown 06/27/2024 6:57 AM EDT 06/27/2024 7:03 AM EDT Eliza Carmona [facility] LAB BLOOD ORDERABLES Final Res ult [facility] [address] [place] [phone] * Hm Colonoscopy (03/06/2021 2:24 PM EDT) us Historical Provider HEALTH MAINTENANCE Final Result from Last 3 Months or Most Recently Relevant to Health Maintenance Insurance [facility] [place] [facility] [facility] [facility] Care Teams Operator Technician Relationship Specialty Start Date End Date Eliza Carmona FNP [address] [place] [address] PCP - General Family Medicine 08/15/21 Kale Spencer MD [address] [place] [address] Urology 11/03/24
--- OUTSIDE RECORDS SUMMARY | 2025-01-25 07:53 | XMS_ITS | Encounter Summary ---
Author Organization [employer] Address [address] [place] [address] Care Team Providers Care Crusher Loader Operator Name Role Phone Eliza Carmona KELL Primary Care Provider [phone] Kale Spencer MD Unavailable Encounter Details Date Type Department Care Team (Late st Contact Info) Description 07/03/2024 Orders Only [facility] [address] [place], [place] [id number] ProviderShakira MD Social History Tobacco Use Types [...] Description 04/16/2025 9:00 AM EDT Office Visit [facility] [address] [place], [place] [phone] Eliza Carmona, DRY ROLLER [address] [place] [address] documented as of this encounter Procedures Procedure [...] Testosterone, Total 555 250 - 1100 ng/dL [facility] Comment:For additional infor isai, please refer tohttp://education.[employer]/faq/JgfoiXbsocinqdvcgNPOXIKNXK648(This link is being provided for informational/educational purposes only.)This test was developed and its analytical performancecharacteristics have been determined by [facility] [place]. It hasnot been cleared or approved by the U.S. Food and DrugAdministration. This assay has been validated pursuantto the CLIA regulations and is used for clinicalpurposes. Testosterone, Free 97.1 35.0 - 155.0 pg/mL [facility] Comment:This test was develo ped and its analytical performancecharacteristics have been determined by [facility] [place]. It hasnot been cleared or approved by the U.S. Food and DrugAdministration. This assay has been validated pursuantto the CLIA regulations and is used for clinicalpurposes.THIS TEST WAS PERFORMED AT:[employer] [place] [address]ZHGFLIEPRAVEEN DUBOIS MD,PHD 09/11/2024 7:20 AM EST 09/11/2024 7:20 AM EST Generic External Data Provider LAB BLOOD ORDERAB LES Final Result Performing Organization Address [facility] Co de Phone Number [facility] [address] [place] [phone] * Prolactin (09/11/2024 7:20 AM EST) Prolactin 18.0 2.0 - 18.0 ng/mL [facility] Comment:THIS TEST WAS PERFOR MED AT:[employer] [address] [id number] SOTO MD 09/11/2024 7:20 AM EST 09/11/2024 7:20 AM EST us Generic External Data Provider LAB BLOOD ORDERAB LES Final Result Performing Organization Address [facility]/ZIP Co de Phone Number [facility] [address] [place] [phone] * LH (09/11/2024 7:20 AM EST) Lutenizing Hormone 4.5 1.5 - 9.3 mIU/mL [facility] Comment:THIS TEST WAS PERFOR MED AT:[employer] [address] [id number] SOTO MD 09/11/2024 7:20 AM EST 09/11/2024 7:20 AM EST Generic External Data Provider LAB BLOOD ORDERAB LES Final Result Performing Organization Address [facility]/ZIP Co de Phone Number [facility] [address] [place] [phone] * FSH (09/11/2024 7:20 AM EST) Follicle Stimulating Hormone 5.6 1.4 - 12.8 mIU/mL [facility] Comment:THIS TEST WAS PERFOR MED AT:[employer] [address] [id number] SOTO MD 09/11/2024 7:20 AM EST 09/11/2024 7:20 AM EST us Generic External Data Provider LAB BLOOD ORDERAB LES Final Result Performing Organization Address City/[facility] Co de Phone Number [facility] [address] [place] [phone] * PSA, Total With Reflex to PSA, Free (09/11/2024 7:20 AM EST) PSA,Total (Free>4and<10) 0.56 0.00 - 4.00 ng/mL [facility] Comment:A Free PSA was not p [...] ORDERAB LES Final Result Performing Organization Address City/[facility] Co de Phone Number [facility] [address] [place] [phone] * Glucose (09/11/2024 7:20 AM EST) Glucose Fasting 96 60 - 99 mg/dL [facility] 09/11/2024 7:20 AM EST 09/11/2024 7:20 AM EST us Generic External Data Provider LAB BLOOD ORDERAB LES Final Result Performing Organization Address [facility] Co de Phone Number [facility] [address] [place] [phone] * Hm Colonoscopy (03/06/2021 2:24 PM EDT) Historical Provider HEALTH MAINTENANCE Final Result documented in this encounter Visit Diagnoses Not on filedocumented in this encounter Additional Health Concerns Assessment Noted Time PHQ-9 Depression Total Score: 7 08/13/20 23 9:49 AM EDT documented as of this encounter Care Teams Crusher Loader Operator Relationship Specialty Start Date End Date Eliza Carmona FNP [address] [place] [address] PCP - General Family Medicine 08/15/21 Kale Spencer MD [address] [place] [address] Urology 11/03/24 documented as of this encounter
--- OUTSIDE RECORDS SUMMARY | 2025-01-25 07:53 | XMS_ITS | Encounter Summary ---
Author Organization [employer] Address [address] [facility] 7t [place] [address] Care Team Providers Care Environmental Technical Officer Name Role Phone Eliza Carmona Primary Care Provider [phone] Kale Spencer MD Unavailable Encounter Details Date Type Department Care Team (Late st Contact Info) Description 10/12/2022 Orders Only [facility] [address] [place], [place] [phone] Joellen Broussard LPN Social History Tobacco Use [...] Description 04/16/2025 9:00 AM EDT Office Visit [facility] [address] [place] [address] Eliza Carmona FNP [address] [place] [address] documented as of this encounter Procedures Procedure [...] Prothrombin Time 29.4(H) 11.1 - 13.3 SEC [facility] INTERNATIONAL NORM RATIO 2.4(H) 0.9 - 1.1 [facility] Comment:INTERNATIONAL NORMAL IZED RATIO (INR) [...] 7:05 AM EST 09/22/2023 7:05 AM EST [facility] External Data Provider LAB BLOOD ORDERAB LES Final Result Performing Organization Address [facility] Co de Phone Number [facility] [address] [place] [phone] * (ABNORMAL) Prothrombin Time-INR (04/01/2023 6:27 AM EDT) Prothrombin Time 31.1(H) 10.0 - 13.1 SEC [facility] INTERNATIONAL NORM RATIO 2.6(H) 0.9 - 1.1 [facility] Comment:INTERNATIONAL NORMAL IZED RATIO (INR) [...] 6:27 AM EDT 04/01/2023 6:27 AM EDT [facility] External Provider LAB BLO OD ORDERABLES Final Result Performing Organization Address [facility] Co de Phone Number [facility] [address] [place] [phone] * (ABNORMAL) Prothrombin Time-INR (03/17/2023 6:43 AM EDT) Prothrombin Time 34.2(H) 10.0 - 13.1 SEC [facility] INTERNATIONAL NORM RATIO 2.9(H) 0.9 - 1.1 [facility] Comment:INTERNATIONAL NORMAL IZED RATIO (INR) [...] 6:43 AM EDT 03/17/2023 6:43 AM EDT [facility] External Provider LAB BLO OD ORDERABLES Final Result Performing Organization Address [facility] Co de Phone Number [facility] [address] [place] [phone] * (ABNORMAL) Prothrombin Time-INR (03/03/2023 6:54 AM EDT) Prothrombin Time 34.1(H) 10.0 - 13.1 [facility] INTERNATIONAL NORM RATIO 2.8(H) 0.9 - 1.1 [facility] Comment:INTERNATIONAL NORMAL IZED RATIO (INR) [...] 6:54 AM EDT 03/03/2023 6:54 AM EDT [facility] External Provider LAB BLO OD ORDERABLES Final Result Performing Organization Address [facility] de Phone Number [facility] [address] [place] [phone] * (ABNORMAL) Prothrombin Time-INR (02/17/2023 6:36 AM EDT) Prothrombin Time 33.8(H) 10.0 - 13.1 SEC [facility] INTERNATIONAL NORM RATIO 2.8(H) 0.9 - 1.1 [facility] Comment:INTERNATIONAL NORMAL IZED RATIO (INR) [...] 6:36 AM EDT 02/17/2023 6:36 AM EDT [facility] External Provider LAB BLO OD ORDERABLES Final Result Performing Organization Address [facility] Co de Phone Number [facility] [address] [place] [phone] * (ABNORMAL) Prothrombin Time-INR (02/10/2023 6:43 AM EDT) Prothrombin Time 37.0(H) 10.0 - 13.1 [facility] INTERNATIONAL NORM RATIO 3.1(H) 0.9 - 1.1 [facility] Comment:INTERNATIONAL NORMAL IZED RATIO (INR) [...] 6:43 AM EDT 02/10/2023 6:43 AM EDT [facility] External Provider LAB BLO OD ORDERABLES Final Result Performing Organization Address City/[facility]/ZIP Co de Phone Number [facility] [address] [place] [phone] * (ABNORMAL) Prothrombin Time-INR (01/29/2023 6:54 AM EDT) Prothrombin Time 32.5(H) 10.0 - 13.1 [facility] INTERNATIONAL NORM RATIO 2.7(H) 0.9 - 1.1 [facility] Comment:INTERNATIONAL NORMAL IZED RATIO (INR) [...] 6:54 AM EDT 01/29/2023 6:54 AM EDT [facility] External Provider LAB BLO OD ORDERABLES Final Result Performing Organization Address City/State/[facility] Co de Phone Number [facility] [address] [place] [phone] * (ABNORMAL) Prothrombin Time-INR (01/26/2023 7:01 AM EDT) Prothrombin Time 22.4(H) 10.0 - 13.1 [facility] INTERNATIONAL NORM RATIO 1.9(H) 0.9 - 1.1 [facility] Comment:INTERNATIONAL NORMAL IZED RATIO (INR) [...] 7:01 AM EDT 01/26/2023 7:01 AM EDT [facility] External Provider LAB BLO OD ORDERABLES Final Result Performing Organization Address [facility] Co de Phone Number [facility] [address] [place] [phone] * (ABNORMAL) Prothrombin Time-INR (01/12/2023 7:14 AM EDT) Prothrombin Time 36.4(H) 10.0 - 13.1 [facility] INTERNATIONAL NORM RATIO 3.0(H) 0.9 - 1.1 [facility] Comment:INTERNATIONAL NORMAL IZED RATIO (INR) [...] 4 AM EDT 01/12/2023 7:14 AM EDT [facility] External Provider LAB BLO OD ORDERABLES Final Result Performing Organization Address [facility] Co de Phone Number [facility] [address] [place] [phone] * (ABNORMAL) Prothrombin Time-INR (12/29/2022 7:02 AM EST) Prothrombin Time 35.3(H) 10.0 - 13.1 [facility] INTERNATIONAL NORM RATIO 2.9(H) 0.9 - 1.1 [facility] Comment:INTERNATIONAL NORMAL IZED RATIO (INR) [...] 7:02 AM EST 12/29/2022 7:02 AM EST [facility] External Provider LAB BLO OD ORDERABLES Final Result Performing Organization Address [facility] Co de Phone Number [facility] [address] [place] [address] [phone] * (ABNORMAL) Prothrombin Time-INR (12/22/2022 7:14 AM EST) Prothrombin Time 39.4(H) 10.0 - 13.1 SEC [facility] INTERNATIONAL NORM RATIO 3.3(H) 0.9 - 1.1 [facility] Comment:INTERNATIONAL NORMAL IZED RATIO (INR) [...] 7:14 AM EST 12/22/2022 7:15 AM EST [facility] External Provider LAB BLO OD ORDERABLES Final Result Performing Organization Address [facility] Co de Phone Number [facility] [address] [place] [address] [phone] * (ABNORMAL) Prothrombin Time-INR (12/15/2022 6:41 AM EST) Prothrombin Time 41.0(H) 10.0 - 13.1 SEC [facility] INTERNATIONAL NORM RATIO 3.4(H) 0.9 - 1.1 [facility] Comment:INTERNATIONAL NORMAL IZED RATIO (INR) [...] 6:41 AM EST 12/15/2022 6:41 AM EST [facility] External Provider LAB BLO OD ORDERABLES Final Result Performing Organization Address [facility] Co de Phone Number [facility] [address] [place] [address] [phone] * (ABNORMAL) Prothrombin Time-INR (12/08/2022 6:48 AM EST) Prothrombin Time 29.0(H) 10.0 - 13.1 SEC [facility] INTERNATIONAL NORM RATIO 2.4(H) 0.9 - 1.1 [facility] Comment:INTERNATIONAL NORMAL IZED RATIO (INR) [...] 6:48 AM EST 12/08/2022 6:50 AM EST [facility] External Provider LAB BLO OD ORDERABLES Final Result Performing Organization Address [facility] Co de Phone Number [facility] [address] [place] [address] [phone] * (ABNORMAL) Prothrombin Time-INR (12/01/2022 6:43 AM EST) Prothrombin Time 31.3(H) 10.0 - 13.1 SEC [facility] INTERNATIONAL NORM RATIO 2.6(H) 0.9 - 1.1 [facility] Comment:INTERNATIONAL NORMAL IZED RATIO (INR) [...] 6:43 AM EST 12/01/2022 6:43 AM EST [facility] External Provider LAB BLO OD ORDERABLES Final Result Performing Organization Address [facility] Co de Phone Number [facility] [address] [place] [address] [phone] * (ABNORMAL) Prothrombin Time-INR (11/26/2022 6:42 AM EST) Prothrombin Time 26.3(H) 10.0 - 13.1 SEC [facility] INTERNATIONAL NORM RATIO 2.2(H) 0.9 - 1.1 [facility] Comment:INTERNATIONAL NORMAL IZED RATIO (INR) [...] 6:42 AM EST 11/26/2022 6:43 AM EST [facility] External Provider LAB BLO OD ORDERABLES Final Result Performing Organization Address [facility] Co de Phone Number [facility] [address] [place] [address] [phone] documented in this encounter Visit Diagnoses Not on filedocumented in this encounter Care Teams Environmental Technical Officer Relationship Specialty Start Date End Date Eliza Carmona FNP [address] [place] [address] PCP - General Family Medicine 08/15/21 Kale Spencer MD [address] [place] [address] Drive [address] [place] [address] Urology 11/03/24 documented as of this encounter
--- OUTSIDE RECORDS SUMMARY | 2025-01-25 07:53 | XMS_ITS | Encounter Summary ---
Author Organization [employer] Address [address] [place] [address] 7t [place] [address] Care Team Providers Care Marketing Specialist Name Role Phone Eliza Carmona Primary Care Provider [phone] Kale Spencer MD Unavailable Reason for Visit * Reason Comments Med Refill Encounter Details Date Type Department Care Team (Late st Contact Info) Description 01/30/2023 Refill [facility] [address] [place] [address] Allyssa Yoo FNP [address] [facility] Dept [place] [address] Nasal congestion Social History Tobacco Use Types [...] Description 04/16/2025 9:00 AM EDT Office Visit [facility] [address] [place], [place] [phone] Eliza Carmona FNP [address] [place] [address] documented as of this encounter Visit Diagnoses Diagnosis Nasal congestion Other diseases of nasal cavity and sinuses documented in this encounter Care Teams Marketing Specialist Relationship Specialty Start Date End Date Eliza Carmona FNP [address] [place] [address] PCP - General Family Medicine 08/15/21 Kale Spencer MD [address] [facility] [address] [place] [address] Urology 11/03/24 documented as of this encounter
--- OUTSIDE RECORDS SUMMARY | 2025-01-25 07:53 | XMS_ITS | Encounter Summary ---
Author Organization [employer] Address [address] [facility] [address]t [place] [address] Care Team Providers Care Umbrella Mender Name Role Phone Eliza Carmona Primary Care Provider [phone] Kale Spencer MD Unavailable Reason for Visit * Reason Comments Med Refill Encounter Details Date Type Department Care Team ([facility] Contact Info) Description 03/13/2023 Refill [facility] [address] [place] [address] Eliza Carmona FNP [address] [place] [address] Nasal congestion Social History Tobacco Use Types [...] Upcoming Encounters Date Type Department Care Team ([facility] Contact Info) Description 04/16/2025 9:00 AM EDT Office Visit [facility] [address] [place] [address] Eliza Carmona FNP [address] [place] [address] documented as of this encounter Visit Diagnoses Diagnosis Nasal congestion Other diseases of nasal cavity and sinuses documented in this encounter Care Teams Umbrella Mender Relationship Specialty Start Date End Date Eliza Carmona FNP [address] [place] [address] PCP - General Family Medicine 08/15/21 Kale Spencer MD [address] [place] [address] [address] [place] [phone] Urology 11/03/24 documented as of this encounter
--- NOTE | 2025-01-25 08:38 | A.OFFVIS_ITS ---
Intake Visit Reasons: 4m follow up ED Intake Note: Patient is Present for 4 month follow up/ED Urology Med:Tadalafil Antibiotic Allergy: None Blood Thinner: Warfarin, Aspirin Dowel Setting Machine Operator Required: Yes Dowel Setting Machine Operator Language: Lead Game Designer Name: [email or web address] [id number] Accompanied by: Self / Same As Patient Allergies No Known Allergies Allergy (Verified 01/25/25 08:42) Medication List - Last Reconciled 01/25/25 by Kale Whelan MD acetaminophen (Athenol) 650 mg (2 x 325 mg) PO Q6H PRN amiodarone 1 tab PO DAILY aspirin 81 mg PO DAILY atorvastatin 1 tab PO DAILY docusate sodium 1 cap PO BID PRN furosemide 1 tab PO DAILY metoprolol succinate ER 1 tab PO DAILY sacubitril-valsartan 24-26 mg (Entresto) 1 tab PO BID warfarin 8 mg PO SUMOTHFRSA@1800 warfarin 7 mg PO TUWE@1800 HPI Comments Details: 01/25/25--Chaparro is a 59-year-old male who is followed for erectile dysfunction. Danis was previously prescribed daily generic Cialis 5 mg. He states that he was not able to take the medication because when he was on the medication his INR levels were elevated. I have discussed with him that urinalysis is notable for proteinuria and I will refer him to Nephrology. I have discussed a trial of on demand Viagra. 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 I have discussed alternative treatment options include surgical therapy and will have him follow-up with Dr. Martinez to further discuss the surgical penile pump therapy management. 09/28/24--chaparro is a 59-year-old male who I am following for erectile dysfunction. Discussed testosterone results are within normal limits. Normal testosterone levels. Tadalafil 5 mg daily. Recent lab: 09/11- PSA- 0.56 Testosterone- 555 FSH- 5.6 LH- 4.5 08/18/24--Danis is a 58-year-old gentleman who is here as a new patient evaluation for concerns regarding erections. He states that the problem has been worsening over the last few years. He denies irritative voiding symptoms. I have discussed further evaluation with testosterone level and other pertinent hormone levels. [facility] Medical History Elevated cholesterol On anticoagulant therapy Screening for colon cancer Surgical History Hx of mitral valve replacement Hx of removal of cyst Family History Father No problems noted. Mother Hx of breast cancer Social History Household Members: Spouse and Family Housing: Apartment Do you presently have visiting nurse or other home services: No Alcohol intake: never Patient Tobacco Use Status: Never used Tobacco Advance Directives Date on File: 07/31/20 service: No Current occupational status: employed Review of Systems Const All systems reviewed & are unremarkable except as noted in HPI and below Reports no additional complaints Eyes Reports no additional complaints ENT Reports no additional complaints Card Reports no additional complaints Resp Reports no additional complaints GI Reports no additional complaints Reports as per HPI Musc Reports no additional complaints Skin/Breast Reports system reviewed and no additional complaints, except as documented Neuro Reports no additional complaints Psych Reports no additional complaints Endo Reports no additional complaints Vitaly/Lymph Reports no additional complaints Aller/Immun Reports no additional complaints Results AMB Urinalysis, Automated UA Leukoctes 15 Yudy/uL Last Edit by Britni Mcclellan on 01/25/25 13:57 UA Nitrite Negative Last Edit by Britni Mcclellan on 01/25/25 13:57 UA Urobilinogen 0.2 mg/dL Last Edit by Britni Mcclellan on 01/25/25 13:57 UA Protein 30 mg/dL Last Edit by Britni Mcclellan on 01/25/25 13:57 UA pH 6.0 Last Edit by Britni Mcclellan on 01/25/25 13:57 UA Blood 0 Ramin/uL Last Edit by Britni Mcclellan on 01/25/25 13:57 UA Specific [place] 1.020 Last Edit by Britni Mcclellan on 01/25/25 13:57 UA Ketone Positive Last Edit by Britni Mccllelan on 01/25/25 13:57 UA Bilirubin 0 mg/dL Last Edit by Britni Mcclellan on 01/25/25 13:57 UA Glucose 0 mg/dL Last Edit by Britni Mcclellan on 01/25/25 13:57 Results Reviewed Results Reviewed: Laboratory Last Values Urine pH (Auto) 6.0 01/25/25 13:13 Specific [place] (Auto) 1.020 01/25/25 13:13 Urine Protein (Auto) 30 mg/dL 01/25/25 13:13 Glucose (UA)(Auto) 0 mg/dL 01/25/25 13:13 Urine Ketones (Auto) Positive 01/25/25 13:13 Urine Blood (Auto) 0 Ramin/uL 01/25/25 13:13 Urine Nitrite (Auto) Negative 01/25/25 13:13 Urine Bilirubin (Auto) 0 mg/dL 01/25/25 13:13 Urine Urobilinogen (Auto) 0.2 mg/dL 01/25/25 13:13 Leukocyte Esterase (Auto) 15 Yudy/uL 01/25/25 13:13 Assessment & Plan Assessment & Plan (1) Proteinuria: Code(s): R80.9 - Proteinuria, unspecified Category: Medical (2) Erectile dysfunction: Code(s): N52.9 - Male erectile dysfunction, unspecified Category: Medical (3) Screening PSA (prostate specific antigen): Code(s): Z12.5 - Encounter for screening for malignant neoplasm of prostate Category: Medical Plan I have discussed a trial of on demand Viagra. 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 I have discussed alternative treatment options include surgical therapy and will have him follow-up with Dr. Martinez to further discuss the surgical penile pump therapy management. Orders: Orders AMB Urinalysis Automated Today Z13.9 - Encounter for screening, unspecified Referrals Nephrology Referral R80.9 - Proteinuria, unspecified Medications: Discontinued tadalafil USE [facility] [employer] COUPON ATTACHED NOT INSURANCE 39.[address] [facility] Group [facility] [id number] Discontinued Reason: Patient no longer taking 5 mg PO DAILY 90 days 90 tabs 1RF Patient Instructions: The patient had an opportunity to ask questions regarding treatment plan. The patient expressed understanding and agreement with the above treatment plan. The patient is aware they should contact our office by phone for worsening of their current condition or the appearance of new symptoms. Compliance is encouraged with any medications and followup testing that is ordered. It is a privilege to be allowed the opportunity to participate in the urologic care of your patient. If you have any questions or concerns regarding treatment for the above conditions please do not hesitate to contact me. The office telephone contact is [phone]. This note is constructed in part using voice recognition software. While every effort has been made to ensure accuracy diamond powder technician errors may have been included. Yours sincerely, Kale Whelan MD Scribe Plan - Not visible on output: Patient was informed and verbally consented to the use of an ambient scribe for clinic note documentation during this visit. Coding Level of Care Code Est Pt Level 4 (32900) Diagnoses Proteinuria R80.9 Erectile dysfunction N52.9 Screening PSA (prostate specific antigen) Z12.5
== END 2025-01-25 09:28 | disposition home or self-care (01) ==
LOC: HO.HUSH 07:51
PROVIDERS: PCP Registered Nurse; Visit Provider Urology
DX: R80.9 Proteinuria, unspecified (principal); N52.9 Male erectile dysfunction, unspecified; Z12.5 Encounter for screening for malignant neoplasm of prostate; Z13.9 Encounter for screening, unspecified
CPT/HCPCS: 99214

== ENCOUNTER → 2025-01-25 07:50 | Outpatient (BNVA) | payer OTHER, SELFPAY | PROVIDERS: PCP Registered Nurse; Visit Provider Urology | DX: N52.9 Male erectile dysfunction, unspecified (principal); R80.9 Proteinuria, unspecified | CPT/HCPCS: 81003; 99212 ==

== ENCOUNTER 2025-02-07 06:20 | Outpatient (REF) | payer MEDICARE, SELFPAY ==
[2025-02-07 07:23] LABS: Prothrombin Time 35.6 SEC (10.9-12.4)
== END 2025-02-07 06:21 | disposition home or self-care (01) ==
LOC: HO.LABR 06:20
PROVIDERS: PCP Registered Nurse; Visit Provider Pharmacist
DX: Z95.2 Presence of prosthetic heart valve (principal)
CPT/HCPCS: 36415; 85610

== ENCOUNTER 2025-02-14 10:50 | Outpatient (AMB) | payer MEDICARE, SELFPAY ==
--- NOTE | 2025-02-14 10:59 | HO.NEPHOV_ITS ---
Vital Signs 02/14/25 11:02 Height 5 ft 8 in Weight 140 lb 4 oz BMI 21.3 BP 106/70 Blood Pressure Location Lt brachial Position Sitting Pulse 82 Pulse Source Pulse Oximeter Pulse Oximetry (%) 99 Oxygen Delivery Method Room Air Intake Visit Reasons: INP: Proteinuria- Conf Metal Furniture Assembly Supervisor Required: Yes Metal Furniture Assembly Supervisor Language: Wool Broker Services: Metal Furniture Assembly Supervisor Present Metal Furniture Assembly Supervisor Name: Drake [id number] Information Interpreted: clinical only Accompanied by: Self / Same As Patient Allergies No Known Allergies Allergy (Verified 02/14/25 11:02) HPI Comments Details: I had the privilege of seeing Mr Mauricio in consultation for proteinuria. He is known to have hypertension and had mitral valve replacement many years ago. His BP is at goal. He has no hearing deficits, hematuria or renal dysfunction. He is currently on Entresto. He does not take NSAID's. He has no new bone or back pain. He denies frothy or foamy urine. He has no recurrent UTI, renal calculi or any other systemic complaint except for erectile dysfunction. [facility] Medical History Elevated cholesterol On anticoagulant therapy Screening for colon cancer Surgical History Hx of mitral valve replacement Hx of removal of cyst Family History Father No problems noted. Mother Hx of breast cancer Social History Household Members: Spouse and Family Housing: Apartment Do you presently have visiting nurse or other home services: No Alcohol intake: never Patient Tobacco Use Status: Never used Tobacco Advance Directives Date on File: 07/31/20 service: No Current occupational status: employed Review of Systems Const All systems reviewed & are unremarkable except as noted in HPI and below Physical Exam Vital Signs: Last Vital Signs Pulse 82 02/14/25 11:02 BP 106/70 02/14/25 11:02 Pulse Ox 99 02/14/25 11:02 Oxygen Delivery Method Room Air 02/14/25 11:02 BMI result Body Mass Index 21.3 Const General: comfortable and no acute distress Orientation/consciousness: patient oriented x3 HEENT Head: Yes normocephalic Mouth: Normal oral and palatal mucosa present Eyes EOM: EOMs intact bilaterally Neck Neck: Yes supple Resp Auscultation: clear to auscultation bilaterally Cardio Jugular venous distension: no JVD Rate: regular rate GI Palpation (GI): Soft to palpation Auscultation: normal bowel sounds General: Yes no CVA tenderness Back/Spine/Pelvis Back: no CVA tenderness Skin General skin exam: no rashes or lesions noted Neuro General: patient oriented x3 and moves all extremities Extrem General: Yes no pedal edema Results Reviewed Nephrology Results: No Data to Display Assessment & Plan Assessment & Plan (1) Proteinuria: Code(s): R80.9 - Proteinuria, unspecified Category: Medical Qualifiers: Proteinuria type: other Qualified Code(s): R80.8 - Other proteinuria (2) Hypertension: Code(s): I10 - Essential (primary) hypertension Category: Medical Qualifiers: Hypertension type: primary hypertension Qualified Code(s): I10 - Essential (primary) hypertension Plan Mr Mauricio has mild proteinuria due to unknown etiology( ? vascular). He has no hematuria, renal dysfunction but has hypertension which is well controlled on current medication regimen. I have ordered W/U including imaging and 24 hour urine for protein. He should avoid NSAID's. I did not make any medication changes but discussed possible etiologies for proteinuria and W/U for further m anagement. Follow up appointment given Orders: Orders Hepatitis B Core Antibody 02/14/25 R80.8 - Other proteinuria, I10 - Essential (primary) hypertension Myeloperoxidase Antibody 02/14/25 R80.8 - Other proteinuria, I10 - Essential (primary) hypertension Complement C4 02/14/25 R80.8 - Other proteinuria, I10 - Essential (primary) hypertension Immunofixation Pnl, Serum 02/14/25 R80.8 - Other proteinuria, I10 - Essential (primary) hypertension Phospholipase A2 Receptor Pnl 02/14/25 R80.8 - Other proteinuria, I10 - Essential (primary) hypertension US renal BI 1 Month R80.8 - Other proteinuria, I10 - Essential (primary) hypertension Hepatitis B Surface Antigen 02/14/25 R80.8 - Other proteinuria, I10 - Essential (primary) hypertension Anti DNA DS Antibody 02/14/25 R80.8 - Other proteinuria, I10 - Essential (primary) hypertension Proteinase 3 PR3 Antibodies 02/14/25 R80.8 - Other proteinuria, I10 - Essential (primary) hypertension Anti Glomerular Basement Memb 02/14/25 R80.8 - Other proteinuria, I10 - Essential (primary) hypertension Complement C3 02/14/25 R80.8 - Other proteinuria, I10 - Essential (primary) hypertension Protein Creatinine Ratio, Ur 02/14/25 R80.8 - Other proteinuria, I10 - Essential (primary) hypertension Immunofixation, Random Urine 02/14/25 R80.8 - Other proteinuria, I10 - Essential (primary) hypertension Protein, 24 Hr Urine Group 02/14/25 R80.8 - Other proteinuria, I10 - Essential (primary) hypertension Coding Level of Care Code New Pt Level 4 (73799) Diagnoses Other proteinuria R80.8 Proteinuria type: other Primary hypertension I10 Hypertension type: primary hypertension
[2025-02-14 11:02] VITALS: BP 106/70; PULSE 82; O2SAT 99; BMI 21.3
--- OUTSIDE RECORDS SUMMARY | 2025-02-14 13:00 | XMS_ITS | Clinical Summary ---
Author Organization [employer] Address [address] [place] [address] Care Team Providers Care Survey Associate Name Role Phone Eliza Carmona KELL Primary Care Provider [phone] Kale Spencer MD Unavailable Allergies No known [...] Erectile dysfunction 11/03/2024 Overview (11/03/2024): Following with [facility] urology (Dr. Whelan) Continues with tadalafil 5mg daily with good response Assessment & Plan (11/03/2024 1:42 PM EST): Cont current therapy Constipation 03/14/2024 Assessment & Plan (03/14/2024 8:05 AM EDT): -Cont Colace BID PRN -Encourage fiber-rich diet and adequate hydration Routine health maintenance 03/08/2023 Overview (06/13/2024): Optometry: [facility] 03/12/22 Dental: [facility] Colonoscopy: 02/06/21 at [facility] - Dr. Barrios. Check path report for follow up interval. PSA: ordered 06/12/24 Assessment & Plan (08/15/2023 6:17 PM EDT): ?? Optometry: [facility] 03/12/22 ?? Dental: pt to present to [facility] after today's appt to request scheduling for tooth extraction. ?? Colonoscopy: completed January 2021 - due January 2031 ?? COVID-19 Vaccine: primary series complete, boosted x 1. Encouraged updated booster. ?? Flu and pneumococcal vaccines administered today. VIS sheets provided. Assessment & Plan (03/08/2023 9:32 AM EDT): ?? Optometry: [facility] 03/12/22 ?? Dental: pt to present to [facility] after today's appt to request scheduling for tooth extraction. Pre-op completed Aril 2021 ?? Colonoscopy: completed January 2021 - due January 2031 ?? COVID-19 Vaccine: primary series complete, boosted x 1. Encouraged bivalent booster. History of Coumadin therapy 03/08/2023 Overview (08/15/2023): ?? Managed by [facility] ?? Per Cards consult note March 2023 Dr. Costa: For dental procedures should have abx prophylactic, but does NOT need to stop coumadin. Essential hypertension 10/26/2022 Assessment & Plan (06/13/2024 11:09 AM EDT): - Well controlled - Continue DASH diet and lifestyle interventions Continue current [facility] medication regimen: furosemide 20mg [...] 43%, no sign of ischemia Followed by [facility] - Dr. Costa 08/29/24: ADRIANNA - ordered by Dr. Costa. Stable compared to previous. EF 50-55%. Mild-to-mod tricuspid regurgitation present, no evidence of pulm HTN. Assessment & Plan (11/03/2024 1:40 PM EST): -Continue DASH diet -Continue current CARDs regimen: furosemide 20mg daily sacubetril-valsartan 24-26mg tablet BID (provider will call office to request that med be sent to [facility] pharmacy) metoprolol succinate ER 50mg daily aspirin [...] to request that med be sent to [facility] pharmacy) ?? metoprolol succinate ER 50mg daily [...] Type Department Care Team Description 01/02/[address] [facility] [address] [place], [place] [phone] Eliza Carmona FNP January12/22/[address] [facility] [address] [place] [address] Eliza Carmona FNP Palpitations from Last 3 Months Immunizations Name Administration [...] Description 04/16/2025 9:00 AM EDT Office Visit [facility] [address] [place] [address] Eliza Carmona, KELL [address] [place] [address] Health Maintenance Due Date Last Done Comments [...] Real-Time PCR (06/27/2024 6:57 AM EDT) Pathologist [facility] Hepatitis C Viral Load <15 NOT DETECTED NOT DETECTED IU/mL [facility] HCV Log PCR <1.18 NOT DETECTED NOT DETECTED Log IU/mL [facility] Comment:For additional infor isai, please refer [email or web address].[employer]/faq/FFI68o7(This link is being provided for informational/educational purposes only.)THIS TEST WAS PERFORMED AT:[facility] [place] [id number] SOTO MD Blood 06/27/2024 6:57 AM EDT 06/27/2024 7:03 AM EDT Eliza Carmona SECURITY SYSTEM INSTALLER LAB BLOOD ORDERABLES Final Res ult [facility] [address] [place] [address] [phone] * HIV-1/2 Antigen and Antibodies, Fourth Generation, with Reflexes (06/27/2024 6:57 AM EDT) Pathologist [facility] HIV AB/AG Nonreactive Nonreactive [facility] Comment:HIV-1 p24 Ag and/or HIV-1/HIV-2 Ab not detected.A test result that is nonreactive does not exclude thepossibility of exposure to or infection with HIV-1 and/orHIV-2. Nonreactive results in this assay for individualswith prior exposure to HIV-1 and/or HIV-2 may be due toantigen and antibody levels that are below the limit ofdetection of this assay.The [employer] HIV Ag/Ab Combo assay result andsupplemental assay results should be interpreted inconjunction with the patient's clinical presentation,history and other laboratory results. If the results areinconsistent with clinical evidence, additional testing issuggested to confirm the result. Blood Venous blood specimen / Unknown 06/27/2024 6:57 AM EDT 06/27/2024 7:03 AM EDT us Eliza Carmona SECURITY SYSTEM INSTALLER LAB BLOOD ORDERABLES Final Res ult Performing Organization Address [facility] Co de Phone Number [facility] [address] [place] [address] [phone] * (ABNORMAL) Lipid Panel, Standard (06/27/2024 6:57 AM EDT) Triglycerides 116 <150 mg/dL [facility] Comment:Desirable Triglyceri de: less than 150 mg/dLBorderline High Triglyceride 150-199 mg/dLHigh Triglyceride: 200-499 mg/dLVery High Triglyceride: greater than or equal to 5OO mg/dL Cholesterol 144 <200 mg/dL [facility] Comment:Desirable Cholestero l: less than 200 mg/dLBorderline High Cholesterol: 200-239 mg/dLHigh Cholesterol: greater than 239 mg/dL LDL Cholesterol Calculated 85 <100 mg/dL [facility] Comment:Desirable LDL: less than 100 mg/dLNear Optimal/Above Optimal LDL: 110- 129 mg/dLBorderline High LDL: 130-159 mg/dLHigh LDL: 160-189 mg/dLVery High LDL: greater than or equal to 190 mg/dL HDL Cholesterol 36(L) >40 mg/dL [facility] Comment:Desirable HDL: great er than 40 mg/dL Note: This HDL assay may give artificially low results in patients with liver disease. Blood Venous blood specimen / Unknown 06/27/2024 6:57 AM EDT 06/27/2024 7:03 AM EDT Eliza Carmona [facility] LAB BLOOD ORDERABLES Final Res ult Performing Organization Address [facility]/ZIP Co de Phone Number [facility] [address] [place] [address] [phone] * Hm Colonoscopy (03/06/2021 2:24 PM EDT) Historical Provider HEALTH MAINTENANCE Final Result from Last 3 Months or Most Recently Relevant to Health Maintenance Insurance [facility] CARE [facility] MED[facility] STAND [facility] DENTAL - [facility] [employer] Care Teams Survey Associate Relationship Specialty Start Date End Date Eliza Carmona FNP [address] [place] [address] PCP - General Family Medicine 08/15/21 Kale Spencer MD [address] [place] [address] Urology 11/03/24
--- OUTSIDE RECORDS SUMMARY | 2025-02-14 13:00 | XMS_ITS | Encounter Summary ---
Author Organization [employer] Address [address] [place] [address] [address] [place] [address] Care Team Providers Care Appliance Adjuster Name Role Phone Eliza Carmona Primary Care Provider [phone] Kale Spencer MD Unavailable Reason for Visit * Reason Comments Med Refill Encounter Details Date Type Department Care Team (Late st Contact Info) Description 01/30/2023 Refill [facility] [address] [place] [address] Allyssa Yoo FNP [address] [facility] Dept [place] [address] Nasal congestion Social History Tobacco Use Types [...] 9:00 AM EDT Office Visit [facility] [address] [place], [place] [phone] Eliza Carmona FNP [address] [place] [address] documented as of this encounter Visit Diagnoses Diagnosis Nasal congestion Other diseases of nasal cavity and sinuses documented in this encounter Care Teams Appliance Adjuster Relationship Specialty Start Date End Date Eliza Carmona FNP [address] [place] [address] PCP - General Family Medicine 08/15/21 Kale Spencer MD [address] [facility] [address] [place] [phone] Urology 11/03/24 documented as of this encounter
--- OUTSIDE RECORDS SUMMARY | 2025-02-14 13:00 | XMS_ITS | Encounter Summary ---
Author Organization [email or web address] Address [address] [facility] [address] [place] [address] Care Team Providers Care Icu Manager Name Role Phone Eliza Carmona Primary Care Provider [phone] Kale Spencer MD Unavailable Reason for Visit * Reason Comments Med Refill Encounter Details Date Type Department Care Team ([facility] Contact Info) Description 03/13/2023 Refill [facility] [address] [place] [address] lEiza Carmona FNP [address] [place] [address] Nasal congestion Social History Tobacco Use Types [...] Upcoming Encounters Date Type Department Care Team ([facility] Contact Info) Description 04/16/2025 9:00 AM EDT Office Visit [facility] [address] [place] [address] Eliza Carmona FNP [address] [place] [address] documented as of this encounter Visit Diagnoses Diagnosis Nasal congestion Other diseases of nasal cavity and sinuses documented in this encounter Care Teams Icu Manager Relationship Specialty Start Date End Date Eliza Carmona FNP [address] [place] [address] PCP - General Family Medicine 08/15/21 Kale Spencer MD [address] [place] [address] [address] [place] [phone] Urology 11/03/24 documented as of this encounter
--- OUTSIDE RECORDS SUMMARY | 2025-02-14 13:00 | XMS_ITS | Encounter Summary ---
Author Organization [employer] Address [address] [facility] [address] [facility] [address] [place] [address] Care Team Providers Care Social Science Instructor Name Role Phone Eliza Carmona KELL Primary Care Provider [phone] Kale Spencer MD Unavailable Encounter Details Date Type Department Care Team (Late st Contact Info) Description 07/03/2024 Orders Only [facility] MED & PEDS [address] [place], [place] [phone] ProviderShakira MD Social History Tobacco Use Types [...] 04/16/2025 9:00 AM EDT Office Visit [facility] MED & PEDS [address] [place], [place] [phone] Eliza Carmona, WATER TREATMENT SPECIALIST [address] [place] [address] documented as of this encounter Procedures Procedure [...] Testosterone, Total 555 250 - 1100 ng/dL [facility] Comment:For additional infor isai, please refer tohttp://education.LocalOn/faq/YsjcgDegzayhbjlcgJHNJUJLYT346(This link is being provided for informational/educational purposes only.)This test was developed and its analytical performancecharacteristics have been determined by [employer]. It hasnot been cleared or approved by the U.S. Food and DrugAdministration. This assay has been validated pursuantto the CLIA regulations and is used for clinicalpurposes. Testosterone, Free 97.1 35.0 - 155.0 pg/mL [facility] Comment:This test was develo ped and its analytical performancecharacteristics have been determined by [employer] [place]. It hasnot been cleared or approved by the U.S. Food and DrugAdministration. This assay has been validated pursuantto the CLIA regulations and is used for clinicalpurposes.THIS TEST WAS PERFORMED AT:[facility] [place] [address]JMLCSWWPRAVEEN DUBOIS MD,PHD 09/11/2024 7:20 AM EST 09/11/2024 7:20 AM EST Generic External Data Provider LAB BLOOD ORDERAB LES Final Result Performing Organization Address [facility] Co de Phone Number [facility] [address] [place] [phone] * Prolactin (09/11/2024 7:20 AM EST) Prolactin 18.0 2.0 - 18.0 ng/mL [facility] Comment:THIS TEST WAS PERFOR MED AT:[facility] [address] [phone] SOTO MD 09/11/2024 7:20 AM EST 09/11/2024 7:20 AM EST us Generic External Data Provider LAB BLOOD ORDERAB LES Final Result Performing Organization Address [facility]/ZIP Co de Phone Number [facility] [address] [place] [phone] * LH (09/11/2024 7:20 AM EST) Lutenizing Hormone 4.5 1.5 - 9.3 mIU/mL [facility] Comment:THIS TEST WAS PERFOR MED AT:[facility] [address] [phone] SOTO MD 09/11/2024 7:20 AM EST 09/11/2024 7:20 AM EST Generic External Data Provider LAB BLOOD ORDERAB LES Final Result Performing Organization Address [facility]/ZIP Co de Phone Number [facility] [address] [place] [phone] * FSH (09/11/2024 7:20 AM EST) Follicle Stimulating Hormone 5.6 1.4 - 12.8 mIU/mL [facility] Comment:THIS TEST WAS PERFOR MED AT:[facility] [address] [address]LKYNVTORY SOTO MD 09/11/2024 7:20 AM EST 09/11/2024 7:20 AM EST us Generic External Data Provider LAB BLOOD ORDERAB LES Final Result Performing Organization Address City/[facility] Co de Phone Number [facility] [address] [place] [phone] * PSA, Total With Reflex to PSA, Free (09/11/2024 7:20 AM EST) PSA,Total (Free>4and<10) 0.56 0.00 - 4.00 ng/mL [facility] Comment:A Free PSA was not [...] LES Final Result Performing Organization Address City/[facility] Co de Phone Number [facility] [address] [place] [phone] * Glucose (09/11/2024 7:20 AM EST) Glucose Fasting 96 60 - 99 mg/dL [facility] 09/11/2024 7:20 AM EST 09/11/2024 7:20 AM EST us Generic External Data Provider LAB BLOOD ORDERAB LES Final Result Performing Organization Address [facility] Co de Phone Number [facility] [address] [place] [phone] * Hm Colonoscopy (03/06/2021 2:24 PM EDT) Historical Provider HEALTH MAINTENANCE Final Result documented in this encounter Visit Diagnoses Not on filedocumented in this encounter Additional Health Concerns Assessment Noted Time PHQ-9 Depression Total Score: 7 08/13/20 23 9:49 AM EDT documented as of this encounter Care Teams Social Science Instructor Relationship Specialty Start Date End Date Eliza Carmona FNP [address] [place] [address] PCP - General Family Medicine 08/15/21 Kale Spencer MD [address] [place] [address] Urology 11/03/24 documented as of this encounter
== END 2025-02-14 11:17 | disposition home or self-care (01) ==
LOC: HO.HKA 10:51
PROVIDERS: PCP Registered Nurse; Visit Provider Internal Medicine Nephrology
DX: R80.8 Other proteinuria (principal); I10 Essential (primary) hypertension
CPT/HCPCS: 99204

== ENCOUNTER → 2025-02-14 10:50 | Outpatient (BNVA) | payer OTHER, SELFPAY | PROVIDERS: PCP Registered Nurse; Visit Provider Internal Medicine Nephrology | DX: R80.8 Other proteinuria (principal); I10 Essential (primary) hypertension; N52.9 Male erectile dysfunction, unspecified; Z95.2 Presence of prosthetic heart valve; Z79.899 Other long term (current) drug therapy | CPT/HCPCS: 99202 ==

== ENCOUNTER 2025-02-21 06:38 | Outpatient (REF) | payer OTHER, SELFPAY ==
--- OUTSIDE RECORDS SUMMARY | 2025-02-21 06:41 | XMS_ITS | Encounter Summary ---
Author Organization [employer] Address [address] [place] [address] 7t [place] [address] Care Team Providers Care Locomotive Supervisor Name Role Phone Eliza Carmona Primary Care Provider [phone] Kale Spencer MD Unavailable Reason for Visit * Reason Comments Med Refill Encounter Details Date Type Department Care Team (Late st Contact Info) Description 01/30/2023 Refill [facility] MED & PEDS [address] [place] [address] Allyssa Yoo FNP [address] [facility] [place] [address] Nasal congestion Social History Tobacco Use Types [...] 04/16/2025 9:00 AM EDT Office Visit [facility] MED & PEDS [address] [place], [place] [phone] Eliza Carmona FNP [address] [place] [address] documented as of this encounter Visit Diagnoses Diagnosis Nasal congestion Other diseases of nasal cavity and sinuses documented in this encounter Care Teams Locomotive Supervisor Relationship Specialty Start Date End Date Eliza Carmona FNP [address] [place] [address] PCP - General Family Medicine 08/15/21 Kale Spencer MD [address] [facility] [address] [place] [address] Urology 11/03/24 documented as of this encounter
--- OUTSIDE RECORDS SUMMARY | 2025-02-21 06:41 | XMS_ITS | Encounter Summary ---
Author Organization [employer] Address [address] [place] [address] Care Team Providers Care Bond Runner Name Role Phone Eliza Carmona KELL Primary Care Provider [phone] Kale Spencer MD Unavailable Encounter Details Date Type Department Care Team (Late st Contact Info) Description 07/03/2024 Orders Only [facility] CHC MED & PEDS [address] [place], [place] [phone] ProviderShakira MD Social History Tobacco Use Types [...] Description 04/16/2025 9:00 AM EDT Office Visit [facility] MED & PEDS [address] [place], [place] [phone] Eliza Carmona, BUDGET ACCOUNTANT [address] [place] [address] documented as of this encounter Procedures Procedure [...] Testosterone, Total 555 250 - 1100 ng/dL [facility] Comment:For additional infor isai, please refer tohttp://education.Trustlook/faq/EkysgXginfnlrwjfsGTIAAGFSO513(This link is being provided for informational/educational purposes only.)This test was developed and its analytical performancecharacteristics have been determined by [employer]. It hasnot been cleared or approved by the U.S. Food and DrugAdministration. This assay has been validated pursuantto the CLIA regulations and is used for clinicalpurposes. Testosterone, Free 97.1 35.0 - 155.0 pg/mL [facility] Comment:This test was develo ped and its analytical performancecharacteristics have been determined by [employer]. It hasnot been cleared or approved by the U.S. Food and DrugAdministration. This assay has been validated pursuantto the CLIA regulations and is used for clinicalpurposes.THIS TEST WAS PERFORMED AT:[facility] [place] [address]ILPLWIPPRAVEEN DUBOIS MD,PHD 09/11/2024 7:20 AM EST 09/11/2024 7:20 AM EST Generic External Data Provider LAB BLOOD ORDERAB LES Final Result Performing Organization Address [facility] Co de Phone Number [facility] [address] [place] [phone] * Prolactin (09/11/2024 7:20 AM EST) Prolactin 18.0 2.0 - 18.0 ng/mL [facility] Comment:THIS TEST WAS PERFOR MED AT:[facility] [address] [address]WPZVGTORY SOTO MD 09/11/2024 7:20 AM EST 09/11/2024 7:20 AM EST us Generic External Data Provider LAB BLOOD ORDERAB LES Final Result Performing Organization Address [facility]/ZIP Co de Phone Number [facility] [address] [place] [phone] * LH (09/11/2024 7:20 AM EST) Lutenizing Hormone 4.5 1.5 - 9.3 mIU/mL [facility] Comment:THIS TEST WAS PERFOR MED AT:[facility] [address] [address]GYAEKTORY SOTO MD 09/11/2024 7:20 AM EST 09/11/2024 7:20 AM EST Generic External Data Provider LAB BLOOD ORDERAB LES Final Result Performing Organization Address [facility]/ZIP Co de Phone Number [facility] [address] [place] [phone] * FSH (09/11/2024 7:20 AM EST) Follicle Stimulating Hormone 5.6 1.4 - 12.8 mIU/mL [facility] Comment:THIS TEST WAS PERFOR MED AT:[facility] [address] [phone] SOTO MD 09/11/2024 7:20 AM EST 09/11/2024 7:20 AM EST us Generic External Data Provider LAB BLOOD ORDERAB LES Final Result Performing Organization Address City/[facility] Co de Phone Number [facility] [address] [place] [phone] * PSA, Total With Reflex to PSA, Free (09/11/2024 7:20 AM EST) PSA,Total (Free>4and<10) 0.56 0.00 - 4.00 ng/mL [facility] Comment:A Free PSA was not [...] ORDERAB LES Final Result Performing Organization Address City/[facility] Co de Phone Number [facility] [address] [place] [phone] * Glucose (09/11/2024 7:20 AM EST) Glucose Fasting 96 60 - 99 mg/dL [facility] 09/11/2024 7:20 AM EST 09/11/2024 7:20 AM EST us Generic External Data Provider LAB BLOOD ORDERAB LES Final Result Performing Organization Address [facility] Co de Phone Number [facility] [address] [place] [phone] * Hm Colonoscopy (03/06/2021 2:24 PM EDT) Historical Provider HEALTH MAINTENANCE Final Result documented in this encounter Visit Diagnoses Not on filedocumented in this encounter Additional Health Concerns Assessment Noted Time PHQ-9 Depression Total Score: 7 08/13/20 23 9:49 AM EDT documented as of this encounter Care Teams Bond Runner Relationship Specialty Start Date End Date Eliza Carmona FNP [address] [place] [address] PCP - General Family Medicine 08/15/21 Kale Spencer MD [address] [place] [address] Urology 11/03/24 documented as of this encounter
--- OUTSIDE RECORDS SUMMARY | 2025-02-21 06:41 | XMS_ITS | Encounter Summary ---
Author Organization [employer] Address [address] [facility] 7t [place] [address] Care Team Providers Care Concentrator Operator Name Role Phone Eliza Carmona Primary Care Provider [phone] Kale Spencer MD Unavailable Reason for Visit * Reason Comments Med Refill Encounter Details Date Type Department Care Team ([facility] Contact Info) Description 03/13/2023 Refill [facility] MED & PEDS [address] [place] [address] Eliza Carmona FNP [address] [place] [address] Nasal congestion Social History Tobacco Use Types [...] Upcoming Encounters Date Type Department Care Team ([facility] Contact Info) Description 04/16/2025 9:00 AM EDT Office Visit [facility] MED & PEDS [address] [place] [address] Eliza Carmona FNP [address] [place] [address] documented as of this encounter Visit Diagnoses Diagnosis Nasal congestion Other diseases of nasal cavity and sinuses documented in this encounter Care Teams Concentrator Operator Relationship Specialty Start Date End Date Eliza Carmona FNP [address] [place] [address] PCP - General Family Medicine 08/15/21 Kale Spencer MD [address] [place] [address] [address] [place] [address] Urology 11/03/24 documented as of this encounter
--- OUTSIDE RECORDS SUMMARY | 2025-02-21 06:41 | XMS_ITS | Clinical Summary ---
Author Organization [employer] Address [address] [facility] 7t [place] [address] Care Team Providers Care Traveling Inventory Associate Name Role Phone Eliza Carmona KELL Primary Care Provider [phone] Kale Spencer MD Unavailable Allergies No known [...] Erectile dysfunction 11/03/2024 Overview (11/03/2024): Following with [facility] (Dr. Whelan) Continues with tadalafil 5mg daily with good response Assessment & Plan (11/03/2024 1:42 PM EST): Cont current therapy Constipation 03/14/2024 Assessment & Plan (03/14/2024 8:05 AM EDT): -Cont Colace BID PRN -Encourage fiber-rich diet and adequate hydration Routine health maintenance 03/08/2023 Overview (06/13/2024): Optometry: CEE 03/12/22 Dental: [facility] Dental Colonoscopy: 02/06/21 at [facility] [place] Dr. Barrios. Check path report for follow up interval. PSA: ordered 06/12/24 Assessment & Plan (08/15/2023 6:17 PM EDT): ?? Optometry: CEE 03/12/22 ?? Dental: pt to present to [facility] Dental after today's appt to request scheduling for tooth extraction. ?? Colonoscopy: completed January 2021 - due January 2031 ?? COVID-19 Vaccine: primary series complete, boosted x 1. Encouraged updated booster. ?? Flu and pneumococcal vaccines administered today. VIS sheets provided. Assessment & Plan (03/08/2023 9:32 AM EDT): ?? Optometry: CEE 03/12/22 ?? Dental: pt to present to [facility] Dental after today's appt to request scheduling for tooth extraction. Pre-op completed Aril 2021 ?? Colonoscopy: completed January 2021 - due January 2031 ?? COVID-19 Vaccine: primary series complete, boosted x 1. Encouraged bivalent booster. History of Coumadin therapy 03/08/2023 Overview (08/15/2023): ?? Managed by [facility] ?? Per Cards consult note March 2023 Dr. Costa: For dental procedures should have abx prophylactic, but does NOT need to stop coumadin. Essential hypertension 10/26/2022 Assessment & Plan (06/13/2024 11:09 AM EDT): - Well controlled - Continue DASH diet and lifestyle interventions Continue current [facility] medication regimen: furosemide 20mg daily [...] 43%, no sign of ischemia Followed by [facility] - Dr. Costa 08/29/24: ADRIANNA - ordered by Dr. Costa. Stable compared to previous. EF 50-55%. Mild-to-mod tricuspid regurgitation present, no evidence of pulm HTN. Assessment & Plan (11/03/2024 1:40 PM EST): -Continue DASH diet -Continue current CARDs regimen: furosemide 20mg daily sacubetril-valsartan 24-26mg tablet BID (provider will call office to request that med be sent to [facility] pharmacy) metoprolol succinate ER 50mg daily [...] to request that med be sent to [facility] pharmacy) ?? metoprolol succinate ER 50mg [...] Type Department Care Team Description 01/02/2025 Telephone [facility] CHC MED & PEDS [address] [place], [place] [phone] Eliza Carmona FNP January12/22/2024 Refill [facility] MEDICINE [address] [place] [address] Eliza Carmona FNP Palpitations from Last 3 [...] Office Visit [facility] MED & PEDS [address] [place] [address] Eliza Carmona, KELL [address] [place] [address] Health Maintenance Due Date Last Done Comments [...] Real-Time PCR (06/27/2024 6:57 AM EDT) Pathologist [facility] Hepatitis C Viral Load <15 NOT DETECTED NOT DETECTED IU/mL [facility] HCV Log PCR <1.18 NOT DETECTED NOT DETECTED Log IU/mL [facility] Comment:For additional infor isai, please refer tohttp://education.BitInstant/faq/CLK92x2(This link is being provided for informational/educational purposes only.)THIS TEST WAS PERFORMED AT:[facility] [place] [id number] SOTO MD Blood 06/27/2024 6:57 AM EDT 06/27/2024 7:03 AM EDT Eliza Carmona CIGARETTE MACHINE OPERATOR LAB BLOOD ORDERABLES Final Res ult [facility] [address] [place] [phone] * HIV-1/2 Antigen and Antibodies, Fourth Generation, with Reflexes (06/27/2024 6:57 AM EDT) Pathologist [facility] HIV AB/AG Nonreactive Nonreactive [facility] Comment:HIV-1 p24 Ag and/or HIV-1/HIV-2 Ab not detected.A test result that is nonreactive does not exclude thepossibility of exposure to or infection with HIV-1 and/orHIV-2. Nonreactive results in this assay for individualswith prior exposure to HIV-1 and/or HIV-2 may be due toantigen and antibody levels that are below the limit ofdetection of this assay.The [employer] HIV Ag/Ab Combo assay result andsupplemental assay results should be interpreted inconjunction with the patient's clinical presentation,history and other laboratory results. If the results areinconsistent with clinical evidence, additional testing issuggested to confirm the result. Blood Venous blood specimen / Unknown 06/27/2024 6:57 AM EDT 06/27/2024 7:03 AM EDT us Eliza Carmona CIGARETTE MACHINE OPERATOR LAB BLOOD ORDERABLES Final Res ult Performing Organization Address [facility] Co de Phone Number [facility] [address] [place] [phone] * (ABNORMAL) Lipid Panel, Standard (06/27/2024 6:57 AM EDT) Triglycerides 116 <150 mg/dL [facility] Comment:Desirable Triglyceri de: less than 150 mg/dLBorderline High Triglyceride 150-199 mg/dLHigh Triglyceride: 200-499 mg/dLVery High Triglyceride: greater than or equal to 5OO mg/dL Cholesterol 144 <200 mg/dL [facility] Comment:Desirable Cholestero l: less than 200 mg/dLBorderline High Cholesterol: 200-239 mg/dLHigh Cholesterol: greater than 239 mg/dL LDL Cholesterol Calculated 85 <100 mg/dL [facility] Comment:Desirable LDL: less than 100 mg/dLNear Optimal/Above Optimal LDL: 110- 129 mg/dLBorderline High LDL: 130-159 mg/dLHigh LDL: 160-189 mg/dLVery High LDL: greater than or equal to 190 mg/dL HDL Cholesterol 36(L) >40 mg/dL [facility] Comment:Desirable HDL: great er than 40 mg/dL Note: This HDL assay may give artificially low results in patients with liver disease. Blood Venous blood specimen / Unknown 06/27/2024 6:57 AM EDT 06/27/2024 7:03 AM EDT Eliza Carmona [facility] LAB BLOOD ORDERABLES Final Res ult Performing Organization Address [facility]/ZIP Co de Phone Number [facility] [address] [place] [phone] * Hm Colonoscopy (03/06/2021 2:24 PM EDT) Historical Provider HEALTH MAINTENANCE Final Result from Last 3 Months or Most Recently Relevant to Health Maintenance Insurance [facility] STANDARD [facility] < 65 DENTAL-[facility] MEDICAID STAND ADULT DENTAL - [facility] Care Teams Traveling Inventory Associate Relationship Specialty Start Date End Date Eliza Carmona FNP [address] [place] [address] PCP - General Family Medicine 08/15/21 Kale Spencer MD [address] [place] [address] Urology 11/03/24
[2025-02-21 07:28] LABS: INTERNATIONAL NORM RATIO 2.4 (0.9-1.1); Prothrombin Time 27.7 SEC (10.9-12.4)
== END 2025-02-21 06:39 | disposition home or self-care (01) ==
LOC: HO.LABR 06:38
PROVIDERS: PCP Registered Nurse; Visit Provider Pharmacist
DX: Z95.2 Presence of prosthetic heart valve (principal)
CPT/HCPCS: 36415; 85610

== ENCOUNTER 2025-03-07 06:22 | Outpatient (REF) | payer OTHER, SELFPAY ==
[2025-03-07 07:34] LABS: INTERNATIONAL NORM RATIO 2.3 (0.9-1.1); Prothrombin Time 26.3 SEC (10.9-12.4)
== END 2025-03-07 06:23 | disposition home or self-care (01) ==
LOC: HO.LABR 06:22
PROVIDERS: PCP Registered Nurse; Visit Provider Pharmacist
DX: Z95.2 Presence of prosthetic heart valve (principal)
CPT/HCPCS: 36415; 85610

== ENCOUNTER 2025-03-21 06:55 | Outpatient (REF) | payer OTHER, SELFPAY ==
[2025-03-21 08:05] LABS: INTERNATIONAL NORM RATIO 2.7 (0.9-1.1); Prothrombin Time 31.1 SEC (10.9-12.4)
[2025-03-21 09:06] LABS: Creatinine Urine 166.98 mg/dL; Protein/Creatinine Ratio, Ur 0.07 (<0.2); Total Protein Urine Random 12 mg/dL (<12)
[2025-03-21 09:33] LABS: HBc Num1 0.08 S/CO (0.00-0.79); HBsAGNum1 0.29 S/CO (0.00-0.99); Hepatitis B Core Antibody Nonreactive (Nonreactive); Hepatitis B Surface Antigen Negative (Negative)
[2025-03-22 12:44] LABS: Complement C3 123 mg/dL (82-185)
[2025-03-22 18:49] LABS: Anti DNA DS Antibody <1 IU/mL; Anti Glomerular Basement Memb <1.0 AI; Myeloperoxidase Antibody <1.0 AI; Proteinase 3 PR3 Antibodies <1.0 AI
[2025-03-23 12:49] LABS: IgA 332 mg/dL (47-310); IgG 1201 mg/dL (600-1640); IgM 105 mg/dL (50-300)
[2025-03-30 01:49] LABS: Phospholipase A2 IgG ELISA <4 RU/mL; Phospholipase A2 IgG IFA NEGATIVE (NEGATIVE)
== END 2025-03-21 06:56 | disposition home or self-care (01) ==
LOC: HO.LAB 06:55
PROVIDERS: Pharmacist; Absent Provider Internal Medicine Nephrology; PCP Registered Nurse; Visit Provider Pharmacist
DX: Z95.2 Presence of prosthetic heart valve (principal); R80.8 Other proteinuria; I10 Essential (primary) hypertension
CPT/HCPCS: 36415; 82570; 82784; 83520; 84156; 85610; 86021; 86160; 86225; 86255; 86334; 86335; 86704; 87340

== ENCOUNTER 2025-03-22 08:16 | Outpatient (REF) | payer OTHER, SELFPAY ==
--- OUTSIDE RECORDS SUMMARY | 2025-03-22 08:22 | XMS_ITS | Encounter Summary ---
Author Organization [employer] Address [address] [facility] [address] [place] [address] Care Team Providers Care Motorcycle Technician Name Role Phone Eliza Carmona Primary Care Provider [phone] Kale Spencer MD Unavailable Encounter Details Date Type Department Care Team (Late st Contact Info) Description 10/12/2022 Orders Only [facility] [address] [place], [place] [id number] Joellen Broussard LPN Social History Tobacco Use [...] Description 04/16/2025 9:00 AM EDT Office Visit [facility] MED & PEDS [address] [place] [address] Eliza Carmona FNP [address] [place] [address] documented as of this encounter Procedures Procedure [...] Prothrombin Time 29.4(H) 11.1 - 13.3 SEC [facility] INTERNATIONAL NORM RATIO 2.4(H) 0.9 - 1.1 [facility] Comment:INTERNATIONAL NORMAL IZED RATIO (INR) [...] 7:05 AM EST 09/22/2023 7:05 AM EST Generic External Data Provider LAB BLOOD ORDERAB LES Final Result Performing Organization Address [facility] Co de Phone Number [facility] [address] [place] [address] [phone] * (ABNORMAL) Prothrombin Time-INR (04/01/2023 6:27 AM EDT) Prothrombin Time 31.1(H) 10.0 - 13.1 SEC [facility] INTERNATIONAL NORM RATIO 2.6(H) 0.9 - 1.1 [facility] Comment:INTERNATIONAL NORMAL IZED RATIO (INR) [...] 6:27 AM EDT 04/01/2023 6:27 AM EDT [facility] External Provider LAB BLO OD ORDERABLES Final Result Performing Organization Address [facility] Co de Phone Number [facility] [address] [place] [address] [phone] * (ABNORMAL) Prothrombin Time-INR (03/17/2023 6:43 AM EDT) Prothrombin Time 34.2(H) 10.0 - 13.1 SEC [facility] INTERNATIONAL NORM RATIO 2.9(H) 0.9 - 1.1 [facility] Comment:INTERNATIONAL NORMAL IZED RATIO (INR) [...] 6:43 AM EDT 03/17/2023 6:43 AM EDT [facility] External Provider LAB BLO OD ORDERABLES Final Result Performing Organization Address [facility] Co de Phone Number [facility] [address] [place] [address] [phone] * (ABNORMAL) Prothrombin Time-INR (03/03/2023 6:54 AM EDT) Prothrombin Time 34.1(H) 10.0 - 13.1 SEC [facility] INTERNATIONAL NORM RATIO 2.8(H) 0.9 - 1.1 [facility] Comment:INTERNATIONAL NORMAL IZED RATIO (INR) [...] 6:54 AM EDT 03/03/2023 6:54 AM EDT [facility] External Provider LAB BLO OD ORDERABLES Final Result Performing Organization Address [facility] de Phone Number [facility] [address] [place] [address] [phone] * (ABNORMAL) Prothrombin Time-INR (02/17/2023 6:36 AM EDT) Prothrombin Time 33.8(H) 10.0 - 13.1 SEC [facility] INTERNATIONAL NORM RATIO 2.8(H) 0.9 - 1.1 [facility] Comment:INTERNATIONAL NORMAL IZED RATIO (INR) [...] 6:36 AM EDT 02/17/2023 6:36 AM EDT [facility] External Provider LAB BLO OD ORDERABLES Final Result Performing Organization Address [facility] Co de Phone Number [facility] [address] [place] [address] [phone] * (ABNORMAL) Prothrombin Time-INR (02/10/2023 6:43 AM EDT) Prothrombin Time 37.0(H) 10.0 - 13.1 SEC [facility] INTERNATIONAL NORM RATIO 3.1(H) 0.9 - 1.1 [facility] Comment:INTERNATIONAL NORMAL IZED RATIO (INR) [...] 6:43 AM EDT 02/10/2023 6:43 AM EDT [facility] External Provider LAB BLO OD ORDERABLES Final Result Performing Organization Address [facility] Co de Phone Number [facility] [address] [place] [phone] * (ABNORMAL) Prothrombin Time-INR (01/29/2023 6:54 AM EDT) Prothrombin Time 32.5(H) 10.0 - 13.1 SEC [facility] INTERNATIONAL NORM RATIO 2.7(H) 0.9 - 1.1 [facility] Comment:INTERNATIONAL NORMAL IZED RATIO (INR) [...] 6:54 AM EDT 01/29/2023 6:54 AM EDT [facility] External Provider LAB BLO OD ORDERABLES Final Result [facility] [address] [place] [phone] * (ABNORMAL) Prothrombin Time-INR (01/26/2023 7:01 AM EDT) Prothrombin Time 22.4(H) 10.0 - 13.1 SEC [facility] INTERNATIONAL NORM RATIO 1.9(H) 0.9 - 1.1 [facility] Comment:INTERNATIONAL NORMAL IZED RATIO (INR) [...] 7:01 AM EDT 01/26/2023 7:01 AM EDT [facility] External Provider LAB BLO OD ORDERABLES Final Result Performing Organization Address [facility] Co de Phone Number [facility] [address] [place] [address] [phone] * (ABNORMAL) Prothrombin Time-INR (01/12/2023 7:14 AM EDT) Prothrombin Time 36.4(H) 10.0 - 13.1 SEC [facility] INTERNATIONAL NORM RATIO 3.0(H) 0.9 - 1.1 [facility] Comment:INTERNATIONAL NORMAL IZED RATIO (INR) [...] 7:14 AM EDT 01/12/2023 7:14 AM EDT [facility] External Provider LAB BLO OD ORDERABLES Final Result Performing Organization Address [facility] Co de Phone Number [facility] [address] [place] [address] [phone] * (ABNORMAL) Prothrombin Time-INR (12/29/2022 7:02 AM EST) Prothrombin Time 35.3(H) 10.0 - 13.1 SEC [facility] INTERNATIONAL NORM RATIO 2.9(H) 0.9 - 1.1 [facility] Comment:INTERNATIONAL NORMAL IZED RATIO (INR) [...] 7:02 AM EST 12/29/2022 7:02 AM EST [facility] External Provider LAB BLO OD ORDERABLES Final Result Performing Organization Address [facility] de Phone Number [facility] [address] [place] [address] [phone] * (ABNORMAL) Prothrombin Time-INR (12/22/2022 7:14 AM EST) Prothrombin Time 39.4(H) 10.0 - 13.1 SEC [facility] INTERNATIONAL NORM RATIO 3.3(H) 0.9 - 1.1 [facility] Comment:INTERNATIONAL NORMAL IZED RATIO (INR) [...] 7:14 AM EST 12/22/2022 7:15 AM EST [facility] External Provider LAB BLO OD ORDERABLES Final Result Performing Organization Address [facility] Co de Phone Number [facility] [address] [place] [address] [phone] * (ABNORMAL) Prothrombin Time-INR (12/15/2022 6:41 AM EST) Prothrombin Time 41.0(H) 10.0 - 13.1 SEC [facility] INTERNATIONAL NORM RATIO 3.4(H) 0.9 - 1.1 [facility] Comment:INTERNATIONAL NORMAL IZED RATIO (INR) [...] 6:41 AM EST 12/15/2022 6:41 AM EST [facility] External Provider LAB BLO OD ORDERABLES Final Result Performing Organization Address City/[facility] Co de Phone Number [facility] [address] [place] [address] [phone] * (ABNORMAL) Prothrombin Time-INR (12/08/2022 6:48 AM EST) Prothrombin Time 29.0(H) 10.0 - 13.1 SEC [facility] INTERNATIONAL NORM RATIO 2.4(H) 0.9 - 1.1 [facility] Comment:INTERNATIONAL NORMAL IZED RATIO (INR) [...] 6:48 AM EST 12/08/2022 6:50 AM EST [facility] External Provider LAB BLO OD ORDERABLES Final Result Performing Organization Address [facility] Co de Phone Number [facility] [address] [place] [address] [phone] * (ABNORMAL) Prothrombin Time-INR (12/01/2022 6:43 AM EST) Prothrombin Time 31.3(H) 10.0 - 13.1 SEC [facility] INTERNATIONAL NORM RATIO 2.6(H) 0.9 - 1.1 [facility] Comment:INTERNATIONAL NORMAL IZED RATIO (INR) [...] 6:43 AM EST 12/01/2022 6:43 AM EST [facility] External Provider LAB BLO OD ORDERABLES Final Result Performing Organization Address [facility] de Phone Number [facility] [address] [place] [address] [phone] * (ABNORMAL) Prothrombin Time-INR (11/26/2022 6:42 AM EST) Prothrombin Time 26.3(H) 10.0 - 13.1 SEC [facility] INTERNATIONAL NORM RATIO 2.2(H) 0.9 - 1.1 [facility] Comment:INTERNATIONAL NORMAL IZED RATIO (INR) [...] 6:42 AM EST 11/26/2022 6:43 AM EST [facility] External Provider LAB BLO OD ORDERABLES Final Result Performing Organization Address [facility] Co de Phone Number [facility] [address] [place] [address] [phone] documented in this encounter Visit Diagnoses Not on filedocumented in this encounter Care Teams Motorcycle Technician Relationship Specialty Start Date End Date Eliza Carmona FNP [address] [place] [address] PCP - General Family Medicine 08/15/21 Kale Spencer MD [address] [place] [address] Drive [address] [place] [address] Urology 11/03/24 documented as of this encounter
[2025-03-22 09:07] LABS: Creatinine, mg/dL 85.46; Protein mg/dL < 7 mg/dL
[2025-03-22 09:42] LABS: Creatinine, 24Hr Urine 1.3 G/Day (1.0-2.0); Protein 24 Hr Urine < 110 mg/Day (<150); Total Volume 24 Hour Urine 1575 mL
== END 2025-03-22 08:17 | disposition home or self-care (01) ==
LOC: HO.LNP 08:16
PROVIDERS: Visit Provider Internal Medicine Nephrology
DX: R80.8 Other proteinuria (principal); I10 Essential (primary) hypertension
CPT/HCPCS: 84156

== ENCOUNTER 2025-04-09 08:56 | Outpatient (REF) | payer OTHER, SELFPAY ==
--- NOTE | ~2025-04-09 | US_ITS ---
EXAMINATION: US RETROPERITONEAL LIMITED (RENAL ONLY) CLINICAL INFORMATION: Proteinuria. COMPARISON: None available. TECHNIQUE: Real-time imaging of the kidneys. FINDINGS: RIGHT KIDNEY: 10.9 x 4.3 x 5.6 cm (SAG x AP x TRV). The kidney is normal in size, contour, and echogenicity. Renal cortical thickness is normal. No calculi or focal parenchymal lesions. No hydronephrosis. Extrarenal pelvis noted. LEFT KIDNEY: 11.4 x 5.5 x 5.3 cm (SAG x AP x TRV). The kidney is normal in size, contour, and echogenicity. Renal cortical thickness is normal. No calculi or focal parenchymal lesions. No hydronephrosis. US/US renal BI IMPRESSION: Normal renal ultrasound.. Electronically signed by: Talib Ayala MD 04/09/2025 10:01 AM EDT
--- OUTSIDE RECORDS SUMMARY | 2025-04-09 09:25 | XMS_ITS | Encounter Summary ---
Author Organization [employer] Address [address] [facility] [address] [place] [address] Care Team Providers Care Manager Hospitality Name Role Phone Eliza Carmona Primary Care Provider [phone] Kale Spencer MD Unavailable Encounter Details Date Type Department Care Team (Late st Contact Info) Description 10/12/2022 Orders Only [facility] [address] [place], [place] [phone] Joellen Broussard LPN Social History Tobacco Use [...] Description 04/16/2025 9:00 AM EDT Office Visit [facility] CHC MED & PEDS [address] [place] [address] Eliza Carmona FNP [address] [place] [address] documented as of this encounter Procedures Procedure [...] Prothrombin Time 29.4(H) 11.1 - 13.3 SEC [facility] INTERNATIONAL NORM RATIO 2.4(H) 0.9 - 1.1 [facility] Comment:INTERNATIONAL NORMAL IZED RATIO (INR) [...] ORDERAB LES Final Result Performing Organization Address [facility] Co de Phone Number [facility] [address] [place] [address] [phone] * (ABNORMAL) Prothrombin Time-INR (04/01/2023 6:27 AM EDT) Prothrombin Time 31.1(H) 10.0 - 13.1 SEC [facility] INTERNATIONAL NORM RATIO 2.6(H) 0.9 - 1.1 [facility] Comment:INTERNATIONAL NORMAL IZED RATIO (INR) [...] 6:27 AM EDT 04/01/2023 6:27 AM EDT [facility] External Provider LAB BLO OD ORDERABLES Final Result Performing Organization Address [facility] Co de Phone Number [facility] [address] [place] [address] [phone] * (ABNORMAL) Prothrombin Time-INR (03/17/2023 6:43 AM EDT) Prothrombin Time 34.2(H) 10.0 - 13.1 SEC [facility] INTERNATIONAL NORM RATIO 2.9(H) 0.9 - 1.1 [facility] Comment:INTERNATIONAL NORMAL IZED RATIO (INR) [...] 6:43 AM EDT 03/17/2023 6:43 AM EDT [facility] External Provider LAB BLO OD ORDERABLES Final Result Performing Organization Address [facility] Co de Phone Number [facility] [address] [place] [address] [phone] * (ABNORMAL) Prothrombin Time-INR (03/03/2023 6:54 AM EDT) Prothrombin Time 34.1(H) 10.0 - 13.1 SEC [facility] INTERNATIONAL NORM RATIO 2.8(H) 0.9 - 1.1 [facility] Comment:INTERNATIONAL NORMAL IZED RATIO (INR) [...] 6:54 AM EDT 03/03/2023 6:54 AM EDT [facility] External Provider LAB BLO OD ORDERABLES Final Result Performing Organization Address [facility] de Phone Number [facility] [address] [place] [address] [phone] * (ABNORMAL) Prothrombin Time-INR (02/17/2023 6:36 AM EDT) Prothrombin Time 33.8(H) 10.0 - 13.1 SEC [facility] INTERNATIONAL NORM RATIO 2.8(H) 0.9 - 1.1 [facility] Comment:INTERNATIONAL NORMAL IZED RATIO (INR) [...] 6:36 AM EDT 02/17/2023 6:36 AM EDT [facility] External Provider LAB BLO OD ORDERABLES Final Result Performing Organization Address [facility] Co de Phone Number [facility] [address] [place] [address] [phone] * (ABNORMAL) Prothrombin Time-INR (02/10/2023 6:43 AM EDT) Prothrombin Time 37.0(H) 10.0 - 13.1 SEC [facility] INTERNATIONAL NORM RATIO 3.1(H) 0.9 - 1.1 [facility] Comment:INTERNATIONAL NORMAL IZED RATIO (INR) [...] 6:43 AM EDT 02/10/2023 6:43 AM EDT [facility] External Provider LAB BLO OD ORDERABLES Final Result Performing Organization Address [facility] Co de Phone Number [facility] [address] [place] [phone] * (ABNORMAL) Prothrombin Time-INR (01/29/2023 6:54 AM EDT) Prothrombin Time 32.5(H) 10.0 - 13.1 SEC [facility] INTERNATIONAL NORM RATIO 2.7(H) 0.9 - 1.1 [facility] Comment:INTERNATIONAL NORMAL IZED RATIO (INR) [...] 6:54 AM EDT 01/29/2023 6:54 AM EDT [facility] External Provider LAB BLO OD ORDERABLES Final Result [facility] [address] [place] [phone] * (ABNORMAL) Prothrombin Time-INR (01/26/2023 7:01 AM EDT) Prothrombin Time 22.4(H) 10.0 - 13.1 SEC [facility] INTERNATIONAL NORM RATIO 1.9(H) 0.9 - 1.1 [facility] Comment:INTERNATIONAL NORMAL IZED RATIO (INR) [...] 7:01 AM EDT 01/26/2023 7:01 AM EDT [facility] External Provider LAB BLO OD ORDERABLES Final Result Performing Organization Address [facility] Co de Phone Number [facility] [address] [place] [address] [phone] * (ABNORMAL) Prothrombin Time-INR (01/12/2023 7:14 AM EDT) Prothrombin Time 36.4(H) 10.0 - 13.1 SEC [facility] INTERNATIONAL NORM RATIO 3.0(H) 0.9 - 1.1 [facility] Comment:INTERNATIONAL NORMAL IZED RATIO (INR) [...] 7:14 AM EDT 01/12/2023 7:14 AM EDT [facility] External Provider LAB BLO OD ORDERABLES Final Result Performing Organization Address [facility] Co de Phone Number [facility] [address] [place] [address] [phone] * (ABNORMAL) Prothrombin Time-INR (12/29/2022 7:02 AM EST) Prothrombin Time 35.3(H) 10.0 - 13.1 [facility] INTERNATIONAL NORM RATIO 2.9(H) 0.9 - 1.1 [facility] Comment:INTERNATIONAL NORMAL IZED RATIO (INR) [...] 7:02 AM EST 12/29/2022 7:02 AM EST [facility] External Provider LAB BLO OD ORDERABLES Final Result Performing Organization Address [facility] de Phone Number [facility] [address] [place] [address] [phone] * (ABNORMAL) Prothrombin Time-INR (12/22/2022 7:14 AM EST) Prothrombin Time 39.4(H) 10.0 - 13.1 SEC [facility] INTERNATIONAL NORM RATIO 3.3(H) 0.9 - 1.1 [facility] Comment:INTERNATIONAL NORMAL IZED RATIO (INR) [...] 7:14 AM EST 12/22/2022 7:15 AM EST [facility] External Provider LAB BLO OD ORDERABLES Final Result Performing Organization Address [facility] Co de Phone Number [facility] [address] [place] [address] [phone] * (ABNORMAL) Prothrombin Time-INR (12/15/2022 6:41 AM EST) Prothrombin Time 41.0(H) 10.0 - 13.1 SEC [facility] INTERNATIONAL NORM RATIO 3.4(H) 0.9 - 1.1 [facility] Comment:INTERNATIONAL NORMAL IZED RATIO (INR) [...] 6:41 AM EST 12/15/2022 6:41 AM EST [facility] External Provider LAB BLO OD ORDERABLES Final Result Performing Organization Address [facility] Co de Phone Number [facility] [address] [place] [address] [phone] * (ABNORMAL) Prothrombin Time-INR (12/08/2022 6:48 AM EST) Prothrombin Time 29.0(H) 10.0 - 13.1 [facility] INTERNATIONAL NORM RATIO 2.4(H) 0.9 - 1.1 [facility] Comment:INTERNATIONAL NORMAL IZED RATIO (INR) [...] 6:48 AM EST 12/08/2022 6:50 AM EST [facility] External Provider LAB BLO OD ORDERABLES Final Result Performing Organization Address [facility] Co de Phone Number [facility] [address] [place] [address] [phone] * (ABNORMAL) Prothrombin Time-INR (12/01/2022 6:43 AM EST) Prothrombin Time 31.3(H) 10.0 - 13.1 [facility] INTERNATIONAL NORM RATIO 2.6(H) 0.9 - 1.1 [facility] Comment:INTERNATIONAL NORMAL IZED RATIO (INR) [...] 6:43 AM EST 12/01/2022 6:43 AM EST [facility] External Provider LAB BLO OD ORDERABLES Final Result Performing Organization Address [facility] de Phone Number [facility] [address] [place] [address] [phone] * (ABNORMAL) Prothrombin Time-INR (11/26/2022 6:42 AM EST) Prothrombin Time 26.3(H) 10.0 - 13.1 SEC [facility] INTERNATIONAL NORM RATIO 2.2(H) 0.9 - 1.1 [facility] Comment:INTERNATIONAL NORMAL IZED RATIO (INR) [...] 6:42 AM EST 11/26/2022 6:43 AM EST [facility] External Provider LAB BLO OD ORDERABLES Final Result Performing Organization Address [facility] Co de Phone Number [facility] [address] [place] [address] [phone] documented in this encounter Visit Diagnoses Not on filedocumented in this encounter Care Teams Manager Hospitality Relationship Specialty Start Date End Date Eliza Carmona FNP [address] [place] [address] PCP - General Family Medicine 08/15/21 Kale Spencer MD [address] [place] [address] Drive [address] [place] [address] Urology 11/03/24 documented as of this encounter
== END 2025-04-09 08:57 | disposition home or self-care (01) ==
LOC: HO.US 08:56
PROVIDERS: PCP Registered Nurse; Visit Provider Internal Medicine Nephrology
DX: R80.8 Other proteinuria (principal); I10 Essential (primary) hypertension
CPT/HCPCS: 76775

== ENCOUNTER → 2025-04-09 08:58 | Outpatient (BNV) | payer OTHER, SELFPAY | PROVIDERS: PCP Registered Nurse; Visit Provider Radiology Diagnostic Radiology | DX: R80.9 Proteinuria, unspecified (principal) | CPT/HCPCS: 76775 ==

== ENCOUNTER 2025-04-10 06:41 | Outpatient (REF) | payer OTHER, SELFPAY ==
[2025-04-10 07:48] LABS: INTERNATIONAL NORM RATIO 2.6 (0.9-1.1)
== END 2025-04-10 06:42 | disposition home or self-care (01) ==
LOC: HO.LAB 06:41
PROVIDERS: PCP Registered Nurse; Visit Provider Pharmacist
DX: Z95.2 Presence of prosthetic heart valve (principal)
CPT/HCPCS: 36415; 85610

== ENCOUNTER 2025-04-24 07:00 | Outpatient (REF) | payer OTHER, SELFPAY ==
--- OUTSIDE RECORDS SUMMARY | 2025-04-24 07:02 | XMS_ITS | Encounter Summary ---
Author Organization [employer] Address [address] [facility] [address] [place] [address] Care Team Providers Care Shift Commander Name Role Phone Eliza Carmona Primary Care Provider [phone] Kale Spencer MD Unavailable Encounter Details Date Type Department Care Team (Late st Contact Info) Description 10/12/2022 Orders Only [facility] [address], [place] [id number] Joellen Broussard LPN Social History Tobacco Use [...] Care Team (Late st Contact Info) Description 07/16/2025 9:00 AM EDT Office Visit [facility] MED [facility] PEDS [address] [place] [address] Eliza Carmona FNP [address] [place] [address] documented as of this encounter Procedures Procedure [...] Prothrombin Time 29.4(H) 11.1 - 13.3 SEC [facility] INTERNATIONAL NORM RATIO 2.4(H) 0.9 - 1.1 [facility] Comment:INTERNATIONAL NORMAL IZED RATIO (INR) [...] ORDERAB LES Final Result Performing Organization Address [facility] Co de Phone Number [facility] [address] [place] [address] [phone] * (ABNORMAL) Prothrombin Time-INR (04/01/2023 6:27 AM EDT) Prothrombin Time 31.1(H) 10.0 - 13.1 [facility] INTERNATIONAL NORM RATIO 2.6(H) 0.9 - 1.1 [facility] Comment:INTERNATIONAL NORMAL IZED RATIO (INR) [...] 6:27 AM EDT 04/01/2023 6:27 AM EDT [facility] External Provider LAB BLO OD ORDERABLES Final Result Performing Organization Address [facility] Co de Phone Number [facility] [address] [place] [address] [phone] * (ABNORMAL) Prothrombin Time-INR (03/17/2023 6:43 AM EDT) Prothrombin Time 34.2(H) 10.0 - 13.1 [facility] INTERNATIONAL NORM RATIO 2.9(H) 0.9 - 1.1 [facility] Comment:INTERNATIONAL NORMAL IZED RATIO (INR) [...] 6:43 AM EDT 03/17/2023 6:43 AM EDT [facility] External Provider LAB BLO OD ORDERABLES Final Result Performing Organization Address [facility] Co de Phone Number [facility] [address] [place] [address] [phone] * (ABNORMAL) Prothrombin Time-INR (03/03/2023 6:54 AM EDT) Prothrombin Time 34.1(H) 10.0 - 13.1 [facility] INTERNATIONAL NORM RATIO 2.8(H) 0.9 - 1.1 [facility] Comment:INTERNATIONAL NORMAL IZED RATIO (INR) [...] 6:54 AM EDT 03/03/2023 6:54 AM EDT [facility] External Provider LAB BLO OD ORDERABLES Final Result Performing Organization Address [facility] de Phone Number [facility] [address] [place] [address] [phone] * (ABNORMAL) Prothrombin Time-INR (02/17/2023 6:36 AM EDT) Prothrombin Time 33.8(H) 10.0 - 13.1 [facility] INTERNATIONAL NORM RATIO 2.8(H) 0.9 - 1.1 [facility] Comment:INTERNATIONAL NORMAL IZED RATIO (INR) [...] 6:36 AM EDT 02/17/2023 6:36 AM EDT [facility] External Provider LAB BLO OD ORDERABLES Final Result Performing Organization Address [facility] Co de Phone Number [facility] [address] [place] [address] [phone] * (ABNORMAL) Prothrombin Time-INR (02/10/2023 6:43 AM EDT) Prothrombin Time 37.0(H) 10.0 - 13.1 [facility] INTERNATIONAL NORM RATIO 3.1(H) 0.9 - 1.1 [facility] Comment:INTERNATIONAL NORMAL IZED RATIO (INR) [...] 6:43 AM EDT 02/10/2023 6:43 AM EDT [facility] External Provider LAB BLO OD ORDERABLES Final Result Performing Organization Address City/[facility] Co de Phone Number [facility] [address] [place] [phone] * (ABNORMAL) Prothrombin Time-INR (01/29/2023 6:54 AM EDT) Prothrombin Time 32.5(H) 10.0 - 13.1 [facility] INTERNATIONAL NORM RATIO 2.7(H) 0.9 - 1.1 [facility] Comment:INTERNATIONAL NORMAL IZED RATIO (INR) [...] 6:54 AM EDT 01/29/2023 6:54 AM EDT [facility] External Provider LAB BLO OD ORDERABLES Final Result [facility] [address] [place] [phone] * (ABNORMAL) Prothrombin Time-INR (01/26/2023 7:01 AM EDT) Prothrombin Time 22.4(H) 10.0 - 13.1 [facility] INTERNATIONAL NORM RATIO 1.9(H) 0.9 - 1.1 [facility] Comment:INTERNATIONAL NORMAL IZED RATIO (INR) [...] 7:01 AM EDT 01/26/2023 7:01 AM EDT [facility] External Provider LAB BLO OD ORDERABLES Final Result Performing Organization Address [facility] Co de Phone Number [facility] [address] [place] [address] [phone] * (ABNORMAL) Prothrombin Time-INR (01/12/2023 7:14 AM EDT) Prothrombin Time 36.4(H) 10.0 - 13.1 [facility] INTERNATIONAL NORM RATIO 3.0(H) 0.9 - 1.1 [facility] Comment:INTERNATIONAL NORMAL IZED RATIO (INR) [...] 7:14 AM EDT 01/12/2023 7:14 AM EDT [facility] External Provider LAB BLO OD ORDERABLES Final Result Performing Organization Address [facility] Co de Phone Number [facility] [address] [place] [address] [phone] * (ABNORMAL) Prothrombin Time-INR (12/29/2022 7:02 AM EST) Prothrombin Time 35.3(H) 10.0 - 13.1 [facility] INTERNATIONAL NORM RATIO 2.9(H) 0.9 - 1.1 [facility] Comment:INTERNATIONAL NORMAL IZED RATIO (INR) [...] 7:02 AM EST 12/29/2022 7:02 AM EST [facility] External Provider LAB BLO OD ORDERABLES Final Result Performing Organization Address [facility] de Phone Number [facility] [address] [place] [address] [phone] * (ABNORMAL) Prothrombin Time-INR (12/22/2022 7:14 AM EST) Prothrombin Time 39.4(H) 10.0 - 13.1 [facility] INTERNATIONAL NORM RATIO 3.3(H) 0.9 - 1.1 [facility] Comment:INTERNATIONAL NORMAL IZED RATIO (INR) [...] 7:14 AM EST 12/22/2022 7:15 AM EST [facility] External Provider LAB BLO OD ORDERABLES Final Result Performing Organization Address [facility] Co de Phone Number [facility] [address] [place] [address] [phone] * (ABNORMAL) Prothrombin Time-INR (12/15/2022 6:41 AM EST) Prothrombin Time 41.0(H) 10.0 - 13.1 [facility] INTERNATIONAL NORM RATIO 3.4(H) 0.9 - 1.1 [facility] Comment:INTERNATIONAL NORMAL IZED RATIO (INR) [...] 6:41 AM EST 12/15/2022 6:41 AM EST [facility] External Provider LAB BLO OD ORDERABLES Final Result Performing Organization Address City/[facility] Co de Phone Number [facility] [address] [place] [address] [phone] * (ABNORMAL) Prothrombin Time-INR (12/08/2022 6:48 AM EST) Prothrombin Time 29.0(H) 10.0 - 13.1 [facility] INTERNATIONAL NORM RATIO 2.4(H) 0.9 - 1.1 [facility] Comment:INTERNATIONAL NORMAL IZED RATIO (INR) [...] 6:48 AM EST 12/08/2022 6:50 AM EST [facility] External Provider LAB BLO OD ORDERABLES Final Result Performing Organization Address [facility] Co de Phone Number [facility] [address] [place] [address] [phone] * (ABNORMAL) Prothrombin Time-INR (12/01/2022 6:43 AM EST) Prothrombin Time 31.3(H) 10.0 - 13.1 [facility] INTERNATIONAL NORM RATIO 2.6(H) 0.9 - 1.1 [facility] Comment:INTERNATIONAL NORMAL IZED RATIO (INR) [...] 6:43 AM EST 12/01/2022 6:43 AM EST [facility] External Provider LAB BLO OD ORDERABLES Final Result Performing Organization Address [facility] de Phone Number [facility] [address] [place] [address] [phone] * (ABNORMAL) Prothrombin Time-INR (11/26/2022 6:42 AM EST) Prothrombin Time 26.3(H) 10.0 - 13.1 SEC [facility] INTERNATIONAL NORM RATIO 2.2(H) 0.9 - 1.1 [facility] Comment:INTERNATIONAL NORMAL IZED RATIO (INR) [...] 6:42 AM EST 11/26/2022 6:43 AM EST [facility] External Provider LAB BLO OD ORDERABLES Final Result Performing Organization Address [facility] Co de Phone Number [facility] [address] [place] [address] [phone] documented in this encounter Visit Diagnoses Not on filedocumented in this encounter Care Teams Shift Commander Relationship Specialty Start Date End Date Eliza Carmona FNP [address] [place] [address] PCP - General Family Medicine 08/15/21 Kale Spencer MD [address] [place] [address] Drive [address] [place] [address] Urology 11/03/24 documented as of this encounter
[2025-04-24 07:53] LABS: INTERNATIONAL NORM RATIO 3.4 (0.9-1.1); Prothrombin Time 38.5 SEC (10.9-12.4)
== END 2025-04-24 07:01 | disposition home or self-care (01) ==
LOC: HO.LABR 07:00
PROVIDERS: PCP Registered Nurse; Visit Provider Pharmacist
DX: Z95.2 Presence of prosthetic heart valve (principal)
CPT/HCPCS: 36415; 85610

== ENCOUNTER 2025-05-08 06:53 | Outpatient (REF) | payer OTHER, SELFPAY ==
--- OUTSIDE RECORDS SUMMARY | 2025-05-08 06:57 | XMS_ITS | Encounter Summary ---
Author Organization [employer] Address [address] [facility] [address] [place] [address] Care Team Providers Care Quality Process Engineer Name Role Phone Eliza Carmona Primary Care Provider [phone] Kale Spencer MD Unavailable Encounter Details Date Type Department Care Team (Late st Contact Info) Description 10/12/2022 Orders Only [facility] [address] [place], [place] [phone] Joellen Broussard LPN Social History Tobacco Use [...] Description 07/16/2025 9:00 AM EDT Office Visit [facility] MED [facility] PEDS [address] [place] [address] Eliza Carmona FNP [address] [place] [address] documented as of this encounter Procedures Procedure [...] Time 29.4(H) 11.1 - 13.3 SEC [facility] INTERNATIONAL NORM RATIO 2.4(H) 0.9 - 1.1 [facility] Comment:INTERNATIONAL NORMAL IZED RATIO [...] ORDERAB LES Final Result Performing Organization Address [facility] Co de Phone Number [facility] [address] [place] [address] [phone] * (ABNORMAL) Prothrombin Time-INR (04/01/2023 6:27 AM EDT) Prothrombin Time 31.1(H) 10.0 - 13.1 SEC [facility] INTERNATIONAL NORM RATIO 2.6(H) 0.9 - 1.1 [facility] Comment:INTERNATIONAL NORMAL IZED RATIO [...] 6:27 AM EDT 04/01/2023 6:27 AM EDT [facility] External Provider LAB BLO OD ORDERABLES Final Result Performing Organization Address [facility] Co de Phone Number [facility] [address] [place] [address] [phone] * (ABNORMAL) Prothrombin Time-INR (03/17/2023 6:43 AM EDT) Prothrombin Time 34.2(H) 10.0 - 13.1 SEC [facility] INTERNATIONAL NORM RATIO 2.9(H) 0.9 - 1.1 [facility] Comment:INTERNATIONAL NORMAL IZED RATIO [...] 6:43 AM EDT 03/17/2023 6:43 AM EDT [facility] External Provider LAB BLO OD ORDERABLES Final Result Performing Organization Address [facility] Co de Phone Number [facility] [address] [place] [address] [phone] * (ABNORMAL) Prothrombin Time-INR (03/03/2023 6:54 AM EDT) Prothrombin Time 34.1(H) 10.0 - 13.1 SEC [facility] INTERNATIONAL NORM RATIO 2.8(H) 0.9 - 1.1 [facility] Comment:INTERNATIONAL NORMAL IZED RATIO [...] 6:54 AM EDT 03/03/2023 6:54 AM EDT [facility] External Provider LAB BLO OD ORDERABLES Final Result Performing Organization Address [facility] de Phone Number [facility] [address] [place] [address] [phone] * (ABNORMAL) Prothrombin Time-INR (02/17/2023 6:36 AM EDT) Prothrombin Time 33.8(H) 10.0 - 13.1 SEC [facility] INTERNATIONAL NORM RATIO 2.8(H) 0.9 - 1.1 [facility] Comment:INTERNATIONAL NORMAL IZED RATIO [...] 6:36 AM EDT 02/17/2023 6:36 AM EDT [facility] External Provider LAB BLO OD ORDERABLES Final Result Performing Organization Address [facility] Co de Phone Number [facility] [address] [place] [address] [phone] * (ABNORMAL) Prothrombin Time-INR (02/10/2023 6:43 AM EDT) Prothrombin Time 37.0(H) 10.0 - 13.1 SEC [facility] INTERNATIONAL NORM RATIO 3.1(H) 0.9 - 1.1 [facility] Comment:INTERNATIONAL NORMAL IZED RATIO [...] 6:43 AM EDT 02/10/2023 6:43 AM EDT [facility] External Provider LAB BLO OD ORDERABLES Final Result Performing Organization Address City/[facility] Co de Phone Number [facility] [address] [place] [phone] * (ABNORMAL) Prothrombin Time-INR (01/29/2023 6:54 AM EDT) Prothrombin Time 32.5(H) 10.0 - 13.1 SEC [facility] INTERNATIONAL NORM RATIO 2.7(H) 0.9 - 1.1 [facility] Comment:INTERNATIONAL NORMAL IZED RATIO [...] 6:54 AM EDT 01/29/2023 6:54 AM EDT [facility] External Provider LAB BLO OD ORDERABLES Final Result [facility] [address] [place] [phone] * (ABNORMAL) Prothrombin Time-INR (01/26/2023 7:01 AM EDT) Prothrombin Time 22.4(H) 10.0 - 13.1 SEC [facility] INTERNATIONAL NORM RATIO 1.9(H) 0.9 - 1.1 [facility] Comment:INTERNATIONAL NORMAL IZED RATIO [...] 7:01 AM EDT 01/26/2023 7:01 AM EDT [facility] External Provider LAB BLO OD ORDERABLES Final Result Performing Organization Address [facility] Co de Phone Number [facility] [address] [place] [address] [phone] * (ABNORMAL) Prothrombin Time-INR (01/12/2023 7:14 AM EDT) Prothrombin Time 36.4(H) 10.0 - 13.1 SEC [facility] INTERNATIONAL NORM RATIO 3.0(H) 0.9 - 1.1 [facility] Comment:INTERNATIONAL NORMAL IZED RATIO [...] 7:14 AM EDT 01/12/2023 7:14 AM EDT [facility] External Provider LAB BLO OD ORDERABLES Final Result Performing Organization Address [facility] Co de Phone Number [facility] [address] [place] [address] [phone] * (ABNORMAL) Prothrombin Time-INR (12/29/2022 7:02 AM EST) Prothrombin Time 35.3(H) 10.0 - 13.1 SEC [facility] INTERNATIONAL NORM RATIO 2.9(H) 0.9 - 1.1 [facility] Comment:INTERNATIONAL NORMAL IZED RATIO [...] 7:02 AM EST 12/29/2022 7:02 AM EST [facility] External Provider LAB BLO OD ORDERABLES Final Result Performing Organization Address [facility] de Phone Number [facility] [address] [place] [address] [phone] * (ABNORMAL) Prothrombin Time-INR (12/22/2022 7:14 AM EST) Prothrombin Time 39.4(H) 10.0 - 13.1 SEC [facility] INTERNATIONAL NORM RATIO 3.3(H) 0.9 - 1.1 [facility] Comment:INTERNATIONAL NORMAL IZED RATIO [...] 7:14 AM EST 12/22/2022 7:15 AM EST [facility] External Provider LAB BLO OD ORDERABLES Final Result Performing Organization Address [facility] Co de Phone Number [facility] [address] [place] [address] [phone] * (ABNORMAL) Prothrombin Time-INR (12/15/2022 6:41 AM EST) Prothrombin Time 41.0(H) 10.0 - 13.1 SEC [facility] INTERNATIONAL NORM RATIO 3.4(H) 0.9 - 1.1 [facility] Comment:INTERNATIONAL NORMAL IZED RATIO [...] 6:41 AM EST 12/15/2022 6:41 AM EST [facility] External Provider LAB BLO OD ORDERABLES Final Result Performing Organization Address City/[facility] Co de Phone Number [facility] [address] [place] [address] [phone] * (ABNORMAL) Prothrombin Time-INR (12/08/2022 6:48 AM EST) Prothrombin Time 29.0(H) 10.0 - 13.1 SEC [facility] INTERNATIONAL NORM RATIO 2.4(H) 0.9 - 1.1 [facility] Comment:INTERNATIONAL NORMAL IZED RATIO [...] 6:48 AM EST 12/08/2022 6:50 AM EST [facility] External Provider LAB BLO OD ORDERABLES Final Result Performing Organization Address [facility] Co de Phone Number [facility] [address] [place] [address] [phone] * (ABNORMAL) Prothrombin Time-INR (12/01/2022 6:43 AM EST) Prothrombin Time 31.3(H) 10.0 - 13.1 SEC [facility] INTERNATIONAL NORM RATIO 2.6(H) 0.9 - 1.1 [facility] Comment:INTERNATIONAL NORMAL IZED RATIO [...] 6:43 AM EST 12/01/2022 6:43 AM EST [facility] External Provider LAB BLO OD ORDERABLES Final Result Performing Organization Address [facility] de Phone Number [facility] [address] [place] [address] [phone] * (ABNORMAL) Prothrombin Time-INR (11/26/2022 6:42 AM EST) Prothrombin Time 26.3(H) 10.0 - 13.1 SEC [facility] INTERNATIONAL NORM RATIO 2.2(H) 0.9 - 1.1 [facility] Comment:INTERNATIONAL NORMAL IZED RATIO [...] 6:42 AM EST 11/26/2022 6:43 AM EST [facility] External Provider LAB BLO OD ORDERABLES Final Result Performing Organization Address [facility] Co de Phone Number [facility] [address] [place] [address] [phone] documented in this encounter Visit Diagnoses Not on filedocumented in this encounter Care Teams Quality Process Engineer Relationship Specialty Start Date End Date Eliza Carmona FNP [address] [place] [address] PCP - General Family Medicine 08/15/21 Kale Spencer MD [address] [place] [address] Drive [address] [place] [address] Urology 11/03/24 documented as of this encounter
[2025-05-08 07:50] LABS: INTERNATIONAL NORM RATIO 3.3 (0.9-1.1); Prothrombin Time 37.8 SEC (10.9-12.4)
[2025-05-08 08:40] LABS: Cholesterol 140 mg/dL (<200); HDL Cholesterol 38 mg/dL (>40); Triglycerides 115 mg/dL (<150)
== END 2025-05-08 06:54 | disposition home or self-care (01) ==
LOC: HO.LAB 06:53
PROVIDERS: Absent Provider Registered Nurse; PCP Registered Nurse; Visit Provider Pharmacist
DX: E78.5 Hyperlipidemia, unspecified (principal); Z95.2 Presence of prosthetic heart valve
CPT/HCPCS: 36415; 80061; 85610

== ENCOUNTER 2025-05-16 10:58 | Outpatient (AMB) | payer MEDICARE, SELFPAY ==
--- NOTE | 2025-05-16 11:49 | HO.NEPHOV_ITS ---
Vital Signs 05/16/25 11:50 Height 5 ft 8 in Weight 140 lb 2 oz BMI 21.3 BP 90/64 Blood Pressure Location Rt brachial Position Sitting Pulse 79 Pulse Source Pulse Oximeter Pulse Oximetry (%) 99 Oxygen Delivery Method Room Air Intake Visit Reasons: 3 MO FU-Conf Playground Attendant Required: Yes Playground Attendant Language: Command Center Analyst Services: Playground Attendant Present Playground Attendant Name: Juan [id number] Information Interpreted: clinical only Accompanied by: Self / Same As Patient Allergies No Known Allergies Allergy (Verified 05/16/25 11:49) HPI Comments Details: Mr Mauricio is here for a follow up in consultation for proteinuria. He is followed by Dr Salazar. He is known to have hypertension and had mitral valve replacement many years ago. His BP is at goal. He has no hearing deficits, hematuria or renal dysfunction. He is currently on Entresto. He does not take NSAID's. He has no new bone or back pain. He denies frothy or foamy urine. He has no recurrent UTI, renal calculi or any other systemic complaint except for erectile dysfunction. He had labs done after initial visit: hep B screening negative, complements normal, ANCA negative, phospholipase A2 receptor panel unremarkable. Anti DS antibody normal. anti glomerular basement membrane normal, serum and urine immunofixation without monoclonal proteins. Urine protein/creatinine ratio unremarkable at 0.07. [facility] Medical History Elevated cholesterol On anticoagulant therapy Screening for colon cancer Surgical History Hx of mitral valve replacement Hx of removal of cyst Family History Father No problems noted. Mother Hx of breast cancer Social History Household Members: Spouse and Family Housing: Apartment Do you presently have visiting nurse or other home services: No Alcohol intake: never Patient Tobacco Use Status: Never used Tobacco Advance Directives Date on File: 07/31/20 service: No Current occupational status: employed Review of Systems Const All systems reviewed & are unremarkable except as noted in HPI and below Physical Exam Vital Signs: Last Vital Signs Pulse 79 05/16/25 11:50 BP 90/64 05/16/25 11:50 Pulse Ox 99 05/16/25 11:50 Oxygen Delivery Method Room Air 05/16/25 11:50 BMI result Body Mass Index 21.3 Const General: comfortable and no acute distress Orientation/consciousness: patient oriented x3 HEENT Head: Yes normocephalic Mouth: Normal oral and palatal mucosa present Eyes EOM: EOMs intact bilaterally Neck Neck: Yes supple Resp Auscultation: clear to auscultation bilaterally Cardio Jugular venous distension: no JVD Rate: regular rate GI Palpation (GI): Soft to palpation Auscultation: normal bowel sounds General: Yes no CVA tenderness Back/Spine/Pelvis Back: no CVA tenderness Skin General skin exam: no rashes or lesions noted Neuro General: patient oriented x3 and moves all extremities Extrem General: Yes no pedal edema Results Reviewed Nephrology Results: Urine Creatinine 166.98 mg/dL 03/21/25 Protein/Creatinin Ratio, (<0.2) 0.07 03/21/25 Renal US 04/09/25 Assessment & Plan Assessment & Plan (1) Proteinuria: Code(s): R80.9 - Proteinuria, unspecified Category: Medical Qualifiers: Proteinuria type: other Qualified Code(s): R80.8 - Other proteinuria (2) Hypertension: Code(s): I10 - Essential (primary) hypertension Category: Medical Qualifiers: Hypertension type: primary hypertension Qualified Code(s): I10 - Essential (primary) hypertension Plan Mr Mauricio has had mild proteinuria due to unknown etiology, possibly vascular. His most recent urine protein/creatinine ratio was normal. He has no hematuria, renal dysfunction but has hypertension which is well controlled on current medication regimen. He should avoid NSAID's. Discussed the importance of a healthy diet, avoiding added salt in diet, regular exercise and maintaining a healthy body weight. No indication for ACEi/ARB at this time. He will follow up with Dr Salazar in 6 months time, labs prior for monitoring. Orders: Orders Basic Metabolic Panel 6 Months I10 - Essential (primary) hypertension, N18.30 - Chronic kidney disease, stage 3 unspecified, R80.8 - Other proteinuria Protein Creatinine Ratio, Ur 6 Months I10 - Essential (primary) hypertension, R80.8 - Other proteinuria UA w Microscopic 6 Months I10 - Essential (primary) hypertension, R80.8 - Other proteinuria Immunofixation Pnl, Serum 6 Months R76.9 - Abnormal immunological finding in serum, unspecified, R80.9 - Proteinuria, unspecified Coding Level of Care Code Est Pt Level 3 (88616) Diagnoses Other proteinuria R80.8 Proteinuria type: other Primary hypertension I10 Hypertension type: primary hypertension
[2025-05-16 11:50] VITALS: BP 90/64; PULSE 79; O2SAT 99; BMI 21.3
--- OUTSIDE RECORDS SUMMARY | 2025-05-16 11:59 | XMS_ITS | Encounter Summary ---
Author Organization [email or web address] Address [address] [facility] [address] [place] [address] Care Team Providers Care Cloth Baler Name Role Phone Eliza Carmona Primary Care Provider [phone] Kale Spencer MD Unavailable Encounter Details Date Type Department Care Team (Late st Contact Info) Description 10/12/2022 Orders Only [facility] [address], [place] [phone] Joellen Broussard LPN Social History Tobacco Use [...] Description 07/16/2025 9:00 AM EDT Office Visit [facility] [address] [place] [address] Eliza Carmona FNP [address] [place] [address] documented as of this encounter Procedures Procedure [...] Prothrombin Time 29.4(H) 11.1 - 13.3 SEC [facility] INTERNATIONAL NORM RATIO 2.4(H) 0.9 - 1.1 [facility] Comment:INTERNATIONAL NORMAL IZED RATIO (INR) [...] ORDERAB LES Final Result Performing Organization Address [facility] Co de Phone Number [facility] [address] [place] [address] [phone] * (ABNORMAL) Prothrombin Time-INR (04/01/2023 6:27 AM EDT) Prothrombin Time 31.1(H) 10.0 - 13.1 [facility] INTERNATIONAL NORM RATIO 2.6(H) 0.9 - 1.1 [facility] Comment:INTERNATIONAL NORMAL IZED RATIO (INR) [...] 6:27 AM EDT 04/01/2023 6:27 AM EDT [facility] External Provider LAB BLO OD ORDERABLES Final Result Performing Organization Address [facility] Co de Phone Number [facility] [address] [place] [address] [phone] * (ABNORMAL) Prothrombin Time-INR (03/17/2023 6:43 AM EDT) Prothrombin Time 34.2(H) 10.0 - 13.1 SEC [facility] INTERNATIONAL NORM RATIO 2.9(H) 0.9 - 1.1 [facility] Comment:INTERNATIONAL NORMAL IZED RATIO (INR) [...] 6:43 AM EDT 03/17/2023 6:43 AM EDT [facility] External Provider LAB BLO OD ORDERABLES Final Result Performing Organization Address [facility] Co de Phone Number [facility] [address] [place] [address] [phone] * (ABNORMAL) Prothrombin Time-INR (03/03/2023 6:54 AM EDT) Prothrombin Time 34.1(H) 10.0 - 13.1 [facility] INTERNATIONAL NORM RATIO 2.8(H) 0.9 - 1.1 [facility] Comment:INTERNATIONAL NORMAL IZED RATIO (INR) [...] 6:54 AM EDT 03/03/2023 6:54 AM EDT [facility] External Provider LAB BLO OD ORDERABLES Final Result Performing Organization Address [facility] de Phone Number [facility] [address] [place] [address] [phone] * (ABNORMAL) Prothrombin Time-INR (02/17/2023 6:36 AM EDT) Prothrombin Time 33.8(H) 10.0 - 13.1 [facility] INTERNATIONAL NORM RATIO 2.8(H) 0.9 - 1.1 [facility] Comment:INTERNATIONAL NORMAL IZED RATIO (INR) [...] 6:36 AM EDT 02/17/2023 6:36 AM EDT [facility] External Provider LAB BLO OD ORDERABLES Final Result Performing Organization Address [facility] Co de Phone Number [facility] [address] [place] [address] [phone] * (ABNORMAL) Prothrombin Time-INR (02/10/2023 6:43 AM EDT) Prothrombin Time 37.0(H) 10.0 - 13.1 [facility] INTERNATIONAL NORM RATIO 3.1(H) 0.9 - 1.1 [facility] Comment:INTERNATIONAL NORMAL IZED RATIO (INR) [...] 6:43 AM EDT 02/10/2023 6:43 AM EDT [facility] External Provider LAB BLO OD ORDERABLES Final Result Performing Organization Address [facility] Co de Phone Number [facility] [address] [place] [phone] * (ABNORMAL) Prothrombin Time-INR (01/29/2023 6:54 AM EDT) Prothrombin Time 32.5(H) 10.0 - 13.1 [facility] INTERNATIONAL NORM RATIO 2.7(H) 0.9 - 1.1 [facility] Comment:INTERNATIONAL NORMAL IZED RATIO (INR) [...] 6:54 AM EDT 01/29/2023 6:54 AM EDT [facility] External Provider LAB BLO OD ORDERABLES Final Result [facility] [address] [place] [phone] * (ABNORMAL) Prothrombin Time-INR (01/26/2023 7:01 AM EDT) Prothrombin Time 22.4(H) 10.0 - 13.1 [facility] INTERNATIONAL NORM RATIO 1.9(H) 0.9 - 1.1 [facility] Comment:INTERNATIONAL NORMAL IZED RATIO (INR) [...] 7:01 AM EDT 01/26/2023 7:01 AM EDT [facility] External Provider LAB BLO OD ORDERABLES Final Result Performing Organization Address [facility] Co de Phone Number [facility] [address] [place] [address] [phone] * (ABNORMAL) Prothrombin Time-INR (01/12/2023 7:14 AM EDT) Prothrombin Time 36.4(H) 10.0 - 13.1 [facility] INTERNATIONAL NORM RATIO 3.0(H) 0.9 - 1.1 [facility] Comment:INTERNATIONAL NORMAL IZED RATIO (INR) [...] 7:14 AM EDT 01/12/2023 7:14 AM EDT [facility] External Provider LAB BLO OD ORDERABLES Final Result Performing Organization Address [facility] Co de Phone Number [facility] [address] [place] [address] [phone] * (ABNORMAL) Prothrombin Time-INR (12/29/2022 7:02 AM EST) Prothrombin Time 35.3(H) 10.0 - 13.1 [facility] INTERNATIONAL NORM RATIO 2.9(H) 0.9 - 1.1 [facility] Comment:INTERNATIONAL NORMAL IZED RATIO (INR) [...] 7:02 AM EST 12/29/2022 7:02 AM EST [facility] External Provider LAB BLO OD ORDERABLES Final Result Performing Organization Address [facility] de Phone Number [facility] [address] [place] [address] [phone] * (ABNORMAL) Prothrombin Time-INR (12/22/2022 7:14 AM EST) Prothrombin Time 39.4(H) 10.0 - 13.1 [facility] INTERNATIONAL NORM RATIO 3.3(H) 0.9 - 1.1 [facility] Comment:INTERNATIONAL NORMAL IZED RATIO (INR) [...] 7:14 AM EST 12/22/2022 7:15 AM EST [facility] External Provider LAB BLO OD ORDERABLES Final Result Performing Organization Address [facility] Co de Phone Number [facility] [address] [place] [address] [phone] * (ABNORMAL) Prothrombin Time-INR (12/15/2022 6:41 AM EST) Prothrombin Time 41.0(H) 10.0 - 13.1 [facility] INTERNATIONAL NORM RATIO 3.4(H) 0.9 - 1.1 [facility] Comment:INTERNATIONAL NORMAL IZED RATIO (INR) [...] 6:41 AM EST 12/15/2022 6:41 AM EST [facility] External Provider LAB BLO OD ORDERABLES Final Result Performing Organization Address [facility] Co de Phone Number [facility] [address] [place] [address] [phone] * (ABNORMAL) Prothrombin Time-INR (12/08/2022 6:48 AM EST) Prothrombin Time 29.0(H) 10.0 - 13.1 [facility] INTERNATIONAL NORM RATIO 2.4(H) 0.9 - 1.1 [facility] Comment:INTERNATIONAL NORMAL IZED RATIO (INR) [...] 6:48 AM EST 12/08/2022 6:50 AM EST [facility] External Provider LAB BLO OD ORDERABLES Final Result Performing Organization Address [facility] Co de Phone Number [facility] [address] [place] [address] [phone] * (ABNORMAL) Prothrombin Time-INR (12/01/2022 6:43 AM EST) Prothrombin Time 31.3(H) 10.0 - 13.1 [facility] INTERNATIONAL NORM RATIO 2.6(H) 0.9 - 1.1 [facility] Comment:INTERNATIONAL NORMAL IZED RATIO (INR) [...] 6:43 AM EST 12/01/2022 6:43 AM EST [facility] External Provider LAB BLO OD ORDERABLES Final Result Performing Organization Address [facility] de Phone Number [facility] [address] [place] [address] [phone] * (ABNORMAL) Prothrombin Time-INR (11/26/2022 6:42 AM EST) Prothrombin Time 26.3(H) 10.0 - 13.1 [facility] INTERNATIONAL NORM RATIO 2.2(H) 0.9 - 1.1 [facility] Comment:INTERNATIONAL NORMAL IZED RATIO (INR) [...] 6:42 AM EST 11/26/2022 6:43 AM EST [facility] External Provider LAB BLO OD ORDERABLES Final Result Performing Organization Address [facility] Co de Phone Number [facility] [address] [place] [address] [phone] documented in this encounter Visit Diagnoses Not on filedocumented in this encounter Care Teams Cloth Baler Relationship Specialty Start Date End Date Eliza Carmona FNP [address] [place] [address] PCP - General Family Medicine 08/15/21 Kale Spencer MD [address] [place] [address] Drive [address] [place] [address] Urology 11/03/24 documented as of this encounter
== END 2025-05-16 12:05 | disposition home or self-care (01) ==
PROVIDERS: PCP Registered Nurse; Visit Provider Nurse Practitioner Family
DX: R80.8 Other proteinuria (principal); I10 Essential (primary) hypertension
CPT/HCPCS: 99213

== ENCOUNTER → 2025-05-16 10:58 | Outpatient (BNVA) | payer OTHER, SELFPAY | PROVIDERS: PCP Registered Nurse; Visit Provider Internal Medicine Nephrology | DX: R80.8 Other proteinuria (principal); I10 Essential (primary) hypertension | CPT/HCPCS: 99212 ==

== ENCOUNTER 2025-05-22 06:26 | Outpatient (REF) | payer OTHER, SELFPAY ==
[2025-05-22 07:29] LABS: INTERNATIONAL NORM RATIO 2.0 (0.9-1.1); Prothrombin Time 23.5 SEC (10.9-12.4)
== END 2025-05-22 06:27 | disposition home or self-care (01) ==
LOC: HO.LABR 06:26
PROVIDERS: PCP Registered Nurse; Visit Provider Pharmacist
DX: Z95.2 Presence of prosthetic heart valve (principal)
CPT/HCPCS: 36415; 85610

== ENCOUNTER 2025-05-29 07:39 | Outpatient (REF) | payer OTHER, SELFPAY ==
[2025-05-29 08:18] LABS: INTERNATIONAL NORM RATIO 3.4 (0.9-1.1); Prothrombin Time 38.7 SEC (10.9-12.4)
== END 2025-05-29 07:40 | disposition home or self-care (01) ==
LOC: HO.LABR 07:39
PROVIDERS: PCP Registered Nurse; Visit Provider Pharmacist
DX: Z95.2 Presence of prosthetic heart valve (principal)
CPT/HCPCS: 36415; 85610

== ENCOUNTER 2025-05-29 09:57 | Outpatient (AMB) | payer MEDICARE, SELFPAY ==
--- NOTE | 2025-05-29 09:57 | MHC.OFFVIS ---
Intake Visit Reasons: 4m/discuss penile pump Intake Note: Patient is Present for 4 month follow up to discuss penil pump Urology Med:none Antibiotic Allergy: None Blood Thinner: Warfarin Oncology Account Specialist Required: Yes Oncology Account Specialist Language: Sudanese Accompanied by: Self / Same As Patient Allergies No Known Allergies Allergy (Verified 05/16/25 11:49) HPI Comments Details: Danis is a pleasant Sudanese-speaking male. He is a patient of Dr. Carmona. He is seen for the following urologic conditions - erectile dysfunction Telemedicine Evaluation 15 min Consultation [employer] [place] Video Sudanese translation provided by qualified medical logistics specialist Previously had been on daily Cialis but apparently this had led to elevation of his INR. Did not brain picker prior prescription for high-dose Viagra Discussed use of high-dose Viagra Prescription provided He may use up to 200 mg 01/25/25--Chaparro is a 59-year-old male who is followed for erectile dysfunction. Danis was previously prescribed daily generic Cialis 5 mg. He states that he was not able to take the medication because when he was on the medication his INR levels were elevated. I have discussed with him that urinalysis is notable for proteinuria and I will refer him to Nephrology. I have discussed a trial of on demand Viagra. The patient will discuss with his manager of development to be sure there is no contraindication for using Viagra. I have discussed alternative treatment options include surgical therapy and will have him follow-up with Dr. Martinez to further discuss the surgical penile pump therapy management. 09/28/24--chaparro is a 59-year-old male who I am following for erectile dysfunction. Discussed testosterone results are within normal limits. Normal testosterone levels. Tadalafil 5 mg daily. Recent lab: 09/11- PSA- 0.56 Testosterone- 555 FSH- 5.6 LH- 4.5 08/18/24--Danis is a 58-year-old gentleman who is here as a new patient evaluation for concerns regarding erections. He states that the problem has been worsening over the last few years. He denies irritative voiding symptoms. I have discussed further evaluation with testosterone level and other pertinent hormone levels. [facility] Medical History Elevated cholesterol On anticoagulant therapy Screening for colon cancer Surgical History Hx of mitral valve replacement Hx of removal of cyst Family History Father No problems noted. Mother Hx of breast cancer Social History Household Members: Spouse and Family Housing: Apartment Do you presently have visiting nurse or other home services: No Alcohol intake: never Patient Tobacco Use Status: Never used Tobacco Advance Directives Date on File: 07/31/20 service: No Current occupational status: employed Review of Systems Const All systems reviewed & are unremarkable except as noted in HPI and below Reports no additional complaints Resp Reports no additional complaints GI Reports no additional complaints Reports as per HPI Musc Reports no additional complaints Physical Exam Telemedicine evaluation Appropriate responses Regular breathing rate and rhythm HEENT Head: Yes normal to inspection Ears: hearing grossly normal bilaterally Eyes General: appearance normal, both eyes and all related structures Neck Neck: Yes normal visual inspection Chest Chest palpation & inspection: normal inspection of the chest Resp Effort & Inspection: normal respiratory effort and able to speak in complete sentences Telehealth Telehealth Telehealth Platform: [employer] Location of provider rendering services: practice address Location of patient: address on file Patient Identification confirmed using: Name, : Yes Telehealth method: video Patient verbally consented to treatment: Yes Patient verbally consented to billing insurance company: Yes Patient informed of any privacy concerns related to visit: Yes Minutes spent on Phone/Video with Pt.: 15 Assessment & Plan Assessment & Plan (1) Erectile dysfunction: Code(s): N52.9 - Male erectile dysfunction, unspecified Category: Medical Plan Three-month follow-up Medications: New sildenafil administer 60 minutes before intended activity [id number] [facility] [id number] Member [id number] 100 mg PO ONCE PRN 30 tabs 1RF sexual activity 30 days N52.9 - Male erectile dysfunction, unspecified Patient Instructions: This note is constructed using voice recognition software. While every effort has been made to ensure accuracy department store manager errors may have been included. Imaging studies, laboratory and physical exam results were discussed and reviewed in detail. No major barriers to patient understanding were identified. An opportunity to ask questions regarding the treatment plan was provided. All questions were answered. The patient expressed understanding and agreement with the above treatment plan. The patient is aware they should contact our office by phone for worsening of their current condition or the appearance of new urologic symptoms. Compliance is encouraged with any medications and followup testing that is ordered. It is a privilege to participate in the urologic care of your patient. If you have any questions or concerns regarding treatment for the above conditions, or other urologic issues, please do not hesitate to contact me. The office telephone contact is [phone]. Sincerely, Dr Abiodun Martinez MD, [facility] - Urology Compassionate Specialist Care for the Genitourinary System Coding Level of Care Code Tele Est Pt Level 3 (84044) Complex EM visit Add On G2211 Diagnoses Erectile dysfunction N52.9
--- OUTSIDE RECORDS SUMMARY | 2025-05-29 10:25 | XMS_ITS | Encounter Summary ---
Author Organization [employer] Address [address] [place] [address] Care Team Providers Care Trim Machine Adjuster Name Role Phone Eliza Carmona Primary Care Provider [phone] Kale Spencer MD Unavailable Encounter Details Date Type Department Care Team (Late st Contact Info) Description 10/12/2022 Orders Only [facility] [address], [place] [id number] Joellen Broussard LPN Social History Tobacco Use [...] Description 07/16/2025 9:00 AM EDT Office Visit [facility] [address] [place] [address] Eliza Carmona FNP [address] [place] [address] documented as of this encounter Procedures Procedure [...] Prothrombin Time 29.4(H) 11.1 - 13.3 [facility] INTERNATIONAL NORM RATIO 2.4(H) 0.9 - 1.1 [facility] Comment:INTERNATIONAL NORMAL IZED RATIO [...] ORDERAB LES Final Result Performing Organization Address [facility] Co de Phone Number [facility] [address] [place] [address] [phone] * (ABNORMAL) Prothrombin Time-INR (04/01/2023 6:27 AM EDT) Prothrombin Time 31.1(H) 10.0 - 13.1 [facility] INTERNATIONAL NORM RATIO 2.6(H) 0.9 - 1.1 [facility] Comment:INTERNATIONAL NORMAL IZED RATIO [...] 6:27 AM EDT 04/01/2023 6:27 AM EDT [facility] External Provider LAB BLO OD ORDERABLES Final Result Performing Organization Address [facility] Co de Phone Number [facility] [address] [place] [address] [phone] * (ABNORMAL) Prothrombin Time-INR (03/17/2023 6:43 AM EDT) Prothrombin Time 34.2(H) 10.0 - 13.1 [facility] INTERNATIONAL NORM RATIO 2.9(H) 0.9 - 1.1 [facility] Comment:INTERNATIONAL NORMAL IZED RATIO [...] 6:43 AM EDT 03/17/2023 6:43 AM EDT [facility] External Provider LAB BLO OD ORDERABLES Final Result Performing Organization Address [facility] Co de Phone Number [facility] [address] [place] [address] [phone] * (ABNORMAL) Prothrombin Time-INR (03/03/2023 6:54 AM EDT) Prothrombin Time 34.1(H) 10.0 - 13.1 [facility] INTERNATIONAL NORM RATIO 2.8(H) 0.9 - 1.1 [facility] Comment:INTERNATIONAL NORMAL IZED RATIO [...] 6:54 AM EDT 03/03/2023 6:54 AM EDT [facility] External Provider LAB BLO OD ORDERABLES Final Result Performing Organization Address [facility] de Phone Number [facility] [address] [place] [address] [phone] * (ABNORMAL) Prothrombin Time-INR (02/17/2023 6:36 AM EDT) Prothrombin Time 33.8(H) 10.0 - 13.1 [facility] INTERNATIONAL NORM RATIO 2.8(H) 0.9 - 1.1 [facility] Comment:INTERNATIONAL NORMAL IZED RATIO [...] 6:36 AM EDT 02/17/2023 6:36 AM EDT [facility] External Provider LAB BLO OD ORDERABLES Final Result Performing Organization Address [facility] Co de Phone Number [facility] [address] [place] [address] [phone] * (ABNORMAL) Prothrombin Time-INR (02/10/2023 6:43 AM EDT) Prothrombin Time 37.0(H) 10.0 - 13.1 [facility] INTERNATIONAL NORM RATIO 3.1(H) 0.9 - 1.1 [facility] Comment:INTERNATIONAL NORMAL IZED RATIO [...] 6:43 AM EDT 02/10/2023 6:43 AM EDT [facility] External Provider LAB BLO OD ORDERABLES Final Result Performing Organization Address City/[facility] Co de Phone Number [facility] [address] [place] [phone] * (ABNORMAL) Prothrombin Time-INR (01/29/2023 6:54 AM EDT) Prothrombin Time 32.5(H) 10.0 - 13.1 [facility] INTERNATIONAL NORM RATIO 2.7(H) 0.9 - 1.1 [facility] Comment:INTERNATIONAL NORMAL IZED RATIO [...] 6:54 AM EDT 01/29/2023 6:54 AM EDT [facility] External Provider LAB BLO OD ORDERABLES Final Result [facility] [address] [place] [phone] * (ABNORMAL) Prothrombin Time-INR (01/26/2023 7:01 AM EDT) Prothrombin Time 22.4(H) 10.0 - 13.1 [facility] INTERNATIONAL NORM RATIO 1.9(H) 0.9 - 1.1 [facility] Comment:INTERNATIONAL NORMAL IZED RATIO [...] 7:01 AM EDT 01/26/2023 7:01 AM EDT [facility] External Provider LAB BLO OD ORDERABLES Final Result Performing Organization Address [facility] Co de Phone Number [facility] [address] [place] [address] [phone] * (ABNORMAL) Prothrombin Time-INR (01/12/2023 7:14 AM EDT) Prothrombin Time 36.4(H) 10.0 - 13.1 [facility] INTERNATIONAL NORM RATIO 3.0(H) 0.9 - 1.1 [facility] Comment:INTERNATIONAL NORMAL IZED RATIO [...] 7:14 AM EDT 01/12/2023 7:14 AM EDT [facility] External Provider LAB BLO OD ORDERABLES Final Result Performing Organization Address [facility] Co de Phone Number [facility] [address] [place] [phone] * (ABNORMAL) Prothrombin Time-INR (12/29/2022 7:02 AM EST) Prothrombin Time 35.3(H) 10.0 - 13.1 [facility] INTERNATIONAL NORM RATIO 2.9(H) 0.9 - 1.1 [facility] Comment:INTERNATIONAL NORMAL IZED RATIO [...] 7:02 AM EST 12/29/2022 7:02 AM EST [facility] External Provider LAB BLO OD ORDERABLES Final Result Performing Organization Address [facility] de Phone Number [facility] [address] [place] [phone] * (ABNORMAL) Prothrombin Time-INR (12/22/2022 7:14 AM EST) Prothrombin Time 39.4(H) 10.0 - 13.1 [facility] INTERNATIONAL NORM RATIO 3.3(H) 0.9 - 1.1 [facility] Comment:INTERNATIONAL NORMAL IZED RATIO [...] 7:14 AM EST 12/22/2022 7:15 AM EST [facility] External Provider LAB BLO OD ORDERABLES Final Result Performing Organization Address [facility] Co de Phone Number [facility] [address] [place] [phone] * (ABNORMAL) Prothrombin Time-INR (12/15/2022 6:41 AM EST) Prothrombin Time 41.0(H) 10.0 - 13.1 [facility] INTERNATIONAL NORM RATIO 3.4(H) 0.9 - 1.1 [facility] Comment:INTERNATIONAL NORMAL IZED RATIO [...] 6:41 AM EST 12/15/2022 6:41 AM EST [facility] External Provider LAB BLO OD ORDERABLES Final Result Performing Organization Address City/[facility] Co de Phone Number [facility] [address] [place] [phone] * (ABNORMAL) Prothrombin Time-INR (12/08/2022 6:48 AM EST) Prothrombin Time 29.0(H) 10.0 - 13.1 [facility] INTERNATIONAL NORM RATIO 2.4(H) 0.9 - 1.1 [facility] Comment:INTERNATIONAL NORMAL IZED RATIO [...] 6:48 AM EST 12/08/2022 6:50 AM EST [facility] External Provider LAB BLO OD ORDERABLES Final Result Performing Organization Address [facility] Co de Phone Number [facility] [address] [place] [address] [phone] * (ABNORMAL) Prothrombin Time-INR (12/01/2022 6:43 AM EST) Prothrombin Time 31.3(H) 10.0 - 13.1 [facility] INTERNATIONAL NORM RATIO 2.6(H) 0.9 - 1.1 [facility] Comment:INTERNATIONAL NORMAL IZED RATIO [...] 6:43 AM EST 12/01/2022 6:43 AM EST [facility] External Provider LAB BLO OD ORDERABLES Final Result Performing Organization Address [facility] de Phone Number [facility] [address] [place] [address] [phone] * (ABNORMAL) Prothrombin Time-INR (11/26/2022 6:42 AM EST) Prothrombin Time 26.3(H) 10.0 - 13.1 [facility] INTERNATIONAL NORM RATIO 2.2(H) 0.9 - 1.1 [facility] Comment:INTERNATIONAL NORMAL IZED RATIO [...] 6:42 AM EST 11/26/2022 6:43 AM EST [facility] External Provider LAB BLO OD ORDERABLES Final Result Performing Organization Address [facility] Co de Phone Number [facility] [address] [place] [phone] documented in this encounter Visit Diagnoses Not on filedocumented in this encounter Care Teams Trim Machine Adjuster Relationship Specialty Start Date End Date Eliza Carmona FNP [address] [place] [address] PCP - General Family Medicine 08/15/21 Kale Spencer MD [address] [place] [address] Drive [address] [place] [address] Urology 11/03/24 documented as of this encounter
== END 2025-05-29 11:20 | disposition home or self-care (01) ==
LOC: HO.HUSH 09:57
PROVIDERS: PCP Registered Nurse; Visit Provider Urology
DX: N52.9 Male erectile dysfunction, unspecified (principal)
CPT/HCPCS: 99213; G2211

== ENCOUNTER 2025-06-12 06:59 | Outpatient (REF) | payer MEDICARE, SELFPAY ==
[2025-06-12 07:36] LABS: INTERNATIONAL NORM RATIO 2.5 (0.9-1.1); Prothrombin Time 29.2 SEC (10.9-12.4)
== END 2025-06-12 07:00 | disposition home or self-care (01) ==
LOC: HO.LABR 06:59
PROVIDERS: PCP Registered Nurse; Visit Provider Pharmacist
DX: Z95.2 Presence of prosthetic heart valve (principal)
CPT/HCPCS: 36415; 85610

== ENCOUNTER 2025-06-26 06:17 | Outpatient (REF) | payer OTHER, SELFPAY ==
--- OUTSIDE RECORDS SUMMARY | 2025-06-26 06:24 | XMS_ITS | Clinical Summary ---
Author Organization [employer] Address [address] [place] [address] Care Team Providers Care Glass Artist Name Role Phone Eliza Carmona KELL Primary Care Provider [phone] Kale Spencer MD Unavailable Allergies No known [...] DIRECTED BY THE [facility] 2 Active lidocaine (Lidoderm) 5 % patchIndications:U pper [...] or fever 100 tablet 1 4 Active metoprolol succinate XL (Toprol-XL) 50 MG 24 hr tabletIndications: Palpitations TAKE 1 TABLET BY MOUTH EVERY DAY 90 tablet 3 5 Active tadalafil (Cialis) 5 MG tablet Take 1 tablet by mouth Once per day. 4 Active docusate sodium (Colace) 100 MG capsuleIndications :Constipation, unspecified constipation type Take 1 capsule (100 mg) by mouth if needed in the morning and at bedtime for constipation. 180 capsule 3 5 Active fluticasone (Flonase) 50 MCG/ACT nasal sprayIndications:S easonal allergies Administer 1 spray into each nostril if needed each day (nasal congestion or sensation of ear fullness). Shake gently. Before first use, prime pump. After use, clean tip and replace cap. 48 mL 3 5 026 Active Ketotifen Fumarate 0.035 % solutionIndication s:Seasonal allergies Administer 1 drop into both eyes if needed in the morning and at bedtime (seasonal alleriges). 10 mL 2 5 Active atorvastatin (Lipitor) 80 MG tabletIndications: Other restrictive cardiomyopathy (CMS/HCC) TAKE 1 TABLET BY MOUTH EVERY DAY 90 tablet 1 5 Active Active Problems Problem Noted Date Diagnosed Date Seasonal allergies 04/16/2025 Assessment & Plan (04/16/2025 9:21 AM EDT): - Flonase (Intranasal) and ketotifen (eye drops) PRN Proteinuria 04/16/2025 Overview (04/16/2025): Followed by [facility] - Dr. Salazar 04/09/25: normal renal US Erectile dysfunction 11/03/2024 Overview (04/16/2025): Following with [facility] u[facility] (Dr. Wehlan) Assessment & Plan (04/16/2025 9:25 AM EDT): Previous tx: tadalafil (dc January 2025 d/t affecting INR levels) Consult January 2025: discussed possible Viagra PRN, but should first consult with packer and carry out. Also discussed alternative tx options such as surgical therapy and penile pump Cont following with specialist as scheduled Assessment & Plan (11/03/2024 1:42 PM EST): Cont current therapy Constipation 03/14/2024 Assessment & Plan (03/14/2024 8:05 AM EDT): -Cont Colace BID PRN -Encourage fiber-rich diet and adequate hydration Routine health maintenance 03/08/2023 Overview (04/16/2025): Optometry: [facility] 03/12/22 Dental: [facility] Dental Colonoscopy: 02/06/21 at [facility] - Dr. Barrios. Repeat 10 years Assessment & Plan (08/15/2023 6:17 PM EDT): Optometry: [facility] 03/12/22 Dental: pt to present to [facility] Dental after today's appt to request scheduling for tooth extraction. Colonoscopy: completed January 2021 - January 2031 COVID-19 Vaccine: primary series complete, boosted x 1. Encouraged updated booster. Flu and pneumococcal vaccines administered today. VIS sheets provided. Assessment & Plan (03/08/2023 9:32 AM EDT): Optometry: [facility] 03/12/22 Dental: pt to present to [facility] Dental after today's appt to request scheduling for tooth extraction. Pre-op completed Aril 2021 Colonoscopy: completed January 2021 - January 2031 COVID-19 Vaccine: primary series complete, boosted x 1. Encouraged bivalent booster. History of Coumadin therapy 03/08/2023 Overview (08/15/2023): Managed by [facility] Per Cards consult note March 2023 Dr. [...] DASH diet Continue current CARDs medication regimen: furosemide 20mg daily metoprolol succinate ER 50mg daily Entresto 24-26mg BID amiodarone 200mg daily atorvastatin 40mg nightly Assessment & Plan (03/08/2023 7:40 AM EDT): Continue DASH diet Continue current CARDs medication regimen: furosemide 20mg daily lisinopril 5mg daily metoprolol succinate ER 50mg daily aspirin 81mg daily amiodarone 200mg daily atorvastatin 40mg nightly Heart murmur 10/26/2022 Mechanical heart valve present 10/26/2022 Shortness of breath 10/26/2022 Other restrictive cardiomyopathy 10/26/2022 Overview (11/03/2024): Nov 2022: Nuclear Stress Test, EF 43%, no sign of ischemia Followed by [facility] - Dr. Costa 08/29/24: ADRIANNA - ordered by Dr. Costa. Stable compared to previous. EF 50-55%. Mild-to-mod tricuspid regurgitation present, no evidence of pulm HTN. Assessment & Plan (11/03/2024 1:40 PM EST): -Continue DASH diet -Continue current CARDs regimen: furosemide 20mg daily sacubetril-valsartan 24-26mg tablet BID (provider will call office to request that med be sent to [facility] pharmacy) metoprolol succinate ER 50mg daily [...] to request that med be sent to [facility] pharmacy) metoprolol succinate ER 50mg daily aspirin 81mg daily amiodarone 200mg daily atorvastatin 40mg at bedtime -Monitor BP daily [...] worsening of symptoms Dizziness 01/17/2022 Hyperlipidemia 07/19/2017 Overview (04/16/2025): Lab Results Component Value Date CHOL 144 06/27/2024 CHOL 142 08/23/2023 TRIG 116 06/27/2024 TRIG 101 08/23/2023 HDL 36 (L) 06/27/2024 HDL 39 (L) 08/23/2023 LDLCHOLCAL 85 06/27/2024 LDLCHOLCAL 83 08/23/2023 -continue lifestyle modification Assessment & Plan (04/16/2025 9:24 AM EDT): -LDL goal < 70 -Continues with atorvastatin 80mg daily. Continue taking in the morning as was forgetting to take before bed. -Repeat fasting lipid panel Assessment & Plan (03/14/2024 8:06 AM EDT): [...] Encounters Date Type Department Care Team Description 05/11/2025 Results Follow-Up [facility] [address] [place] [address] Eliza Carmona FNP Lipid Panel, Standard 04/25/2025 Refill [facility] [address] [place], [place] [phone] Eliza Carmona FNP Other restrictive cardiomyopathy ([facility]/HCC) 04/16/2025 9:00 AM EDT Office Visit [facility] [address], [place] [phone] Eliza Carmona FNP Hyperlipidemia, unspecified hyperlipidemia type (Primary Dx); Routine health maintenance; Erectile dysfunction, unspecified erectile dysfunction type; Encounter for immunization; Constipation, unspecified constipation type; Acute conjunctivitis of left eye, unspecified acute conjunctivitis type; Seasonal allergies; Proteinuria, unspecified type 04/16/2025 Travel 04/09/2025 Patient Outreach [facility] [address], [place] [phone] Eliza Carmona FNP Pre-visit Planning (Pre visit planning LVM ) 04/09/2025 Orders Only [facility] External Provider, [facility] from Last 3 Months Immunizations Immunization Administration Dates Next Due Hep B, adult 04/16/2025,11/03/2024 Influenza injectable quadriv alent preservative free 08/13/2023,08/10/2022,06/28/2020,08/28,08/09/2017 Influenza, seasonal, injecta ble, preservative free 11/03/2024 Pneumococcal Conjugate PCV 20 08/13/2023 Pneumococcal Polysaccharide PPSV23 06/17/2017 Td (adult), 5 Lf tetanus tox oid, preservative free, adsorbed 02/08/2017 Tdap 08/28/2019 Zoster, Recombinant 06/22/2022,04/08/2022 Social History Tobacco Use Types Packs/Day Years Used Date Smoking Tobacco: Never Passive Smoke Exposure: Never Smokeless Tobacco: Never Tobacco Cessation:Counseling Given: [...] Sign Reading Time Taken Comments Blood Pressure 118/81 04/16/2025 8:55 AM EDT Pulse 80 04/16/2025 8:55 AM EDT Temperature 36.2 C (97.1 F) 04/16/2025 8:55 AM EDT Respiratory Rate 16 04/16/2025 8:55 AM EDT Oxygen Saturation 99% 11/03/2024 1:16 PM EST Inhaled Oxygen Concentration - - Weight 62.1 kg (137 lb) 04/16/2025 8:55 AM EDT Height 172.7 cm (5' 8 ) 04/16/2025 8:55 AM EDT Body Mass Index 20.83 04/16/2025 8:55 AM EDT Plan of Treatment Upcoming Encounters Date Type Department Care Team (Late st Contact Info) Description 07/16/2025 9:00 AM EDT Office Visit [facility] [address] [place] [address] Eliza Carmona, KELL [address] [place] [address] Health Maintenance Due Date Last Done Comments CT Colonography 1965 FIT DNA/Cologuard 1965 FIT 1965 FOBT 1965 Sigmoidoscopy 1965 Dental X-Ray: Bitewings 01/20/2023 01/19/2022, 05/18 COVID-19 Vaccine ( season) 2024 01/19/2022, 06/03/2021, 05/13/2021 Dental Oral Exam 07/30/2024 01/28/2024, , 01/19/2022, Additional history exists Dental Prophylaxis 08/26/2024 02/23/2024 Dental X-Ray: Full Mouth 01/20/2025 01/19/2022, 04/25 Hepatitis B Vaccines (3 of 3 - 19+ 3-dose series) 06/11/2025 04/16/2025, 11/03/2024 Influenza Vaccine (#1) 2025 , 08/13/2023, 08/10/2022, Additional history exists Alcohol/Substance Use Screening 11/03/2025 11/03/2024 Depression Screening 11/03/2025 11/03/2024, 11/03/19 Disability Screening 11/03/2025 11/03/2024 SDOH Screening 11/03/2025 11/03/2024 Tobacco Screening 04/16/2026 04/16/2025 DTaP/Tdap/Td Vaccines (2 - Td or Tdap) 08/28/2029 08/28/2019, 02/08/2017 Lipid Panel 05/08/2030 05/08/2025, 09/0 12/2023, 08/23/2023, Additional history exists Colonoscopy 03/06/2031 03/06/2021 Colorectal Cancer Screening 03/06/2031 RSV Patients and Patients Aged 60 years or older (1 - 1-dose 75+ series) 2040 Zoster Vaccines Completed 06/22/2022, 04/08/2022 Pneumococcal Vaccine: 50+ Years Completed 08/13/2023, 06/17/2017 HIV Screening Completed 06/27/2024, 11/11/2021 Hepatitis C Screening Completed 06/27/2024, 022 HIB Vaccines Aged Out No longer eligi [...] patient's age to complete this topic Meningococcal B Vaccine Aged Out No l onger eligible based on patient's age to complete [...] Procedure Name Priority Date/Time Associated Diagnosis Comments LIPID PANEL, STANDARD Routine 05/08/2025 7:04 AM EDT Hyperlipidemia, unspecified hyperlipidemia type US RENAL BI Routine 04/09/2025 9:42 AM EDT HEPATITIS C VIRAL RNA, QUANTITATIVE, REAL-TIME PCR [...] Recently Relevant to Health Maintenance Results * (ABNORMAL) Lipid Panel, Standard (05/08/2025 7:04 AM EDT) Triglycerides 115 <150 mg/dL [facility] Comment:Desirable Triglyceri de: less than 150 mg/dLBorderline High Triglyceride 150-199 mg/dLHigh Triglyceride: 200-499 mg/dLVery High Triglyceride: greater than or equal to 5OO mg/dL Cholesterol 140 <200 mg/dL [facility] Comment:Desirable Cholestero l: less than 200 mg/dLBorderline High Cholesterol: 200-239 mg/dLHigh Cholesterol: greater than 239 mg/dL LDL Cholesterol Calculated 79 <100 mg/dL [facility] Comment:Desirable LDL: less than 100 mg/dLNear Optimal/Above Optimal LDL: 110- 129 mg/dLBorderline High LDL: 130-159 mg/dLHigh LDL: 160-189 mg/dLVery High LDL: greater than or equal to 190 mg/dL HDL Cholesterol 38(L) >40 mg/dL [facility] Comment:Desirable HDL: great er than 40 mg/dL Note: This HDL assay may give artificially low results in patients with liver disease. Blood Venous blood specimen / Unknown 05/08/2025 7:04 AM EDT 05/08/2025 7:04 AM EDT us Eliza Carmona [facility] BLOOD ORDERABLES Final Res ult [facility] [address] [place] [phone] * US RENAL BI (04/09/2025 9:42 AM EDT) Anatomical Region Laterality Modality Abdomen Ultrasound 04/09/2025 9:42 AM EDT Narrative 04/09/2025 10:05 AM EDT [address] [address] Ultrasound Report Signed Patient: Danis Mauricio MR#: [id number] : 1965 Acct:[id number] Age/Sex: 59 / M ADM Date: 04/09/25 Loc: HO.US Attending Dr: Jay Jay Salazar MD Ordering Physician: Jay Jay Salazar MD Date of Service: 04/09/25 Procedure(s): US renal BI Accession Number(s): [id number] cc: Jay Jay Salazar MD; Eliza Carmona EXAMINATION: US RETROPERITONEAL LIMITED (RENAL ONLY) CLINICAL INFORMATION: Proteinuria. COMPARISON: None available. TECHNIQUE: Real-time imaging of the kidneys. FINDINGS: RIGHT KIDNEY: 10.9 x 4.3 x 5.6 cm (SAG x AP x TRV). The kidney is normal in size, contour, and echogenicity. Renal cortical thickness is normal. No calculi or focal parenchymal lesions. No hydronephrosis. Extrarenal pelvis noted. LEFT KIDNEY: 11.4 x 5.5 x 5.3 cm (SAG x AP x TRV). The kidney is normal in size, contour, and echogenicity. Renal cortical thickness is normal. No calculi or focal parenchymal lesions. No hydronephrosis. US/US renal BI IMPRESSION: Normal renal ultrasound.. Electronically signed by: Talib Ayala MD 04/09/2025 10:01 AM EDT Dictated By: Talib Ayala MD Signed By: <Electronically signed by Talib Ayala MD in OV> 04/09/25 1001 DD/ 0942 TD/TT: 04/09/25 0947 Inbound Call Center Representative: Procedure Note Donotuseinterpreter, Image - 04/09/[address] [address] Ultrasound Report Signed Patient: Danis MauricioMR#: [id number] : 1965Acct:[id number] Age/Sex: 59 / MADM Date: 04/09/25 Loc: HO.US Attending Dr: Jay Jay Salazar MD Ordering Physician: Jay Jay Salazar MD Date of Service: 04/09/25 Procedure(s): US renal BI Accession Number(s): [id number] cc: Jay Jay Salazar MD; Eliza Carmona EXAMINATION: US RETROPERITONEAL LIMITED (RENAL ONLY) CLINICAL INFORMATION: Proteinuria. COMPARISON: None available. TECHNIQUE: Real-time imaging of the kidneys. FINDINGS: RIGHT KIDNEY: 10.9 x 4.3 x 5.6 cm (SAG x AP x TRV). The kidney is normal in size, contour, and echogenicity. Renal cortical thickness is normal. No calculi or focal parenchymal lesions. No hydronephrosis. Extrarenal pelvis noted. LEFT KIDNEY: 11.4 x 5.5 x 5.3 cm (SAG x AP x TRV). The kidney is normal in size, contour, and echogenicity. Renal cortical thickness is normal. No calculi or focal parenchymal lesions. No hydronephrosis. US/US renal BI IMPRESSION: Normal renal ultrasound.. Electronically signed by: Talib Ayala MD 04/09/2025 10:01 AM EDT Dictated By: Talib Ayala MD Signed By: <Electronically signed by Talib Ayala MD in OV> 04/09/25 1001 DD/ 0942 TD/TT: 04/09/25 0947 Inbound Call Center Representative: us [facility] External Provider IMG US PROCEDURES Edited Result - Final * Hepatitis C Viral RNA, Quantitative, Real-Time PCR (06/27/2024 6:57 AM EDT) Hepatitis C Viral Load <15 NOT DETECTED NOT DETECTED IU/mL [facility] HCV Log PCR <1.18 NOT DETECTED NOT DETECTED Log IU/mL [facility] Comment:For additional infor isai, please refer tohttp://education.[employer]/faq/QCP50l4(This link is being provided for informational/educational purposes only.)THIS TEST WAS PERFORMED AT:[id number] [place] [id number] SOTO MD Blood 06/27/2024 6:57 AM EDT 06/27/2024 7:03 AM EDT Eliza Carmona [facility] BLOOD ORDERABLES Final Res ult Performing Organization Address [facility] Co de Phone Number [facility] [address] [place] [phone] * HIV-1/2 Antigen and Antibodies, Fourth Generation, with Reflexes (06/27/2024 6:57 AM EDT) [facility] HIV AB/AG Nonreactive Nonreactive [facility] Comment:HIV-1 p24 Ag and/or HIV-1/HIV-2 Ab not detected.A test result that is nonreactive does not exclude thepossibility of exposure to or infection with HIV-1 and/orHIV-2. Nonreactive results in this assay for individualswith prior exposure to HIV-1 and/or HIV-2 may be due toantigen and antibody levels that are below the limit ofdetection of this assay.The [employer] HIV Ag/Ab Combo assay result andsupplemental assay results should be interpreted inconjunction with the patient's clinical presentation,history and other laboratory results. If the results areinconsistent with clinical evidence, additional testing issuggested to confirm the result. Blood Venous blood specimen / Unknown 06/27/2024 6:57 AM EDT 06/27/2024 7:03 AM EDT Eliza Carmona [facility] BLOOD ORDERABLES Final Res ult Performing Organization Address [facility]/ZIP Co de Phone Number [facility] [address] [place] [phone] * Hm Colonoscopy (03/06/2021 2:24 PM EDT) Historical Provider HEALTH MAINTENANCE Final Result from Last 3 Months or Most Recently Relevant to Health Maintenance Insurance [facility] CARE < 65 [place] STAND ADULT [facility] Care Teams Glass Artist Relationship Specialty Start Date End Date Eliza Carmona FNP [address] [place] [address] PCP - General Family Medicine 08/15/21 Kale Spencer MD [address] [place] [address] Urology 11/03/24
--- OUTSIDE RECORDS SUMMARY | 2025-06-26 06:24 | XMS_ITS | Encounter Summary ---
Author Organization [employer] Address [address] [place] [address] [address] [place] [address] Care Team Providers Care Psychology Clinician Name Role Phone Eliza Carmona Primary Care Provider [phone] Kale Spencer MD Unavailable Reason for Visit * Reason Comments Med Refill Encounter Details Date Type Department Care Team ([facility] Contact Info) Description 01/30/2023 Refill [facility] [address] [place] [address] Allyssa Yoo FNP Nasal congestion Social History Tobacco Use Types [...] Upcoming Encounters Date Type Department Care Team ([facility] Contact Info) Description 07/16/2025 9:00 AM EDT Office Visit [facility] [address] [place] [address] Eliza Carmona FNP [address] [place] [address] documented as of this encounter Visit Diagnoses Diagnosis Nasal congestion Other diseases of nasal cavity and sinuses documented in this encounter Care Teams Psychology Clinician Relationship Specialty Start Date End Date Eliza Carmona FNP [address] [place] [phone] PCP - General Family Medicine 08/15/21 Kale Spencer MD [address] [place] [address] [place] [phone] Urology 11/03/24 documented as of this encounter
--- OUTSIDE RECORDS SUMMARY | 2025-06-26 06:24 | XMS_ITS | Encounter Summary ---
Author Organization [employer] Address [address] [facility] 7t [place] [address] Care Team Providers Care Marketing Ambassador Name Role Phone Eliza Carmona Primary Care Provider [phone] Kale Spencer MD Unavailable Encounter Details Date Type Department Care Team (Late st Contact Info) Description 10/12/2022 Orders Only [facility] [address], [place] [phone] Joellen Broussard LPN Social History Tobacco Use [...] Description 07/16/2025 9:00 AM EDT Office Visit [facility] MED & PEDS [address] [place] [address] Eliza Carmona FNP [address] [place] [address] documented as of this encounter Procedures Procedure [...] Prothrombin Time 29.4(H) 11.1 - 13.3 [facility] INTERNATIONAL NORM RATIO 2.4(H) 0.9 - 1.1 [facility] Comment:INTERNATIONAL NORMAL IZED RATIO (INR) [...] ORDERAB LES Final Result Performing Organization Address [facility] Co de Phone Number [facility] [address] [place] [address] [phone] * (ABNORMAL) Prothrombin Time-INR (04/01/2023 6:27 AM EDT) Prothrombin Time 31.1(H) 10.0 - 13.1 [facility] INTERNATIONAL NORM RATIO 2.6(H) 0.9 - 1.1 [facility] Comment:INTERNATIONAL NORMAL IZED RATIO (INR) [...] OD ORDERABLES Final Result Performing Organization Address [facility] Co de Phone Number [facility] [address] [place] [address] [phone] * (ABNORMAL) Prothrombin Time-INR (03/17/2023 6:43 AM EDT) Prothrombin Time 34.2(H) 10.0 - 13.1 [facility] INTERNATIONAL NORM RATIO 2.9(H) 0.9 - 1.1 [facility] Comment:INTERNATIONAL NORMAL IZED RATIO (INR) [...] OD ORDERABLES Final Result Performing Organization Address [facility] Co de Phone Number [facility] [address] [place] [address] [phone] * (ABNORMAL) Prothrombin Time-INR (03/03/2023 6:54 AM EDT) Prothrombin Time 34.1(H) 10.0 - 13.1 [facility] INTERNATIONAL NORM RATIO 2.8(H) 0.9 - 1.1 [facility] Comment:INTERNATIONAL NORMAL IZED RATIO (INR) [...] OD ORDERABLES Final Result Performing Organization Address [facility] de Phone Number [facility] [address] [place] [address] [phone] * (ABNORMAL) Prothrombin Time-INR (02/17/2023 6:36 AM EDT) Prothrombin Time 33.8(H) 10.0 - 13.1 [facility] INTERNATIONAL NORM RATIO 2.8(H) 0.9 - 1.1 [facility] Comment:INTERNATIONAL NORMAL IZED RATIO (INR) [...] OD ORDERABLES Final Result Performing Organization Address [facility] Co de Phone Number [facility] [address] [place] [address] [phone] * (ABNORMAL) Prothrombin Time-INR (02/10/2023 6:43 AM EDT) Prothrombin Time 37.0(H) 10.0 - 13.1 [facility] INTERNATIONAL NORM RATIO 3.1(H) 0.9 - 1.1 [facility] Comment:INTERNATIONAL NORMAL IZED RATIO (INR) [...] OD ORDERABLES Final Result Performing Organization Address [facility] Co de Phone Number [facility] [address] [place] [address] [phone] * (ABNORMAL) Prothrombin Time-INR (01/29/2023 6:54 AM EDT) Prothrombin Time 32.5(H) 10.0 - 13.1 [facility] INTERNATIONAL NORM RATIO 2.7(H) 0.9 - 1.1 [facility] Comment:INTERNATIONAL NORMAL IZED RATIO (INR) [...] Provider LAB BLO OD ORDERABLES Final Result [facility] [address] [place] [address] [phone] * (ABNORMAL) Prothrombin Time-INR (01/26/2023 7:01 AM EDT) Prothrombin Time 22.4(H) 10.0 - 13.1 [facility] INTERNATIONAL NORM RATIO 1.9(H) 0.9 - 1.1 [facility] Comment:INTERNATIONAL NORMAL IZED RATIO (INR) [...] OD ORDERABLES Final Result Performing Organization Address [facility] Co de Phone Number [facility] [address] [place] [address] [phone] * (ABNORMAL) Prothrombin Time-INR (01/12/2023 7:14 AM EDT) Prothrombin Time 36.4(H) 10.0 - 13.1 [facility] INTERNATIONAL NORM RATIO 3.0(H) 0.9 - 1.1 [facility] Comment:INTERNATIONAL NORMAL IZED RATIO (INR) [...] OD ORDERABLES Final Result Performing Organization Address [facility] Co de Phone Number [facility] [address] [place] [address] [phone] * (ABNORMAL) Prothrombin Time-INR (12/29/2022 7:02 AM EST) Prothrombin Time 35.3(H) 10.0 - 13.1 [facility] INTERNATIONAL NORM RATIO 2.9(H) 0.9 - 1.1 [facility] Comment:INTERNATIONAL NORMAL IZED RATIO (INR) [...] OD ORDERABLES Final Result Performing Organization Address [facility] de Phone Number [facility] [address] [place] [address] [phone] * (ABNORMAL) Prothrombin Time-INR (12/22/2022 7:14 AM EST) Prothrombin Time 39.4(H) 10.0 - 13.1 [facility] INTERNATIONAL NORM RATIO 3.3(H) 0.9 - 1.1 [facility] Comment:INTERNATIONAL NORMAL IZED RATIO (INR) [...] OD ORDERABLES Final Result Performing Organization Address [facility] Co de Phone Number [facility] [address] [place] [address] [phone] * (ABNORMAL) Prothrombin Time-INR (12/15/2022 6:41 AM EST) Prothrombin Time 41.0(H) 10.0 - 13.1 [facility] INTERNATIONAL NORM RATIO 3.4(H) 0.9 - 1.1 [facility] Comment:INTERNATIONAL NORMAL IZED RATIO (INR) [...] OD ORDERABLES Final Result Performing Organization Address [facility] Co de Phone Number [facility] [address] [place] [address] [phone] * (ABNORMAL) Prothrombin Time-INR (12/08/2022 6:48 AM EST) Prothrombin Time 29.0(H) 10.0 - 13.1 [facility] INTERNATIONAL NORM RATIO 2.4(H) 0.9 - 1.1 [facility] Comment:INTERNATIONAL NORMAL IZED RATIO (INR) [...] OD ORDERABLES Final Result Performing Organization Address [facility] Co de Phone Number [facility] [address] [place] [address] [phone] * (ABNORMAL) Prothrombin Time-INR (12/01/2022 6:43 AM EST) Prothrombin Time 31.3(H) 10.0 - 13.1 [facility] INTERNATIONAL NORM RATIO 2.6(H) 0.9 - 1.1 [facility] Comment:INTERNATIONAL NORMAL IZED RATIO (INR) [...] OD ORDERABLES Final Result Performing Organization Address [facility] de Phone Number [facility] [address] [place] [address] [phone] * (ABNORMAL) Prothrombin Time-INR (11/26/2022 6:42 AM EST) Prothrombin Time 26.3(H) 10.0 - 13.1 [facility] INTERNATIONAL NORM RATIO 2.2(H) 0.9 - 1.1 [facility] Comment:INTERNATIONAL NORMAL IZED RATIO (INR) [...] Final Result Performing Organization Address [facility] Co de Phone Number [facility] [address] [place] [address] [phone] documented in this encounter Visit Diagnoses Not on filedocumented in this encounter Care Teams Marketing Ambassador Relationship Specialty Start Date End Date Eliza Carmona FNP [address] [place] [address] PCP - General Family Medicine 08/15/21 Kale Spencer MD [address] [place] [address] Drive [address] [place] [address] Urology 11/03/24 documented as of this encounter
--- OUTSIDE RECORDS SUMMARY | 2025-06-26 06:24 | XMS_ITS | Encounter Summary ---
Author Organization [employer] Address [address] [facility] 7t [place] [address] Care Team Providers Care Retail Sales Professional Name Role Phone Eliza Carmona Primary Care Provider [phone] Kale Spencer MD Unavailable Reason for Visit * Reason Comments Med Refill Encounter Details Date Type Department Care Team ([facility] Contact Info) Description 03/13/2023 Refill [facility] MED & PEDS [address] [place] [address] Eliza Carmona FNP [address] [place] [address] Nasal congestion Social History Tobacco Use Types [...] Upcoming Encounters Date Type Department Care Team ([facility] Contact Info) Description 07/16/2025 9:00 AM EDT Office Visit [facility] MED & PEDS [address] [place] [address] Eliza Carmona FNP [address] [place] [address] documented as of this encounter Visit Diagnoses Diagnosis Nasal congestion Other diseases of nasal cavity and sinuses documented in this encounter Care Teams Retail Sales Professional Relationship Specialty Start Date End Date Eliza Carmona FNP [address] [place] [address] PCP - General Family Medicine 08/15/21 Kale Spencer MD [address] [place] [address] Drive [address] [place] [phone] Urology 11/03/24 documented as of this encounter
--- OUTSIDE RECORDS SUMMARY | 2025-06-26 06:24 | XMS_ITS | Encounter Summary ---
Author Organization [employer] Address [address] [facility] [address] [place] [address] Care Team Providers Care Spin Tank Tender Name Role Phone Eliza Carmona KELL Primary Care Provider [phone] Kale Spencer MD Unavailable Encounter Details Date Type Department Care Team (Late st Contact Info) Description 07/03/2024 Orders Only [facility] CH[facility] MED & PEDS [address] [place], [place] [phone] Provider, MD Shakira Social History Tobacco Use Types Packs/Day Years [...] Description 07/16/2025 9:00 AM EDT Office Visit [facility] [address] [place] [address] Eliza Carmona, LEAD QA ANALYST [address] [place] [address] documented as of this encounter Procedures Procedure Name Priority Date/Time Associated Diagnosis Comments PROTHROMBIN TIME-INR Routine 03/21/2025 7:19 AM EDT PROTEIN CREATININE RATIO, URINE Routine 03/21/2025 7:13 AM EDT IMMUNOFIXATION, URINE Routine 03/21/2025 7:13 AM EDT PSA, TOTAL WITH REFLEX TO PSA, FREE Routine 09/11/2024 7:20 AM EST PROLACTIN Routine 09/11/2024 7:20 AM EST TESTOSTERONE, FREE (DIALYSIS) AND TOTAL,MS Routine 09/11/2024 7:20 AM EST LH Routine 09/11/2024 7:20 AM EST FSH Routine 09/11/2024 7:20 AM EST GLUCOSE Routine 09/11/2024 7:20 AM EST HM COLONOSCOPY Routine 03/06/2021 2:24 PM EDT documented in this encounter Results * (ABNORMAL) Prothrombin Time-INR (03/21/2025 7:19 AM EDT) Prothrombin Time 31.1(H) 10.9 - 12.4 [facility] INTERNATIONAL NORM RATIO 2.7(H) 0.9 - 1.1 [facility] Comment:INTERNATIONAL NORMAL IZED RATIO (INR) REFERENCE RANGES Reference RangeFor patients not on anticoagulant therapy: 0.9 - 1.1INR ranges for oral anticoagulanttherapy:For prevention and treatment of venous thrombosis and pulmonary embolism: 2.0 - 3.0For acute myocardial infarction with aspirin therapy: 2.0 - 3.0For acute myocardial infarction without aspirin therapy: 3.0 - 4.0For patients with mechanical prosthetic heart valves: 2.5 - 3.5 03/21/2025 7:19 AM EDT 03/21/2025 7:19 AM EDT Generic External Data Provider LAB BLOOD ORDERAB LES Final Result Performing Organization Address [facility] Co de Phone Number [facility] [address] [place] [phone] * Immunofixation (NATHALIE), Urine (03/21/2025 7:13 AM EDT) Pathologist [facility] NATHALIE Interpretation SEE NOTE H [facility] Comment:Normal pattern. No m onoclonal proteins detected.The supplier of the testing reagents for this assayhas changed. Detection of small monoclonal proteins mayvary by test system.THIS TEST WAS PERFORMED AT:[facility] [place] [id number] SOTO MD 03/21/2025 7:13 AM EDT 03/21/2025 7:46 AM EDT Generic External Data Provider LAB URINE ORDERAB LES Final Result Performing Organization Address [facility] Co de Phone Number [facility] [address] [place] [phone] * Protein Creatinine Ratio, Urine (03/21/2025 7:13 AM EDT) Creatinine, Urine 166.98 mg/dL [facility] Protein, Total, Random Urine 12 <12 mg/dL [facility] Protein/Creati nine Ratio, Ur 0.07 <0.2 [facility] Comment:The spot urine prote in:creatinine ratio may increase to 0.3during normal . 03/21/2025 7:13 AM EDT 03/21/2025 7:46 AM EDT us Generic External Data Provider LAB URINE ORDERAB LES Final Result [facility] [address] [place] [phone] * Testosterone, Free (Dialysis) And Total, MS (09/11/2024 7:20 AM EST) Testosterone, Total 555 250 - 1100 ng/dL [facility] Comment:For additional infor isai, please refer [email or web address]/[email or web address](This link is being provided for informational/educational purposes only.)This test was developed and its analytical performancecharacteristics have been determined by [employer]. It hasnot been cleared or approved by the U.S. Food and DrugAdministration. This assay has been validated pursuantto the CLIA regulations and is used for clinicalpurposes. Testosterone, Free 97.1 35.0 - 155.0 pg/mL [facility] Comment:This test was develo ped and its analytical performancecharacteristics have been determined by [employer] [place], [place]. It hasnot been cleared or approved by the U.S. Food and DrugAdministration. This assay has been validated pursuantto the CLIA regulations and is used for clinicalpurposes.THIS TEST WAS PERFORMED AT:[id number] [place] [id number] DUBOIS MD,PHD 09/11/2024 7:20 AM EST 09/11/2024 7:20 AM EST us Generic External Data Provider LAB BLOOD ORDERAB LES Final Result Performing Organization Address [facility] de Phone Number [facility] [address] [place] [address] [phone] * Prolactin (09/11/2024 7:20 AM EST) Prolactin 18.0 2.0 - 18.0 ng/mL [facility] Comment:THIS TEST WAS PERFOR MED AT:[facility] [address] [id number] SOTO MD 09/11/2024 7:20 AM EST 09/11/2024 7:20 AM EST Generic External Data Provider LAB BLOOD ORDERAB LES Final Result Performing Organization Address [facility] Phone Number [facility] [address] [place] [phone] * LH (09/11/2024 7:20 AM EST) Lutenizing Hormone 4.5 1.5 - 9.3 mIU/mL [facility] Comment:THIS TEST WAS PERFOR MED AT:[facility] [address] [id number] SOTO MD 09/11/2024 7:20 AM EST 09/11/2024 7:20 AM EST us Generic External Data Provider LAB BLOOD ORDERAB LES Final Result Performing Organization Address [facility] Co de Phone Number [facility] [address] [place] [phone] * FSH (09/11/2024 7:20 AM EST) Follicle Stimulating Hormone 5.6 1.4 - 12.8 mIU/mL [facility] Comment:THIS TEST WAS PERFOR MED AT:[facility] [place] [id number] STOO MD 09/11/2024 7:20 AM EST 09/11/2024 7:20 AM EST Generic External Data Provider LAB BLOOD ORDERAB LES Final Result Performing Organization Address City/[facility]/ZIP Co de Phone Number [facility] [address] [place] [phone] * PSA, Total With Reflex to PSA, Free (09/11/2024 7:20 AM EST) [facility] PSA,Total (Free>4and<10) 0.56 0.00 - 4.00 ng/mL [facility] Comment:A Free PSA was not [...] ORDERAB LES Final Result Performing Organization Address [facility]/ZIP Co de Phone Number [facility] [address] [place] [phone] * Glucose (09/11/2024 7:20 AM EST) Pathologist [facility] Glucose Fasting 96 60 - 99 mg/dL [facility] 09/11/2024 7:20 AM EST 09/11/2024 7:20 AM EST us Generic External Data Provider LAB BLOOD ORDERAB LES Final Result [facility] [address] [place] [phone] * Hm Colonoscopy (03/06/2021 2:24 PM EDT) us Historical Provider HEALTH MAINTENANCE Final Result documented in this encounter Visit Diagnoses Not on filedocumented in this encounter Additional Health Concerns Assessment Noted Time PHQ-9 Depression Total Score: 7 08/13/20 23 9:49 AM EDT documented as of this encounter Care Teams Spin Tank Tender Relationship Specialty Start Date End Date Eliza Carmona FNP [address] [place] [address] PCP - General Family Medicine 08/15/21 Kale Spencer MD [address] [place] [address] Urology 11/03/24 documented as of this encounter
[2025-06-26 07:46] LABS: INTERNATIONAL NORM RATIO 1.6 (0.9-1.1); Prothrombin Time 17.8 SEC (10.9-12.4)
== END 2025-06-26 06:18 | disposition home or self-care (01) ==
LOC: HO.LABR 06:17
PROVIDERS: PCP Registered Nurse; Visit Provider Pharmacist
DX: Z95.2 Presence of prosthetic heart valve (principal); Z79.01 Long term (current) use of anticoagulants
CPT/HCPCS: 36415; 85610

== ENCOUNTER 2025-07-03 06:30 | Outpatient (REF) | payer OTHER, SELFPAY ==
--- OUTSIDE RECORDS SUMMARY | 2025-07-03 06:33 | XMS_ITS | Clinical Summary ---
Author Organization [employer] Address [address] [facility] [address] [place] [address] Care Team Providers Care Molding Utility Worker Name Role Phone Eliza Carmona KELL Primary Care Provider Kale Spencer MD Unavailable Allergies No known [...] PRN Proteinuria 04/16/2025 Overview (04/16/2025): Followed by [facility] - Dr. Salazar 04/09/25: normal renal US Erectile dysfunction 11/03/2024 Overview (04/16/2025): Following with [facility] (Dr. Whelan) Assessment & Plan (04/16/2025 9:25 AM EDT): Previous tx: tadalafil (dc January 2025 d/t affecting INR levels) Consult January 2025: discussed possible Viagra PRN, but should first consult with supervisor sulfuric acid plant. Also discussed alternative tx options such as surgical therapy and penile pump Cont following with specialist as scheduled Assessment & Plan (11/03/2024 1:42 PM EST): Cont current therapy Constipation 03/14/2024 Assessment & Plan (03/14/2024 8:05 AM EDT): -Cont Colace BID PRN -Encourage fiber-rich diet and adequate hydration Routine health maintenance 03/08/2023 Overview (04/16/2025): Optometry: CEE 03/12/22 Dental: [facility] Dental Colonoscopy: 02/06/21 at [facility] [place] Dr. Barrios. Repeat 10 years Assessment & Plan (08/15/2023 6:17 PM EDT): Optometry: CEE 03/12/22 Dental: pt to present to [facility] after today's appt to request scheduling for tooth extraction. Colonoscopy: completed January 2021 - January 2031 COVID-19 Vaccine: primary series complete, boosted x 1. Encouraged updated booster. Flu and pneumococcal vaccines administered today. VIS sheets provided. Assessment & Plan (03/08/2023 9:32 AM EDT): Optometry: CEE 03/12/22 Dental: pt to present to [facility] Dental after today's appt to request scheduling for tooth extraction. Pre-op completed Aril 2021 Colonoscopy: completed January 2021 - January 2031 COVID-19 Vaccine: primary series complete, boosted x 1. Encouraged bivalent booster. History of Coumadin therapy 03/08/2023 Overview (08/15/2023): Managed by [facility] Per Cards consult note [...] to request that med be sent to [facility] pharmacy) metoprolol succinate ER 50mg daily [...] to request that med be sent to [facility] pharmacy) metoprolol succinate ER 50mg daily [...] Department Care Team Description 05/11/2025 Results Follow-Up [facility] [address] [place] [address] Eliza Carmona FNP Lipid Panel, Standard 04/25/[address] 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 [address] [place], [place] [phone] Eliza Carmona FNP Hyperlipidemia, unspecified hyperlipidemia type (Primary Dx); Routine health maintenance; Erectile dysfunction, unspecified erectile dysfunction type; Encounter for immunization; Constipation, unspecified constipation type; Acute conjunctivitis of left eye, unspecified acute conjunctivitis type; Seasonal allergies; Proteinuria, unspecified type 04/16/2025 Travel 04/09/2025 Patient Outreach [facility] [address] [place], [place] [phone] Eliza Carmona FNP Pre-visit Planning (Pre visit planning LVM ) 04/09/2025 Orders Only [facility] External Provider, [facility] from Last 3 Months Immunizations Immunization [...] Description 07/16/2025 9:00 AM EDT Office Visit [facility] [address] [place] [address] Eliza Carmona, KELL [address] [place] [address] Health Maintenance Due Date Last Done Comments CT Colonography 1965 FIT DNA/Cologuard 1965 FIT 1965 FOBT 1965 Sigmoidoscopy 1965 Dental X-Ray: Bitewings 01/20/2023 01/19/2022, 05/18 Dental Oral Exam 07/30/2024 01/28/2024, , 01/19/2022, Additional history exists Dental Prophylaxis 08/26/2024 02/23/2024 Dental X-Ray: Full Mouth 01/20/2025 01/19/2022, 04/25 Hepatitis B Vaccines (3 of 3 - 19+ 3-dose series) 06/11/2025 04/16/2025, 11/03/2024 COVID-19 Vaccine ( season) 2025 01/19/2022, 06/03/2021, 05/13/2021 Influenza Vaccine (#1) 2025 , 08/13/2023, 08/10/2022, Additional history exists Alcohol/Substance Use Screening 11/03/2025 11/03/2024 Depression Screening 11/03/2025 11/03/2024, 11/03/19 25 Disability Screening 11/03/2025 11/03/2024 SDOH Screening 11/03/2025 [...] 7:04 AM EDT) Triglycerides 115 <150 mg/dL [facility] Comment:Desirable Triglyceri de: less than 150 mg/dLBorderline High Triglyceride 150-199 mg/dLHigh Triglyceride: 200-499 mg/dLVery High Triglyceride: greater than or equal to 5OO mg/dL Cholesterol 140 <200 mg/dL [facility] Comment:Desirable Cholestero l: less than 200 mg/dLBorderline High Cholesterol: 200-239 mg/dLHigh Cholesterol: greater than 239 mg/dL LDL Cholesterol Calculated 79 <100 mg/dL [facility] Comment:Desirable LDL: less than 100 mg/dLNear Optimal/Above Optimal LDL: 110- 129 mg/dLBorderline High LDL: 130-159 mg/dLHigh LDL: 160-189 mg/dLVery High LDL: greater than or equal to 190 mg/dL HDL Cholesterol 38(L) >40 mg/dL [facility] Comment:Desirable HDL: great er than 40 mg/dL Note: This HDL assay may give artificially low results in patients with liver disease. Blood Venous blood specimen / Unknown 05/08/2025 7:04 AM EDT 05/08/2025 7:04 AM EDT us Eliza Carmona INVESTMENT ACCOUNTING CLERK LAB BLOOD ORDERABLES Final Res ult [facility] [address] [place] [phone] * US RENAL BI (04/09/2025 9:42 AM EDT) Anatomical Region Laterality Modality Abdomen Ultrasound 04/09/2025 9:42 AM EDT Narrative 04/09/2025 10:05 AM EDT [address] [address] Ultrasound Report Signed Patient: Danis Mauricio MR#: [id number] : 1965 Acct:[id number] Age/Sex: 59 / M ADM Date: 04/09/25 Loc: HO.US Attending Dr: Jay Jay Salazar MD Ordering Physician: Jay Jay Salazar MD Date of Service: 04/09/25 Procedure(s): US renal BI Accession Number(s): [id number] cc: Jay Jay Salaazr MD; Eliza Carmona EXAMINATION: US RETROPERITONEAL LIMITED [...] 04/09/25 1001 DD/ 0942 TD/TT: 04/09/25 0947 Date Puller: Procedure Note Donotuseinterpreter, Image - 04/09/[address] [address] Ultrasound Report Signed Patient: Danis MauricioMR#: [id number] : 1965Acct:[id number] Age/Sex: 59 / MADM Date: 04/09/25 Loc: HO.US Attending Dr: Jay Jay Salazra MD Ordering Physician: Jay Jay Salazar MD Date of Service: 04/09/25 Procedure(s): US renal BI Accession Number(s): [id number] cc: Jay Jay Salazar MD; Eliza Carmona [...] 04/09/25 1001 DD/ 0942 TD/TT: 04/09/25 0947 Date Puller: us [facility] External Provider IMG US PROCEDURES Edited Result - Final * Hepatitis C Viral RNA, Quantitative, Real-Time PCR (06/27/2024 6:57 AM EDT) Hepatitis C Viral Load <15 NOT DETECTED NOT DETECTED IU/mL [facility] HCV Log PCR <1.18 NOT DETECTED NOT DETECTED Log IU/mL [facility] Comment:For additional infor isai, please refer tohttp://education.Jebbit/faq/LRV17z7(This link is being provided for informational/educational purposes only.)THIS TEST WAS PERFORMED AT:[employer] [place] [id number] SOTO MD Blood 06/27/2024 6:57 AM EDT 06/27/2024 7:[address] [facility] LAB BLOOD ORDERABLES Final Res ult Performing Organization Address [facility] Co de Phone Number [facility] [address] [place] [address] [phone] * HIV-1/2 Antigen and Antibodies, Fourth Generation, with Reflexes (06/27/2024 6:57 AM EDT) [facility] HIV AB/AG Nonreactive Nonreactive [facility] Comment:HIV-1 p24 Ag and/or HIV-1/HIV-2 Ab not detected.A test result that is nonreactive does not exclude thepossibility of exposure to or infection with HIV-1 and/orHIV-2. Nonreactive results in this assay for individualswith prior exposure to HIV-1 and/or HIV-2 may be due toantigen and antibody levels that are below the limit ofdetection of this assay.The [employer] HIV Ag/Ab Combo assay result andsupplemental assay results should be interpreted inconjunction with the patient's clinical presentation,history and other laboratory results. If the results areinconsistent with clinical evidence, additional testing issuggested to confirm the result. Blood Venous blood specimen / Unknown 06/27/2024 6:57 AM EDT 06/27/2024 7:[address] [facility] LAB BLOOD ORDERABLES Final Res ult Performing Organization Address [facility]/ZIP Co de Phone Number [facility] [address] [place] [address] [phone] * Hm Colonoscopy (03/06/2021 2:24 PM EDT) Historical Provider HEALTH MAINTENANCE Final Result from Last 3 Months or Most Recently Relevant to Health Maintenance Insurance [facility] ONE CARE < 65 [place] STAND ADULT [facility] Care Teams Molding Utility Worker Relationship Specialty Start Date End Date Eliza Carmona FNP [address] [place] [address] PCP - General Family Medicine 08/15/21 Kale Spencer MD [address] [place] [address] Urology 11/03/24
--- OUTSIDE RECORDS SUMMARY | 2025-07-03 06:33 | XMS_ITS | Encounter Summary ---
Author Organization [employer] Address [address] [facility] [address] [place] [address] Care Team Providers Care Communications Department Chair Name Role Phone Eliza Carmona Primary Care Provider [phone] Kale Spencer MD Unavailable Encounter Details Date Type Department Care Team (Late st Contact Info) Description 10/12/2022 Orders Only [facility] [address] [place], [place] [phone] Joellen Broussard LPN Social History Tobacco Use [...] Description 07/16/2025 9:00 AM EDT Office Visit [facility] [address] [place] [address] Eliza Carmona FNP [address] [place] [address] documented as of this encounter Procedures Procedure [...] Prothrombin Time 29.4(H) 11.1 - 13.3 SEC [facility] INTERNATIONAL NORM RATIO 2.4(H) 0.9 - 1.1 [facility] Comment:INTERNATIONAL NORMAL IZED RATIO (INR) [...] ORDERAB LES Final Result Performing Organization Address [facility] Co de Phone Number [facility] [address] [place] [phone] * (ABNORMAL) Prothrombin Time-INR (04/01/2023 6:27 AM EDT) Prothrombin Time 31.1(H) 10.0 - 13.1 SEC [facility] INTERNATIONAL NORM RATIO 2.6(H) 0.9 - 1.1 [facility] Comment:INTERNATIONAL NORMAL IZED RATIO (INR) [...] 6:27 AM EDT 04/01/2023 6:27 AM EDT [facility] External Provider LAB BLO OD ORDERABLES Final Result Performing Organization Address [facility] Co de Phone Number [facility] [address] [place] [phone] * (ABNORMAL) Prothrombin Time-INR (03/17/2023 6:43 AM EDT) Prothrombin Time 34.2(H) 10.0 - 13.1 SEC [facility] INTERNATIONAL NORM RATIO 2.9(H) 0.9 - 1.1 [facility] Comment:INTERNATIONAL NORMAL IZED RATIO (INR) [...] 6:43 AM EDT 03/17/2023 6:43 AM EDT [facility] External Provider LAB BLO OD ORDERABLES Final Result Performing Organization Address [facility] Co de Phone Number [facility] [address] [place] [phone] * (ABNORMAL) Prothrombin Time-INR (03/03/2023 6:54 AM EDT) Prothrombin Time 34.1(H) 10.0 - 13.1 SEC [facility] INTERNATIONAL NORM RATIO 2.8(H) 0.9 - 1.1 [facility] Comment:INTERNATIONAL NORMAL IZED RATIO (INR) [...] 6:54 AM EDT 03/03/2023 6:54 AM EDT [facility] External Provider LAB BLO OD ORDERABLES Final Result Performing Organization Address [facility] de Phone Number [facility] [address] [place] [phone] * (ABNORMAL) Prothrombin Time-INR (02/17/2023 6:36 AM EDT) Prothrombin Time 33.8(H) 10.0 - 13.1 SEC [facility] INTERNATIONAL NORM RATIO 2.8(H) 0.9 - 1.1 [facility] Comment:INTERNATIONAL NORMAL IZED RATIO (INR) [...] 6:36 AM EDT 02/17/2023 6:36 AM EDT [facility] External Provider LAB BLO OD ORDERABLES Final Result Performing Organization Address [facility] Co de Phone Number [facility] [address] [place] [phone] * (ABNORMAL) Prothrombin Time-INR (02/10/2023 6:43 AM EDT) Prothrombin Time 37.0(H) 10.0 - 13.1 SEC [facility] INTERNATIONAL NORM RATIO 3.1(H) 0.9 - 1.1 [facility] Comment:INTERNATIONAL NORMAL IZED RATIO (INR) [...] 6:43 AM EDT 02/10/2023 6:43 AM EDT [facility] External Provider LAB BLO OD ORDERABLES Final Result Performing Organization Address [facility] Co de Phone Number [facility] [address] [place] [phone] [phone] * (ABNORMAL) Prothrombin Time-INR (01/29/2023 6:54 AM EDT) Prothrombin Time 32.5(H) 10.0 - 13.1 SEC [facility] INTERNATIONAL NORM RATIO 2.7(H) 0.9 - 1.1 [facility] Comment:INTERNATIONAL NORMAL IZED RATIO (INR) [...] 6:54 AM EDT 01/29/2023 6:54 AM EDT [facility] External Provider LAB BLO OD ORDERABLES Final Result [facility] [address] [place] [phone] * (ABNORMAL) Prothrombin Time-INR (01/26/2023 7:01 AM EDT) Prothrombin Time 22.4(H) 10.0 - 13.1 SEC [facility] INTERNATIONAL NORM RATIO 1.9(H) 0.9 - 1.1 [facility] Comment:INTERNATIONAL NORMAL IZED RATIO (INR) [...] 7:01 AM EDT 01/26/2023 7:01 AM EDT [facility] External Provider LAB BLO OD ORDERABLES Final Result Performing Organization Address [facility] Co de Phone Number [facility] [address] [place] [phone] * (ABNORMAL) Prothrombin Time-INR (01/12/2023 7:14 AM EDT) Prothrombin Time 36.4(H) 10.0 - 13.1 SEC [facility] INTERNATIONAL NORM RATIO 3.0(H) 0.9 - 1.1 [facility] Comment:INTERNATIONAL NORMAL IZED RATIO (INR) [...] 7:14 AM EDT 01/12/2023 7:14 AM EDT [facility] External Provider LAB BLO OD ORDERABLES Final Result Performing Organization Address [facility] Co de Phone Number [facility] [address] [place] [phone] * (ABNORMAL) Prothrombin Time-INR (12/29/2022 7:02 AM EST) Prothrombin Time 35.3(H) 10.0 - 13.1 [facility] INTERNATIONAL NORM RATIO 2.9(H) 0.9 - 1.1 [facility] Comment:INTERNATIONAL NORMAL IZED RATIO (INR) [...] 7:02 AM EST 12/29/2022 7:02 AM EST [facility] External Provider LAB BLO OD ORDERABLES Final Result Performing Organization Address [facility] de Phone Number [facility] [address] [place] [phone] * (ABNORMAL) Prothrombin Time-INR (12/22/2022 7:14 AM EST) Prothrombin Time 39.4(H) 10.0 - 13.1 SEC [facility] INTERNATIONAL NORM RATIO 3.3(H) 0.9 - 1.1 [facility] Comment:INTERNATIONAL NORMAL IZED RATIO (INR) [...] 7:14 AM EST 12/22/2022 7:15 AM EST [facility] External Provider LAB BLO OD ORDERABLES Final Result Performing Organization Address [facility] Co de Phone Number [facility] [address] [place] [phone] * (ABNORMAL) Prothrombin Time-INR (12/15/2022 6:41 AM EST) Prothrombin Time 41.0(H) 10.0 - 13.1 SEC [facility] INTERNATIONAL NORM RATIO 3.4(H) 0.9 - 1.1 [facility] Comment:INTERNATIONAL NORMAL IZED RATIO (INR) [...] 6:41 AM EST 12/15/2022 6:41 AM EST [facility] External Provider LAB BLO OD ORDERABLES Final Result Performing Organization Address [facility] Co de Phone Number [facility] [address] [place] [phone] * (ABNORMAL) Prothrombin Time-INR (12/08/2022 6:48 AM EST) Prothrombin Time 29.0(H) 10.0 - 13.1 SEC [facility] INTERNATIONAL NORM RATIO 2.4(H) 0.9 - 1.1 [facility] Comment:INTERNATIONAL NORMAL IZED RATIO (INR) [...] 6:48 AM EST 12/08/2022 6:50 AM EST [facility] External Provider LAB BLO OD ORDERABLES Final Result Performing Organization Address [facility] Co de Phone Number [facility] [address] [place] [phone] * (ABNORMAL) Prothrombin Time-INR (12/01/2022 6:43 AM EST) Prothrombin Time 31.3(H) 10.0 - 13.1 [facility] INTERNATIONAL NORM RATIO 2.6(H) 0.9 - 1.1 [facility] Comment:INTERNATIONAL NORMAL IZED RATIO (INR) [...] 6:43 AM EST 12/01/2022 6:43 AM EST [facility] External Provider LAB BLO OD ORDERABLES Final Result Performing Organization Address [facility] de Phone Number [facility] [address] [place] [phone] * (ABNORMAL) Prothrombin Time-INR (11/26/2022 6:42 AM EST) Prothrombin Time 26.3(H) 10.0 - 13.1 SEC [facility] INTERNATIONAL NORM RATIO 2.2(H) 0.9 - 1.1 [facility] Comment:INTERNATIONAL NORMAL IZED RATIO (INR) [...] 6:42 AM EST 11/26/2022 6:43 AM EST [facility] External Provider LAB BLO OD ORDERABLES Final Result Performing Organization Address [facility] Co de Phone Number [facility] [address] [place] [phone] documented in this encounter Visit Diagnoses Not on filedocumented in this encounter Care Teams Communications Department Chair Relationship Specialty Start Date End Date Eliza Carmona FNP [address] [place] [address] PCP - General Family Medicine 08/15/21 Kale Spencer MD [address] [place] [address] Drive [address] [place] [address] Urology 11/03/24 documented as of this encounter
--- OUTSIDE RECORDS SUMMARY | 2025-07-03 06:33 | XMS_ITS | Encounter Summary ---
Author Organization [employer] Address [address] [place] [address] Care Team Providers Care Restaurant General Manager Name Role Phone Eliza Carmona KELL Primary Care Provider [phone] Kale Spencer MD Unavailable Encounter Details Date Type Department Care Team (Late st Contact Info) Description 07/03/2024 Orders Only [facility] MED & PEDS [address] [place], [place] [id number] Provider, MD Shakira Social History Tobacco Use [...] Description 07/16/2025 9:00 AM EDT Office Visit [facility] MED & PEDS [address] [place] [address] Eliza Carmona, MACHINE ENGINEER [address] [place] [address] documented as of this encounter Procedures Procedure [...] Prothrombin Time 31.1(H) 10.9 - 12.4 SEC [facility] INTERNATIONAL NORM RATIO 2.7(H) 0.9 - 1.1 [facility] Comment:INTERNATIONAL NORMAL IZED RATIO [...] Final Result Performing Organization Address [facility] Co de Phone Number [facility] [address] [place] [phone] * Immunofixation (NATHALIE), Urine (03/21/2025 7:13 AM EDT) Pathologist [facility] NATHALIE Interpretation SEE NOTE H [facility] Comment:Normal pattern. No m onoclonal proteins detected.The supplier of the testing reagents for this assayhas changed. Detection of small monoclonal proteins mayvary by test system.THIS TEST WAS PERFORMED AT:[employer] [place] [phone] SOTO MD 03/21/2025 7:13 AM EDT 03/21/2025 7:46 AM EDT Generic External Data Provider LAB URINE ORDERAB LES Final Result Performing Organization Address [facility] Co de Phone Number [facility] [address] [place] [phone] * Protein Creatinine Ratio, Urine (03/21/2025 7:13 AM EDT) Creatinine, Urine 166.98 mg/dL [facility] Protein, Total, Random Urine 12 <12 mg/dL [facility] Protein/Creati nine Ratio, Ur 0.07 <0.2 [facility] Comment:The spot urine prote in:creatinine ratio may increase to 0.3during normal . 03/21/2025 7:13 AM EDT 03/21/2025 7:46 AM EDT us Generic External Data Provider LAB URINE ORDERAB LES Final Result [facility] [address] [place] [phone] * Testosterone, Free (Dialysis) And Total, MS (09/11/2024 7:20 AM EST) Testosterone, Total 555 250 - 1100 ng/dL [facility] Comment:For additional infor isai, please refer tohttp://education.[employer] [place]/faq/QiysjRpwvlrurmbmeERAXYJXWI978(This link is being provided for informational/educational purposes only.)This test was developed and its analytical performancecharacteristics have been determined by [employer], [place]. It hasnot been cleared or approved by the U.S. Food and DrugAdministration. This assay has been validated pursuantto the CLIA regulations and is used for clinicalpurposes. Testosterone, Free 97.1 35.0 - 155.0 pg/mL [facility] Comment:This test was develo ped and its analytical performancecharacteristics have been determined by [employer] [place], [place]. It hasnot been cleared or approved by the U.S. Food and DrugAdministration. This assay has been validated pursuantto the CLIA regulations and is used for clinicalpurposes.THIS TEST WAS PERFORMED AT:[employer] [id number] [place] [address]DAGUPYFPRAVEEN DUBOIS MD,PHD 09/11/2024 7:20 AM EST 09/11/2024 7:20 AM EST us Generic External Data Provider LAB BLOOD ORDERAB LES Final Result Performing Organization Address [facility] de Phone Number [facility] [address] [place] [phone] * Prolactin (09/11/2024 7:20 AM EST) Prolactin 18.0 2.0 - 18.0 ng/mL [facility] Comment:THIS TEST WAS PERFOR MED AT:[employer] [address] [phone] SOTO MD 09/11/2024 7:20 AM EST 09/11/2024 7:20 AM EST Generic External Data Provider LAB BLOOD ORDERAB LES Final Result Performing Organization Address [facility] Phone Number [facility] [address] [place] [phone] * LH (09/11/2024 7:20 AM EST) Lutenizing Hormone 4.5 1.5 - 9.3 mIU/mL [facility] Comment:THIS TEST WAS PERFOR MED AT:[employer] [address] [phone] SOTO MD 09/11/2024 7:20 AM EST 09/11/2024 7:20 AM EST us Generic External Data Provider LAB BLOOD ORDERAB LES Final Result Performing Organization Address [facility] Co de Phone Number [facility] [address] [place] [phone] * FSH (09/11/2024 7:20 AM EST) Follicle Stimulating Hormone 5.6 1.4 - 12.8 mIU/mL [facility] Comment:THIS TEST WAS PERFOR MED AT:[employer] [place] [phone] SOTO MD 09/11/2024 7:20 AM EST 09/11/2024 7:20 AM EST Generic External Data Provider LAB BLOOD ORDERAB LES Final Result Performing Organization Address City/[facility]/ZIP Co de Phone Number [facility] [address] [place] [phone] * PSA, Total With Reflex to PSA, Free (09/11/2024 7:20 AM EST) [facility] PSA,Total (Free>4and<10) 0.56 0.00 - 4.00 ng/mL [facility] Comment:A Free PSA was [...] Final Result Performing Organization Address [facility]/ZIP Co de Phone Number [facility] [address] [place] [phone] * Glucose (09/11/2024 7:20 AM EST) Pathologist [facility] Glucose Fasting 96 60 - 99 mg/dL [facility] 09/11/2024 7:20 AM EST 09/11/2024 7:20 AM EST us Generic External Data Provider LAB BLOOD ORDERAB LES Final Result [facility] [address] [place] [address] [phone] * Hm Colonoscopy (03/06/2021 2:24 PM EDT) us Historical Provider HEALTH MAINTENANCE Final Result documented in this encounter Visit Diagnoses Not on filedocumented in this encounter Additional Health Concerns Assessment Noted Time PHQ-9 Depression Total Score: 7 08/13/20 23 9:49 AM EDT documented as of this encounter Care Teams Restaurant General Manager Relationship Specialty Start Date End Date Eliza Carmona FNP [address] [place] [address] PCP - General Family Medicine 08/15/21 Kale Spencer MD [address] [place] [address] Urology 11/03/24 documented as of this encounter
--- OUTSIDE RECORDS SUMMARY | 2025-07-03 06:33 | XMS_ITS | Encounter Summary ---
Author Organization [employer] Address [address] [place] [address] 7t [place] [address] Care Team Providers Care Refinery Operator Coking Name Role Phone Eliza Carmona Primary Care Provider [phone] Kale Spencer MD Unavailable Reason for Visit * Reason Comments Med Refill Encounter Details Date Type Department Care Team ([facility] Contact Info) Description 01/30/2023 Refill [facility] MED & PEDS [address] [place] [address] Allyssa Yoo FNP Nasal congestion Social History [...] Upcoming Encounters Date Type Department Care Team ([facility] Contact Info) Description 07/16/2025 9:00 AM EDT Office Visit [facility] MED & PEDS [address] [place] [address] Eliza Carmona FNP [address] [place] [address] documented as of this encounter Visit Diagnoses Diagnosis Nasal congestion Other diseases of nasal cavity and sinuses documented in this encounter Care Teams Refinery Operator Coking Relationship Specialty Start Date End Date Eliza Carmona FNP [address] [place] [phone] PCP - General Family Medicine 08/15/21 Kale Spencer MD [address] [place] [address] [place] [address] Urology 11/03/24 documented as of this encounter
--- OUTSIDE RECORDS SUMMARY | 2025-07-03 06:33 | XMS_ITS | Encounter Summary ---
Author Organization [employer] Address [address] [facility] 7t [place] [address] Care Team Providers Care Cotton Classer Aide Name Role Phone Eliza Carmona Primary Care Provider Kale Spencer MD Unavailable Reason for Visit * Reason Comments Med Refill Encounter Details Date Type Department Care Team ([facility] Contact Info) Description 03/13/2023 Refill [facility] CHC MED & PEDS [address] [place] [address] Eliza Carmona FNP [address] [place] [address] Nasal congestion Social History Tobacco Use Types [...] Upcoming Encounters Date Type Department Care Team ([facility] Contact Info) Description 07/16/2025 9:00 AM EDT Office Visit [facility] CHC MED & PEDS [address] [place] [address] Eliza Carmona FNP [address] [place] [address] documented as of this encounter Visit Diagnoses Diagnosis Nasal congestion Other diseases of nasal cavity and sinuses documented in this encounter Care Teams Cotton Classer Aide Relationship Specialty Start Date End Date Eliza Carmona FNP [address] [place] [address] PCP - General Family Medicine 08/15/21 Kale Spencer MD [address] [place] [address] [address] [place] [address] Urology 11/03/24 documented as of this encounter
[2025-07-03 07:58] LABS: INTERNATIONAL NORM RATIO 3.5 (0.9-1.1); Prothrombin Time 40.6 SEC (10.9-12.4)
== END 2025-07-03 06:31 | disposition home or self-care (01) ==
LOC: HO.LAB 06:30
PROVIDERS: PCP Registered Nurse; Visit Provider Pharmacist
DX: Z95.2 Presence of prosthetic heart valve (principal)
CPT/HCPCS: 36415; 85610

== ENCOUNTER 2025-07-10 06:16 | Outpatient (REF) | payer OTHER, SELFPAY ==
--- OUTSIDE RECORDS SUMMARY | 2025-07-10 06:18 | XMS_ITS | Encounter Summary ---
Author Organization [employer] Address [address] [place] [address] 7t [place] [address] Care Team Providers Care Nursing Clerk Name Role Phone Eliza Carmona Primary Care Provider [phone] Kale Spencer MD Unavailable Reason for Visit * Reason Comments Med Refill Encounter Details Date Type Department Care Team ([facility] Contact Info[facility] Description 01/30/2023 Refill [facility] MED & PEDS [address] [place] [address] Allyssa Yoo FNP Nasal congestion Social History [...] Upcoming Encounters Date Type Department Care Team ([facility] Contact Info) Description 07/16/2025 9:00 AM EDT Office Visit [facility] MED & PEDS [address] [place] [address] Eliza Carmona FNP [address] [place] [address] documented as of this encounter Visit Diagnoses Diagnosis Nasal congestion Other diseases of nasal cavity and sinuses documented in this encounter Care Teams Nursing Clerk Relationship Specialty Start Date End Date Eliza Carmona FNP [address] [place] [phone] PCP - General Family Medicine 08/15/21 Kale Spencer MD [address] [place] [address] [place] [phone] Urology 11/03/24 documented as of this encounter
--- OUTSIDE RECORDS SUMMARY | 2025-07-10 06:18 | XMS_ITS | Encounter Summary ---
Author Organization [employer] Address [address] [facility] 7t [place] [address] Care Team Providers Care Supervisor [employer] Name Role Phone Eliza Carmona Primary Care Provider [phone] Kale Spencer MD Unavailable Reason for Visit * Reason Comments Med Refill Encounter Details Date Type Department Care Team ([facility] Contact Info) Description 03/13/2023 Refill [facility] CHC MED & PEDS [address] [place] [address] Eliza Carmona FNP [address] [place] [address] Nasal congestion Social History Tobacco Use Types [...] Upcoming Encounters Date Type Department Care Team ([facility] Contact Info) Description 07/16/2025 9:00 AM EDT Office Visit [facility] CHC MED & PEDS [address] [place] [address] Eliza Carmona FNP [address] [place] [address] documented as of this encounter Visit Diagnoses Diagnosis Nasal congestion Other diseases of nasal cavity and sinuses documented in this encounter Care Teams Supervisor [employer] Relationship Specialty Start Date End Date Eliza Carmona FNP [address] [place] [address] PCP - General Family Medicine 08/15/21 Kale Spencer MD [address] [place] [address] [address] [place] [address] Urology 11/03/24 documented as of this encounter
--- OUTSIDE RECORDS SUMMARY | 2025-07-10 06:18 | XMS_ITS | Encounter Summary ---
Author Organization [employer] Address [address] [place] [address] Care Team Providers Care Silk Screen Printer Name Role Phone Eliza Carmona KELL Primary Care Provider [phone] Kale Spencer MD Unavailable Encounter Details Date Type Department Care Team (Late st Contact Info) Description 07/03/2024 Orders Only [facility] CHC MED & PEDS [address] [place], [place] [phone] Provider, MD Shakira Social History Tobacco Use [...] [facility] [address] [place] [address] Eliza Carmona, SHOE CLERK [address] [place] [address] documented as of this encounter Procedures Procedure [...] Prothrombin Time 31.1(H) 10.9 - 12.4 SEC [facility] INTERNATIONAL NORM RATIO 2.7(H) 0.9 - 1.1 [facility] Comment:INTERNATIONAL NORMAL IZED RATIO (INR) REFERENCE [...] ORDERAB LES Final Result Performing Organization Address [facility] Co de Phone Number [facility] [address] [place] [phone] * Immunofixation (NATHALIE), Urine (03/21/2025 7:13 AM EDT) Pathologist [facility] NATHALIE Interpretation SEE NOTE H [facility] Comment:Normal pattern. No m onoclonal proteins detected.The supplier of the testing reagents for this assayhas changed. Detection of small monoclonal proteins mayvary by test system.THIS TEST WAS PERFORMED AT:[employer] [place] [phone] SOTO MD 03/21/2025 7:13 AM EDT 03/21/2025 7:46 AM EDT Generic External Data Provider LAB URINE ORDERAB LES Final Result Performing Organization Address [facility] Co de Phone Number [facility] [address] [place] [phone] * Protein Creatinine Ratio, Urine (03/21/2025 7:13 AM EDT) Creatinine, Urine 166.98 mg/dL [facility] Protein, Total, Random Urine 12 <12 mg/dL [facility] Protein/Creati nine Ratio, Ur 0.07 <0.2 [facility] Comment:The spot urine prote in:creatinine ratio may increase to 0.3during normal . 03/21/2025 7:13 AM EDT 03/21/2025 7:46 AM EDT us Generic External Data Provider LAB URINE ORDERAB LES Final Result [facility] [address] [place] [phone] * Testosterone, Free (Dialysis) And Total, MS (09/11/2024 7:20 AM EST) Testosterone, Total 555 250 - 1100 ng/dL [facility] Comment:For additional infor isai, please refer tohttp://education.[employer]/faq/MjveeZkhgdlfowqmsRXFFAGBIC146(This link is being provided for informational/educational purposes only.)This test was developed and its analytical performancecharacteristics have been determined by [employer], [place]. It hasnot been cleared or approved by the U.S. Food and DrugAdministration. This assay has been validated pursuantto the CLIA regulations and is used for clinicalpurposes. Testosterone, Free 97.1 35.0 - 155.0 pg/mL [facility] Comment:This test was develo ped and its analytical performancecharacteristics have been determined by [employer] [place], [place]. It hasnot been cleared or approved by the U.S. Food and DrugAdministration. This assay has been validated pursuantto the CLIA regulations and is used for clinicalpurposes.THIS TEST WAS PERFORMED AT:[employer] [id number] [place] [address]TNMNSDWPRAVEEN DUBOIS MD,PHD 09/11/2024 7:20 AM EST 09/11/2024 7:20 AM EST us Generic External Data Provider LAB BLOOD ORDERAB LES Final Result Performing Organization Address [facility] de Phone Number [facility] [address] [place] [phone] * Prolactin (09/11/2024 7:20 AM EST) Prolactin 18.0 2.0 - 18.0 ng/mL [facility] Comment:THIS TEST WAS PERFOR MED AT:[employer] [address] [phone] SOTO MD 09/11/2024 7:20 AM EST 09/11/2024 7:20 AM EST Generic External Data Provider LAB BLOOD ORDERAB LES Final Result Performing Organization Address [facility] Phone Number [facility] [address] [place] [phone] * LH (09/11/2024 7:20 AM EST) Lutenizing Hormone 4.5 1.5 - 9.3 mIU/mL [facility] Comment:THIS TEST WAS PERFOR MED AT:[employer] [address] [phone] SOTO MD 09/11/2024 7:20 AM EST 09/11/2024 7:20 AM EST us Generic External Data Provider LAB BLOOD ORDERAB LES Final Result Performing Organization Address [facility] Co de Phone Number [facility] [address] [place] [phone] * FSH (09/11/2024 7:20 AM EST) Follicle Stimulating Hormone 5.6 1.4 - 12.8 mIU/mL [facility] Comment:THIS TEST WAS PERFOR MED AT:[employer] [place] [phone] SOTO MD 09/11/2024 7:20 AM EST 09/11/2024 7:20 AM EST Generic External Data Provider LAB BLOOD ORDERAB LES Final Result Performing Organization Address City/[facility]/ZIP Co de Phone Number [facility] [address] [place] [phone] * PSA, Total With Reflex to PSA, Free (09/11/2024 7:20 AM EST) [facility] PSA,Total (Free>4and<10) 0.56 0.00 - 4.00 ng/mL [facility] Comment:A Free PSA was not p [...] ORDERAB LES Final Result Performing Organization Address [facility]/ZIP Co de Phone Number [facility] [address] [place] [phone] * Glucose (09/11/2024 7:20 AM EST) Pathologist [facility] Glucose Fasting 96 60 - 99 mg/dL [facility] 09/11/2024 7:20 AM EST 09/11/2024 7:20 AM EST us Generic External Data Provider LAB BLOOD ORDERAB LES Final Result [facility] [address] [place] [address] [phone] * Hm Colonoscopy (03/06/2021 2:24 PM EDT) us Historical Provider HEALTH MAINTENANCE Final Result documented in this encounter Visit Diagnoses Not on filedocumented in this encounter Additional Health Concerns Assessment Noted Time PHQ-9 Depression Total Score: 7 08/13/20 23 9:49 AM EDT documented as of this encounter Care Teams Silk Screen Printer Relationship Specialty Start Date End Date Eliza Carmona FNP [address] [place] [address] PCP - General Family Medicine 08/15/21 Kale Spencer MD [address] [place] [address] Urology 11/03/24 documented as of this encounter
--- OUTSIDE RECORDS SUMMARY | 2025-07-10 06:18 | XMS_ITS | Encounter Summary ---
Author Organization [employer] Address [address] [facility] 7t [place] [address] Care Team Providers Care Bulk Sausage Casing Tier Off Name Role Phone Eliza Carmona Primary Care Provider [phone] Kale Spencer MD Unavailable Encounter Details Date Type Department Care Team (Late st Contact Info) Description 10/12/2022 Orders Only [facility] [address], [place] [phone] Joellen Broussard LPN Social History Tobacco Use [...] 9:00 AM EDT Office Visit [facility] [address] [place] [address] Eliza Carmona FNP [address] [place] [address] documented as of this encounter Procedures Procedure [...] Prothrombin Time 29.4(H) 11.1 - 13.3 SEC [facility] INTERNATIONAL NORM RATIO 2.4(H) 0.9 - 1.1 [facility] Comment:INTERNATIONAL NORMAL IZED RATIO [...] ORDERAB LES Final Result Performing Organization Address [facility] Co de Phone Number [facility] [address] [place] [phone] * (ABNORMAL) Prothrombin Time-INR (04/01/2023 6:27 AM EDT) Prothrombin Time 31.1(H) 10.0 - 13.1 SEC [facility] INTERNATIONAL NORM RATIO 2.6(H) 0.9 - 1.1 [facility] Comment:INTERNATIONAL NORMAL IZED RATIO [...] 6:27 AM EDT 04/01/2023 6:27 AM EDT [facility] External Provider LAB BLO OD ORDERABLES Final Result Performing Organization Address [facility] Co de Phone Number [facility] [address] [place] [phone] * (ABNORMAL) Prothrombin Time-INR (03/17/2023 6:43 AM EDT) Prothrombin Time 34.2(H) 10.0 - 13.1 SEC [facility] INTERNATIONAL NORM RATIO 2.9(H) 0.9 - 1.1 [facility] Comment:INTERNATIONAL NORMAL IZED RATIO [...] 6:43 AM EDT 03/17/2023 6:43 AM EDT [facility] External Provider LAB BLO OD ORDERABLES Final Result Performing Organization Address [facility] Co de Phone Number [facility] [address] [place] [phone] * (ABNORMAL) Prothrombin Time-INR (03/03/2023 6:54 AM EDT) Prothrombin Time 34.1(H) 10.0 - 13.1 SEC [facility] INTERNATIONAL NORM RATIO 2.8(H) 0.9 - 1.1 [facility] Comment:INTERNATIONAL NORMAL IZED RATIO [...] 6:54 AM EDT 03/03/2023 6:54 AM EDT [facility] External Provider LAB BLO OD ORDERABLES Final Result Performing Organization Address [facility] de Phone Number [facility] [address] [place] [phone] * (ABNORMAL) Prothrombin Time-INR (02/17/2023 6:36 AM EDT) Prothrombin Time 33.8(H) 10.0 - 13.1 SEC [facility] INTERNATIONAL NORM RATIO 2.8(H) 0.9 - 1.1 [facility] Comment:INTERNATIONAL NORMAL IZED RATIO [...] 6:36 AM EDT 02/17/2023 6:36 AM EDT [facility] External Provider LAB BLO OD ORDERABLES Final Result Performing Organization Address [facility] Co de Phone Number [facility] [address] [place] [phone] * (ABNORMAL) Prothrombin Time-INR (02/10/2023 6:43 AM EDT) Prothrombin Time 37.0(H) 10.0 - 13.1 SEC [facility] INTERNATIONAL NORM RATIO 3.1(H) 0.9 - 1.1 [facility] Comment:INTERNATIONAL NORMAL IZED RATIO [...] 6:43 AM EDT 02/10/2023 6:43 AM EDT [facility] External Provider LAB BLO OD ORDERABLES Final Result Performing Organization Address City/[facility] Co de Phone Number [facility] [address] [place] [address] [phone] * (ABNORMAL) Prothrombin Time-INR (01/29/2023 6:54 AM EDT) Prothrombin Time 32.5(H) 10.0 - 13.1 SEC [facility] INTERNATIONAL NORM RATIO 2.7(H) 0.9 - 1.1 [facility] Comment:INTERNATIONAL NORMAL IZED RATIO [...] 6:54 AM EDT 01/29/2023 6:54 AM EDT [facility] External Provider LAB BLO OD ORDERABLES Final Result [facility] [address] [place] [phone] * (ABNORMAL) Prothrombin Time-INR (01/26/2023 7:01 AM EDT) Prothrombin Time 22.4(H) 10.0 - 13.1 SEC [facility] INTERNATIONAL NORM RATIO 1.9(H) 0.9 - 1.1 [facility] Comment:INTERNATIONAL NORMAL IZED RATIO [...] 7:01 AM EDT 01/26/2023 7:01 AM EDT [facility] External Provider LAB BLO OD ORDERABLES Final Result Performing Organization Address [facility] Co de Phone Number [facility] [address] [place] [phone] * (ABNORMAL) Prothrombin Time-INR (01/12/2023 7:14 AM EDT) Prothrombin Time 36.4(H) 10.0 - 13.1 SEC [facility] INTERNATIONAL NORM RATIO 3.0(H) 0.9 - 1.1 [facility] Comment:INTERNATIONAL NORMAL IZED RATIO [...] 7:14 AM EDT 01/12/2023 7:14 AM EDT [facility] External Provider LAB BLO OD ORDERABLES Final Result Performing Organization Address [facility] Co de Phone Number [facility] [address] [place] [phone] * (ABNORMAL) Prothrombin Time-INR (12/29/2022 7:02 AM EST) Prothrombin Time 35.3(H) 10.0 - 13.1 SEC [facility] INTERNATIONAL NORM RATIO 2.9(H) 0.9 - 1.1 [facility] Comment:INTERNATIONAL NORMAL IZED RATIO [...] 7:02 AM EST 12/29/2022 7:02 AM EST [facility] External Provider LAB BLO OD ORDERABLES Final Result Performing Organization Address [facility] de Phone Number [facility] [address] [place] [phone] * (ABNORMAL) Prothrombin Time-INR (12/22/2022 7:14 AM EST) Prothrombin Time 39.4(H) 10.0 - 13.1 SEC [facility] INTERNATIONAL NORM RATIO 3.3(H) 0.9 - 1.1 [facility] Comment:INTERNATIONAL NORMAL IZED RATIO [...] 7:14 AM EST 12/22/2022 7:15 AM EST [facility] External Provider LAB BLO OD ORDERABLES Final Result Performing Organization Address [facility] Co de Phone Number [facility] [address] [place] [phone] * (ABNORMAL) Prothrombin Time-INR (12/15/2022 6:41 AM EST) Prothrombin Time 41.0(H) 10.0 - 13.1 SEC [facility] INTERNATIONAL NORM RATIO 3.4(H) 0.9 - 1.1 [facility] Comment:INTERNATIONAL NORMAL IZED RATIO [...] 6:41 AM EST 12/15/2022 6:41 AM EST [facility] External Provider LAB BLO OD ORDERABLES Final Result Performing Organization Address City/[facility] Co de Phone Number [facility] [address] [place] [phone] * (ABNORMAL) Prothrombin Time-INR (12/08/2022 6:48 AM EST) Prothrombin Time 29.0(H) 10.0 - 13.1 SEC [facility] INTERNATIONAL NORM RATIO 2.4(H) 0.9 - 1.1 [facility] Comment:INTERNATIONAL NORMAL IZED RATIO [...] 6:48 AM EST 12/08/2022 6:50 AM EST [facility] External Provider LAB BLO OD ORDERABLES Final Result Performing Organization Address [facility] Co de Phone Number [facility] [address] [place] [address] [phone] * (ABNORMAL) Prothrombin Time-INR (12/01/2022 6:43 AM EST) Prothrombin Time 31.3(H) 10.0 - 13.1 SEC [facility] INTERNATIONAL NORM RATIO 2.6(H) 0.9 - 1.1 [facility] Comment:INTERNATIONAL NORMAL IZED RATIO [...] 6:43 AM EST 12/01/2022 6:43 AM EST [facility] External Provider LAB BLO OD ORDERABLES Final Result Performing Organization Address [facility] de Phone Number [facility] [address] [place] [phone] * (ABNORMAL) Prothrombin Time-INR (11/26/2022 6:42 AM EST) Prothrombin Time 26.3(H) 10.0 - 13.1 SEC [facility] INTERNATIONAL NORM RATIO 2.2(H) 0.9 - 1.1 [facility] Comment:INTERNATIONAL NORMAL IZED RATIO [...] 6:42 AM EST 11/26/2022 6:43 AM EST [facility] External Provider LAB BLO OD ORDERABLES Final Result Performing Organization Address [facility] Co de Phone Number [facility] [address] [place] [phone] documented in this encounter Visit Diagnoses Not on filedocumented in this encounter Care Teams Bulk Sausage Casing Tier Off Relationship Specialty Start Date End Date Eliza Carmona FNP [address] [place] [address] PCP - General Family Medicine 08/15/21 Kale Spencer MD [address] [place] [address] Drive [address] [place] [address] Urology 11/03/24 documented as of this encounter
--- OUTSIDE RECORDS SUMMARY | 2025-07-10 06:18 | XMS_ITS | Clinical Summary ---
Author Organization [employer] Address [address] [facility] 7t [place] [address] Care Team Providers Care Food General Manager Name Role Phone Eliza Carmona KELL Primary Care Provider [phone] Kale Spencer MD Unavailable Allergies No known [...] PRN Proteinuria 04/16/2025 Overview (04/16/2025): Followed by [facility] - Dr. Salazar 04/09/25: normal renal US Erectile dysfunction 11/03/2024 Overview (04/16/2025): Following with [facility] urology (Dr. Whelan) Assessment & Plan (04/16/2025 9:25 AM EDT): Previous tx: tadalafil (dc January 2025 d/t affecting INR levels) Consult January 2025: discussed possible Viagra PRN, but should first consult with helmet hat brim cutter. Also discussed alternative tx options such as surgical therapy and penile pump Cont following with specialist as scheduled Assessment & Plan (11/03/2024 1:42 PM EST): Cont current therapy Constipation 03/14/2024 Assessment & Plan (03/14/2024 8:05 AM EDT): -Cont Colace BID PRN -Encourage fiber-rich diet and adequate hydration Routine health maintenance 03/08/2023 Overview (04/16/2025): Optometry: [facility]EE 03/12/22 Dental: [facility] Dental Colonoscopy: 02/06/21 at [facility] - Dr. Barrios. Repeat 10 years Assessment & Plan (08/15/2023 6:17 PM EDT): Optometry: CEE 03/12/22 Dental: pt to present to [facility] Dental after today's appt to request scheduling for tooth extraction. Colonoscopy: completed January 2021 - January 2031 COVID-19 Vaccine: primary series complete, boosted x 1. Encouraged updated booster. Flu and pneumococcal vaccines administered today. VIS sheets provided. Assessment & Plan (03/08/2023 9:32 AM EDT): Optometry: CEE 03/12/22 Dental: pt to present to [facility] after today's appt to request scheduling for tooth extraction. Pre-op completed Aril 2021 Colonoscopy: completed January 2021 - January 2031 COVID-19 Vaccine: primary series complete, boosted x 1. Encouraged bivalent booster. History of Coumadin therapy 03/08/2023 Overview (08/15/2023): Managed by [facility] Per Cards consult note [...] 43%, no sign of ischemia Followed by [facility] - Dr. Costa 08/29/24: ADRIANNA - ordered by Dr. Costa. Stable compared to previous. EF 50-55%. Mild-to-mod tricuspid regurgitation present, no evidence of pulm HTN. Assessment & Plan (11/03/2024 1:40 PM EST): -Continue DASH diet -Continue current CARDs regimen: furosemide 20mg daily sacubetril-valsartan 24-26mg tablet BID (provider will call office to request that med be sent to [facility] pharmacy) metoprolol succinate ER 50mg daily [...] to request that med be sent to [facility] pharmacy) metoprolol succinate ER 50mg daily [...] Department Care Team Description 05/11/2025 Results Follow-Up [facility] [address] [place] [address] Eliza Carmona FNP Lipid Panel, Standard 04/25/2025 Refill [facility] [address] [place], [place] [phone] Eliza Carmona FNP Other restrictive cardiomyopathy ([facility]/HCC) 04/16/2025 9:00 AM EDT Office Visit [facility] [address] [place], [place] [phone] Eliza Carmona FNP Hyperlipidemia, unspecified hyperlipidemia type (Primary Dx); Routine health maintenance; Erectile dysfunction, unspecified erectile dysfunction type; Encounter for immunization; Constipation, unspecified constipation type; Acute conjunctivitis of left eye, unspecified acute conjunctivitis type; Seasonal allergies; Proteinuria, unspecified type 04/16/2025 Travel 04/09/2025 Patient Outreach [facility] [address] [place], [place] [phone] Eliza Cramona FNP Pre-visit Planning (Pre visit planning LVM ) 04/09/2025 Orders Only [facility] External Provider, [facility] from Last 3 Months Immunizations Immunization [...] 9:00 AM EDT Office Visit [facility] [address] [place] [address] Eliza Carmona, KELL [address] [place] [address] Health Maintenance Due Date Last Done Comments [...] 7:04 AM EDT) Triglycerides 115 <150 mg/dL [facility] Comment:Desirable Triglyceri de: less than 150 mg/dLBorderline High Triglyceride 150-199 mg/dLHigh Triglyceride: 200-499 mg/dLVery High Triglyceride: greater than or equal to 5OO mg/dL Cholesterol 140 <200 mg/dL [facility] Comment:Desirable Cholestero l: less than 200 mg/dLBorderline High Cholesterol: 200-239 mg/dLHigh Cholesterol: greater than 239 mg/dL LDL Cholesterol Calculated 79 <100 mg/dL [facility] Comment:Desirable LDL: less than 100 mg/dLNear Optimal/Above Optimal LDL: 110- 129 mg/dLBorderline High LDL: 130-159 mg/dLHigh LDL: 160-189 mg/dLVery High LDL: greater than or equal to 190 mg/dL HDL Cholesterol 38(L) >40 mg/dL [facility] Comment:Desirable HDL: great er than 40 mg/dL Note: This HDL assay may give artificially low results in patients with liver disease. Blood Venous blood specimen / Unknown 05/08/2025 7:04 AM EDT 05/08/2025 7:04 AM EDT us Eliza Carmona HEMATOLOGY TECHNOLOGIST LAB BLOOD ORDERABLES Final Res ult [facility] [address] [place] [phone] * US RENAL BI (04/09/2025 9:42 AM EDT) Anatomical Region Laterality Modality Abdomen Ultrasound 04/09/2025 9:42 AM EDT Narrative 04/09/2025 10:05 AM EDT [address] [address] Ultrasound Report Signed Patient: Danis Mauricio MR#: [id number] : 1965 Acct:[id number] Age/Sex: 59 / M ADM Date: 04/09/25 Loc: HO.US Attending Dr: Jay Jay Salazar MD Ordering Physician: Jay Jay Salazar MD Date of Service: 04/09/25 Procedure(s): US renal BI Accession Number(s): [id number] cc: Jay Jay Salazar MD; Eliza Carmona [...] 04/09/25 1001 DD/ 0942 TD/TT: 04/09/25 0947 Price Lister: Procedure Note Donotuseinterpreter, Image - 04/09/[address] [address] Ultrasound Report Signed Patient: Danis MauricioMR#: [id number] : 1965Acct:[id number] Age/Sex: 59 / MADM Date: 04/09/25 Loc: HO.US Attending Dr: Jay Jay Salazar MD Ordering Physician: Jay Jay Salazar MD Date of Service: 04/09/25 Procedure(s): US renal BI Accession Number(s): [id number] cc: Jay Jay Salazar MD; Eliza Carmona [...] 04/09/25 1001 DD/ 0942 TD/TT: 04/09/25 0947 Price Lister: us [facility] External Provider IMG US PROCEDURES Edited Result - Final * Hepatitis C Viral RNA, Quantitative, Real-Time PCR (06/27/2024 6:57 AM EDT) Hepatitis C Viral Load <15 NOT DETECTED NOT DETECTED IU/mL [facility] HCV Log PCR <1.18 NOT DETECTED NOT DETECTED Log IU/mL [facility] Comment:For additional infor isai, please refer tohttp://education.[employer]/faq/AIV15v9(This link is being provided for informational/educational purposes only.)THIS TEST WAS PERFORMED AT:[employer] [place] [phone] SOTO MD Blood 06/27/2024 6:57 AM EDT 06/27/2024 7:03 AM EDT Eliza Carmona [facility] BLOOD ORDERABLES Final Res ult Performing Organization Address [facility] Co de Phone Number [facility] [address] [place] [address] [phone] * HIV-1/2 Antigen and Antibodies, Fourth Generation, with Reflexes (06/27/2024 6:57 AM EDT) [facility] HIV AB/AG Nonreactive Nonreactive [facility] Comment:HIV-1 p24 Ag and/or HIV-1/HIV-2 Ab not detected.A test result that is nonreactive does not exclude thepossibility of exposure to or infection with HIV-1 and/orHIV-2. Nonreactive results in this assay for individualswith prior exposure to HIV-1 and/or HIV-2 may be due toantigen and antibody levels that are below the limit ofdetection of this assay.The Proven HIV Ag/Ab Combo assay result andsupplemental assay results should be interpreted inconjunction with the patient's clinical presentation,history and other laboratory results. If the results areinconsistent with clinical evidence, additional testing issuggested to confirm the result. Blood Venous blood specimen / Unknown 06/27/2024 6:57 AM EDT 06/27/2024 7:03 AM EDT Eliza Carmona [facility] BLOOD ORDERABLES Final Res ult Performing Organization Address [facility]/ZIP Co de Phone Number [facility] [address] [place] [address] [phone] * Hm Colonoscopy (03/06/2021 2:24 PM EDT) Historical Provider HEALTH MAINTENANCE Final Result from Last 3 Months or Most Recently Relevant to Health Maintenance Insurance [facility] ONE CARE < 65 [place] STAND ADULT [facility] Care Teams Food General Manager Relationship Specialty Start Date End Date Eliza Carmona FNP [address] [place] [address] PCP - General Family Medicine 08/15/21 Kale Spencer MD [address] [place] [address] Urology 11/03/24
[2025-07-10 07:59] LABS: INTERNATIONAL NORM RATIO 2.5 (0.9-1.1); Prothrombin Time 28.8 SEC (10.9-12.4)
== END 2025-07-10 06:17 | disposition home or self-care (01) ==
LOC: HO.LABR 06:16
PROVIDERS: PCP Registered Nurse; Visit Provider Pharmacist
DX: Z95.2 Presence of prosthetic heart valve (principal)
CPT/HCPCS: 36415; 85610

== ENCOUNTER 2025-07-17 06:22 | Outpatient (REF) | payer OTHER, SELFPAY ==
--- OUTSIDE RECORDS SUMMARY | 2025-07-16 09:00 | XMS_ITS | Encounter Summary ---
Author Organization [employer] Address [address] [facility] [address] [place] [address] Care Team Providers Care Bi Tester Name Role Phone Eliza Carmona Primary Care Provider [phone] Kale Spencer MD Unavailable Encounter Details Date Type Department Care Team (Latest Contact Info) Description 07/16/2025 9:00 AM EDT Office Visit [facility] [address], [place] [phone] Eliza Carmona FNP [address], [place] [phone] Acute conjunctivitis of right eye, unspecified acute conjunctivitis type (Primary Dx); Encounter for immunization; Other restrictive cardiomyopathy (CMS/HCC); Erectile dysfunction, unspecified erectile dysfunction type; Essential hypertension; Proteinuria, unspecified type Social History Tobacco Use Types Packs/Day Years Used Date Smoking Tobacco: Never Passive Smoke Exposure: Never Smokeless Tobacco: Never Alcohol Use Standard [...] Sign Reading Time Taken Comments Blood Pressure 122/88 07/16/2025 8:53 AM EDT Pulse 81 07/16/2025 8:53 AM EDT Temperature 36.8 C (98.2 F) 07/16/2025 8:53 AM EDT Respiratory Rate 20 07/16/2025 8:53 AM EDT Oxygen Saturation 98% 07/16/2025 8:53 AM EDT Inhaled Oxygen Concentration - - Weight 64 kg (141 lb) 07/16/2025 8:53 AM EDT Height 172.7 cm (5' 8 ) 07/16/2025 8:53 AM EDT Body Mass Index 21.44 07/16/2025 8:53 AM EDT documented in this encounter Progress Notes * KELL Kearney - 07/16/2025 9:00 AM EDT Subjective: Danis Mauricio is a 59 y.o. male with a history of mitral valve repair (2016) with subsequent mitral valve replacement with mechanical valve (March 2020) on chronic coumadin, HTN, HLD, and cardiomyopathy who presents to the office for a follow up visit. Interim History: Last PCP appt: 04/16/25 Hyperlipidemia: LDL 79 mg/dL in April 2025, slightly above goal. Continues with atorvastatin 80mg daily. Increase lifestyle interventions. Consider addition of Zetia if remains above 70mg/dL. 05/16/2025: [facility] [place]. Follow-up for proteinuria. Currently on Entresto. Suspectmild proteinuria secondary to vascular etiology. Avoid NSAIDs. 05/29/25: [facility] - Dr. Martinez. F/up ED. Previously on Cialis but led to elevation of INR. Rx highdose viagra - 100mg (may use 1-2 doses) 60 minutes before sexual activity. Reports echocardiogram scheduled for August as part of annual cardiology follow-up Acute concerns: Right eye itching/redness, drainage in the AM. Onset: 3-4 days ago. Has been using ketotifen eye drops without significant improvement. Social History Social History Narrative - School/employment: Has not been employed following the mitral valve replacement d/t the dizziness. Education up to 8th grade in [place]. - Exercise: During winter, uses indoor bicycle 2-3 times per week for exercise - Diet: Tries to eat a low fat, low salt diet given cardiac history - Living: Lives with a female supervisor fiber locking (not ). Feels safe in current living situation. - Mental Health: Reports doing well overall. Has social support with family and friends Review of Systems Constitutional: Negative for chills and fever. Eyes: Positive for discharge, redness and itching. Negative for visual disturbance. Respiratory: Negative for shortness of breath and wheezing. Cardiovascular: Negative for chest pain and palpitations. Gastrointestinal: Negative for diarrhea and vomiting. Neurological: Negative for headaches. Objective Visit Vitals BP 122/88 (BP Location: Left arm, Patient Position: Sitting, BP Cuff Size: Adult) Pulse 81 Temp 98.2 ??F (36.8 ??C) (Oral) Resp 20 Ht 5' 8 (1.727 m) Wt 141 lb (64 kg) SpO2 98% BMI 21.44 kg/m?? Smoking Status Never BSA 1.75 m?? Physical Exam Vitals reviewed. Constitutional: Appearance: Normal appearance. HENT: Head: Atraumatic. Right Ear: External ear normal. Left Ear: External ear normal. Eyes: General: Left eye: No discharge. Comments: Right eye conjunctivitis. No swelling or other indication of orbital cellulitis. Cardiovascular: Rate and Rhythm: Normal rate and regular rhythm. Heart sounds: No murmur heard. Pulmonary: Effort: Pulmonary effort is normal. Breath sounds: Normal breath sounds. Neurological: Mental Status: He is alert and oriented to person, place, and time. Psychiatric: Mood and Affect: Mood normal. Behavior: Behavior normal. Assessment/Plan Problem List Items Addressed This Visit Cardiac and Vasculature Essential hypertension Current Assessment & Plan - Well controlled - Continue DASH diet and lifestyle interventions Continue current CARDs medication regimen: furosemide 20mg daily metoprolol succinate ER 50mg daily Entresto 24-26mg BID amiodarone 200mg daily atorvastatin 80mg nightly Relevant Medications metoprolol succinate XL (Toprol-XL) 50 MG 24 hr tablet furosemide (Lasix) 20 MG tablet Other restrictive cardiomyopathy (CMS/HCC) Overview Nov 2022: Nuclear Stress Test, EF 43%, no sign of ischemia Followed by [facility] - Dr. Costa [...] Relevant Medications atorvastatin (Lipitor) 80 MG tablet metoprolol succinate XL (Toprol-XL) 50 MG 24 hr tablet furosemide (Lasix) 20 MG tablet Genitourinary and Reproductive Erectile dysfunction Overview Following with [facility] (Dr. Whelan/Dr. Martinez) Current Assessment & Plan Previous tx: tadalafil (dc January 2025 d/t affecting INR levels) Consult January 2025: discussed possible Viagra PRN, but should first consult with internal grinder. Alsodiscussed alternative tx options such as surgical therapy and penile pump May 2025: plan for high dose Viagra PRN (100mg) Cont following with specialist as scheduled Proteinuria Overview Followed by [facility] - Dr. Salazar/[facility] [place] 04/09/25: normal renal US Suspected secondary to vascular etiology, advised to avoid NSAIDs Other Visit Diagnoses Acute conjunctivitis of right eye, unspecified acute conjunctivitis type - Primary - DDX: allergic vs bacterial vs viral vs other - Given hx, tx as bacterial conjunctivits. Start polytrim eye drops. F/up PRN Relevant Medications trimethoprim-polymyxin b (Polytrim) ophthalmic solution Encounter for immunization Relevant Orders FLU VACCINE TRIVALENT [id number] (Fluarix) 6 mo + (Completed) HEPATITIS B VACCINE ADULT 20 yrs + (Completed) Follow up: 3 months, sooner PRN This note was drafted using Ambient (AI) technology. The patient/patient's guardian has been informed and has consented to the use of this technology: Yes documented in this encounter Miscellaneous Notes * Assessment & Plan Note - KELL Kearney - 07/16/2025 9:25 AM EDTAssociated Problem(s): Other restrictive cardiomyopathy (CMS/HCC) -Continue DASH [...] with any concerns or worsening of symptoms * Assessment & Plan Note - KELL Kearney - 07/16/2025 9:25 AM EDTAssociated Problem(s): Essential hypertension - Well controlled - Continue DASH diet and lifestyle interventions Continue current CARDs medication regimen: furosemide 20mg daily metoprolol succinate ER 50mg daily Entresto 24-26mg BID amiodarone 200mg daily atorvastatin 80mg nightly * Assessment & Plan Note - KELL Kearney - 07/16/2025 9:24 AM EDTAssociated Problem(s): Erectile dysfunction Previous tx: tadalafil (dc January 2025 d/t affecting INR levels) Consult January 2025: discussed possible Viagra PRN, but should first consult with internal grinder. Alsodiscussed alternative tx options such as surgical therapy and penile pump May 2025: plan for high dose Viagra PRN (100mg) Cont following with specialist as scheduled documented in this encounter Plan of Treatment Not on file documented as of this encounter Visit Diagnoses Diagnosis Acute conjunctivitis of right eye, unspecified acute conjunctivitis type- Primary Encounter for immunization Other restrictive cardiomyopathy (CMS/HCC) Erectile dysfunction, unspecified erectile dysfunction type Essential hypertension Unspecified essential hypertension Proteinuria, unspecified type documented in this encounter Additional Health Concerns Assessment Noted Time PHQ-9 Depression Total Score: 3 11/03/19 25 1:27 PM EST documented as of this encounter Care Teams Bi Tester Relationship Specialty Start Date End Date Eliza Carmona FNP [address] [place] [phone] PCP - General Family Medicine 08/15/21 Kale Spencer MD [address] [facility] [address] [place] [phone] Urology 11/03/24 documented as of this encounter
--- OUTSIDE RECORDS SUMMARY | 2025-07-17 06:24 | XMS_ITS | Encounter Summary ---
Author Organization [employer] Address [address] [facility] [address] [facility] [address] [place] [address] Care Team Providers Care Gis Software Developer Name Role Phone Eliza Carmona KELL Primary Care Provider [phone] Kale Spencer MD Unavailable Encounter Details Date Type Department Care Team (Late st Contact Info) Description 07/03/2024 Orders Only [facility] [address] [place], [place] [phone] Provider, MD Shakira Social History Tobacco Use [...] Prothrombin Time 31.1(H) 10.9 - 12.4 SEC [facility] INTERNATIONAL NORM RATIO 2.7(H) 0.9 - 1.1 [facility] Comment:INTERNATIONAL NORMAL IZED RATIO (INR) [...] ORDERAB LES Final Result Performing Organization Address [facility] de Phone Number [facility] [address] [place] [phone] * Immunofixation (NATHALIE), Urine (03/21/2025 7:13 AM EDT) Pathologist [facility] NATHALIE Interpretation SEE NOTE H [facility] Comment:Normal pattern. No m onoclonal proteins detected.The supplier of the testing reagents for this assayhas changed. Detection of small monoclonal proteins mayvary by test system.THIS TEST WAS PERFORMED AT:[facility] [address] [id number] SOTO MD 03/21/2025 7:13 AM EDT 03/21/2025 7:46 AM EDT Generic External Data Provider LAB URINE ORDERAB LES Final Result Performing Organization Address [facility] Co de Phone Number [facility] [address] [place] [phone] * Protein Creatinine Ratio, Urine (03/21/2025 7:13 AM EDT) Creatinine, Urine 166.98 mg/dL [facility] Protein, Total, Random Urine 12 <12 mg/dL [facility] Protein/Creati nine Ratio, Ur 0.07 <0.2 [facility] Comment:The spot urine prote in:creatinine ratio may increase to 0.3during normal . 03/21/2025 7:13 AM EDT 03/21/2025 7:46 AM EDT Generic External Data Provider LAB URINE ORDERAB LES Final Result Performing Organization Address City/[facility]/ZIP Co de Phone Number [facility] [address] [place] [phone] * Testosterone, Free (Dialysis) And Total, [place] (09/11/2024 7:20 AM EST) Testosterone, Total 555 250 - 1100 ng/dL [facility] Comment:For additional infor isai, please refer [email or web address]/[email or web address](This link is being provided for informational/educational purposes only.)This test was developed and its analytical performancecharacteristics have been determined by [facility] [place] It hasnot been cleared or approved by the U.S. Food and DrugAdministration. This assay has been validated pursuantto the CLIA regulations and is used for clinicalpurposes. Testosterone, Free 97.1 35.0 - 155.0 pg/mL [facility] Comment:This test was develo ped and its analytical performancecharacteristics have been determined by [facility] [place], [place]. It hasnot been cleared or approved by the U.S. Food and DrugAdministration. This assay has been validated pursuantto the CLIA regulations and is used for clinicalpurposes.THIS TEST WAS PERFORMED AT:[facility]/[id number] [place] [id number] DUBOIS MD,PHD 09/11/2024 7:20 AM EST 09/11/2024 7:20 AM EST us Generic External Data Provider LAB BLOOD ORDERAB LES Final Result [facility] [address] [place] [phone] * Prolactin (09/11/2024 7:20 AM EST) Prolactin 18.0 2.0 - 18.0 ng/mL [facility] Comment:THIS TEST WAS PERFOR MED AT:[facility] [address] [id number] SOTO MD 09/11/2024 7:20 AM EST 09/11/2024 7:20 AM EST Generic External Data Provider LAB BLOOD ORDERAB LES Final Result Performing Organization Address [facility] Co de Phone Number [facility] [address] [place] [phone] * LH (09/11/2024 7:20 AM EST) Lutenizing Hormone 4.5 1.5 - 9.3 mIU/mL [facility] Comment:THIS TEST WAS PERFOR MED AT:[facility] [address] [id number] SOTO MD 09/11/2024 7:20 AM EST 09/11/2024 7:20 AM EST us Generic External Data Provider LAB BLOOD ORDERAB LES Final Result Performing Organization Address City/[facility] Co de Phone Number [facility] [address] [place] [phone] * FSH (09/11/2024 7:20 AM EST) Follicle Stimulating Hormone 5.6 1.4 - 12.8 mIU/mL [facility] Comment:THIS TEST WAS PERFOR MED AT:[facility] [address] [id number] SOTO MD 09/11/2024 7:20 AM EST 09/11/2024 7:20 AM EST us Generic External Data Provider LAB BLOOD ORDERAB LES Final Result Performing Organization Address [facility]/ZIP Co de Phone Number [facility] [address] [place] [phone] * PSA, Total With Reflex to PSA, Free (09/11/2024 7:20 AM EST) PSA,Total (Free>4and<10) 0.56 0.00 - 4.00 ng/mL [facility] Comment:A Free PSA was not [...] ORDERAB LES Final Result Performing Organization Address [facility] Co de Phone Number [facility] [address] [place] [phone] * Glucose (09/11/2024 7:20 AM EST) Glucose Fasting 96 60 - 99 mg/dL [facility] 09/11/2024 7:20 AM EST 09/11/2024 7:20 AM EST us Generic External Data Provider LAB BLOOD ORDERAB LES Final Result Performing Organization Address [facility]/ZIP Co de Phone Number [facility] [address] [place] [phone] * Hm Colonoscopy (03/06/2021 2:24 PM EDT) us Historical Provider HEALTH MAINTENANCE Final Result documented in this encounter Visit Diagnoses Not on filedocumented in this encounter Additional Health Concerns Assessment Noted Time PHQ-9 Depression Total Score: 7 08/13/20 23 9:49 AM EDT documented as of this encounter Care Teams Gis Software Developer Relationship Specialty Start Date End Date Eliza Carmona FNP [address] [place] [phone] PCP - General Family Medicine 08/15/21 Kale Spencer MD [address] [place] [address] [address] [place] [address] Urology 11/03/24 documented as of this encounter
--- OUTSIDE RECORDS SUMMARY | 2025-07-17 06:24 | XMS_ITS | Encounter Summary ---
Author Organization [employer] Address [address] [place] [address] Care Team Providers Care Splicing Machine Operator Name Role Phone Eliza Carmona KELL Primary Care Provider [phone] Kale Spencer MD Unavailable Encounter Details Date Type Department Care Team (Late st Contact Info) Description 10/12/2022 Orders Only [facility] [address] [place] [address] Joellen Broussard LPN Social History Tobacco Use [...] Prothrombin Time 29.4(H) 11.1 - 13.3 SEC [facility] INTERNATIONAL NORM RATIO 2.4(H) 0.9 - 1.1 [facility] Comment:INTERNATIONAL NORMAL IZED RATIO (INR) REFERENCE [...] ORDERAB LES Final Result Performing Organization Address City/[facility]/ZIP Co de Phone Number [facility] [address] [place] [phone] * (ABNORMAL) Prothrombin Time-INR (04/01/2023 6:27 AM EDT) Prothrombin Time 31.1(H) 10.0 - 13.1 [facility] INTERNATIONAL NORM RATIO 2.6(H) 0.9 - 1.1 [facility] Comment:INTERNATIONAL NORMAL IZED RATIO (INR) REFERENCE [...] 6:27 AM EDT 04/01/2023 6:27 AM EDT [facility] External Provider LAB BLO OD ORDERABLES Final Result Performing Organization Address [facility] Co de Phone Number [facility] [address] [place] [phone] * (ABNORMAL) Prothrombin Time-INR (03/17/2023 6:43 AM EDT) Prothrombin Time 34.2(H) 10.0 - 13.1 [facility] INTERNATIONAL NORM RATIO 2.9(H) 0.9 - 1.1 [facility] Comment:INTERNATIONAL NORMAL IZED RATIO (INR) REFERENCE [...] 6:43 AM EDT 03/17/2023 6:43 AM EDT [facility] External Provider LAB BLO OD ORDERABLES Final Result Performing Organization Address [facility] de Phone Number [facility] [address] [place] [phone] * (ABNORMAL) Prothrombin Time-INR (03/03/2023 6:54 AM EDT) Prothrombin Time 34.1(H) 10.0 - 13.1 [facility] INTERNATIONAL NORM RATIO 2.8(H) 0.9 - 1.1 [facility] Comment:INTERNATIONAL NORMAL IZED RATIO (INR) REFERENCE [...] 6:54 AM EDT 03/03/2023 6:54 AM EDT [facility] External Provider LAB BLO OD ORDERABLES Final Result Performing Organization Address [facility] de Phone Number [facility] [address] [place] [phone] * (ABNORMAL) Prothrombin Time-INR (02/17/2023 6:36 AM EDT) Prothrombin Time 33.8(H) 10.0 - 13.1 [facility] INTERNATIONAL NORM RATIO 2.8(H) 0.9 - 1.1 [facility] Comment:INTERNATIONAL NORMAL IZED RATIO (INR) REFERENCE [...] 6:36 AM EDT 02/17/2023 6:36 AM EDT [facility] External Provider LAB BLO OD ORDERABLES Final Result Performing Organization Address City/[facility] Co de Phone Number [facility] [address] [place] [address] [phone] * (ABNORMAL) Prothrombin Time-INR (02/10/2023 6:43 AM EDT) Prothrombin Time 37.0(H) 10.0 - 13.1 [facility] INTERNATIONAL NORM RATIO 3.1(H) 0.9 - 1.1 [facility] Comment:INTERNATIONAL NORMAL IZED RATIO (INR) REFERENCE [...] 6:43 AM EDT 02/10/2023 6:43 AM EDT [facility] External Provider LAB BLO OD ORDERABLES Final Result Performing Organization Address City/[facility] Co de Phone Number [facility] [address] [place] [address] [phone] * (ABNORMAL) Prothrombin Time-INR (01/29/2023 6:54 AM EDT) Prothrombin Time 32.5(H) 10.0 - 13.1 [facility] INTERNATIONAL NORM RATIO 2.7(H) 0.9 - 1.1 [facility] Comment:INTERNATIONAL NORMAL IZED RATIO (INR) REFERENCE [...] 6:54 AM EDT 01/29/2023 6:54 AM EDT [facility] External Provider LAB BLO OD ORDERABLES Final Result Performing Organization Address [facility] de Phone Number [facility] [address] [place] [phone] * (ABNORMAL) Prothrombin Time-INR (01/26/2023 7:01 AM EDT) Prothrombin Time 22.4(H) 10.0 - 13.1 [facility] INTERNATIONAL NORM RATIO 1.9(H) 0.9 - 1.1 [facility] Comment:INTERNATIONAL NORMAL IZED RATIO (INR) REFERENCE [...] 7:01 AM EDT 01/26/2023 7:01 AM EDT [facility] External Provider LAB BLO OD ORDERABLES Final Result Performing Organization Address [facility] de Phone Number [facility] [address] [place] [phone] * (ABNORMAL) Prothrombin Time-INR (01/12/2023 7:14 AM EDT) Prothrombin Time 36.4(H) 10.0 - 13.1 [facility] INTERNATIONAL NORM RATIO 3.0(H) 0.9 - 1.1 [facility] Comment:INTERNATIONAL NORMAL IZED RATIO (INR) REFERENCE [...] 7:14 AM EDT 01/12/2023 7:14 AM EDT [facility] External Provider LAB BLO OD ORDERABLES Final Result Performing Organization Address City/State/[facility] Co de Phone Number [facility] [address] [place] [phone] * (ABNORMAL) Prothrombin Time-INR (12/29/2022 7:02 AM EST) Prothrombin Time 35.3(H) 10.0 - 13.1 [facility] INTERNATIONAL NORM RATIO 2.9(H) 0.9 - 1.1 [facility] Comment:INTERNATIONAL NORMAL IZED RATIO (INR) REFERENCE [...] 7:02 AM EST 12/29/2022 7:02 AM EST [facility] External Provider LAB BLO OD ORDERABLES Final Result Performing Organization Address [facility] Co de Phone Number [facility] [address] [place] [phone] * (ABNORMAL) Prothrombin Time-INR (12/22/2022 7:14 AM EST) Prothrombin Time 39.4(H) 10.0 - 13.1 SEC [facility] INTERNATIONAL NORM RATIO 3.3(H) 0.9 - 1.1 [facility] Comment:INTERNATIONAL NORMAL IZED RATIO (INR) REFERENCE [...] 7:14 AM EST 12/22/2022 7:15 AM EST [facility] External Provider LAB BLO OD ORDERABLES Final Result Performing Organization Address [facility] de Phone Number [facility] [address] [place] [phone] * (ABNORMAL) Prothrombin Time-INR (12/15/2022 6:41 AM EST) Prothrombin Time 41.0(H) 10.0 - 13.1 SEC [facility] INTERNATIONAL NORM RATIO 3.4(H) 0.9 - 1.1 [facility] Comment:INTERNATIONAL NORMAL IZED RATIO (INR) REFERENCE [...] 6:41 AM EST 12/15/2022 6:41 AM EST [facility] External Provider LAB BLO OD ORDERABLES Final Result Performing Organization Address [facility] Co de Phone Number [facility] [address] [place] [phone] * (ABNORMAL) Prothrombin Time-INR (12/08/2022 6:48 AM EST) Prothrombin Time 29.0(H) 10.0 - 13.1 [facility] INTERNATIONAL NORM RATIO 2.4(H) 0.9 - 1.1 [facility] Comment:INTERNATIONAL NORMAL IZED RATIO (INR) REFERENCE [...] 6:48 AM EST 12/08/2022 6:50 AM EST [facility] External Provider LAB BLO OD ORDERABLES Final Result Performing Organization Address [facility] Co de Phone Number [facility] [address] [place] [phone] * (ABNORMAL) Prothrombin Time-INR (12/01/2022 6:43 AM EST) Prothrombin Time 31.3(H) 10.0 - 13.1 [facility] INTERNATIONAL NORM RATIO 2.6(H) 0.9 - 1.1 [facility] Comment:INTERNATIONAL NORMAL IZED RATIO (INR) REFERENCE [...] 6:43 AM EST 12/01/2022 6:43 AM EST [facility] External Provider LAB BLO OD ORDERABLES Final Result Performing Organization Address [facility] Co de Phone Number [facility] [address] [place] [phone] * (ABNORMAL) Prothrombin Time-INR (11/26/2022 6:42 AM EST) Prothrombin Time 26.3(H) 10.0 - 13.1 SEC [facility] INTERNATIONAL NORM RATIO 2.2(H) 0.9 - 1.1 [facility] Comment:INTERNATIONAL NORMAL IZED RATIO (INR) REFERENCE [...] 6:42 AM EST 11/26/2022 6:43 AM EST [facility] External Provider LAB BLO OD ORDERABLES Final Result Performing Organization Address [facility] de Phone Number [facility] [address] [place] [address] [phone] documented in this encounter Visit Diagnoses Not on filedocumented in this encounter Care Teams Splicing Machine Operator Relationship Specialty Start Date End Date Eliza Carmona FNP [address] [place] [phone] PCP - General Family Medicine 08/15/21 Kale Spencer MD [address] [place], [place] [phone] Urology 11/03/24 documented as of this encounter
--- OUTSIDE RECORDS SUMMARY | 2025-07-17 06:24 | XMS_ITS | Clinical Summary ---
Author Organization [employer] Address [address] [place] [address] Care Team Providers Care Sales Representative Supervisor Name Role Phone Eliza Carmona KELL Primary Care Provider [phone] Kale Spencer MD Unavailable Allergies No known active allergies Medications amiodarone (Pacerone) 200 MG tablet Take 200 mg by mouth in the morning. Active aspirin (Scott Low Dose) 81 MG EC tablet Take 1 tablet by mouth in the morning. Active chlorhexidine (Peridex) 0.12 % solution SWISH 15 ML'S IN MOUTH FOR 30 SECONDS THEN SPIT OUT 2 TIMES A DAY AFTER MEALS Active sacubitril-valsar alcantar (Entresto) 24-26 MG tablet Take 1 tablet by mouth every 12 (twelve) hours. Active warfarin (Coumadin) 5 MG tablet TAKE 1 TABLET BY MOUTH DAILY,INSTR:A S DIRECTED BY THE COUMADIN CLINIC Active lidocaine (Lidoderm) 5 % patchIndications: Upper back pain on right side Apply 1 patch topically in the morning. Remove & discard patch within 12 hours or as directed by . 30 patch 3 Active acetaminophen (Tylenol) 325 MG tabletIndications :Upper back pain on right side Take 1-2 tablets every 6 hours as needed for pain or fever 100 tablet 1 Active tadalafil (Cialis) 5 MG tablet Take 1 tablet by mouth Once per day. Active docusate sodium (Colace) 100 MG capsuleIndication s:Constipation, unspecified constipation type Take 1 capsule (100 mg) by mouth if needed in the morning and at bedtime for constipation. 180 capsule 3 Active fluticasone (Flonase) 50 MCG/ACT nasal sprayIndications: Seasonal allergies Administer 1 spray into each nostril if needed each day (nasal congestion or sensation of ear fullness). Shake gently. Before first use, prime pump. After use, clean tip and replace cap. 48 mL 3 025 2025 Active Ketotifen Fumarate 0.035 % solutionIndicatio ns:Seasonal allergies Administer 1 drop into both eyes if needed in the morning and at bedtime (seasonal alleriges). 10 mL 2 Active atorvastatin (Lipitor) 80 MG tabletIndications :Other restrictive cardiomyopathy (CMS/HCC) TAKE 1 TABLET BY MOUTH EVERY DAY 90 tablet 1 Active metoprolol succinate XL (Toprol-XL) 50 MG 24 hr tabletIndications :Other restrictive cardiomyopathy (CMS/HCC) TAKE 1 TABLET BY MOUTH EVERY DAY 90 tablet 3 Active furosemide (Lasix) 20 MG tabletIndications :Other restrictive cardiomyopathy (CMS/HCC) Take 1 tablet (20 mg) by mouth Once per day. 90 tablet Active trimethoprim-poly myxin b (Polytrim) ophthalmic solutionIndicatio ns:Acute conjunctivitis of right eye, unspecified acute conjunctivitis type Administer 1 drop into the right eye 4 times daily for 5 days. 10 mL 025 Active furosemide (Lasix) 20 MG tablet Take 20 mg by mouth in the morning. 022 2024 Discontinued(R eorder (will not trigger notification to Pharmacy)) metoprolol succinate XL (Toprol-XL) 50 MG 24 hr tabletIndications :Palpitations TAKE 1 TABLET BY MOUTH EVERY DAY 90 tablet 3 025 2024 Discontinued(R eorder (will not trigger notification to Pharmacy)) atorvastatin (Lipitor) 80 MG tabletIndications :Other restrictive cardiomyopathy (CMS/HCC) TAKE 1 TABLET BY MOUTH EVERY DAY 90 tablet 1 025 2024 Discontinued(R eorder (will not trigger notification to Pharmacy)) Active Problems Problem Noted Date Diagnosed Date Seasonal allergies 04/16/2025 Assessment & Plan (04/16/2025 9:21 AM EDT): - Flonase (Intranasal) and ketotifen (eye drops) PRN Proteinuria 04/16/2025 Overview (07/16/2025): [place] [facility] - Dr. aSlazar/ALLY Bolton 04/09/25: normal renal US Suspected secondary to vascular etiology, advised to avoid NSAIDs Erectile dysfunction 11/03/2024 Overview (07/16/2025): Following with [facility] (Dr. Whelan/Dr. Martinez) Assessment & Plan (07/16/2025 9:24 AM EDT): Previous tx: tadalafil (dc January 2025 d/t affecting INR levels) Consult January 2025: discussed possible Viagra PRN, but should first consult with distribution driver. Also discussed alternative tx options such as surgical therapy and penile pump May 2025: plan for high dose Viagra PRN (100mg) Cont following with specialist as scheduled Assessment & Plan (04/16/2025 9:25 AM EDT): Previous tx: tadalafil (dc January 2025 d/t affecting INR levels) Consult January 2025: discussed possible Viagra PRN, but should first consult with distribution driver. Also discussed alternative tx options such as surgical therapy and penile pump Cont following with specialist as scheduled Assessment & Plan (11/03/2024 1:42 PM EST): Cont current therapy Constipation 03/14/2024 Assessment & Plan (03/14/2024 8:05 AM EDT): -Cont Colace BID PRN -Encourage fiber-rich diet and adequate hydration Routine health maintenance 03/08/2023 Overview (04/16/2025): Optometry: [facility] 03/12/22 Dental: [facility] Dental Colonoscopy: 02/06/21 [place] [facility] [place]. Bar[place]. Repeat 10 years Assessment & Plan (08/15/2023 6:17 PM EDT): Optometry: [facility]EE 03/12/22 Dental: pt to present to [facility] Dental after today's appt to request scheduling for tooth extraction. Colonoscopy: completed January 2021 - due January 2031 COVID-19 Vaccine: primary series complete, boosted x 1. Encouraged updated booster. Flu and pneumococcal vaccines administered today. VIS sheets provided. Assessment & Plan (03/08/2023 9:32 AM EDT): Optometry: [facility]EE 03/12/22 Dental: pt to present to [facility] Dental after today's appt to request scheduling for tooth extraction. Pre-op completed Aril 2021 Colonoscopy: completed January 2021 - due January 2031 COVID-19 Vaccine: primary series complete, boosted x 1. Encouraged bivalent booster. History of Coumadin therapy 03/08/2023 Overview (08/15/2023): Managed by [facility] Per Cards consult note March 2023 Dr. Costa: For dental procedures should have abx prophylactic, but does NOT need to stop coumadin. Essential hypertension 10/26/2022 Assessment & Plan (07/16/2025 9:25 AM EDT): - Well controlled - Continue DASH diet and lifestyle interventions Continue current CARDs medication regimen: furosemide 20mg daily metoprolol succinate ER 50mg daily Entresto 24-26mg BID amiodarone 200mg daily atorvastatin 80mg nightly Assessment & Plan (06/13/2024 11:09 AM EDT): [...] 43%, no sign of ischemia Followed by [facility] - Dr. Costa 08/29/24: [facility] - ordered by Dr. Costa. Stable compared to previous. EF 50-55%. Mild-to-mod tricuspid regurgitation present, no evidence of pulm HTN. Assessment & Plan (07/16/2025 9:25 AM EDT): -Continue DASH diet -Continue current CARDs regimen: furosemide 20mg daily sacubetril-valsartan 24-26mg tablet BID (provider will call office to request that med be sent to [facility] pharmacy) metoprolol succinate ER 50mg daily aspirin 81mg daily amiodarone 200mg daily atorvastatin 80mg at daily (forgot to take when at bedtime) LDL goal < 70 -Monitor BP daily and when symptomatic. Call office with any concerns or worsening of symptoms Assessment & Plan (11/03/2024 1:40 PM EST): -Continue DASH diet -Continue current CARDs regimen: furosemide 20mg daily sacubetril-valsartan 24-26mg tablet BID (provider will call office to request that med be sent to [facility] pharmacy) metoprolol succinate ER 50mg daily [...] to request that med be sent to [facility] pharmacy) metoprolol succinate ER 50mg daily [...] Encounters Date Type Department Care Team Description 07/16/2025 9:00 AM EDT Office Visit [facility] [address] [place] [address] Eliza Carmona FNP Acute conjunctivitis of right eye, unspecified acute conjunctivitis type (Primary Dx); Encounter for immunization; Other restrictive cardiomyopathy (CMS/HCC); Erectile dysfunction, unspecified erectile dysfunction type; Essential hypertension; Proteinuria, unspecified type 07/16/2025 Travel 07/13/2025 Telephone [facility] [address] [place] [address] Eliza Carmona FNP Chart Prep 05/11/2025 Results Follow-Up [facility] [address] [place] [address] Eliza Carmona FNP Lipid Panel, Standard 04/25/2025 Refill [facility] [address] [place] [address] Eliza Carmona FNP Other restrictive cardiomyopathy (CMS/HCC) 04/16/2025 9:00 AM EDT Office Visit [facility] [address] [place] [address] Eliza Carmona FNP Hyperlipidemia, unspecified hyperlipidemia type (Primary Dx); Routine health maintenance; Erectile dysfunction, unspecified erectile dysfunction type; Encounter for immunization; Constipation, unspecified constipation type; Acute conjunctivitis of left eye, unspecified acute conjunctivitis type; Seasonal allergies; Proteinuria, unspecified type 04/16/2025 Travel from Last 3 Months Immunizations Immunization Administration Dates Next Due Hep B, adult 07/16/2025,04/16/2025,11/03/2024 Influenza injectable quadriv alent preservative free 08/13/2023,08/10/2022,06/28/2020,08/28,08/09/2017 Influenza, seasonal, injecta ble, preservative free 07/16/2025,11/03/2024 Pneumococcal Conjugate PCV 20 08/13/2023 Pneumococcal Polysaccharide [...] Mass Index 21.44 07/16/2025 8:53 AM EDT Plan of Treatment Health Maintenance Due Date Last Done Comments CT Colonography 1965 FIT DNA/Cologuard 1965 FIT 1965 FOBT 1965 Sigmoidoscopy 1965 Dental X-Ray: Bitewings 01/20/2023 01/19/2022, 05/18 Dental Oral Exam 07/30/2024 01/28/2024, , 01/19/2022, Additional history exists Dental Prophylaxis 08/26/2024 02/23/2024 Dental X-Ray: Full Mouth 01/20/2025 01/19/2022, 04/25 COVID-19 Vaccine ( season) 2025 01/19/2022, 06/03/2021, 05/13/2021 Alcohol/Substance Use Screening 11/03/2025 11/03/2024 Depression Screening [...] 11/11/2021 Hepatitis C Screening Completed 06/27/2024, 022 Hepatitis B Vaccines Completed 07/16/2025, 04/16/2025, 11/03/2024 Influenza Vaccine Completed 07/16/2025, , 08/13/2023, Additional history exists HIB Vaccines Aged Out [...] 7:04 AM EDT Hyperlipidemia, unspecified hyperlipidemia type HEPATITIS C VIRAL RNA, QUANTITATIVE, REAL-TIME PCR [...] 7:04 AM EDT) Triglycerides 115 <150 mg/dL [facility] Comment:Desirable Triglyceri de: less than 150 mg/dLBorderline High Triglyceride 150-199 mg/dLHigh Triglyceride: 200-499 mg/dLVery High Triglyceride: greater than or equal to 5OO mg/dL Cholesterol 140 <200 mg/dL [facility] Comment:Desirable Cholestero l: less than 200 mg/dLBorderline High Cholesterol: 200-239 mg/dLHigh Cholesterol: greater than 239 mg/dL LDL Cholesterol Calculated 79 <100 mg/dL [facility] Comment:Desirable LDL: less than 100 mg/dLNear Optimal/Above Optimal LDL: 110- 129 mg/dLBorderline High LDL: 130-159 mg/dLHigh LDL: 160-189 mg/dLVery High LDL: greater than or equal to 190 mg/dL HDL Cholesterol 38(L) >40 mg/dL [facility] Comment:Desirable HDL: great er than 40 mg/dL Note: This HDL assay may give artificially low results in patients with liver disease. Blood Venous blood specimen / Unknown 05/08/2025 7:04 AM EDT 05/08/2025 7:04 AM EDT us Eliza Carmona DISTRIBUTION ENGINEERING TECHNOLOGIST LAB BLOOD ORDERABLES Final Res ult [facility] [address] [place], [place] [phone] * Hepatitis C Viral RNA, Quantitative, Real-Time PCR (06/27/2024 6:57 AM EDT) Hepatitis C Viral Load <15 NOT DETECTED NOT DETECTED IU/mL [facility] HCV Log PCR <1.18 NOT DETECTED NOT DETECTED Log IU/mL [facility] Comment:For additional infor isai, please refer tohttp://education.BetterYou/faq/[email or web address](This link is being provided for informational/educational purposes only.)THIS TEST WAS PERFORMED AT:[email or web address] [place] [id number] SOTO MD Blood 06/27/2024 6:57 AM EDT 06/27/2024 7:03 AM EDT Eliza Carmona DISTRIBUTION ENGINEERING TECHNOLOGIST LAB BLOOD ORDERABLES Final Res ult Performing Organization Address [facility] Co de Phone Number [facility] [address] [place] [phone] * HIV-1/2 Antigen and Antibodies, Fourth Generation, with Reflexes (06/27/2024 6:57 AM EDT) HIV AB/AG Nonreactive Nonreactive [facility] Comment:HIV-1 p24 Ag and/or HIV-1/HIV-2 Ab not detected.A test result that is nonreactive does not exclude thepossibility of exposure to or infection with HIV-1 and/orHIV-2. Nonreactive results in this assay for individualswith prior exposure to HIV-1 and/or HIV-2 may be due toantigen and antibody levels that are below the limit ofdetection of this assay.The [employer] HIV Ag/Ab Combo assay result andsupplemental assay results should be interpreted inconjunction with the patient's clinical presentation,history and other laboratory results. If the results areinconsistent with clinical evidence, additional testing issuggested to confirm the result. Blood Venous blood specimen / Unknown 06/27/2024 6:57 AM EDT 06/27/2024 7:03 AM EDT us Eliza Carmona DISTRIBUTION ENGINEERING TECHNOLOGIST LAB BLOOD ORDERABLES Final Res ult Performing Organization Address [facility]/ZIP Co de Phone Number [facility] [address] [place] [address] [phone] * Hm Colonoscopy (03/06/2021 2:24 PM EDT) us Historical Provider MD HEALTH MAINTENANCE Final Result from Last 3 Months or Most Recently Relevant to Health Maintenance Insurance [facility] < [address] [id number] [place] STAND ADULT DENTAL - [facility] Care Teams Sales Representative Supervisor Relationship Specialty Start Date End Date Eliza Carmona FNP [address] [place] [phone] PCP - General Family Medicine 08/15/21 Kale Spencer MD [address] [place] [address] Urology 11/03/24
--- OUTSIDE RECORDS SUMMARY | 2025-07-17 06:24 | XMS_ITS | Encounter Summary ---
Author Organization [employer] Address [address] [facility] 7t [place] [address] Care Team Providers Care Cfo Name Role Phone Eliza Carmona Primary Care Provider [phone] Kale Spencer MD Unavailable Reason for Visit * Reason Comments Med Refill Encounter Details Date Type Department Care Team ([facility] st Contact Info) Description 01/30/2023 Refill [facility] CHC MED & PEDS [address] [place] [address] Allyssa Yoo FNP Nasal congestion Social History [...] sinuses documented in this encounter Care Teams Cfo Relationship Specialty Start Date End Date Eliza Carmona FNP [address] [place] [address] PCP - General Family Medicine 08/15/21 Kale Spencer MD [address] [place] [address] Urology 11/03/24 documented as of this encounter
--- OUTSIDE RECORDS SUMMARY | 2025-07-17 06:24 | XMS_ITS | Encounter Summary ---
Author Organization [employer] Address 75 [facility] 7t [place] [address] Care Team Providers Care Marine Engine Machinist Name Role Phone Eliza Carmona Primary Care Provider [phone] Kale Spencer MD Unavailable Reason for Visit * Reason Onset Date Comments Chart Prep 07/13/2025 Encounter Details Date Type Department Care Team ([facility] Contact Info) Description 07/13/2025 Telephone [facility] CHC MED & PEDS [address] [place], [place] [phone] Eliza Carmona FNP [address] [place], [place] [phone] Chart Prep Social History Tobacco Use Types Packs/Day Years [...] enough money to get more: Never True 01/ 07/2025 Transportation Answer Date Recorded In the [...] encounter Miscellaneous Notes * Telephone Encounter - Jessica Coleman [place] - 07/13/2025 1:05 PM EDT Chart Prep Labs: done Images: done Referrals: complete Vaccines due: due Screenings: not applicable Overdue care gaps: Not applicable documented in this encounter Plan of Treatment Not on file documented as of this encounter Visit Diagnoses Not on filedocumented in this encounter Additional Health Concerns Assessment Noted Time PHQ-9 Depression Total Score: 3 11/03/19 25 1:27 PM EST documented as of this encounter Care Teams Marine Engine Machinist Relationship Specialty Start Date End Date Eliza Carmona FNP [address] [place] [phone] PCP - General Family Medicine 08/15/21 Kale Spencer MD [address] [place] [address] [address] [place] [phone] Urology 11/03/24 documented as of this encounter
--- OUTSIDE RECORDS SUMMARY | 2025-07-17 06:24 | XMS_ITS | Encounter Summary ---
Author Organization [employer] Address 75 [facility] 7t [place] [address] Care Team Providers Care Training Development Specialist Name Role Phone Eliza Carmona Primary Care Provider [phone] Kale Spencer MD Unavailable Reason for Visit * Reason Comments Med Refill Encounter Details Date Type Department Care Team ([facility] Contact Info) Description 03/13/2023 Refill [facility] CHC MED & PEDS [address] [place], [place] [phone] Eliza Carmona FNP [address] [place], [place] [phone] Nasal congestion Social History Tobacco Use Types [...] sinuses documented in this encounter Care Teams Training Development Specialist Relationship Specialty Start Date End Date Eliza Carmona FNP [address] [place] [address] PCP - General Family Medicine 08/15/21 Kale Spencer MD [address] [place] [address] Drive [address] [place] [address] Urology 11/03/24 documented as of this encounter
--- OUTSIDE RECORDS SUMMARY | 2025-07-17 06:24 | XMS_ITS | Encounter Summary ---
Author Organization [employer] Address 75 [facility] 7t [place] [address] Care Team Providers Care Boarder Machine Name Role Phone Eliza Carmona KELL Primary Care Provider [phone] Kale Spencer MD Unavailable Encounter Details Date Type Department Care Team (Latest Contact Info) Description 07/16/2025 Travel Social History Tobacco Use Types Packs/Day [...] documented as of this encounter Care Teams Boarder Machine Relationship Specialty Start Date End Date Eliza Carmona FNP [address] [place] [phone] PCP - General Family Medicine 08/15/21 Kale Spencer MD [address] [place] [address] Drive [address] [place] [address] Urology 11/03/24 documented as of this encounter
[2025-07-17 07:50] LABS: INTERNATIONAL NORM RATIO 2.7 (0.9-1.1); Prothrombin Time 31.3 SEC (10.9-12.4)
== END 2025-07-17 06:23 | disposition home or self-care (01) ==
LOC: HO.LABR 06:22
PROVIDERS: Pharmacist; PCP Registered Nurse; Visit Provider Pharmacist
DX: Z95.2 Presence of prosthetic heart valve (principal)
CPT/HCPCS: 36415; 85610

== ENCOUNTER 2025-07-31 06:30 | Outpatient (REF) | payer OTHER, SELFPAY ==
--- OUTSIDE RECORDS SUMMARY | 2025-07-31 06:33 | XMS_ITS | Encounter Summary ---
Author Organization [employer] Address 75 [facility] 7t [place] [address] Care Team Providers Care Pulpwood Contractor Name Role Phone Eliza Carmona Primary Care Provider [phone] Kale Spencer MD Unavailable Reason for Visit * Reason Comments Med Refill Encounter Details Date Type Department Care Team ([facility] st Contact Info) Description 01/30/2023 Refill [facility] CHC MED & PEDS [address] [place] [address] Allyssa Yoo FNP Nasal congestion Social History [...] sinuses documented in this encounter Care Teams Pulpwood Contractor Relationship Specialty Start Date End Date Eliza Carmona FNP [address] [place] [address] PCP - General Family Medicine 08/15/21 Kale Spencer MD [address] [place] [address] Urology 11/03/24 documented as of this encounter
--- OUTSIDE RECORDS SUMMARY | 2025-07-31 06:33 | XMS_ITS | Encounter Summary ---
Author Organization [employer] Address 75 [facility] 7t [place] [address] Care Team Providers Care Television Repairer Name Role Phone Eliza Carmona Primary Care Provider [phone] Kale Spencer MD Unavailable Reason for Visit * Reason Comments Med Refill Encounter Details Date Type Department Care Team ([facility] Contact Info) Description 03/13/2023 Refill [facility] CHC MED & PEDS [address] [place], [place] [phone] Eliza Carmona FNP [address] [place], [place] [phone] Nasal congestion Social History Tobacco Use Types [...] sinuses documented in this encounter Care Teams Television Repairer Relationship Specialty Start Date End Date Eliza Carmona FNP [address] [place] [address] PCP - General Family Medicine 08/15/21 Kale Spencer MD [address] [place] [address] Drive [address] [place] [address] Urology 11/03/24 documented as of this encounter
--- OUTSIDE RECORDS SUMMARY | 2025-07-31 06:33 | XMS_ITS | Encounter Summary ---
Author Organization [employer] Address [address] [facility] [address] 7t [place] [address] Care Team Providers Care Soda Dry House Operator Name Role Phone Eliza Carmona KELL Primary Care Provider [phone] Kale Spencer MD Unavailable Encounter Details Date Type Department Care Team (Late st Contact Info) Description 07/03/2024 Orders Only [facility] CHC MED & PEDS [address] [place], [place] [phone] Provider, MD Shakira Social History Tobacco Use [...] is your housing situation today? I have violetaabkari flores 08/13/[address] you [...] Prothrombin Time 31.1(H) 10.9 - 12.4 SEC [facility] INTERNATIONAL NORM RATIO 2.7(H) 0.9 - 1.1 [facility] Comment:INTERNATIONAL NORMAL IZED RATIO (INR) [...] ORDERAB LES Final Result Performing Organization Address [facility] de Phone Number [facility] [address] [place] [phone] * Immunofixation (NATHALIE), Urine (03/21/2025 7:13 AM EDT) Pathologist [facility] NATHALIE Interpretation SEE NOTE H [facility] Comment:Normal pattern. No m onoclonal proteins detected.The supplier of the testing reagents for this assayhas changed. Detection of small monoclonal proteins mayvary by test system.THIS TEST WAS PERFORMED AT:[employer] [address] [id number] SOTO MD 03/21/2025 7:13 AM EDT 03/21/2025 7:46 AM EDT Generic External Data Provider LAB URINE ORDERAB LES Final Result Performing Organization Address [facility] Co de Phone Number [facility] [address] [place] [phone] * Protein Creatinine Ratio, Urine (03/21/2025 7:13 AM EDT) Creatinine, Urine 166.98 mg/dL [facility] Protein, Total, Random Urine 12 <12 mg/dL [facility] Protein/Creati nine Ratio, Ur 0.07 <0.2 [facility] Comment:The spot urine prote in:creatinine ratio may increase to 0.3during normal . 03/21/2025 7:13 AM EDT 03/21/2025 7:46 AM EDT Generic External Data Provider LAB URINE ORDERAB LES Final Result Performing Organization Address City/[facility]/ZIP Co de Phone Number [facility] [address] [place] [phone] * Testosterone, Free (Dialysis) And Total, MS (09/11/2024 7:20 AM EST) Testosterone, Total 555 250 - 1100 ng/dL [facility] Comment:For additional infor isai, please refer tohttp://education.[employer]/faq/AnhlwGojhbtjnuydhEYNIFLBTD586(This link is being provided for informational/educational purposes only.)This test was developed and its analytical performancecharacteristics have been determined by [employer]. It hasnot been cleared or approved by the U.S. Food and DrugAdministration. This assay has been validated pursuantto the CLIA regulations and is used for clinicalpurposes. Testosterone, Free 97.1 35.0 - 155.0 pg/mL [facility] Comment:This test was develo ped and its analytical performancecharacteristics have been determined by [employer] [place], [place]. It hasnot been cleared or approved by the U.S. Food and DrugAdministration. This assay has been validated pursuantto the CLIA regulations and is used for clinicalpurposes.THIS TEST WAS PERFORMED AT:[employer]/[id number] [place] [id number] DUBOIS MD,PHD 09/11/2024 7:20 AM EST 09/11/2024 7:20 AM EST us Generic External Data Provider LAB BLOOD ORDERAB LES Final Result [facility] [address] [place] [phone] [phone] * Prolactin (09/11/2024 7:20 AM EST) Prolactin 18.0 2.0 - 18.0 ng/mL [facility] Comment:THIS TEST WAS PERFOR MED AT:[employer] [address] [id number] SOOT MD 09/11/2024 7:20 AM EST 09/11/2024 7:20 AM EST Generic External Data Provider LAB BLOOD ORDERAB LES Final Result Performing Organization Address [facility] Co de Phone Number [facility] [address] [place] [phone] * LH (09/11/2024 7:20 AM EST) Lutenizing Hormone 4.5 1.5 - 9.3 mIU/mL [facility] Comment:THIS TEST WAS PERFOR MED AT:[employer] [address] [id number] SOTO MD 09/11/2024 7:20 AM EST 09/11/2024 7:20 AM EST us Generic External Data Provider LAB BLOOD ORDERAB LES Final Result Performing Organization Address City/[facility] Co de Phone Number [facility] [address] [place] [phone] * FSH (09/11/2024 7:20 AM EST) Follicle Stimulating Hormone 5.6 1.4 - 12.8 mIU/mL [facility] Comment:THIS TEST WAS PERFOR MED AT:[employer] [address] [id number] SOTO MD 09/11/2024 7:20 AM EST 09/11/2024 7:20 AM EST us Generic External Data Provider LAB BLOOD ORDERAB LES Final Result Performing Organization Address [facility]/ZIP Co de Phone Number [facility] [address] [place] [phone] * PSA, Total With Reflex to PSA, Free (09/11/2024 7:20 AM EST) PSA,Total (Free>4and<10) 0.56 0.00 - 4.00 ng/mL [facility] Comment:A Free PSA was not [...] ORDERAB LES Final Result Performing Organization Address [facility] Co de Phone Number [facility] [address] [place] [phone] * Glucose (09/11/2024 7:20 AM EST) Glucose Fasting 96 60 - 99 mg/dL [facility] 09/11/2024 7:20 AM EST 09/11/2024 7:20 AM EST us Generic External Data Provider LAB BLOOD ORDERAB LES Final Result Performing Organization Address [facility]/ZIP Co de Phone Number [facility] [address] [place] [phone] * Hm Colonoscopy (03/06/2021 2:24 PM EDT) us Historical Provider HEALTH MAINTENANCE Final Result documented in this encounter Visit Diagnoses Not on filedocumented in this encounter Additional Health Concerns Assessment Noted Time PHQ-9 Depression Total Score: 7 08/13/20 23 9:49 AM EDT documented as of this encounter Care Teams Soda Dry House Operator Relationship Specialty Start Date End Date Eliza Carmona FNP [address] [place] [address] PCP - General Family Medicine 08/15/21 Kale Spencer MD [address] [place] [address] [address] [place] [address] Urology 11/03/24 documented as of this encounter
--- OUTSIDE RECORDS SUMMARY | 2025-07-31 06:33 | XMS_ITS | Clinical Summary ---
Author Organization [employer] Address 75 [facility] 7t [place] [address] Care Team Providers Care Tennis Professional Name Role Phone Eliza Carmona KELL Primary [...] at bedtime (seasonal alleriges). 10 mL 2 025 Active atorvastatin (Lipitor) 80 MG tabletIndications :Other restrictive cardiomyopathy (HCC) TAKE 1 TABLET BY MOUTH EVERY DAY 90 tablet 1 Active metoprolol succinate XL (Toprol-XL) 50 MG 24 hr tabletIndications :Other restrictive cardiomyopathy (HCC) TAKE 1 TABLET BY MOUTH EVERY DAY 90 tablet 3 025 Active furosemide (Lasix) 20 MG tabletIndications :Other restrictive cardiomyopathy (HCC) Take 1 tablet (20 mg) by mouth Once per day. 90 tablet 025 Active trimethoprim-poly myxin b (Polytrim) ophthalmic solutionIndicatio [...] (Lipitor) 80 MG tabletIndications :Other restrictive cardiomyopathy (HCC) TAKE 1 TABLET BY MOUTH EVERY DAY 90 tablet 1 025 2024 Discontinued(R eorder (will not trigger notification to Pharmacy)) Active Problems Problem Noted Date Diagnosed Date Seasonal allergies 04/16/2025 Assessment & Plan (04/16/2025 9:21 AM EDT): - Flonase (Intranasal) and ketotifen (eye drops) PRN Proteinuria 04/16/2025 Overview (07/16/2025): Followed by [facility] - Dr. Salazar/ALLY Bolton 04/09/25: normal renal US Suspected secondary to vascular etiology, advised to avoid NSAIDs Erectile dysfunction 11/03/2024 Overview (07/16/2025): Following with [facility] (Dr. Whelan/Dr. Martinez) Assessment & Plan (07/16/2025 9:24 AM EDT): Previous tx: tadalafil (dc January 2025 d/t affecting INR levels) Consult January 2025: discussed possible Viagra PRN, but should first consult with black leather buffer. Also discussed alternative tx options such as surgical therapy and penile pump May 2025: plan for high dose Viagra PRN (100mg) Cont following with specialist as scheduled Assessment & Plan (04/16/2025 9:25 AM EDT): Previous tx: tadalafil (dc January 2025 d/t affecting INR levels) Consult January 2025: discussed possible Viagra PRN, but should first consult with black leather buffer. Also discussed alternative tx options such as surgical therapy and penile pump Cont following with specialist as scheduled Assessment & Plan (11/03/2024 1:42 PM EST): Cont current therapy Constipation 03/14/2024 Assessment & Plan (03/14/2024 8:05 AM EDT): -Cont Colace BID PRN -Encourage fiber-rich diet and adequate hydration Routine health maintenance 03/08/2023 Overview (04/16/2025): Optometry: [facility] 03/12/22 Dental: [facility] Dental Colonoscopy: 02/06/21 at [facility] - Dr. Barrios. Repeat 10 years Assessment & Plan (08/15/2023 6:17 PM EDT): Optometry: [facility] 03/12/22 Dental: pt to present to [facility] Dental after today's appt to request scheduling for tooth extraction. Colonoscopy: completed January 2021 - due January 2031 COVID-19 Vaccine: primary series complete, boosted x 1. Encouraged updated booster. Flu and pneumococcal vaccines administered today. VIS sheets provided. Assessment & Plan (03/08/2023 9:32 AM EDT): Optometry: [facility] 03/12/22 Dental: pt to present to [facility] Dental after today's appt to request scheduling for tooth extraction. Pre-op completed Aril 2021 Colonoscopy: completed January 2021 - due January 2031 COVID-19 Vaccine: primary series complete, boosted x 1. Encouraged bivalent booster. History of Coumadin therapy 03/08/2023 Overview (08/15/2023): Managed by [facility] Per Cards consult note [...] 43%, no sign of ischemia Followed by [facility] - Dr. Costa 08/29/24: ADRIANNA - ordered by Dr. Costa. Stable compared to previous. EF 50-55%. Mild-to-mod tricuspid regurgitation present, no evidence of pulm HTN. Assessment & Plan (07/16/2025 9:25 AM EDT): -Continue DASH diet -Continue current CARDs regimen: furosemide 20mg daily sacubetril-valsartan 24-26mg tablet BID (provider will call office to request that med be sent to [facility] pharmacy) metoprolol succinate ER 50mg daily [...] to request that med be sent to [facility] pharmacy) metoprolol succinate ER 50mg daily [...] to request that med be sent to [facility] pharmacy) metoprolol succinate ER 50mg daily [...] [facility] [address] [place] [address] Eliza Carmona FNP Acute conjunctivitis of right eye, unspecified acute conjunctivitis type (Primary Dx); Encounter for immunization; Other restrictive cardiomyopathy (CMS/HCC); Erectile dysfunction, unspecified erectile dysfunction type; Essential hypertension; Proteinuria, unspecified type 07/16/2025 Travel 07/13/2025 Telephone [facility] MED & PEDS [address] [place] [address] Eliza Carmona FNP Chart Prep 05/11/2025 Results Follow-Up [facility] & PEDS [address] [place] [address] Eliza Carmona FNP Lipid Panel, Standard from Last 3 Months Immunizations Immunization Administration [...] 08/28/2029 08/28/2019, 02/08/2017 Lipid Panel 05/08/2030 05/08/2025, 09/12/2023, 08/23/2023, Additional history exists Colonoscopy 03/06/2031 03/06/2021 [...] Date/Time Associated Diagnosis Comments PROTHROMBIN TIME-INR Routine 07/17/2025 6:30 AM EDT LIPID PANEL, STANDARD Routine 05/08/2025 7:04 AM [...] Relevant to Health Maintenance Results * (ABNORMAL) Prothrombin Time-INR (07/17/2025 6:30 AM EDT) Prothrombin Time 31.3(H) 10.9 - 12.4 SEC [facility] INTERNATIONAL NORM RATIO 2.7(H) 0.9 - 1.1 [facility] Comment:INTERNATIONAL NORMAL IZED RATIO (INR) REFERENCE RANGES Reference RangeFor patients not on anticoagulant therapy: 0.9 - 1.1INR ranges for oral anticoagulanttherapy:For prevention and treatment of venous thrombosis and pulmonary embolism: 2.0 - 3.0For acute myocardial infarction with aspirin therapy: 2.0 - 3.0For acute myocardial infarction without aspirin therapy: 3.0 - 4.0For patients with mechanical prosthetic heart valves: 2.5 - 3.5 07/17/2025 6:30 AM EDT 07/17/2025 6:30 AM EDT us Generic External Data Provider LAB BLOOD ORDERAB LES Final Result [facility] [address] [place] [phone] * (ABNORMAL) Lipid Panel, Standard (05/08/2025 7:04 AM EDT) Triglycerides 115 <150 mg/dL [facility] Comment:Desirable Triglyceri de: less than 150 mg/dLBorderline High Triglyceride 150-199 mg/dLHigh Triglyceride: 200-499 mg/dLVery High Triglyceride: greater than or equal to 5OO mg/dL Cholesterol 140 <200 mg/dL [facility] Comment:Desirable Cholestero l: less than 200 mg/dLBorderline High Cholesterol: 200-239 mg/dLHigh Cholesterol: greater than 239 mg/dL LDL Cholesterol Calculated 79 <100 mg/dL [facility] Comment:Desirable LDL: less than 100 mg/dLNear Optimal/Above Optimal LDL: 110- 129 mg/dLBorderline High LDL: 130-159 mg/dLHigh LDL: 160-189 mg/dLVery High LDL: greater than or equal to 190 mg/dL HDL Cholesterol 38(L) >40 mg/dL [facility] Comment:Desirable HDL: great er than 40 mg/dL Note: This HDL assay may give artificially low results in patients with liver disease. Blood Venous blood specimen / Unknown 05/08/2025 7:04 AM EDT 05/08/2025 7:04 AM EDT Eliza Carmona [facility] LAB BLOOD ORDERABLES Final Res ult Performing Organization Address [facility] Co de Phone Number [facility] [address] [place] [phone] * Hepatitis C Viral RNA, Quantitative, Real-Time PCR (06/27/2024 6:57 AM EDT) Pathologist [facility] Hepatitis C Viral Load <15 NOT DETECTED NOT DETECTED IU/mL [facility] HCV Log PCR <1.18 NOT DETECTED NOT DETECTED Log IU/mL [facility] Comment:For additional infor isai, please refer tohttp://education.[employer]/faq/GRQ99u0(This link is being provided for informational/educational purposes only.)THIS TEST WAS PERFORMED AT:[employer] [place] [id number] SOTO MD Blood 06/27/2024 6:57 AM EDT 06/27/2024 7:03 AM EDT Eliza Carmona [facility] LAB BLOOD ORDERABLES Final Res ult Performing Organization Address [facility] de Phone Number [facility] [address] [place] [phone] * HIV-1/2 Antigen and Antibodies, Fourth Generation, with Reflexes (06/27/2024 6:57 AM EDT) Pathologist [facility] HIV AB/AG Nonreactive Nonreactive [facility] Comment:HIV-1 p24 Ag and/or HIV-1/HIV-2 Ab not detected.A test result that is nonreactive does not exclude thepossibility of exposure to or infection with HIV-1 and/orHIV-2. Nonreactive results in this assay for individualswith prior exposure to HIV-1 and/or HIV-2 may be due toantigen and antibody levels that are below the limit ofdetection of this assay.The [employer] HIV Ag/Ab Combo assay result andsupplemental assay results should be interpreted inconjunction with the patient's clinical presentation,history and other laboratory results. If the results areinconsistent with clinical evidence, additional testing issuggested to confirm the result. Blood Venous blood specimen / Unknown 06/27/2024 6:57 AM EDT 06/27/2024 7:03 AM EDT Eliza Carmona OFF TRACK BETTING MANAGER LAB BLOOD ORDERABLES Final Res ult [facility] [address] [place] [phone] * Hm Colonoscopy (03/06/2021 2:24 PM EDT) Historical Provider HEALTH MAINTENANCE Final Result from Last 3 Months or Most Recently Relevant to Health Maintenance Insurance [facility] ONE CARE < [address] [place] [id number] [facility] Care Teams Tennis Professional Relationship Specialty Start Date End Date Eliza Carmona FNP [address] [place] [address] PCP - General Family Medicine 08/15/21 [address] MD [address] [place] [address] Urology 11/03/24
--- OUTSIDE RECORDS SUMMARY | 2025-07-31 06:33 | XMS_ITS | Encounter Summary ---
Author Organization [employer] Address [address] [place] [address] Care Team Providers Care Lard Bleacher Name Role Phone Eilza Caromna KELL Primary Care Provider [phone] Kale Spencer MD Unavailable Encounter Details Date Type Department Care Team (Late st Contact Info) Description 10/12/2022 Orders Only [facility] [address] [place] [address] Joellen Broussard LPN Social History Tobacco Use [...] Prothrombin Time 29.4(H) 11.1 - 13.3 SEC [facility] INTERNATIONAL NORM RATIO 2.4(H) 0.9 - 1.1 [facility] Comment:INTERNATIONAL NORMAL IZED RATIO (INR) [...] ORDERAB LES Final Result Performing Organization Address City/[facility]/ZIP Co de Phone Number [facility] [address] [place] [address] [phone] * (ABNORMAL) Prothrombin Time-INR (04/01/2023 6:27 AM EDT) Prothrombin Time 31.1(H) 10.0 - 13.1 [facility] INTERNATIONAL NORM RATIO 2.6(H) 0.9 - 1.1 [facility] Comment:INTERNATIONAL NORMAL IZED RATIO (INR) [...] 6:27 AM EDT 04/01/2023 6:27 AM EDT [facility] External Provider LAB BLO OD ORDERABLES Final Result Performing Organization Address [facility] [place]/[facility] Co de Phone Number [facility] [address] [place] [address] [phone] * (ABNORMAL) Prothrombin Time-INR (03/17/2023 6:43 AM EDT) Prothrombin Time 34.2(H) 10.0 - 13.1 SEC [facility] INTERNATIONAL NORM RATIO 2.9(H) 0.9 - 1.1 [facility] Comment:INTERNATIONAL NORMAL IZED RATIO (INR) [...] 6:43 AM EDT 03/17/2023 6:43 AM EDT [facility] External Provider LAB BLO OD ORDERABLES Final Result Performing Organization Address [facility] [place]/[facility] de Phone Number [facility] [address] [place] [address] [phone] * (ABNORMAL) Prothrombin Time-INR (03/03/2023 6:54 AM EDT) Prothrombin Time 34.1(H) 10.0 - 13.1 [facility] INTERNATIONAL NORM RATIO 2.8(H) 0.9 - 1.1 [facility] Comment:INTERNATIONAL NORMAL IZED RATIO (INR) [...] 6:54 AM EDT 03/03/2023 6:54 AM EDT [facility] External Provider LAB BLO OD ORDERABLES Final Result Performing Organization Address [facility] de Phone Number [facility] [address] [place] [address] [phone] * (ABNORMAL) Prothrombin Time-INR (02/17/2023 6:36 AM EDT) Prothrombin Time 33.8(H) 10.0 - 13.1 [facility] INTERNATIONAL NORM RATIO 2.8(H) 0.9 - 1.1 [facility] Comment:INTERNATIONAL NORMAL IZED RATIO (INR) [...] 6:36 AM EDT 02/17/2023 6:36 AM EDT [facility] External Provider LAB BLO OD ORDERABLES Final Result Performing Organization Address City/[facility] Co de Phone Number [facility] [address] [place] [address] [phone] * (ABNORMAL) Prothrombin Time-INR (02/10/2023 6:43 AM EDT) Prothrombin Time 37.0(H) 10.0 - 13.1 [facility] INTERNATIONAL NORM RATIO 3.1(H) 0.9 - 1.1 [facility] Comment:INTERNATIONAL NORMAL IZED RATIO (INR) [...] 6:43 AM EDT 02/10/2023 6:43 AM EDT [facility] External Provider LAB BLO OD ORDERABLES Final Result Performing Organization Address City/[facility] Co de Phone Number [facility] [address] [place] [address] [phone] * (ABNORMAL) Prothrombin Time-INR (01/29/2023 6:54 AM EDT) Prothrombin Time 32.5(H) 10.0 - 13.1 [facility] INTERNATIONAL NORM RATIO 2.7(H) 0.9 - 1.1 [facility] Comment:INTERNATIONAL NORMAL IZED RATIO (INR) [...] 6:54 AM EDT 01/29/2023 6:54 AM EDT [facility] External Provider LAB BLO OD ORDERABLES Final Result Performing Organization Address [facility] [place]/[facility] de Phone Number [facility] [address] [place] [address] [phone] * (ABNORMAL) Prothrombin Time-INR (01/26/2023 7:01 AM EDT) Prothrombin Time 22.4(H) 10.0 - 13.1 [facility] INTERNATIONAL NORM RATIO 1.9(H) 0.9 - 1.1 [facility] Comment:INTERNATIONAL NORMAL IZED RATIO (INR) [...] 7:01 AM EDT 01/26/2023 7:01 AM EDT [facility] External Provider LAB BLO OD ORDERABLES Final Result Performing Organization Address [facility] [place]/[facility] de Phone Number [facility] [address] [place] [address] [phone] * (ABNORMAL) Prothrombin Time-INR (01/12/2023 7:14 AM EDT) Prothrombin Time 36.4(H) 10.0 - 13.1 [facility] INTERNATIONAL NORM RATIO 3.0(H) 0.9 - 1.1 [facility] Comment:INTERNATIONAL NORMAL IZED RATIO (INR) [...] 7:14 AM EDT 01/12/2023 7:14 AM EDT [facility] External Provider LAB BLO OD ORDERABLES Final Result Performing Organization Address City/State/[facility] Co de Phone Number [facility] [address] [place] [address] [phone] * (ABNORMAL) Prothrombin Time-INR (12/29/2022 7:02 AM EST) Prothrombin Time 35.3(H) 10.0 - 13.1 [facility] INTERNATIONAL NORM RATIO 2.9(H) 0.9 - 1.1 [facility] Comment:INTERNATIONAL NORMAL IZED RATIO (INR) [...] 7:02 AM EST 12/29/2022 7:02 AM EST [facility] External Provider LAB BLO OD ORDERABLES Final Result Performing Organization Address [facility] [place]/[facility] Co de Phone Number [facility] [address] [place] [address] [phone] * (ABNORMAL) Prothrombin Time-INR (12/22/2022 7:14 AM EST) Prothrombin Time 39.4(H) 10.0 - 13.1 [facility] INTERNATIONAL NORM RATIO 3.3(H) 0.9 - 1.1 [facility] Comment:INTERNATIONAL NORMAL IZED RATIO (INR) [...] 7:14 AM EST 12/22/2022 7:15 AM EST [facility] External Provider LAB BLO OD ORDERABLES Final Result Performing Organization Address [facility] de Phone Number [facility] [address] [place] [address] [phone] * (ABNORMAL) Prothrombin Time-INR (12/15/2022 6:41 AM EST) Prothrombin Time 41.0(H) 10.0 - 13.1 [facility] INTERNATIONAL NORM RATIO 3.4(H) 0.9 - 1.1 [facility] Comment:INTERNATIONAL NORMAL IZED RATIO (INR) [...] 6:41 AM EST 12/15/2022 6:41 AM EST [facility] External Provider LAB BLO OD ORDERABLES Final Result Performing Organization Address [facility] [place]/[facility] Co de Phone Number [facility] [address] [place] [address] [phone] * (ABNORMAL) Prothrombin Time-INR (12/08/2022 6:48 AM EST) Prothrombin Time 29.0(H) 10.0 - 13.1 [facility] INTERNATIONAL NORM RATIO 2.4(H) 0.9 - 1.1 [facility] Comment:INTERNATIONAL NORMAL IZED RATIO (INR) [...] 6:48 AM EST 12/08/2022 6:50 AM EST [facility] External Provider LAB BLO OD ORDERABLES Final Result Performing Organization Address [facility] [place]/[facility] Co de Phone Number [facility] [address] [place] [address] [phone] * (ABNORMAL) Prothrombin Time-INR (12/01/2022 6:43 AM EST) Prothrombin Time 31.3(H) 10.0 - 13.1 [facility] INTERNATIONAL NORM RATIO 2.6(H) 0.9 - 1.1 [facility] Comment:INTERNATIONAL NORMAL IZED RATIO (INR) [...] 6:43 AM EST 12/01/2022 6:43 AM EST [facility] External Provider LAB BLO OD ORDERABLES Final Result Performing Organization Address [facility] [place]/[facility] Co de Phone Number [facility] [address] [place] [phone] * (ABNORMAL) Prothrombin Time-INR (11/26/2022 6:42 AM EST) Prothrombin Time 26.3(H) 10.0 - 13.1 [facility] INTERNATIONAL NORM RATIO 2.2(H) 0.9 - 1.1 [facility] Comment:INTERNATIONAL NORMAL IZED RATIO (INR) [...] 6:42 AM EST 11/26/2022 6:43 AM EST [facility] External Provider LAB BLO OD ORDERABLES Final Result Performing Organization Address [facility] [place]/[facility] de Phone Number [facility] [address] [place] [address] [phone] documented in this encounter Visit Diagnoses Not on filedocumented in this encounter Care Teams Lard Bleacher Relationship Specialty Start Date End Date Eliza Carmona FNP [address] [place] [phone] PCP - General Family Medicine 08/15/21 Kale Spencer MD [address] [place], [place] [phone] Urology 11/03/24 documented as of this encounter
[2025-07-31 07:54] LABS: INTERNATIONAL NORM RATIO 2.5 (0.9-1.1); Prothrombin Time 29.0 SEC (10.9-12.4)
== END 2025-07-31 06:31 | disposition home or self-care (01) ==
LOC: HO.LABR 06:30
PROVIDERS: PCP Registered Nurse; Visit Provider Pharmacist
DX: Z95.2 Presence of prosthetic heart valve (principal)
CPT/HCPCS: 36415; 85610

== ENCOUNTER 2025-08-14 06:37 | Outpatient (REF) | payer OTHER, SELFPAY ==
--- OUTSIDE RECORDS SUMMARY | 2025-08-14 06:39 | XMS_ITS | Clinical Summary ---
Author Organization [employer] Address [address] [place] [address] Care Team Providers Care Healthcare Prof Name Role Phone Eliza Carmona KELL Primary Care Provider [phone] Kale Spencer MD Unavailable Allergies No known [...] PRN Proteinuria 04/16/2025 Overview (07/16/2025): Followed by [facility] - Dr. Salazar/ALLY Bolton 04/09/25: normal renal US Suspected secondary to vascular etiology, advised to avoid NSAIDs Erectile dysfunction 11/03/2024 Overview (07/16/2025): Following with [facility] (Dr. Whelan/Dr. Martinez) Assessment & Plan (07/16/2025 9:24 AM EDT): Previous tx: tadalafil (dc January 2025 d/t affecting INR levels) Consult January 2025: discussed possible Viagra PRN, but should first consult with seam stay stitcher. Also discussed alternative tx options such as surgical therapy and penile pump May 2025: plan for high dose Viagra PRN (100mg) Cont following with specialist as scheduled Assessment & Plan (04/16/2025 9:25 AM EDT): Previous tx: tadalafil (dc January 2025 d/t affecting INR levels) Consult January 2025: discussed possible Viagra PRN, but should first consult with seam stay stitcher. Also discussed alternative tx options such as surgical therapy and penile pump Cont following with specialist as scheduled Assessment & Plan (11/03/2024 1:42 PM EST): Cont current therapy Constipation 03/14/2024 Assessment & Plan (03/14/2024 8:05 AM EDT): -Cont Colace BID PRN -Encourage fiber-rich diet and adequate hydration Routine health maintenance 03/08/2023 Overview (04/16/2025): Optometry: CEE 03/12/22 Dental: [facility] Dental Colonoscopy: 02/06/21 at [facility] - Dr. Barrios. Repeat 10 years Assessment & Plan (08/15/2023 6:17 PM EDT): Optometry: CEE 03/12/22 Dental: pt to present to [facility] after today's appt to request scheduling for tooth extraction. Colonoscopy: completed January 2021 - due January 2031 COVID-19 Vaccine: primary series complete, boosted x 1. Encouraged updated booster. Flu and pneumococcal vaccines administered today. VIS sheets provided. Assessment & Plan (03/08/2023 9:32 AM EDT): Optometry: CEE 03/12/22 Dental: pt to present to [facility] after today's appt to request scheduling for tooth extraction. Pre-op completed Aril 2021 Colonoscopy: completed January 2021 - due January 2031 COVID-19 Vaccine: primary series complete, boosted x 1. Encouraged bivalent booster. History of Coumadin therapy 03/08/2023 Overview (08/15/2023): Managed by [facility] Per Cards consult note [...] 07/16/2025 9:00 AM EDT Office Visit [facility] [address] [place] [address] Eliza Carmona FNP Acute conjunctivitis of right eye, unspecified acute conjunctivitis type (Primary Dx); Encounter for immunization; Other restrictive cardiomyopathy (CMS/HCC); Erectile dysfunction, unspecified erectile dysfunction type; Essential hypertension; Proteinuria, unspecified type 07/16/2025 Travel 07/13/2025 Telephone [facility] [address] [place] [address] Eliza Carmona FNP Chart Prep from Last 3 Months Immunizations Immunization Administration [...] Prothrombin Time 31.3(H) 10.9 - 12.4 SEC [facility] INTERNATIONAL NORM RATIO 2.7(H) 0.9 - 1.1 [facility] Comment:INTERNATIONAL NORMAL IZED RATIO (INR) [...] ORDERAB LES Final Result Performing Organization Address City/[facility]/ZIP Co de Phone Number [facility] [address] [place] [address] [phone] * (ABNORMAL) Lipid Panel, Standard (05/08/2025 7:04 AM EDT) Triglycerides 115 <150 mg/dL [facility] Comment:Desirable Triglyceri de: less than 150 mg/dLBorderline High Triglyceride 150-199 mg/dLHigh Triglyceride: 200-499 mg/dLVery High Triglyceride: greater than or equal to 5OO mg/dL Cholesterol 140 <200 mg/dL [facility] Comment:Desirable Cholestero l: less than 200 mg/dLBorderline High Cholesterol: 200-239 mg/dLHigh Cholesterol: greater than 239 mg/dL LDL Cholesterol Calculated 79 <100 mg/dL [facility] Comment:Desirable LDL: less than 100 mg/dLNear Optimal/Above Optimal LDL: 110- 129 mg/dLBorderline High LDL: 130-159 mg/dLHigh LDL: 160-189 mg/dLVery High LDL: greater than or equal to 190 mg/dL HDL Cholesterol 38(L) >40 mg/dL [facility] Comment:Desirable HDL: great er than 40 mg/dL Note: This HDL assay may give artificially low results in patients with liver disease. Blood Venous blood specimen / Unknown 05/08/2025 7:04 AM EDT 05/08/2025 7:04 AM EDT us Eliza Carmona INTERVENTIONAL PAIN PHYSICIAN LAB BLOOD ORDERABLES Final Res ult [facility] [address] [place] [address] [phone] * Hepatitis C Viral RNA, Quantitative, Real-Time PCR (06/27/2024 6:57 AM EDT) Pathologist [facility] Hepatitis C Viral Load <15 NOT DETECTED NOT DETECTED IU/mL [facility] HCV Log PCR <1.18 NOT DETECTED NOT DETECTED Log IU/mL [facility] Comment:For additional infor zulmanesha, please refer [email or web address].[employer]/faq/GXP92n7(This link is being provided for informational/educational purposes only.)THIS TEST WAS PERFORMED AT:[facility] [place] [phone] SOTO MD Blood 06/27/2024 6:57 AM EDT 06/27/2024 7:03 AM EDT Eliza Carmona INTERVENTIONAL PAIN PHYSICIAN LAB BLOOD ORDERABLES Final Res ult [facility] [address] [place] [phone] * HIV-1/2 Antigen and Antibodies, Fourth Generation, with Reflexes (06/27/2024 6:57 AM EDT) [facility] HIV AB/AG Nonreactive Nonreactive [facility] Comment:HIV-1 p24 Ag and/or HIV-1/HIV-2 Ab not detected.A test result that is nonreactive does not exclude thepossibility of exposure to or infection with HIV-1 and/orHIV-2. Nonreactive results in this assay for individualswith prior exposure to HIV-1 and/or HIV-2 may be due toantigen and antibody levels that are below the limit ofdetection of this assay.The [employer] HIV Ag/Ab Combo assay result andsupplemental assay results should be interpreted inconjunction with the patient's clinical presentation,history and other laboratory results. If the results areinconsistent with clinical evidence, additional testing issuggested to confirm the result. Blood Venous blood specimen / Unknown 06/27/2024 6:57 AM EDT 06/27/2024 7:03 AM EDT Eliza Carmona INTERVENTIONAL PAIN PHYSICIAN LAB BLOOD ORDERABLES Final Res ult [facility] [address] [place] [phone] * Colonoscopy (03/06/2021 2:24 PM EDT) Historical Provider MD HEALTH MAINTENANCE Final Result from Last 3 Months or Most Recently Relevant to Health Maintenance Insurance [facility] < 65 [place] STAND ADULT D[facility]AL [facility] Care Teams Healthcare Prof Relationship Specialty Start Date End Date Eliza Carmona FNP [address] [place] [address] PCP - General Family Medicine 08/15/21 Kale Spencer MD [address] [place] [address] Urology 11/03/24
--- OUTSIDE RECORDS SUMMARY | 2025-08-14 06:39 | XMS_ITS | Encounter Summary ---
Author Organization [employer] Address [address] [facility] [address] [place] [address] Care Team Providers Care Loan Inspector Name Role Phone Eliza Carmona KELL Primary Care Provider [phone] Kale Spencer MD Unavailable Encounter Details Date Type Department Care Team (Late st Contact Info) Description 10/12/2022 Orders Only [facility] [address] [place] [address] Joellen Broussard LPN Social History Tobacco Use [...] Prothrombin Time 29.4(H) 11.1 - 13.3 SEC [facility] INTERNATIONAL NORM RATIO 2.4(H) 0.9 - 1.1 [facility] Comment:INTERNATIONAL NORMAL IZED RATIO (INR) REFERENCE [...] ORDERAB LES Final Result Performing Organization Address City/[facility]/ZIP Co de Phone Number [facility] [address] [place] [address] [phone] * (ABNORMAL) Prothrombin Time-INR (04/01/2023 6:27 AM EDT) Prothrombin Time 31.1(H) 10.0 - 13.1 SEC [facility] INTERNATIONAL NORM RATIO 2.6(H) 0.9 - 1.1 [facility] Comment:INTERNATIONAL NORMAL IZED RATIO (INR) REFERENCE [...] 6:27 AM EDT 04/01/2023 6:27 AM EDT [facility] External Provider LAB BLO OD ORDERABLES Final Result Performing Organization Address [facility] Co de Phone Number [facility] [address] [place] [phone] * (ABNORMAL) Prothrombin Time-INR (03/17/2023 6:43 AM EDT) Prothrombin Time 34.2(H) 10.0 - 13.1 SEC [facility] INTERNATIONAL NORM RATIO 2.9(H) 0.9 - 1.1 [facility] Comment:INTERNATIONAL NORMAL IZED RATIO (INR) REFERENCE [...] 6:43 AM EDT 03/17/2023 6:43 AM EDT [facility] External Provider LAB BLO OD ORDERABLES Final Result Performing Organization Address [facility] de Phone Number [facility] [address] [place] [phone] * (ABNORMAL) Prothrombin Time-INR (03/03/2023 6:54 AM EDT) Prothrombin Time 34.1(H) 10.0 - 13.1 SEC [facility] INTERNATIONAL NORM RATIO 2.8(H) 0.9 - 1.1 [facility] Comment:INTERNATIONAL NORMAL IZED RATIO (INR) REFERENCE [...] 6:54 AM EDT 03/03/2023 6:54 AM EDT [facility] External Provider LAB BLO OD ORDERABLES Final Result Performing Organization Address [facility] de Phone Number [facility] [address] [place] [phone] * (ABNORMAL) Prothrombin Time-INR (02/17/2023 6:36 AM EDT) Prothrombin Time 33.8(H) 10.0 - 13.1 SEC [facility] INTERNATIONAL NORM RATIO 2.8(H) 0.9 - 1.1 [facility] Comment:INTERNATIONAL NORMAL IZED RATIO (INR) REFERENCE [...] 6:36 AM EDT 02/17/2023 6:36 AM EDT [facility] External Provider LAB BLO OD ORDERABLES Final Result Performing Organization Address City/[facility] Co de Phone Number [facility] [address] [place] [address] [phone] * (ABNORMAL) Prothrombin Time-INR (02/10/2023 6:43 AM EDT) Prothrombin Time 37.0(H) 10.0 - 13.1 SEC [facility] INTERNATIONAL NORM RATIO 3.1(H) 0.9 - 1.1 [facility] Comment:INTERNATIONAL NORMAL IZED RATIO (INR) REFERENCE [...] 6:43 AM EDT 02/10/2023 6:43 AM EDT [facility] External Provider LAB BLO OD ORDERABLES Final Result Performing Organization Address City/[facility] Co de Phone Number [facility] [address] [place] [address] [phone] * (ABNORMAL) Prothrombin Time-INR (01/29/2023 6:54 AM EDT) Prothrombin Time 32.5(H) 10.0 - 13.1 SEC [facility] INTERNATIONAL NORM RATIO 2.7(H) 0.9 - 1.1 [facility] Comment:INTERNATIONAL NORMAL IZED RATIO (INR) REFERENCE [...] 6:54 AM EDT 01/29/2023 6:54 AM EDT [facility] External Provider LAB BLO OD ORDERABLES Final Result Performing Organization Address [facility] de Phone Number [facility] [address] [place] [phone] * (ABNORMAL) Prothrombin Time-INR (01/26/2023 7:01 AM EDT) Prothrombin Time 22.4(H) 10.0 - 13.1 SEC [facility] INTERNATIONAL NORM RATIO 1.9(H) 0.9 - 1.1 [facility] Comment:INTERNATIONAL NORMAL IZED RATIO (INR) REFERENCE [...] 7:01 AM EDT 01/26/2023 7:01 AM EDT [facility] External Provider LAB BLO OD ORDERABLES Final Result Performing Organization Address [facility] de Phone Number [facility] [address] [place] [phone] * (ABNORMAL) Prothrombin Time-INR (01/12/2023 7:14 AM EDT) Prothrombin Time 36.4(H) 10.0 - 13.1 SEC [facility] INTERNATIONAL NORM RATIO 3.0(H) 0.9 - 1.1 [facility] Comment:INTERNATIONAL NORMAL IZED RATIO (INR) REFERENCE [...] 7:14 AM EDT 01/12/2023 7:14 AM EDT [facility] External Provider LAB BLO OD ORDERABLES Final Result Performing Organization Address City/State/[facility] Co de Phone Number [facility] [address] [place] [phone] * (ABNORMAL) Prothrombin Time-INR (12/29/2022 7:02 AM EST) Prothrombin Time 35.3(H) 10.0 - 13.1 SEC [facility] INTERNATIONAL NORM RATIO 2.9(H) 0.9 - 1.1 [facility] Comment:INTERNATIONAL NORMAL IZED RATIO (INR) REFERENCE [...] 7:02 AM EST 12/29/2022 7:02 AM EST [facility] External Provider LAB BLO OD ORDERABLES Final Result Performing Organization Address [facility] Co de Phone Number [facility] [address] [place] [phone] * (ABNORMAL) Prothrombin Time-INR (12/22/2022 7:14 AM EST) Prothrombin Time 39.4(H) 10.0 - 13.1 SEC [facility] INTERNATIONAL NORM RATIO 3.3(H) 0.9 - 1.1 [facility] Comment:INTERNATIONAL NORMAL IZED RATIO (INR) REFERENCE [...] 7:14 AM EST 12/22/2022 7:15 AM EST [facility] External Provider LAB BLO OD ORDERABLES Final Result Performing Organization Address [facility] de Phone Number [facility] [address] [place] [phone] * (ABNORMAL) Prothrombin Time-INR (12/15/2022 6:41 AM EST) Prothrombin Time 41.0(H) 10.0 - 13.1 SEC [facility] INTERNATIONAL NORM RATIO 3.4(H) 0.9 - 1.1 [facility] Comment:INTERNATIONAL NORMAL IZED RATIO (INR) REFERENCE [...] 6:41 AM EST 12/15/2022 6:41 AM EST [facility] External Provider LAB BLO OD ORDERABLES Final Result Performing Organization Address [facility] Co de Phone Number [facility] [address] [place] [phone] * (ABNORMAL) Prothrombin Time-INR (12/08/2022 6:48 AM EST) Prothrombin Time 29.0(H) 10.0 - 13.1 SEC [facility] INTERNATIONAL NORM RATIO 2.4(H) 0.9 - 1.1 [facility] Comment:INTERNATIONAL NORMAL IZED RATIO (INR) REFERENCE [...] 6:48 AM EST 12/08/2022 6:50 AM EST [facility] External Provider LAB BLO OD ORDERABLES Final Result Performing Organization Address [facility] Co de Phone Number [facility] [address] [place] [phone] * (ABNORMAL) Prothrombin Time-INR (12/01/2022 6:43 AM EST) Prothrombin Time 31.3(H) 10.0 - 13.1 SEC [facility] INTERNATIONAL NORM RATIO 2.6(H) 0.9 - 1.1 [facility] Comment:INTERNATIONAL NORMAL IZED RATIO (INR) REFERENCE [...] 6:43 AM EST 12/01/2022 6:43 AM EST [facility] External Provider LAB BLO OD ORDERABLES Final Result Performing Organization Address [facility] Co de Phone Number [facility] [address] [place] [address] [phone] * (ABNORMAL) Prothrombin Time-INR (11/26/2022 6:42 AM EST) Prothrombin Time 26.3(H) 10.0 - 13.1 SEC [facility] INTERNATIONAL NORM RATIO 2.2(H) 0.9 - 1.1 [facility] Comment:INTERNATIONAL NORMAL IZED RATIO (INR) REFERENCE [...] 6:42 AM EST 11/26/2022 6:43 AM EST [facility] External Provider LAB BLO OD ORDERABLES Final Result Performing Organization Address [facility] de Phone Number [facility] [address] [place] [phone] documented in this encounter Visit Diagnoses Not on filedocumented in this encounter Care Teams Loan Inspector Relationship Specialty Start Date End Date Eliza Carmona FNP [address] [place] [phone] PCP - General Family Medicine 08/15/21 Kale Spencer MD [address] [place], [place] [phone] Urology 11/03/24 documented as of this encounter
--- OUTSIDE RECORDS SUMMARY | 2025-08-14 06:39 | XMS_ITS | Encounter Summary ---
Author Organization [employer] Address [address] [facility] 7t [place] [address] Care Team Providers Care Insights Strategist Name Role Phone Eliza Carmona Primary Care Provider [phone] Kale Spencer MD Unavailable Reason for Visit * Reason Comments Med Refill Encounter Details Date Type Department Care Team ([facility] Contact Info) Description 03/13/2023 Refill [facility] [address] [place], [place] [phone] Eliza Carmona FNP [address] [place], [place] [phone] Nasal congestion Social History Tobacco Use Types [...] sinuses documented in this encounter Care Teams Insights Strategist Relationship Specialty Start Date End Date Eliza Carmona FNP [address] [place] [address] PCP - General Family Medicine 08/15/21 Kale Spencer MD [address] [place] [address] Drive [address] [place] [address] Urology 11/03/24 documented as of this encounter
--- OUTSIDE RECORDS SUMMARY | 2025-08-14 06:39 | XMS_ITS | Encounter Summary ---
Author Organization [employer] Address [address] [facility] [address] [place] [address] Care Team Providers Care Job Compositor Name Role Phone Eliza Carmona KELL Primary Care Provider [phone] Kale Spencer MD Unavailable Encounter Details Date Type Department Care Team (Late st Contact Info) Description 07/03/2024 Orders Only [facility] [address] [place], [place] [phone] Provider, MD Shakira Social History Tobacco Use [...] Prothrombin Time 31.1(H) 10.9 - 12.4 SEC [facility] INTERNATIONAL NORM RATIO 2.7(H) 0.9 - 1.1 [facility] Comment:INTERNATIONAL NORMAL IZED RATIO (INR) [...] LES Final Result Performing Organization Address [facility] de Phone Number [facility] [address] [place] [phone] * Immunofixation (NATHALIE), Urine (03/21/2025 7:13 AM EDT) Pathologist [facility] NATHALIE Interpretation SEE NOTE H [facility] Comment:Normal pattern. No m onoclonal proteins detected.The supplier of the testing reagents for this assayhas changed. Detection of small monoclonal proteins mayvary by test system.THIS TEST WAS PERFORMED AT:[facility] [address] [id number] SOTO MD 03/21/2025 7:13 AM EDT 03/21/2025 7:46 AM EDT Generic External Data Provider LAB URINE ORDERAB LES Final Result Performing Organization Address [facility] Co de Phone Number [facility] [address] [place] [phone] * Protein Creatinine Ratio, Urine (03/21/2025 7:13 AM EDT) Creatinine, Urine 166.98 mg/dL [facility] Protein, Total, Random Urine 12 <12 mg/dL [facility] Protein/Creati nine Ratio, Ur 0.07 <0.2 [facility] Comment:The spot urine prote in:creatinine ratio may increase to 0.3during normal . 03/21/2025 7:13 AM EDT 03/21/2025 7:46 AM EDT Generic External Data Provider LAB URINE ORDERAB LES Final Result Performing Organization Address City/[facility]/ZIP Co de Phone Number [facility] [address] [place] [phone] * Testosterone, Free (Dialysis) And Total, MS (09/11/2024 7:20 AM EST) Testosterone, Total 555 250 - 1100 ng/dL [facility] Comment:For additional infor isai, please refer tohttp://education.[employer]/faq/[email or web address](This link is being provided for informational/educational purposes only.)This test was developed and its analytical performancecharacteristics have been determined by [employer]. It hasnot been cleared or approved by the U.S. Food and DrugAdministration. This assay has been validated pursuantto the CLIA regulations and is used for clinicalpurposes. Testosterone, Free 97.1 35.0 - 155.0 pg/mL [facility] Comment:This test was develo ped and its analytical performancecharacteristics have been determined by [employer] [place], [place]. It hasnot been cleared or approved by the U.S. Food and DrugAdministration. This assay has been validated pursuantto the CLIA regulations and is used for clinicalpurposes.THIS TEST WAS PERFORMED AT:[facility]/[id number] [place] [id number] DUBOIS MD,PHD 09/11/2024 7:20 AM EST 09/11/2024 7:20 AM EST us Generic External Data Provider LAB BLOOD ORDERAB LES Final Result [facility] [address] [place] [address] [phone] * Prolactin (09/11/2024 7:20 AM EST) Prolactin 18.0 2.0 - 18.0 ng/mL [facility] Comment:THIS TEST WAS PERFOR MED AT:[facility] [address] [id number] SOTO MD 09/11/2024 7:20 AM EST 09/11/2024 7:20 AM EST Generic External Data Provider LAB BLOOD ORDERAB LES Final Result Performing Organization Address [facility] Co de Phone Number [facility] [address] [place] [phone] * LH (09/11/2024 7:20 AM EST) Lutenizing Hormone 4.5 1.5 - 9.3 mIU/mL [facility] Comment:THIS TEST WAS PERFOR MED AT:[facility] [address] [id number] SOTO MD 09/11/2024 7:20 AM EST 09/11/2024 7:20 AM EST us Generic External Data Provider LAB BLOOD ORDERAB LES Final Result Performing Organization Address City/[facility] Co de Phone Number [facility] [address] [place] [phone] * FSH (09/11/2024 7:20 AM EST) Follicle Stimulating Hormone 5.6 1.4 - 12.8 mIU/mL [facility] Comment:THIS TEST WAS PERFOR MED AT:[facility] [address] [id number] SOTO MD 09/11/2024 7:20 AM EST 09/11/2024 7:20 AM EST us Generic External Data Provider LAB BLOOD ORDERAB LES Final Result Performing Organization Address [facility]/ZIP Co de Phone Number [facility] [address] [place] [phone] * PSA, Total With Reflex to PSA, Free (09/11/2024 7:20 AM EST) PSA,Total (Free>4and<10) 0.56 0.00 - 4.00 ng/mL [facility] Comment:A Free PSA was not [...] LES Final Result Performing Organization Address [facility] Co de Phone Number [facility] [address] [place] [phone] * Glucose (09/11/2024 7:20 AM EST) Glucose Fasting 96 60 - 99 mg/dL [facility] 09/11/2024 7:20 AM EST 09/11/2024 7:20 AM EST us Generic External Data Provider LAB BLOOD ORDERAB LES Final Result Performing Organization Address [facility]/ZIP Co de Phone Number [facility] [address] [place] [phone] * Hm Colonoscopy (03/06/2021 2:24 PM EDT) us Historical Provider HEALTH MAINTENANCE Final Result documented in this encounter Visit Diagnoses Not on filedocumented in this encounter Additional Health Concerns Assessment Noted Time PHQ-9 Depression Total Score: 7 08/13/20 23 9:49 AM EDT documented as of this encounter Care Teams Job Compositor Relationship Specialty Start Date End Date Eliza Carmona FNP [address] [place] [phone] PCP - General Family Medicine 08/15/21 Kale Spencer MD [address] [place] [address] [address] [place] [address] Urology 11/03/24 documented as of this encounter
--- OUTSIDE RECORDS SUMMARY | 2025-08-14 06:39 | XMS_ITS | Encounter Summary ---
Author Organization [employer] Address [address] [facility] 7t [place] [address] Care Team Providers Care Senior Electrical Designer Name Role Phone Eliza Carmona Primary Care Provider [phone] Kale Spencer MD Unavailable Reason for Visit * Reason Comments Med Refill Encounter Details Date Type Department Care Team ([facility] st Contact Info) Description 01/30/2023 Refill [facility]S [address] [place] [address] Allyssa Yoo FNP Nasal congestion Social History [...] sinuses documented in this encounter Care Teams Senior Electrical Designer Relationship Specialty Start Date End Date Eliza Carmona FNP [address] [place] [address] PCP - General Family Medicine 08/15/21 Kale Spencer MD [address] [place] [address] Urology 11/03/24 documented as of this encounter
[2025-08-14 07:43] LABS: INTERNATIONAL NORM RATIO 2.8 (0.9-1.1); Prothrombin Time 32.6 SEC (10.9-12.4)
== END 2025-08-14 06:38 | disposition home or self-care (01) ==
LOC: HO.LABR 06:37
PROVIDERS: PCP Registered Nurse; Visit Provider Pharmacist
DX: Z95.2 Presence of prosthetic heart valve (principal)
CPT/HCPCS: 36415; 85610

== ENCOUNTER 2025-08-28 07:00 | Outpatient (REF) | payer OTHER, SELFPAY ==
--- OUTSIDE RECORDS SUMMARY | 2025-08-28 07:03 | XMS_ITS | Encounter Summary ---
Author Organization [employer] Address [address] [facility] 7t [place] [address] Care Team Providers Care Import/Export Freight Forwarder Name Role Phone Eliza Carmona Primary Care Provider [phone] Kale Spencer MD Unavailable Reason for Visit * Reason Comments Med Refill Encounter Details Date Type Department Care Team ([facility] Contact Info) Description 03/13/2023 Refill [facility] [address] [place], [place] [phone] Eliza Carmona FNP [address] [place], [place] [phone] Nasal congestion Social History Tobacco Use Types [...] sinuses documented in this encounter Care Teams Import/Export Freight Forwarder Relationship Specialty Start Date End Date Eliza Carmona FNP [address] [place] [address] PCP - General Family Medicine 08/15/21 Kale Spencer MD [address] [place] [address] Drive [address] [place] [address] Urology 11/03/24 documented as of this encounter
--- OUTSIDE RECORDS SUMMARY | 2025-08-28 07:03 | XMS_ITS | Encounter Summary ---
Author Organization [employer] Address [address] [place] [address] Care Team Providers Care Property Economist Name Role Phone Eliza Carmona KELL Primary Care Provider [phone] Kale Spencer MD Unavailable Encounter Details Date Type Department Care Team (Late st Contact Info) Description 07/03/2024 Orders Only [facility] [address] [place], [place] [phone] Provider, MD Shakira Social History Tobacco Use [...] Time 31.1(H) 10.9 - 12.4 SEC [facility] INTERNATIONAL NORM RATIO 2.7(H) 0.9 - 1.1 [facility] Comment:INTERNATIONAL NORMAL IZED RATIO (INR) [...] ORDERAB LES Final Result Performing Organization Address [facility] de Phone Number [facility] [address] [place] [phone] * Immunofixation (NATHALIE), Urine (03/21/2025 7:13 AM EDT) Pathologist [facility] NATHALIE Interpretation SEE NOTE H [facility] Comment:Normal pattern. No m onoclonal proteins detected.The supplier of the testing reagents for this assayhas changed. Detection of small monoclonal proteins mayvary by test system.THIS TEST WAS PERFORMED AT:[facility] [address] [id number] SOTO MD 03/21/2025 7:13 AM EDT 03/21/2025 7:46 AM EDT Generic External Data Provider LAB URINE ORDERAB LES Final Result Performing Organization Address [facility] Co de Phone Number [facility] [address] [place] [phone] * Protein Creatinine Ratio, Urine (03/21/2025 7:13 AM EDT) Creatinine, Urine 166.98 mg/dL [facility] Protein, Total, Random Urine 12 <12 mg/dL [facility] Protein/Creati nine Ratio, Ur 0.07 <0.2 [facility] Comment:The spot urine prote in:creatinine ratio may increase to 0.3during normal . 03/21/2025 7:13 AM EDT 03/21/2025 7:46 AM EDT Generic External Data Provider LAB URINE ORDERAB LES Final Result Performing Organization Address City/[facility]/ZIP Co de Phone Number [facility] [address] [place] [phone] * Testosterone, Free (Dialysis) And Total, MS (09/11/2024 7:20 AM EST) Testosterone, Total 555 250 - 1100 ng/dL [facility] Comment:For additional infor isai, please refer tohttp://education.[employer]/faq/[email or web address](This link is being provided for informational/educational purposes only.)This test was developed and its analytical performancecharacteristics have been determined by [place]. It hasnot been cleared or approved by the U.S. Food and DrugAdministration. This assay has been validated pursuantto the CLIA regulations and is used for clinicalpurposes. Testosterone, Free 97.1 35.0 - 155.0 pg/mL [facility] Comment:This test was develo ped and its analytical performancecharacteristics have been determined by [employer] [place], [place]. It hasnot been cleared or approved by the U.S. Food and DrugAdministration. This assay has been validated pursuantto the CLIA regulations and is used for clinicalpurposes.THIS TEST WAS PERFORMED AT:[facility]/[id number] [place] [id number] DUBOIS MD,PHD 09/11/2024 7:20 AM EST 09/11/2024 7:20 AM EST us Generic External Data Provider LAB BLOOD ORDERAB LES Final Result [facility] [address] [place] [phone] * Prolactin (09/11/2024 7:20 AM EST) Prolactin 18.0 2.0 - 18.0 ng/mL [facility] Comment:THIS TEST WAS PERFOR MED AT:[facility] [address] [id number] SOTO MD 09/11/2024 7:20 AM EST 09/11/2024 7:20 AM EST Generic External Data Provider LAB BLOOD ORDERAB LES Final Result Performing Organization Address [facility] Co de Phone Number [facility] [address] [place] [phone] * LH (09/11/2024 7:20 AM EST) Lutenizing Hormone 4.5 1.5 - 9.3 mIU/mL [facility] Comment:THIS TEST WAS PERFOR MED AT:[facility] [address] [id number] SOTO MD 09/11/2024 7:20 AM EST 09/11/2024 7:20 AM EST us Generic External Data Provider LAB BLOOD ORDERAB LES Final Result Performing Organization Address City/[facility] Co de Phone Number [facility] [address] [place] [phone] * FSH (09/11/2024 7:20 AM EST) Follicle Stimulating Hormone 5.6 1.4 - 12.8 mIU/mL [facility] Comment:THIS TEST WAS PERFOR MED AT:[facility] [address] [id number] SOTO MD 09/11/2024 7:20 AM EST 09/11/2024 7:20 AM EST us Generic External Data Provider LAB BLOOD ORDERAB LES Final Result Performing Organization Address [facility]/ZIP Co de Phone Number [facility] [address] [place] [phone] * PSA, Total With Reflex to PSA, Free (09/11/2024 7:20 AM EST) PSA,Total (Free>4and<10) 0.56 0.00 - 4.00 ng/mL [facility] Comment:A Free PSA was not [...] Kumar Alinity i ChemiluminescentMicroparticle Immunoassay (CMIA) 09/11/2024 7:2 0 AM EST 09/11/2024 7:20 AM EST us Generic External Data Provider LAB BLOOD ORDERAB LES Final Result Performing Organization Address [facility] Co de Phone Number [facility] [address] [place] [phone] * Glucose (09/11/2024 7:20 AM EST) Glucose Fasting 96 60 - 99 mg/dL [facility] 09/11/2024 7:20 AM EST 09/11/2024 7:20 AM EST us Generic External Data Provider LAB BLOOD ORDERAB LES Final Result Performing Organization Address [facility]/ZIP Co de Phone Number [facility] [address] [place] [phone] * Hm Colonoscopy (03/06/2021 2:24 PM EDT) us Historical Provider HEALTH MAINTENANCE Final Result documented in this encounter Visit Diagnoses Not on filedocumented in this encounter Additional Health Concerns Assessment Noted Time PHQ-9 Depression Total Score: 7 08/13/20 23 9:49 AM EDT documented as of this encounter Care Teams Property Economist Relationship Specialty Start Date End Date Eliza Carmona FNP [address] [place] [phone] PCP - General Family Medicine 08/15/21 Kale Spencer MD [address] [place] [address] [address] [place] [address] Urology 11/03/24 documented as of this encounter
--- OUTSIDE RECORDS SUMMARY | 2025-08-28 07:03 | XMS_ITS | Encounter Summary ---
Author Organization [employer] Address [address] [place] [address] Care Team Providers Care Data Sme Name Role Phone Eliza Carmona KELL Primary Care Provider [phone] Kale Spencer MD Unavailable Encounter Details Date Type Department Care Team (Late st Contact Info) Description 10/12/2022 Orders Only [facility] [address] [place] [address] Joellen Broussard LPN Social History Tobacco Use [...] Prothrombin Time 29.4(H) 11.1 - 13.3 SEC [facility] INTERNATIONAL NORM RATIO 2.4(H) 0.9 - 1.1 [facility] Comment:INTERNATIONAL NORMAL IZED RATIO (INR) REFERENCE [...] ORDERAB LES Final Result Performing Organization Address City/[facility]/ZIP Co de Phone Number [facility] [address] [place] [phone] * (ABNORMAL) Prothrombin Time-INR (04/01/2023 6:27 AM EDT) Prothrombin Time 31.1(H) 10.0 - 13.1 SEC [facility] INTERNATIONAL NORM RATIO 2.6(H) 0.9 - 1.1 [facility] Comment:INTERNATIONAL NORMAL IZED RATIO (INR) REFERENCE [...] 6:27 AM EDT 04/01/2023 6:27 AM EDT [facility] External Provider LAB BLO OD ORDERABLES Final Result Performing Organization Address [facility] Co de Phone Number [facility] [address] [place] [phone] * (ABNORMAL) Prothrombin Time-INR (03/17/2023 6:43 AM EDT) Prothrombin Time 34.2(H) 10.0 - 13.1 SEC [facility] INTERNATIONAL NORM RATIO 2.9(H) 0.9 - 1.1 [facility] Comment:INTERNATIONAL NORMAL IZED RATIO (INR) REFERENCE [...] 6:43 AM EDT 03/17/2023 6:43 AM EDT [facility] External Provider LAB BLO OD ORDERABLES Final Result Performing Organization Address [facility] de Phone Number [facility] [address] [place] [phone] * (ABNORMAL) Prothrombin Time-INR (03/03/2023 6:54 AM EDT) Prothrombin Time 34.1(H) 10.0 - 13.1 SEC [facility] INTERNATIONAL NORM RATIO 2.8(H) 0.9 - 1.1 [facility] Comment:INTERNATIONAL NORMAL IZED RATIO (INR) REFERENCE [...] 6:54 AM EDT 03/03/2023 6:54 AM EDT [facility] External Provider LAB BLO OD ORDERABLES Final Result Performing Organization Address [facility] de Phone Number [facility] [address] [place] [phone] * (ABNORMAL) Prothrombin Time-INR (02/17/2023 6:36 AM EDT) Prothrombin Time 33.8(H) 10.0 - 13.1 SEC [facility] INTERNATIONAL NORM RATIO 2.8(H) 0.9 - 1.1 [facility] Comment:INTERNATIONAL NORMAL IZED RATIO (INR) REFERENCE [...] 6:36 AM EDT 02/17/2023 6:36 AM EDT [facility] External Provider LAB BLO OD ORDERABLES Final Result Performing Organization Address City/[facility] Co de Phone Number [facility] [address] [place] [address] [phone] * (ABNORMAL) Prothrombin Time-INR (02/10/2023 6:43 AM EDT) Prothrombin Time 37.0(H) 10.0 - 13.1 SEC [facility] INTERNATIONAL NORM RATIO 3.1(H) 0.9 - 1.1 [facility] Comment:INTERNATIONAL NORMAL IZED RATIO (INR) REFERENCE [...] 6:43 AM EDT 02/10/2023 6:43 AM EDT [facility] External Provider LAB BLO OD ORDERABLES Final Result Performing Organization Address City/[facility] Co de Phone Number [facility] [address] [place] [address] [phone] * (ABNORMAL) Prothrombin Time-INR (01/29/2023 6:54 AM EDT) Prothrombin Time 32.5(H) 10.0 - 13.1 SEC [facility] INTERNATIONAL NORM RATIO 2.7(H) 0.9 - 1.1 [facility] Comment:INTERNATIONAL NORMAL IZED RATIO (INR) REFERENCE [...] 6:54 AM EDT 01/29/2023 6:54 AM EDT [facility] External Provider LAB BLO OD ORDERABLES Final Result Performing Organization Address [facility] de Phone Number [facility] [address] [place] [phone] * (ABNORMAL) Prothrombin Time-INR (01/26/2023 7:01 AM EDT) Prothrombin Time 22.4(H) 10.0 - 13.1 SEC [facility] INTERNATIONAL NORM RATIO 1.9(H) 0.9 - 1.1 [facility] Comment:INTERNATIONAL NORMAL IZED RATIO (INR) REFERENCE [...] 7:01 AM EDT 01/26/2023 7:01 AM EDT [facility] External Provider LAB BLO OD ORDERABLES Final Result Performing Organization Address [facility] de Phone Number [facility] [address] [place] [phone] * (ABNORMAL) Prothrombin Time-INR (01/12/2023 7:14 AM EDT) Prothrombin Time 36.4(H) 10.0 - 13.1 SEC [facility] INTERNATIONAL NORM RATIO 3.0(H) 0.9 - 1.1 [facility] Comment:INTERNATIONAL NORMAL IZED RATIO (INR) REFERENCE [...] 7:14 AM EDT 01/12/2023 7:14 AM EDT [facility] External Provider LAB BLO OD ORDERABLES Final Result Performing Organization Address City/State/[facility] Co de Phone Number [facility] [address] [place] [phone] * (ABNORMAL) Prothrombin Time-INR (12/29/2022 7:02 AM EST) Prothrombin Time 35.3(H) 10.0 - 13.1 SEC [facility] INTERNATIONAL NORM RATIO 2.9(H) 0.9 - 1.1 [facility] Comment:INTERNATIONAL NORMAL IZED RATIO (INR) REFERENCE [...] 7:02 AM EST 12/29/2022 7:02 AM EST [facility] External Provider LAB BLO OD ORDERABLES Final Result Performing Organization Address [facility] Co de Phone Number [facility] [address] [place] [phone] * (ABNORMAL) Prothrombin Time-INR (12/22/2022 7:14 AM EST) Prothrombin Time 39.4(H) 10.0 - 13.1 SEC [facility] INTERNATIONAL NORM RATIO 3.3(H) 0.9 - 1.1 [facility] Comment:INTERNATIONAL NORMAL IZED RATIO (INR) REFERENCE [...] 7:14 AM EST 12/22/2022 7:15 AM EST [facility] External Provider LAB BLO OD ORDERABLES Final Result Performing Organization Address [facility] de Phone Number [facility] [address] [place] [phone] * (ABNORMAL) Prothrombin Time-INR (12/15/2022 6:41 AM EST) Prothrombin Time 41.0(H) 10.0 - 13.1 SEC [facility] INTERNATIONAL NORM RATIO 3.4(H) 0.9 - 1.1 [facility] Comment:INTERNATIONAL NORMAL IZED RATIO (INR) REFERENCE [...] 6:41 AM EST 12/15/2022 6:41 AM EST [facility] External Provider LAB BLO OD ORDERABLES Final Result Performing Organization Address [facility] Co de Phone Number [facility] [address] [place] [phone] * (ABNORMAL) Prothrombin Time-INR (12/08/2022 6:48 AM EST) Prothrombin Time 29.0(H) 10.0 - 13.1 SEC [facility] INTERNATIONAL NORM RATIO 2.4(H) 0.9 - 1.1 [facility] Comment:INTERNATIONAL NORMAL IZED RATIO (INR) REFERENCE [...] 6:48 AM EST 12/08/2022 6:50 AM EST [facility] External Provider LAB BLO OD ORDERABLES Final Result Performing Organization Address [facility] Co de Phone Number [facility] [address] [place] [phone] * (ABNORMAL) Prothrombin Time-INR (12/01/2022 6:43 AM EST) Prothrombin Time 31.3(H) 10.0 - 13.1 SEC [facility] INTERNATIONAL NORM RATIO 2.6(H) 0.9 - 1.1 [facility] Comment:INTERNATIONAL NORMAL IZED RATIO (INR) REFERENCE [...] 6:43 AM EST 12/01/2022 6:43 AM EST [facility] External Provider LAB BLO OD ORDERABLES Final Result Performing Organization Address [facility] Co de Phone Number [facility] [address] [place] [phone] * (ABNORMAL) Prothrombin Time-INR (11/26/2022 6:42 AM EST) Prothrombin Time 26.3(H) 10.0 - 13.1 SEC [facility] INTERNATIONAL NORM RATIO 2.2(H) 0.9 - 1.1 [facility] Comment:INTERNATIONAL NORMAL IZED RATIO (INR) REFERENCE [...] 6:42 AM EST 11/26/2022 6:43 AM EST [facility] External Provider LAB BLO OD ORDERABLES Final Result Performing Organization Address [facility] de Phone Number [facility] [address] [place] [phone] documented in this encounter Visit Diagnoses Not on filedocumented in this encounter Care Teams Data Sme Relationship Specialty Start Date End Date Eliza aCrmona FNP [address] [place] [phone] PCP - General Family Medicine 08/15/21 Kale Spencer MD [address] [place], [place] [phone] Urology 11/03/24 documented as of this encounter
--- OUTSIDE RECORDS SUMMARY | 2025-08-28 07:04 | XMS_ITS | Encounter Summary ---
Author Organization [employer] Address [address] [place] [address] Care Team Providers Care Power Tong Operator Name Role Phone Eliza Carmona Primary Care Provider [phone] Kale Spencer MD Unavailable Reason for Visit * Reason Comments Med Refill Encounter Details Date Type Department Care Team ([facility] st Contact Info) Description 01/30/2023 Refill [facility] [address] [place] [address] Allyssa Yoo FNP Nasal congestion Social History [...] sinuses documented in this encounter Care Teams Power Tong Operator Relationship Specialty Start Date End Date Eliza Carmona FNP [address] [place] [address] PCP - General Family Medicine 08/15/21 Kale Spencer MD [address] [place] [address] Urology 11/03/24 documented as of this encounter
--- OUTSIDE RECORDS SUMMARY | 2025-08-28 07:04 | XMS_ITS | Clinical Summary ---
Author Organization [employer] Address [address] [facility] [address] [place] [address] Care Team Providers Care Sports Recruiter Name Role Phone Eliza Carmona KELL Primary Care Provider [phone] Kale Spencer MD Unavailable Allergies No known [...] TIMES A DAY AFTER MEALS 2 Active sacubitril-valsart an (Entresto) 24-26 MG [...] or fever 100 tablet 1 4 Active tadalafil (Cialis) 5 MG tablet Take [...] (Lipitor) 80 MG tabletIndications: Other restrictive cardiomyopathy (HCC) TAKE 1 TABLET BY MOUTH EVERY DAY 90 tablet 1 5 Active metoprolol succinate XL (Toprol-XL) 50 MG 24 hr tabletIndications: Other restrictive cardiomyopathy (HCC) TAKE 1 TABLET BY MOUTH EVERY DAY 90 tablet 3 5 Active furosemide (Lasix) 20 MG tabletIndications: Other restrictive cardiomyopathy (HCC) Take 1 tablet (20 mg) by mouth Once per day. 90 tablet 5 Active trimethoprim-polym yxin b (Polytrim) ophthalmic solutionIndication s:Acute conjunctivitis of right eye, unspecified acute conjunctivitis type Administer 1 drop into the right eye 4 times daily for 5 days. 10 mL 5 Active Active Problems Problem Noted Date Diagnosed Date Seasonal allergies 04/16/2025 Assessment & Plan (04/16/2025 9:21 AM EDT): - Flonase (Intranasal) and ketotifen (eye drops) PRN Proteinuria 04/16/2025 Overview (07/16/2025): Followed by [facility] - Dr. Salazar/ALLY Bolton 04/09/25: normal renal US Suspected secondary to vascular etiology, advised to avoid NSAIDs Erectile dysfunction 11/03/2024 Overview (07/16/2025): Following with [facility] (Dr. Whelan/Dr. Martinze) Assessment & Plan (07/16/2025 9:24 AM EDT): Previous tx: tadalafil (dc January 2025 d/t affecting INR levels) Consult January 2025: discussed possible Viagra PRN, but should first consult with pizza delivery driver. Also discussed alternative tx options such as surgical therapy and penile pump May 2025: plan for high dose Viagra PRN (100mg) Cont following with specialist as scheduled Assessment & Plan (04/16/2025 9:25 AM EDT): Previous tx: tadalafil (dc January 2025 d/t affecting INR levels) Consult January 2025: discussed possible Viagra PRN, but should first consult with pizza delivery driver. Also discussed alternative tx options such as surgical therapy and penile pump Cont following with specialist as scheduled Assessment & Plan (11/03/2024 1:42 PM EST): Cont current therapy Constipation 03/14/2024 Assessment & Plan (03/14/2024 8:05 AM EDT): -Cont Colace BID PRN -Encourage fiber-rich diet and adequate hydration Routine health maintenance 03/08/2023 Overview (04/16/2025): Optometry: CEE 03/12/22 Dental: [facility] Dental Colonoscopy: 02/06/21 at [facility] - Dr. Barrios. Repeat 10 years Assessment & Plan (08/15/2023 6:17 PM EDT): Optometry: CEE 03/12/22 Dental: pt to present to [facility] Dental after today's appt to request scheduling for tooth extraction. Colonoscopy: completed January 2021 - due January 2031 COVID-19 Vaccine: primary series complete, boosted x 1. Encouraged updated booster. Flu and pneumococcal vaccines administered today. VIS sheets provided. Assessment & Plan (03/08/2023 9:32 AM EDT): Optometry: CEE 03/12/22 Dental: pt to present to [facility] after today's appt to request scheduling for tooth extraction. Pre-op completed Aril 2021 Colonoscopy: completed January 2021 - due January 2031 COVID-19 Vaccine: primary series complete, boosted x 1. Encouraged bivalent booster. History of Coumadin therapy 03/08/2023 Overview (08/15/2023): Managed by [facility] Per Cards consult note [...] sign of ischemia Followed by [facility] - Dr. Costa 08/29/24: ADRIANNA - ordered by Dr. Costa. Stable compared to previous. EF 50-55%. Mild-to-mod tricuspid regurgitation present, no evidence of pulm HTN. Assessment & Plan (07/16/2025 9:25 AM EDT): -Continue DASH diet -Continue current CARDs regimen: furosemide 20mg daily sacubetril-valsartan 24-26mg tablet BID (provider will call office to request that med be sent to [facility] pharmacy) metoprolol succinate ER 50mg [...] to request that med be sent to [facility] pharmacy) metoprolol succinate ER 50mg [...] to request that med be sent to [facility] pharmacy) metoprolol succinate ER 50mg [...] 07/16/2025 9:00 AM EDT Office Visit [facility] [address] [place] [address] Eliza Carmona, KELL Acute conjunctivitis of right eye, unspecified acute conjunctivitis type (Primary Dx); Encounter for immunization; Other restrictive cardiomyopathy (CMS/HCC); Erectile dysfunction, unspecified erectile dysfunction type; Essential hypertension; Proteinuria, unspecified type 07/16/2025 Travel 07/13/2025 Telephone [facility] [address] [place], [place] [phone] Eliza Carmona FNP Chart Prep from Last [...] Prothrombin Time 31.3(H) 10.9 - 12.4 SEC [facility] INTERNATIONAL NORM RATIO 2.7(H) 0.9 - 1.1 [facility] Comment:INTERNATIONAL NORMAL IZED RATIO [...] Provider LAB BLOOD ORDERAB LES Final Result [facility] [address] [place] [phone] * (ABNORMAL) Lipid Panel, Standard (05/08/2025 7:04 AM EDT) Triglycerides 115 <150 mg/dL [facility] Comment:Desirable Triglyceri de: less than 150 mg/dLBorderline High Triglyceride 150-199 mg/dLHigh Triglyceride: 200-499 mg/dLVery High Triglyceride: greater than or equal to 5OO mg/dL Cholesterol 140 <200 mg/dL [facility] Comment:Desirable Cholestero l: less than 200 mg/dLBorderline High Cholesterol: 200-239 mg/dLHigh Cholesterol: greater than 239 mg/dL LDL Cholesterol Calculated 79 <100 mg/dL [facility] Comment:Desirable LDL: less than 100 mg/dLNear Optimal/Above Optimal LDL: 110- 129 mg/dLBorderline High LDL: 130-159 mg/dLHigh LDL: 160-189 mg/dLVery High LDL: greater than or equal to 190 mg/dL HDL Cholesterol 38(L) >40 mg/dL [facility] Comment:Desirable HDL: great er than 40 mg/dL Note: This HDL assay may give artificially low results in patients with liver disease. Blood Venous blood specimen / Unknown 05/08/2025 7:04 AM EDT 05/08/2025 7:04 AM EDT us Eliza Carmona TROUBLE CLERK LAB BLOOD ORDERABLES Final Res ult [facility] [address] [place] [address] [phone] * Hepatitis C Viral RNA, Quantitative, Real-Time PCR (06/27/2024 6:57 AM EDT) Hepatitis C Viral Load <15 NOT DETECTED NOT DETECTED IU/mL [facility] HCV Log PCR <1.18 NOT DETECTED NOT DETECTED Log IU/mL [facility] Comment:For additional infor isai, please refer tohttp://education.[employer]/faq/QUG22u9(This link is being provided for informational/educational purposes only.)THIS TEST WAS PERFORMED AT:[facility] [id number] [place] [id number] SOTO MD Blood 06/27/2024 6:57 AM EDT 06/27/2024 7:03 AM EDT Eliza aCrmona TROUBLE CLERK LAB BLOOD ORDERABLES Final Res ult Performing Organization Address City/[facility]/ZIP Co de Phone Number [facility] [address] [place] [phone] * HIV-1/2 Antigen and Antibodies, Fourth Generation, with Reflexes (06/27/2024 6:57 AM EDT) HIV AB/AG Nonreactive Nonreactive [facility] Comment:HIV-1 p24 Ag and/or HIV-1/HIV-2 Ab not detected.A test result that is nonreactive does not exclude thepossibility of exposure to or infection with HIV-1 and/orHIV-2. Nonreactive results in this assay for individualswith prior exposure to HIV-1 and/or HIV-2 may be due toantigen and antibody levels that are below the limit ofdetection of this assay.The Digly HIV Ag/Ab Combo assay result andsupplemental assay results should be interpreted inconjunction with the patient's clinical presentation,history and other laboratory results. If the results areinconsistent with clinical evidence, additional testing issuggested to confirm the result. Blood Venous blood specimen / Unknown 06/27/2024 6:57 AM EDT 06/27/2024 7:03 AM EDT Elizamaria de jesus Carmona TROUBLE CLERK LAB BLOOD ORDERABLES Final Res ult Performing Organization Address [facility]/ZIP Co de Phone Number [facility] [address] [place] [phone] * Hm Colonoscopy (03/06/2021 2:24 PM EDT) Historical Provider HEALTH MAINTENANCE Final Result from Last 3 Months or Most Recently Relevant to Health Maintenance Insurance [facility] ONE CARE < 65 [facility] Care Teams Sports Recruiter Relationship Specialty Start Date End Date Eliza Carmona FNP [address] [place] [address] PCP - General Family Medicine 08/15/21 Kale Spencer MD [address] [place] [address] Urology 11/03/24
[2025-08-28 08:12] LABS: INTERNATIONAL NORM RATIO 2.8 (0.9-1.1); Prothrombin Time 32.4 SEC (10.9-12.4)
== END 2025-08-28 07:01 | disposition home or self-care (01) ==
LOC: HO.LAB 07:00
PROVIDERS: PCP Registered Nurse; Visit Provider Pharmacist
DX: Z95.2 Presence of prosthetic heart valve (principal)
CPT/HCPCS: 36415; 85610

== ENCOUNTER 2025-08-29 11:01 | Outpatient (AMB) | payer MEDICARE, SELFPAY ==
--- NOTE | 2025-08-29 11:10 | MHC.OFFVIS ---
Intake Visit Reasons: 3m follow up Intake Note: Patient is present for Erectile Dys/Med Review Urology Med: Sildenafil Antibiotic Allergy: None Blood Thinner: Warfarin Welder Gas Automatic Required: No Allergies No Known Allergies Allergy (Verified 08/29/25 11:15) HPI Comments Details: Danis is a pleasant British-speaking male. He is a patient of Dr. Carmona. He is seen for the following urologic conditions - erectile dysfunction British translation provided by qualified medical collector Minimal response to high-dose Viagra Discussed and demonstrate vacuum pump Not currently interested P.r.n. follow-up Prior visit had recommended high-dose Viagra up to 200 mg Restart low-dose Cialis 2.5 Cialis interaction warfarin 01/25/25--Chaparro is a 59-year-old male who is followed for erectile dysfunction. Danis was previously prescribed daily generic Cialis 5 mg. He states that he was not able to take the medication because when he was on the medication his INR levels were elevated. I have discussed with him that urinalysis is notable for proteinuria and I will refer him to Nephrology. I have discussed a trial of on demand Viagra. The patient will discuss with his medical assistant internal medicine to be sure there is no contraindication for using Viagra. I have discussed alternative treatment options include surgical therapy and will have him follow-up with Dr. Maritnez to further discuss the surgical penile pump therapy management. 09/28/24--chaparro is a 59-year-old male who I am following for erectile dysfunction. Discussed testosterone results are within normal limits. Normal testosterone levels. Tadalafil 5 mg daily. Recent lab: 09/11- PSA- 0.56 Testosterone- 555 FSH- 5.6 LH- 4.5 08/18/24--Danis is a 58-year-old gentleman who is here as a new patient evaluation for concerns regarding erections. He states that the problem has been worsening over the last few years. He denies irritative voiding symptoms. I have discussed further evaluation with testosterone level and other pertinent hormone levels. [facility] Medical History Elevated cholesterol On anticoagulant therapy Screening for colon cancer Surgical History Hx of mitral valve replacement Hx of removal of cyst Family History Father No problems noted. Mother Hx of breast cancer Social History Household Members: Spouse and Family Housing: Apartment Do you presently have visiting nurse or other home services: No Alcohol intake: never Patient Tobacco Use Status: Never used Tobacco Advance Directives Date on File: 07/31/20 service: No Current occupational status: employed Review of Systems Const Denies chills and Denies fever(s) Card Reports no additional complaints and Denies syncope Resp Denies cough GI Denies abdominal pain and Denies heartburn Reports as per HPI and Denies change in libido Neuro Denies syncope Psych Denies change in libido Endo Denies change in libido Physical Exam Const General: cooperative, healthy appearing, comfortable and no acute distress Orientation/consciousness: patient oriented x3 HEENT Face and sinus: Yes normal facial exam Mouth: moist mucous membranes Neck Neck: Yes normal visual inspection, Yes full ROM and Yes trachea midline Chest Chest palpation & inspection: normal inspection of the chest Resp Effort & Inspection: normal respiratory effort, able to speak in complete sentences and no respiratory distress GI Inspection: Yes normal to inspection Back/Spine/Pelvis Cervical Spine: normal cervical lordosis Thoracic/Lumbar Spine: thoracic and lumbar spine normal to inspection Skin General skin exam: no rashes or lesions noted Neuro General: patient oriented x3, gait normal, tone normal and moves all extremities Extrem General: Yes normal to inspection and Yes capillary refill normal Assessment & Plan Assessment & Plan (1) Erectile dysfunction: Code(s): N52.9 - Male erectile dysfunction, unspecified Category: Medical Plan P.r.n. follow-up Patient Instructions: This note is constructed using voice recognition software. While every effort has been made to ensure accuracy land leasing examiner errors may have been included. Imaging studies, laboratory and physical exam results were discussed and reviewed in detail. No major barriers to patient understanding were identified. An opportunity to ask questions regarding the treatment plan was provided. All questions were answered. The patient expressed understanding and agreement with the above treatment plan. The patient is aware they should contact our office by phone for worsening of their current condition or the appearance of new urologic symptoms. Compliance is encouraged with any medications and followup testing that is ordered. It is a privilege to participate in the urologic care of your patient. If you have any questions or concerns regarding treatment for the above conditions, or other urologic issues, please do not hesitate to contact me. The office telephone contact is [phone]. Sincerely, Dr Abiodun Martinez MD, OTILIA [facility] - Urology Compassionate Specialist Care for the Genitourinary System Coding Level of Care Code Est Pt Level 3 (31000) Complex EM visit Add On G2211 Diagnoses Erectile dysfunction N52.9
--- OUTSIDE RECORDS SUMMARY | 2025-08-29 13:10 | XMS_ITS | Encounter Summary ---
Author Organization [employer] Address [address] [address] [facility] [facility] [address] [place] [address] Care Team Providers Care Brake Holder Name Role Phone Eliza Carmona KELL Primary Care Provider [phone] Kale Spencer MD Unavailable Encounter Details Date Type Department Care Team (Late st Contact Info) Description 10/12/2022 Orders Only [facility] [address] [place] [address] Joellen Broussard LPN Social History Tobacco Use [...] Prothrombin Time 29.4(H) 11.1 - 13.3 SEC [facility] INTERNATIONAL NORM RATIO 2.4(H) 0.9 - 1.1 [facility] Comment:INTERNATIONAL NORMAL IZED RATIO (INR) [...] ORDERAB LES Final Result Performing Organization Address City/[facility]/ZIP Co de Phone Number [facility] [address] [place] [phone] * (ABNORMAL) Prothrombin Time-INR (04/01/2023 6:27 AM EDT) Prothrombin Time 31.1(H) 10.0 - 13.1 SEC [facility] INTERNATIONAL NORM RATIO 2.6(H) 0.9 - 1.1 [facility] Comment:INTERNATIONAL NORMAL IZED RATIO (INR) [...] 6:27 AM EDT 04/01/2023 6:27 AM EDT [facility] External Provider LAB BLO OD ORDERABLES Final Result Performing Organization Address [facility] Co de Phone Number [facility] [address] [place] [phone] * (ABNORMAL) Prothrombin Time-INR (03/17/2023 6:43 AM EDT) Prothrombin Time 34.2(H) 10.0 - 13.1 SEC [facility] INTERNATIONAL NORM RATIO 2.9(H) 0.9 - 1.1 [facility] Comment:INTERNATIONAL NORMAL IZED RATIO (INR) [...] 6:43 AM EDT 03/17/2023 6:43 AM EDT [facility] External Provider LAB BLO OD ORDERABLES Final Result Performing Organization Address [facility] de Phone Number [facility] [address] [place] [phone] * (ABNORMAL) Prothrombin Time-INR (03/03/2023 6:54 AM EDT) Prothrombin Time 34.1(H) 10.0 - 13.1 SEC [facility] INTERNATIONAL NORM RATIO 2.8(H) 0.9 - 1.1 [facility] Comment:INTERNATIONAL NORMAL IZED RATIO (INR) [...] 6:54 AM EDT 03/03/2023 6:54 AM EDT [facility] External Provider LAB BLO OD ORDERABLES Final Result Performing Organization Address [facility] de Phone Number [facility] [address] [place] [phone] * (ABNORMAL) Prothrombin Time-INR (02/17/2023 6:36 AM EDT) Prothrombin Time 33.8(H) 10.0 - 13.1 SEC [facility] INTERNATIONAL NORM RATIO 2.8(H) 0.9 - 1.1 [facility] Comment:INTERNATIONAL NORMAL IZED RATIO (INR) [...] 6:36 AM EDT 02/17/2023 6:36 AM EDT [facility] External Provider LAB BLO OD ORDERABLES Final Result Performing Organization Address City/[facility] Co de Phone Number [facility] [address] [place] [address] [phone] * (ABNORMAL) Prothrombin Time-INR (02/10/2023 6:43 AM EDT) Prothrombin Time 37.0(H) 10.0 - 13.1 SEC [facility] INTERNATIONAL NORM RATIO 3.1(H) 0.9 - 1.1 [facility] Comment:INTERNATIONAL NORMAL IZED RATIO (INR) [...] 6:43 AM EDT 02/10/2023 6:43 AM EDT [facility] External Provider LAB BLO OD ORDERABLES Final Result Performing Organization Address City/[facility] Co de Phone Number [facility] [address] [place] [address] [phone] * (ABNORMAL) Prothrombin Time-INR (01/29/2023 6:54 AM EDT) Prothrombin Time 32.5(H) 10.0 - 13.1 SEC [facility] INTERNATIONAL NORM RATIO 2.7(H) 0.9 - 1.1 [facility] Comment:INTERNATIONAL NORMAL IZED RATIO (INR) [...] 6:54 AM EDT 01/29/2023 6:54 AM EDT [facility] External Provider LAB BLO OD ORDERABLES Final Result Performing Organization Address [facility] de Phone Number [facility] [address] [place] [phone] * (ABNORMAL) Prothrombin Time-INR (01/26/2023 7:01 AM EDT) Prothrombin Time 22.4(H) 10.0 - 13.1 [facility] INTERNATIONAL NORM RATIO 1.9(H) 0.9 - 1.1 [facility] Comment:INTERNATIONAL NORMAL IZED RATIO (INR) [...] 7:01 AM EDT 01/26/2023 7:01 AM EDT [facility] External Provider LAB BLO OD ORDERABLES Final Result Performing Organization Address [facility] de Phone Number [facility] [address] [place] [phone] * (ABNORMAL) Prothrombin Time-INR (01/12/2023 7:14 AM EDT) Prothrombin Time 36.4(H) 10.0 - 13.1 [facility] INTERNATIONAL NORM RATIO 3.0(H) 0.9 - 1.1 [facility] Comment:INTERNATIONAL NORMAL IZED RATIO (INR) [...] 7:14 AM EDT 01/12/2023 7:14 AM EDT [facility] External Provider LAB BLO OD ORDERABLES Final Result Performing Organization Address City/State/[facility] Co de Phone Number [facility] [address] [place] [address] [phone] * (ABNORMAL) Prothrombin Time-INR (12/29/2022 7:02 AM EST) Prothrombin Time 35.3(H) 10.0 - 13.1 [facility] INTERNATIONAL NORM RATIO 2.9(H) 0.9 - 1.1 [facility] Comment:INTERNATIONAL NORMAL IZED RATIO (INR) [...] 7:02 AM EST 12/29/2022 7:02 AM EST [facility] External Provider LAB BLO OD ORDERABLES Final Result Performing Organization Address [facility] Co de Phone Number [facility] [address] [place] [address] [phone] * (ABNORMAL) Prothrombin Time-INR (12/22/2022 7:14 AM EST) Prothrombin Time 39.4(H) 10.0 - 13.1 SEC [facility] INTERNATIONAL NORM RATIO 3.3(H) 0.9 - 1.1 [facility] Comment:INTERNATIONAL NORMAL IZED RATIO (INR) [...] 7:14 AM EST 12/22/2022 7:15 AM EST [facility] External Provider LAB BLO OD ORDERABLES Final Result Performing Organization Address [facility] de Phone Number [facility] [address] [place] [address] [phone] * (ABNORMAL) Prothrombin Time-INR (12/15/2022 6:41 AM EST) Prothrombin Time 41.0(H) 10.0 - 13.1 SEC [facility] INTERNATIONAL NORM RATIO 3.4(H) 0.9 - 1.1 [facility] Comment:INTERNATIONAL NORMAL IZED RATIO (INR) [...] 6:41 AM EST 12/15/2022 6:41 AM EST [facility] External Provider LAB BLO OD ORDERABLES Final Result Performing Organization Address [facility] Co de Phone Number [facility] [address] [place] [address] [phone] * (ABNORMAL) Prothrombin Time-INR (12/08/2022 6:48 AM EST) Prothrombin Time 29.0(H) 10.0 - 13.1 SEC [facility] INTERNATIONAL NORM RATIO 2.4(H) 0.9 - 1.1 [facility] Comment:INTERNATIONAL NORMAL IZED RATIO (INR) [...] 6:48 AM EST 12/08/2022 6:50 AM EST [facility] External Provider LAB BLO OD ORDERABLES Final Result Performing Organization Address [facility] Co de Phone Number [facility] [address] [place] [address] [phone] * (ABNORMAL) Prothrombin Time-INR (12/01/2022 6:43 AM EST) Prothrombin Time 31.3(H) 10.0 - 13.1 SEC [facility] INTERNATIONAL NORM RATIO 2.6(H) 0.9 - 1.1 [facility] Comment:INTERNATIONAL NORMAL IZED RATIO (INR) [...] 6:43 AM EST 12/01/2022 6:43 AM EST [facility] External Provider LAB BLO OD ORDERABLES Final Result Performing Organization Address [facility] Co de Phone Number [facility] [address] [place] [phone] * (ABNORMAL) Prothrombin Time-INR (11/26/2022 6:42 AM EST) Prothrombin Time 26.3(H) 10.0 - 13.1 [facility] INTERNATIONAL NORM RATIO 2.2(H) 0.9 - 1.1 [facility] Comment:INTERNATIONAL NORMAL IZED RATIO (INR) [...] 6:42 AM EST 11/26/2022 6:43 AM EST [facility] External Provider LAB BLO OD ORDERABLES Final Result Performing Organization Address [facility] de Phone Number [facility] [address] [place] [address] [phone] documented in this encounter Visit Diagnoses Not on filedocumented in this encounter Care Teams Brake Holder Relationship Specialty Start Date End Date Eliza Carmona FNP [address] [place] [phone] PCP - General Family Medicine 08/15/21 Kale Spencer MD [address] [place], [place] [phone] Urology 11/03/24 documented as of this encounter
--- OUTSIDE RECORDS SUMMARY | 2025-08-29 13:10 | XMS_ITS | Encounter Summary ---
Author Organization [employer] Address [address] [facility] 7t [place] [address] Care Team Providers Care Clinical Nurse Occupational Medicine Name Role Phone Eliza Carmona Primary Care Provider Kale Spencer MD Unavailable Reason for Visit * Reason Comments Med Refill Encounter Details Date Type Department Care Team ([facility] Contact Info) Description 03/13/2023 Refill [facility]S [address] [place], [place] [phone] Eliza Carmona FNP [address] [place], [place] [phone] Nasal congestion Social History Tobacco Use Types [...] sinuses documented in this encounter Care Teams Clinical Nurse Occupational Medicine Relationship Specialty Start Date End Date Eliza Carmona FNP [address] [place] [address] PCP - General Family Medicine 08/15/21 Kale Spencer MD [address] [place] [address] Drive [address] [place] [address] Urology 11/03/24 documented as of this encounter
--- OUTSIDE RECORDS SUMMARY | 2025-08-29 13:10 | XMS_ITS | Encounter Summary ---
Author Organization [employer] Address 75 [facility] 7t [place] [address] Care Team Providers Care Method Consultant Name Role Phone Eliza Carmona Primary Care Provider [phone] Kale Spencer MD Unavailable Reason for Visit * Reason Comments Med Refill Encounter Details Date Type Department Care Team ([facility] st Contact Info) Description 01/30/2023 Refill [facility] MED [facility] PEDS [address] [place] [address] Allyssa Yoo FNP Nasal congestion Social History [...] sinuses documented in this encounter Care Teams Method Consultant Relationship Specialty Start Date End Date Eliza Carmona FNP [address] [place] [address] PCP - General Family Medicine 08/15/21 Kale Spencer MD [address] [place] [address] Urology 11/03/24 documented as of this encounter
--- OUTSIDE RECORDS SUMMARY | 2025-08-29 13:10 | XMS_ITS | Encounter Summary ---
Author Organization [employer] Address [address] [facility] [address] 7[address] [place] [address] Care Team Providers Care Narcotics Investigator Name Role Phone Eliza Carmona KELL Primary Care Provider [phone] Kale Spencer MD Unavailable Encounter Details Date Type Department Care Team (Late st Contact Info) Description 07/03/2024 Orders Only [facility] MED & PEDS [address] [place], [place] [phone] Provider, MD Shakira Social History Tobacco Use [...] Prothrombin Time 31.1(H) 10.9 - 12.4 SEC [facility] INTERNATIONAL NORM RATIO 2.7(H) 0.9 - 1.1 [facility] Comment:INTERNATIONAL NORMAL IZED RATIO (INR) [...] ORDERAB LES Final Result Performing Organization Address [facility] de Phone Number [facility] [address] [place] [phone] * Immunofixation (NATHALIE), Urine (03/21/2025 7:13 AM EDT) Pathologist [facility] NATHALIE Interpretation SEE NOTE [facility] Comment:Normal pattern. No m onoclonal proteins detected.The supplier of the testing reagents for this assayhas changed. Detection of small monoclonal proteins mayvary by test system.THIS TEST WAS PERFORMED AT:[employer] [address] [id number] SOTO MD 03/21/2025 7:13 AM EDT 03/21/2025 7:46 AM EDT Generic External Data Provider LAB URINE ORDERAB LES Final Result Performing Organization Address [facility] Co de Phone Number [facility] [address] [place] [phone] * Protein Creatinine Ratio, Urine (03/21/2025 7:13 AM EDT) Creatinine, Urine 166.98 mg/dL [facility] Protein, Total, Random Urine 12 <12 mg/dL [facility] Protein/Creati nine Ratio, Ur 0.07 <0.2 [facility] Comment:The spot urine prote in:creatinine ratio may increase to 0.3during normal . 03/21/2025 7:13 AM EDT 03/21/2025 7:46 AM EDT Generic External Data Provider LAB URINE ORDERAB LES Final Result Performing Organization Address [facility]/ZIP Co de Phone Number [facility] [address] [place] [phone] * Testosterone, Free (Dialysis) And Total, MS (09/11/2024 7:20 AM EST) Testosterone, Total 555 250 - 1100 ng/dL [facility] Comment:For additional infor isai, please refer tohttp://education.Chargeback/faq/[email or web address](This link is being provided for informational/educational purposes only.)This test was developed and its analytical performancecharacteristics have been determined by [employer], [place]. It hasnot been cleared or approved by the U.S. Food and DrugAdministration. This assay has been validated pursuantto the CLIA regulations and is used for clinicalpurposes. Testosterone, Free 97.1 35.0 - 155.0 pg/mL [facility] Comment:This test was develo ped and its analytical performancecharacteristics have been determined by [employer] [place], [place]. It hasnot been cleared or approved by the U.S. Food and DrugAdministration. This assay has been validated pursuantto the CLIA regulations and is used for clinicalpurposes.THIS TEST WAS PERFORMED AT:[employer]/[id number] [place] [address]DZDGJNKPRAVEEN DUBOIS MD,PHD 09/11/2024 7:20 AM EST 09/11/2024 7:20 AM EST us Generic External Data Provider LAB BLOOD ORDERAB LES Final Result [facility] [address] [place] [address] [phone] * Prolactin (09/11/2024 7:20 AM EST) Prolactin 18.0 2.0 - 18.0 ng/mL [facility] Comment:THIS TEST WAS PERFOR MED AT:[employer] [address] [phone] SOTO MD 09/11/2024 7:20 AM EST 09/11/2024 7:20 AM EST Generic External Data Provider LAB BLOOD ORDERAB LES Final Result Performing Organization Address [facility] Co de Phone Number [facility] [address] [place] [phone] * LH (09/11/2024 7:20 AM EST) Lutenizing Hormone 4.5 1.5 - 9.3 mIU/mL [facility] Comment:THIS TEST WAS PERFOR MED AT:[employer] [address] [phone] SOTO MD 09/11/2024 7:20 AM EST 09/11/2024 7:20 AM EST us Generic External Data Provider LAB BLOOD ORDERAB LES Final Result Performing Organization Address [facility] Co de Phone Number [facility] [address] [place] [phone] * FSH (09/11/2024 7:20 AM EST) Follicle Stimulating Hormone 5.6 1.4 - 12.8 mIU/mL [facility] Comment:THIS TEST WAS PERFOR MED AT:[employer] [address] [phone] SOTO MD 09/11/2024 7:20 AM EST 09/11/2024 7:20 AM EST us Generic External Data Provider LAB BLOOD ORDERAB LES Final Result Performing Organization Address [facility]/ZIP Co de Phone Number [facility] [address] [place] [phone] * PSA, Total With Reflex to [...] ORDERAB LES Final Result Performing Organization Address [facility] Co de Phone Number [facility] [address] [place] [phone] * Glucose (09/11/2024 7:20 AM EST) Glucose Fasting 96 60 - 99 mg/dL [facility] 09/11/2024 7:20 AM EST 09/11/2024 7:20 AM EST us Generic External Data Provider LAB BLOOD ORDERAB LES Final Result Performing Organization Address [facility]/ZIP Co de Phone Number [facility] [address] [place] [phone] * Hm Colonoscopy (03/06/2021 2:24 PM EDT) us Historical Provider HEALTH MAINTENANCE Final Result documented in this encounter Visit Diagnoses Not on filedocumented in this encounter Additional Health Concerns Assessment Noted Time PHQ-9 Depression Total Score: 7 08/13/20 23 9:49 AM EDT documented as of this encounter Care Teams Narcotics Investigator Relationship Specialty Start Date End Date Eliza Carmona FNP [address] [place] [phone] PCP - General Family Medicine 08/15/21 Kale Spencer MD [address] [place] [address] [address] [place] [address] Urology 11/03/24 documented as of this encounter
--- OUTSIDE RECORDS SUMMARY | 2025-08-29 13:10 | XMS_ITS | Clinical Summary ---
Author Organization [employer] Address 75 [facility] 7t [place] [address] Care Team Providers Care Radio Program Director Name Role Phone Eliza Carmona KELL Primary Care Provider [phone] Kale Spencer MD Unavailable Allergies No known [...] PRN Proteinuria 04/16/2025 Overview (07/16/2025): Followed by [facility] - Dr. Salazar/ALLY Bolton 04/09/25: normal renal US Suspected secondary to vascular etiology, advised to avoid NSAIDs Erectile dysfunction 11/03/2024 Overview (07/16/2025): Following with [facility] (Dr. Whelan/Dr. Martinez) Assessment & Plan (07/16/2025 9:24 AM EDT): Previous tx: tadalafil (dc January 2025 d/t affecting INR levels) Consult January 2025: discussed possible Viagra PRN, but should first consult with retirement plan counselor. Also discussed alternative tx options such as surgical therapy and penile pump May 2025: plan for high dose Viagra PRN (100mg) Cont following with specialist as scheduled Assessment & Plan (04/16/2025 9:25 AM EDT): Previous tx: tadalafil (dc January 2025 d/t affecting INR levels) Consult January 2025: discussed possible Viagra PRN, but should first consult with retirement plan counselor. Also discussed alternative tx options such as surgical therapy and penile pump Cont following with specialist as scheduled Assessment & Plan (11/03/2024 1:42 PM EST): Cont current therapy Constipation 03/14/2024 Assessment & Plan (03/14/2024 8:05 AM EDT): -Cont Colace BID PRN -Encourage fiber-rich diet and adequate hydration Routine health maintenance 03/08/2023 Overview (04/16/2025): Optometry: [facility] 03/12/22 Dental: [facility] Dental Colonoscopy: 02/06/21 at [facility] - Dr. Barrios. Repeat 10 years Assessment & Plan (08/15/2023 6:17 PM EDT): Optometry: [facility] 03/12/22 Dental: pt to present to [facility] Dental after today's appt to request scheduling for tooth extraction. Colonoscopy: completed January 2021 - due January 2031 COVID-19 Vaccine: primary series complete, boosted x 1. Encouraged updated booster. Flu and pneumococcal vaccines administered today. VIS sheets provided. Assessment & Plan (03/08/2023 9:32 AM EDT): Optometry: [facility] 03/12/22 Dental: pt to present to [facility] Dental after today's appt to request scheduling for tooth extraction. Pre-op completed Aril 2021 Colonoscopy: completed January 2021 - due January 2031 COVID-19 Vaccine: primary series complete, boosted x 1. Encouraged bivalent booster. History of Coumadin therapy 03/08/2023 Overview (08/15/2023): Managed by [facility] Per Cards consult note March [...] sign of ischemia Followed by [facility] - Dr. Costa 08/29/24: ADRIANNA - ordered by Dr. Costa. Stable compared to previous. EF 50-55%. Mild-to-mod tricuspid regurgitation present, no evidence of pulm HTN. Assessment & Plan (07/16/2025 9:25 AM EDT): -Continue DASH diet -Continue current CARDs regimen: furosemide 20mg daily sacubetril-valsartan 24-26mg tablet BID (provider will call office to request that med be sent to [facility] pharmacy) metoprolol succinate ER 50mg daily aspirin [...] to request that med be sent to [facility] pharmacy) metoprolol succinate ER 50mg daily aspirin [...] to request that med be sent to [facility] pharmacy) metoprolol succinate ER 50mg daily aspirin [...] Description 07/16/2025 9:00 AM EDT Office Visit [facility] [address] [place] [address] Eliza Carmona, KELL Acute conjunctivitis of right eye, unspecified acute conjunctivitis type (Primary Dx); Encounter for immunization; Other restrictive cardiomyopathy (CMS/HCC); Erectile dysfunction, unspecified erectile dysfunction type; Essential hypertension; Proteinuria, unspecified type 07/16/2025 Travel 07/13/2025 Telephone [facility] MED & PEDS [address] [place], [place] [phone] Eliza Carmona FNP Chart Prep from Last [...] Prothrombin Time 31.3(H) 10.9 - 12.4 SEC [facility] INTERNATIONAL NORM RATIO 2.7(H) 0.9 - 1.1 [facility] Comment:INTERNATIONAL NORMAL IZED RATIO (INR) [...] Provider LAB BLOOD ORDERAB LES Final Result [facility] [address] [place] [phone] * (ABNORMAL) Lipid Panel, Standard (05/08/2025 7:04 AM EDT) Triglycerides 115 <150 mg/dL [facility] Comment:Desirable Triglyceri de: less than 150 mg/dLBorderline High Triglyceride 150-199 mg/dLHigh Triglyceride: 200-499 mg/dLVery High Triglyceride: greater than or equal to 5OO mg/dL Cholesterol 140 <200 mg/dL [facility] Comment:Desirable Cholestero l: less than 200 mg/dLBorderline High Cholesterol: 200-239 mg/dLHigh Cholesterol: greater than 239 mg/dL LDL Cholesterol Calculated 79 <100 mg/dL [facility] Comment:Desirable LDL: less than 100 mg/dLNear Optimal/Above Optimal LDL: 110- 129 mg/dLBorderline High LDL: 130-159 mg/dLHigh LDL: 160-189 mg/dLVery High LDL: greater than or equal to 190 mg/dL HDL Cholesterol 38(L) >40 mg/dL [facility] Comment:Desirable HDL: great er than 40 mg/dL Note: This HDL assay may give artificially low results in patients with liver disease. Blood Venous blood specimen / Unknown 05/08/2025 7:04 AM EDT 05/08/2025 7:04 AM EDT us Eliza Carmona SENIOR ESCROW OFFICER LAB BLOOD ORDERABLES Final Res ult [facility] [address] [place] [address] [phone] * Hepatitis C Viral RNA, Quantitative, Real-Time PCR (06/27/2024 6:57 AM EDT) Hepatitis C Viral Load <15 NOT DETECTED NOT DETECTED IU/mL [facility] HCV Log PCR <1.18 NOT DETECTED NOT DETECTED Log IU/mL [facility] Comment:For additional infor isai, please refer tohttp://education.Swype/faq/ANK24k4(This link is being provided for informational/educational purposes only.)THIS TEST WAS PERFORMED AT:[facility] [id number] [place] [phone] SOTO MD Blood 06/27/2024 6:57 AM EDT 06/27/2024 7:03 AM EDT Eliza Carmona SENIOR ESCROW OFFICER LAB BLOOD ORDERABLES Final Res ult Performing Organization Address City/[facility]/ZIP Co de Phone Number [facility] [address] [place] [phone] * HIV-1/2 Antigen and Antibodies, Fourth Generation, with Reflexes (06/27/2024 6:57 AM EDT) HIV AB/AG Nonreactive Nonreactive [facility] Comment:HIV-1 p24 Ag and/or HIV-1/HIV-2 Ab not detected.A test result that is nonreactive does not exclude thepossibility of exposure to or infection with HIV-1 and/orHIV-2. Nonreactive results in this assay for individualswith prior exposure to HIV-1 and/or HIV-2 may be due toantigen and antibody levels that are below the limit ofdetection of this assay.The [employer] HIV Ag/Ab Combo assay result andsupplemental assay results should be interpreted inconjunction with the patient's clinical presentation,history and other laboratory results. If the results areinconsistent with clinical evidence, additional testing issuggested to confirm the result. Blood Venous blood specimen / Unknown 06/27/2024 6:57 AM EDT 06/27/2024 7:03 AM EDT Elizamaria de jesus Carmona SENIOR ESCROW OFFICER LAB BLOOD ORDERABLES Final Res ult Performing Organization Address [facility]/ZIP Co de Phone Number [facility] [address] [place] [phone] * Hm Colonoscopy (03/06/2021 2:24 PM EDT) Historical Provider HEALTH MAINTENANCE Final Result from Last 3 Months or Most Recently Relevant to Health Maintenance Insurance [facility] ONE CARE < 65 [facility] Care Teams Radio Program Director Relationship Specialty Start Date End Date Eliza Carmona FNP [address] [place] [address] PCP - General Family Medicine 08/15/21 Kale Spencer MD [address] [place] [address] Urology 11/03/24
== END 2025-08-29 11:43 | disposition home or self-care (01) ==
LOC: HO.HUSH 11:02
PROVIDERS: PCP Registered Nurse; Visit Provider Urology
DX: N52.9 Male erectile dysfunction, unspecified (principal)
CPT/HCPCS: 99213; G2211

== ENCOUNTER → 2025-08-29 11:01 | Outpatient (BNVA) | payer OTHER, SELFPAY | PROVIDERS: PCP Registered Nurse; Visit Provider Urology | DX: N52.9 Male erectile dysfunction, unspecified (principal) | CPT/HCPCS: 99212 ==

== ENCOUNTER 2025-09-11 06:22 | Outpatient (REF) | payer OTHER, SELFPAY ==
[2025-09-11 07:46] LABS: INTERNATIONAL NORM RATIO 2.2 (0.9-1.1); Prothrombin Time 26.6 SEC (11.2-13.5)
== END 2025-09-11 06:23 | disposition home or self-care (01) ==
LOC: HO.LABR 06:22
PROVIDERS: PCP Registered Nurse; Visit Provider Pharmacist
DX: Z95.2 Presence of prosthetic heart valve (principal)
CPT/HCPCS: 36415; 85610

== ENCOUNTER 2025-09-25 06:58 | Outpatient (REF) | payer OTHER, SELFPAY ==
--- OUTSIDE RECORDS SUMMARY | 2025-09-25 07:04 | XMS_ITS | Encounter Summary ---
Author Organization [employer] Address [address] [facility] 7t [place] [address] Care Team Providers Care Forestry Supervisor Name Role Phone Eliza Carmona Primary Care Provider [phone] Kale Spencer MD Unavailable Reason for Visit * Reason Comments Med Refill Encounter Details Date Type Department Care Team ([facility] Contact Info) Description 03/13/2023 Refill [facility] MED & PEDS [address] [place], [place] [phone] Eliza Carmona FNP [address] [place], [place] [phone] Nasal congestion Social History Tobacco Use Types [...] sinuses documented in this encounter Care Teams Forestry Supervisor Relationship Specialty Start Date End Date Eliza Carmona FNP [address] [place] [address] PCP - General Family Medicine 08/15/21 Kale Spencer MD [address] [place] [address] Drive [address] [place] [address] Urology 11/03/24 documented as of this encounter
--- OUTSIDE RECORDS SUMMARY | 2025-09-25 07:04 | XMS_ITS | Encounter Summary ---
Author Organization [employer] Address [address] [place] [address] Care Team Providers Care Wet Process Operator Name Role Phone Eliza Carmona KELL Primary Care Provider [phone] Kale Spencer MD Unavailable Encounter Details Date Type Department Care Team (Late st Contact Info) Description 07/03/2024 Orders Only [facility] [address] [place], [place] [phone] Provider, MD Shakira Social History Tobacco Use [...] Prothrombin Time 31.1(H) 10.9 - 12.4 SEC [facility] INTERNATIONAL NORM RATIO 2.7(H) 0.9 - 1.1 [facility] Comment:INTERNATIONAL NORMAL IZED RATIO (INR) [...] ORDERAB LES Final Result Performing Organization Address [facility] de Phone Number [facility] [address] [place] [phone] * Immunofixation (NATHALIE), Urine (03/21/2025 7:13 AM EDT) Pathologist [facility] NATHALIE Interpretation SEE NOTE H [facility] Comment:Normal pattern. No m onoclonal proteins detected.The supplier of the testing reagents for this assayhas changed. Detection of small monoclonal proteins mayvary by test system.THIS TEST WAS PERFORMED AT:[facility] [address] [id number] SOTO MD 03/21/2025 7:13 AM EDT 03/21/2025 7:46 AM EDT Generic External Data Provider LAB URINE ORDERAB LES Final Result Performing Organization Address [facility] Co de Phone Number [facility] [address] [place] [phone] * Protein Creatinine Ratio, Urine (03/21/2025 7:13 AM EDT) Creatinine, Urine 166.98 mg/dL [facility] Protein, Total, Random Urine 12 <12 mg/dL [facility] Protein/Creati nine Ratio, Ur 0.07 <0.2 [facility] Comment:The spot urine prote in:creatinine ratio may increase to 0.3during normal . 03/21/2025 7:13 AM EDT 03/21/2025 7:46 AM EDT Generic External Data Provider LAB URINE ORDERAB LES Final Result Performing Organization Address City/[facility]/ZIP Co de Phone Number [facility] [address] [place] [phone] * Testosterone, Free (Dialysis) And Total, MS (09/11/2024 7:20 AM EST) Testosterone, Total 555 250 - 1100 ng/dL [facility] Comment:For additional infor isai, please refer tohttp://education.EnOcean/faq/[email or web address](This link is being provided for informational/educational purposes only.)This test was developed and its analytical performancecharacteristics have been determined by [employer] [place]. It hasnot been cleared or approved by the U.S. Food and DrugAdministration. This assay has been validated pursuantto the CLIA regulations and is used for clinicalpurposes. Testosterone, Free 97.1 35.0 - 155.0 pg/mL [facility] Comment:This test was develo ped and its analytical performancecharacteristics have been determined by [employer] [place], [place]. It hasnot been cleared or approved by the U.S. Food and DrugAdministration. This assay has been validated pursuantto the CLIA regulations and is used for clinicalpurposes.THIS TEST WAS PERFORMED AT:[facility]/[id number] [place] [id number] DUBOIS MD,PHD 09/11/2024 7:20 AM EST 09/11/2024 7:20 AM EST us Generic External Data Provider LAB BLOOD ORDERAB LES Final Result [facility] [address] [place] [phone] [phone] * Prolactin (09/11/2024 7:20 AM EST) Prolactin 18.0 2.0 - 18.0 ng/mL [facility] Comment:THIS TEST WAS PERFOR MED AT:[facility] [address] [id number] SOTO MD 09/11/2024 7:20 AM EST 09/11/2024 7:20 AM EST Generic External Data Provider LAB BLOOD ORDERAB LES Final Result Performing Organization Address [facility] Co de Phone Number [facility] [address] [place] [phone] * LH (09/11/2024 7:20 AM EST) Lutenizing Hormone 4.5 1.5 - 9.3 mIU/mL [facility] Comment:THIS TEST WAS PERFOR MED AT:[facility] [address] [id number] SOTO MD 09/11/2024 7:20 AM EST 09/11/2024 7:20 AM EST us Generic External Data Provider LAB BLOOD ORDERAB LES Final Result Performing Organization Address City/[facility] Co de Phone Number [facility] [address] [place] [phone] * FSH (09/11/2024 7:20 AM EST) Follicle Stimulating Hormone 5.6 1.4 - 12.8 mIU/mL [facility] Comment:THIS TEST WAS PERFOR MED AT:[facility] [address] [id number] SOTO MD 09/11/2024 7:20 AM EST 09/11/2024 7:20 AM EST us Generic External Data Provider LAB BLOOD ORDERAB LES Final Result Performing Organization Address [facility]/ZIP Co de Phone Number [facility] [address] [place] [phone] * PSA, Total With Reflex to PSA, Free (09/11/2024 7:20 AM EST) PSA,Total (Free>4and<10) 0.56 0.00 - 4.00 ng/mL [facility] Comment:A Free PSA was not [...] ORDERAB LES Final Result Performing Organization Address [facility] Co de Phone Number [facility] [address] [place] [phone] * Glucose (09/11/2024 7:20 AM EST) Glucose Fasting 96 60 - 99 mg/dL [facility] 09/11/2024 7:20 AM EST 09/11/2024 7:20 AM EST us Generic External Data Provider LAB BLOOD ORDERAB LES Final Result Performing Organization Address [facility]/ZIP Co de Phone Number [facility] [address] [place] [phone] * Hm Colonoscopy (03/06/2021 2:24 PM EDT) us Historical Provider HEALTH MAINTENANCE Final Result documented in this encounter Visit Diagnoses Not on filedocumented in this encounter Additional Health Concerns Assessment Noted Time PHQ-9 Depression Total Score: 7 08/13/20 23 9:49 AM EDT documented as of this encounter Care Teams Wet Process Operator Relationship Specialty Start Date End Date Eliza Carmona FNP [address] [place] [phone] PCP - General Family Medicine 08/15/21 Kale Spencer MD [address] [place] [address] [address] [place] [address] Urology 11/03/24 documented as of this encounter
--- OUTSIDE RECORDS SUMMARY | 2025-09-25 07:04 | XMS_ITS | Encounter Summary ---
Author Organization [employer] Address [address] [facility] [address] [place] [address] Care Team Providers Care Lip And Gate Builder Name Role Phone Eliza Carmona Primary Care Provider [phone] Kale Spencer MD Unavailable Reason for Visit * Reason Comments Med Refill Encounter Details Date Type Department Care Team ([facility] st Contact Info) Description 01/30/2023 Refill [facility] [address] [place] [address] Allyssa Yoo FNP Nasal congestion Social History [...] sinuses documented in this encounter Care Teams Lip And Gate Builder Relationship Specialty Start Date End Date Eliza Carmona FNP [address] [place] [address] PCP - General Family Medicine 08/15/21 Kale Spencer MD [address] [place] [address] Urology 11/03/24 documented as of this encounter
--- OUTSIDE RECORDS SUMMARY | 2025-09-25 07:04 | XMS_ITS | Encounter Summary ---
Author Organization [employer] Address [address] [place] [address] Care Team Providers Care Soccer Coach Name Role Phone Eliza Carmona KELL Primary Care Provider [phone] Kale Spencer MD Unavailable Encounter Details Date Type Department Care Team (Late st Contact Info) Description 10/12/2022 Orders Only [facility] [address] [place] [address] Joellen Broussard LPN Social History Tobacco Use [...] Prothrombin Time 29.4(H) 11.1 - 13.3 SEC [facility] INTERNATIONAL NORM RATIO 2.4(H) 0.9 - 1.1 [facility] Comment:INTERNATIONAL NORMAL IZED RATIO (INR) [...] ORDERAB LES Final Result Performing Organization Address City/[facility]/ZIP Co de Phone Number [facility] [address] [place] [address] [phone] * (ABNORMAL) Prothrombin Time-INR (04/01/2023 6:27 AM EDT) Prothrombin Time 31.1(H) 10.0 - 13.1 [facility] INTERNATIONAL NORM RATIO 2.6(H) 0.9 - 1.1 [facility] Comment:INTERNATIONAL NORMAL IZED RATIO (INR) [...] 6:27 AM EDT 04/01/2023 6:27 AM EDT [facility] External Provider LAB BLO OD ORDERABLES Final Result Performing Organization Address [facility] Co de Phone Number [facility] [address] [place] [phone] * (ABNORMAL) Prothrombin Time-INR (03/17/2023 6:43 AM EDT) Prothrombin Time 34.2(H) 10.0 - 13.1 SEC [facility] INTERNATIONAL NORM RATIO 2.9(H) 0.9 - 1.1 [facility] Comment:INTERNATIONAL NORMAL IZED RATIO (INR) [...] 6:43 AM EDT 03/17/2023 6:43 AM EDT [facility] External Provider LAB BLO OD ORDERABLES Final Result Performing Organization Address [facility] de Phone Number [facility] [address] [place] [phone] * (ABNORMAL) Prothrombin Time-INR (03/03/2023 6:54 AM EDT) Prothrombin Time 34.1(H) 10.0 - 13.1 SEC [facility] INTERNATIONAL NORM RATIO 2.8(H) 0.9 - 1.1 [facility] Comment:INTERNATIONAL NORMAL IZED RATIO (INR) [...] 6:54 AM EDT 03/03/2023 6:54 AM EDT [facility] External Provider LAB BLO OD ORDERABLES Final Result Performing Organization Address [facility] de Phone Number [facility] [address] [place] [phone] * (ABNORMAL) Prothrombin Time-INR (02/17/2023 6:36 AM EDT) Prothrombin Time 33.8(H) 10.0 - 13.1 [facility] INTERNATIONAL NORM RATIO 2.8(H) 0.9 - 1.1 [facility] Comment:INTERNATIONAL NORMAL IZED RATIO (INR) [...] 6:36 AM EDT 02/17/2023 6:36 AM EDT [facility] External Provider LAB BLO OD ORDERABLES Final Result Performing Organization Address City/[facility] Co de Phone Number [facility] [address] [place] [address] [phone] * (ABNORMAL) Prothrombin Time-INR (02/10/2023 6:43 AM EDT) Prothrombin Time 37.0(H) 10.0 - 13.1 [facility] INTERNATIONAL NORM RATIO 3.1(H) 0.9 - 1.1 [facility] Comment:INTERNATIONAL NORMAL IZED RATIO (INR) [...] 6:43 AM EDT 02/10/2023 6:43 AM EDT [facility] External Provider LAB BLO OD ORDERABLES Final Result Performing Organization Address City/[facility] Co de Phone Number [facility] [address] [place] [address] [phone] * (ABNORMAL) Prothrombin Time-INR (01/29/2023 6:54 AM EDT) Prothrombin Time 32.5(H) 10.0 - 13.1 [facility] INTERNATIONAL NORM RATIO 2.7(H) 0.9 - 1.1 [facility] Comment:INTERNATIONAL NORMAL IZED RATIO (INR) [...] 6:54 AM EDT 01/29/2023 6:54 AM EDT [facility] External Provider LAB BLO OD ORDERABLES Final Result Performing Organization Address [facility] de Phone Number [facility] [address] [place] [phone] * (ABNORMAL) Prothrombin Time-INR (01/26/2023 7:01 AM EDT) Prothrombin Time 22.4(H) 10.0 - 13.1 [facility] INTERNATIONAL NORM RATIO 1.9(H) 0.9 - 1.1 [facility] Comment:INTERNATIONAL NORMAL IZED RATIO (INR) [...] 7:01 AM EDT 01/26/2023 7:01 AM EDT [facility] External Provider LAB BLO OD ORDERABLES Final Result Performing Organization Address [facility] de Phone Number [facility] [address] [place] [phone] * (ABNORMAL) Prothrombin Time-INR (01/12/2023 7:14 AM EDT) Prothrombin Time 36.4(H) 10.0 - 13.1 [facility] INTERNATIONAL NORM RATIO 3.0(H) 0.9 - 1.1 [facility] Comment:INTERNATIONAL NORMAL IZED RATIO (INR) [...] 7:14 AM EDT 01/12/2023 7:14 AM EDT [facility] External Provider LAB BLO OD ORDERABLES Final Result Performing Organization Address City/State/[facility] Co de Phone Number [facility] [address] [place] [phone] * (ABNORMAL) Prothrombin Time-INR (12/29/2022 7:02 AM EST) Prothrombin Time 35.3(H) 10.0 - 13.1 [facility] INTERNATIONAL NORM RATIO 2.9(H) 0.9 - 1.1 [facility] Comment:INTERNATIONAL NORMAL IZED RATIO (INR) [...] 7:02 AM EST 12/29/2022 7:02 AM EST [facility] External Provider LAB BLO OD ORDERABLES Final Result Performing Organization Address [facility] Co de Phone Number [facility] [address] [place] [phone] * (ABNORMAL) Prothrombin Time-INR (12/22/2022 7:14 AM EST) Prothrombin Time 39.4(H) 10.0 - 13.1 [facility] INTERNATIONAL NORM RATIO 3.3(H) 0.9 - 1.1 [facility] Comment:INTERNATIONAL NORMAL IZED RATIO (INR) [...] 7:14 AM EST 12/22/2022 7:15 AM EST [facility] External Provider LAB BLO OD ORDERABLES Final Result Performing Organization Address [facility] de Phone Number [facility] [address] [place] [phone] * (ABNORMAL) Prothrombin Time-INR (12/15/2022 6:41 AM EST) Prothrombin Time 41.0(H) 10.0 - 13.1 [facility] INTERNATIONAL NORM RATIO 3.4(H) 0.9 - 1.1 [facility] Comment:INTERNATIONAL NORMAL IZED RATIO (INR) [...] 6:41 AM EST 12/15/2022 6:41 AM EST [facility] External Provider LAB BLO OD ORDERABLES Final Result Performing Organization Address [facility] Co de Phone Number [facility] [address] [place] [phone] * (ABNORMAL) Prothrombin Time-INR (12/08/2022 6:48 AM EST) Prothrombin Time 29.0(H) 10.0 - 13.1 [facility] INTERNATIONAL NORM RATIO 2.4(H) 0.9 - 1.1 [facility] Comment:INTERNATIONAL NORMAL IZED RATIO (INR) [...] 6:48 AM EST 12/08/2022 6:50 AM EST [facility] External Provider LAB BLO OD ORDERABLES Final Result Performing Organization Address [facility] Co de Phone Number [facility] [address] [place] [phone] * (ABNORMAL) Prothrombin Time-INR (12/01/2022 6:43 AM EST) Prothrombin Time 31.3(H) 10.0 - 13.1 [facility] INTERNATIONAL NORM RATIO 2.6(H) 0.9 - 1.1 [facility] Comment:INTERNATIONAL NORMAL IZED RATIO (INR) [...] 6:43 AM EST 12/01/2022 6:43 AM EST [facility] External Provider LAB BLO OD ORDERABLES Final Result Performing Organization Address [facility] Co de Phone Number [facility] [address] [place] [phone] [phone] * (ABNORMAL) Prothrombin Time-INR (11/26/2022 6:42 AM EST) Prothrombin Time 26.3(H) 10.0 - 13.1 [facility] INTERNATIONAL NORM RATIO 2.2(H) 0.9 - 1.1 [facility] Comment:INTERNATIONAL NORMAL IZED RATIO (INR) [...] 6:42 AM EST 11/26/2022 6:43 AM EST [facility] External Provider LAB BLO OD ORDERABLES Final Result Performing Organization Address [facility] de Phone Number [facility] [address] [place] [phone] documented in this encounter Visit Diagnoses Not on filedocumented in this encounter Care Teams Soccer Coach Relationship Specialty Start Date End Date Eliza Carmona FNP [address] [place] [phone] PCP - General Family Medicine 08/15/21 Kale Spencer MD [address] [place], [place] [phone] Urology 11/03/24 documented as of this encounter
--- OUTSIDE RECORDS SUMMARY | 2025-09-25 07:05 | XMS_ITS | Clinical Summary ---
Author Organization [employer] Address [address] [place] [address] Care Team Providers Care Unit Secy Name Role Phone Eliza Carmona KELL Primary Care Provider [phone] Kale Spencer MD Unavailable Allergies No known [...] PRN Proteinuria 04/16/2025 Overview (07/16/2025): Followed by [facility] - Dr. Salazar/ALLY Bolton 04/09/25: normal renal US Suspected secondary to vascular etiology, advised to avoid NSAIDs Erectile dysfunction 11/03/2024 Overview (07/16/2025): Following with [facility] Urology (Dr. Whelan/Dr. Martinez) Assessment & Plan (07/16/2025 9:24 AM EDT): Previous tx: tadalafil (dc January 2025 d/t affecting INR levels) Consult January 2025: discussed possible Viagra PRN, but should first consult with nonprofit fundraiser. Also discussed alternative tx options such as surgical therapy and penile pump May 2025: plan for high dose Viagra PRN (100mg) Cont following with specialist as scheduled Assessment & Plan (04/16/2025 9:25 AM EDT): Previous tx: tadalafil (dc January 2025 d/t affecting INR levels) Consult January 2025: discussed possible Viagra PRN, but should first consult with nonprofit fundraiser. Also discussed alternative tx options such as surgical therapy and penile pump Cont following with specialist as scheduled Assessment & Plan (11/03/2024 1:42 PM EST): Cont current therapy Constipation 03/14/2024 Assessment & Plan (03/14/2024 8:05 AM EDT): -Cont Colace BID PRN -Encourage fiber-rich diet and adequate hydration Routine health maintenance 03/08/2023 Overview (04/16/2025): Optometry: CEE 03/12/22 Dental: [facility] Dental Colonoscopy: 02/06/21 at [facility] - Dr. Barrios. Repeat 10 years Assessment & Plan (08/15/2023 6:17 PM EDT): Optometry: CEE 03/12/22 Dental: pt to present to [facility] Dental after today's appt to request scheduling for tooth extraction. Colonoscopy: completed January 2021 - due January 2031 COVID-19 Vaccine: primary series complete, boosted x 1. Encouraged updated booster. Flu and pneumococcal vaccines administered today. VIS sheets provided. Assessment & Plan (03/08/2023 9:32 AM EDT): Optometry: CEE 03/12/22 Dental: pt to present to [facility] Dental after today's appt to request scheduling for tooth extraction. Pre-op completed Aril 2021 Colonoscopy: completed January 2021 - due January 2031 COVID-19 Vaccine: primary series complete, boosted x 1. Encouraged bivalent booster. History of Coumadin therapy 03/08/2023 Overview (08/15/2023): Managed by [facility] Per Cards consult note [...] to request that med be sent to [facility] pharmacy) metoprolol succinate ER 50mg [...] to request that med be sent to [facility] pharmacy) metoprolol succinate ER 50mg [...] to request that med be sent to [facility] pharmacy) metoprolol succinate ER 50mg [...] 07/16/2025 9:00 AM EDT Office Visit [facility] [address] [place] [address] Eliza Carmona, KELL Acute conjunctivitis of right eye, unspecified acute conjunctivitis type (Primary Dx); Encounter for immunization; Other restrictive cardiomyopathy (CMS/HCC); Erectile dysfunction, unspecified erectile dysfunction type; Essential hypertension; Proteinuria, unspecified type 07/16/2025 Travel 07/13/2025 Telephone [facility] [address] [place], [place] [phone] Eliza Carmona FNP Chart Prep from Last [...] 1965 FIT 1965 FOBT 1965 Sigmoidoscopy 1965 RSV Patients and Patients Aged 60 years or older (1 - Risk 50-74 years 1-dose series) 2015 Dental X-Ray: Bitewings 01/20/2023 01/19/2022, 05/18 Dental [...] 08/28/2029 08/28/2019, 02/08/2017 Lipid Panel 05/08/2030 05/08/2025, 0912/2023, 08/23/2023, Additional history exists Colonoscopy 03/06/2031 03/06/2021 Colorectal Cancer Screening 03/06/2031 Zoster Vaccines Completed 06/22/2022, 04/08/2022 Pneumococcal Vaccine: [...] Prothrombin Time 31.3(H) 10.9 - 12.4 [facility] [...] LES Final Result [facility] [address] [place] [phone] * (ABNORMAL) Lipid Panel, Standard (05/08/2025 7:04 AM EDT) Triglycerides 115 <150 mg/dL [facility] Comment:Desirable Triglyceri de: less than 150 mg/dLBorderline High Triglyceride 150-199 mg/dLHigh Triglyceride: 200-499 mg/dLVery High Triglyceride: greater than or equal to 5OO mg/dL Cholesterol 140 <200 mg/dL [facility] Comment:Desirable Cholestero l: less than 200 mg/dLBorderline High Cholesterol: 200-239 mg/dLHigh Cholesterol: greater than 239 mg/dL LDL Cholesterol Calculated 79 <100 mg/dL [facility] Comment:Desirable LDL: less than 100 mg/dLNear Optimal/Above Optimal LDL: 110- 129 mg/dLBorderline High LDL: 130-159 mg/dLHigh LDL: 160-189 mg/dLVery High LDL: greater than or equal to 190 mg/dL HDL Cholesterol 38(L) >40 mg/dL [facility] Comment:Desirable HDL: grea ter than 40 mg/dL Note: This HDL assay may give artificially low results in patients with liver disease. Blood Venous blood specimen / Unknown 05/08/2025 7:04 AM EDT 05/08/2025 7:04 AM EDT us Eliza Carmona REVENUE ENFORCEMENT COLLECTION AGENT LAB BLOOD ORDERABLES Final Res ult [facility] [address] [place] [phone] * Hepatitis C Viral RNA, Quantitative, Real-Time PCR (06/27/2024 6:57 AM EDT) Hepatitis C Viral Load <15 NOT DETECTED NOT DETECTED IU/mL [facility] HCV Log PCR <1.18 NOT DETECTED NOT DETECTED Log IU/mL [facility] Comment:For additional infor matnesha, please refer [email or web address].[email or web address](This link is being provided for informational/educational purposes only.)THIS TEST WAS PERFORMED AT:[email or web address] [place] [id number] SOTO MD Blood 06/27/2024 6:57 AM EDT 06/27/2024 7:03 AM EDT Eliza Carmona [employer]VENUE ENFORCEMENT COLLECTION AGENT LAB BLOOD ORDERABLES Final Res ult Performing Organization Address City/[facility]/ZIP Co de Phone Number [facility] [address] [place] [phone] * HIV-1/2 Antigen and Antibodies, Fourth Generation, with Reflexes (06/27/2024 6:57 AM EDT) HIV AB/AG Nonreactive Nonreactive [facility] Comment:HIV-1 p24 Ag and/or HIV-1/HIV-2 Ab not detected.A test result that is nonreactive does not exclude thepossibility of exposure to or infection with HIV-1 and/orHIV-2. Nonreactive results in this assay for individualswith prior exposure to HIV-1 and/or HIV-2 may be due toantigen and antibody levels that are below the limit ofdetection of this assay.The [employer] HIV Ag/Ab Combo assay result andsupplemental assay results should be interpreted inconjunction with the patient's clinical presentation,history and other laboratory results. If the results areinconsistent with clinical evidence, additional testing issuggested to confirm the result. Blood Venous blood specimen / Unknown 06/27/2024 6:57 AM EDT 06/27/2024 7:03 AM EDT Eliza Carmona REVENUE ENFORCEMENT COLLECTION AGENT LAB BLOOD ORDERABLES Final Res ult Performing Organization Address [facility]/ZIP Co de Phone Number [facility] [address] [place] [phone] * Hm Colonoscopy (03/06/2021 2:24 PM EDT) Historical Provider HEALTH MAINTENANCE Final Result from Last 3 Months or Most Recently Relevant to Health Maintenance Insurance [facility] ONE CARE < 65 [place] STAND ADULT [facility] Care Teams Unit Secy Relationship Specialty Start Date End Date Eliza Carmona FNP [address] [place] [address] PCP - General Family Medicine 08/15/21 Kale Spencer MD [address] [place] [address] Urology 11/03/24
[2025-09-25 07:54] LABS: INTERNATIONAL NORM RATIO 2.6 (0.9-1.1); Prothrombin Time 30.5 SEC (11.2-13.5)
== END 2025-09-25 06:59 | disposition home or self-care (01) ==
LOC: HO.LABR 06:58
PROVIDERS: Visit Provider Pharmacist
DX: Z95.2 Presence of prosthetic heart valve (principal)
CPT/HCPCS: 36415; 85610

== ENCOUNTER 2025-10-09 06:56 | Outpatient (REF) | payer OTHER, SELFPAY ==
--- OUTSIDE RECORDS SUMMARY | 2025-10-09 07:01 | XMS_ITS | Encounter Summary ---
Author Organization [employer] Address [address] [place] [address] Care Team Providers Care Building Construction Superintendent Name Role Phone Eliza Carmona KELL Primary Care Provider Kale Spencer MD Unavailable Encounter Details Date Type Department Care Team (Late st Contact Info) Description 10/12/2022 Orders Only [facility] [address] [place] [address] Joellen Broussard LPN Social History Tobacco Use [...] Prothrombin Time 29.4(H) 11.1 - 13.3 SEC [facility] INTERNATIONAL NORM RATIO 2.4(H) 0.9 - 1.1 [facility] Comment:INTERNATIONAL NORMAL IZED RATIO (INR) [...] ORDERAB LES Final Result Performing Organization Address City/[facility]/ZIP Co de Phone Number [facility] [address] [place] [phone] * (ABNORMAL) Prothrombin Time-INR (04/01/2023 6:27 AM EDT) Prothrombin Time 31.1(H) 10.0 - 13.1 [facility] INTERNATIONAL NORM RATIO 2.6(H) 0.9 - 1.1 [facility] Comment:INTERNATIONAL NORMAL IZED RATIO (INR) [...] 6:27 AM EDT 04/01/2023 6:27 AM EDT [facility] External Provider LAB BLO OD ORDERABLES Final Result Performing Organization Address [facility] Co de Phone Number [facility] [address] [place] [phone] * (ABNORMAL) Prothrombin Time-INR (03/17/2023 6:43 AM EDT) Prothrombin Time 34.2(H) 10.0 - 13.1 [facility] INTERNATIONAL NORM RATIO 2.9(H) 0.9 - 1.1 [facility] Comment:INTERNATIONAL NORMAL IZED RATIO (INR) [...] 6:43 AM EDT 03/17/2023 6:43 AM EDT [facility] External Provider LAB BLO OD ORDERABLES Final Result Performing Organization Address [facility] de Phone Number [facility] [address] [place] [phone] * (ABNORMAL) Prothrombin Time-INR (03/03/2023 6:54 AM EDT) Prothrombin Time 34.1(H) 10.0 - 13.1 [facility] INTERNATIONAL NORM RATIO 2.8(H) 0.9 - 1.1 [facility] Comment:INTERNATIONAL NORMAL IZED RATIO (INR) [...] 6:54 AM EDT 03/03/2023 6:54 AM EDT [facility] External Provider LAB BLO OD ORDERABLES Final Result Performing Organization Address [facility] de Phone Number [facility] [address] [place] [phone] * (ABNORMAL) Prothrombin Time-INR (02/17/2023 6:36 AM EDT) Prothrombin Time 33.8(H) 10.0 - 13.1 [facility] INTERNATIONAL NORM RATIO 2.8(H) 0.9 - 1.1 [facility] Comment:INTERNATIONAL NORMAL IZED RATIO (INR) [...] 6:36 AM EDT 02/17/2023 6:36 AM EDT [facility] External Provider LAB BLO OD ORDERABLES Final Result Performing Organization Address City/[facility] Co de Phone Number [facility] [address] [place] [address] [phone] * (ABNORMAL) Prothrombin Time-INR (02/10/2023 6:43 AM EDT) Prothrombin Time 37.0(H) 10.0 - 13.1 SEC [facility] INTERNATIONAL NORM RATIO 3.1(H) 0.9 - 1.1 [facility] Comment:INTERNATIONAL NORMAL IZED RATIO (INR) [...] 6:43 AM EDT 02/10/2023 6:43 AM EDT [facility] External Provider LAB BLO OD ORDERABLES Final Result Performing Organization Address City/[facility] Co de Phone Number [facility] [address] [place] [address] [phone] * (ABNORMAL) Prothrombin Time-INR (01/29/2023 6:54 AM EDT) Prothrombin Time 32.5(H) 10.0 - 13.1 [facility] INTERNATIONAL NORM RATIO 2.7(H) 0.9 - 1.1 [facility] Comment:INTERNATIONAL NORMAL IZED RATIO (INR) [...] 6:54 AM EDT 01/29/2023 6:54 AM EDT [facility] External Provider LAB BLO OD ORDERABLES Final Result Performing Organization Address [facility] de Phone Number [facility] [address] [place] [phone] * (ABNORMAL) Prothrombin Time-INR (01/26/2023 7:01 AM EDT) Prothrombin Time 22.4(H) 10.0 - 13.1 [facility] INTERNATIONAL NORM RATIO 1.9(H) 0.9 - 1.1 [facility] Comment:INTERNATIONAL NORMAL IZED RATIO (INR) [...] 7:01 AM EDT 01/26/2023 7:01 AM EDT [facility] External Provider LAB BLO OD ORDERABLES Final Result Performing Organization Address [facility] de Phone Number [facility] [address] [place] [phone] * (ABNORMAL) Prothrombin Time-INR (01/12/2023 7:14 AM EDT) Prothrombin Time 36.4(H) 10.0 - 13.1 [facility] INTERNATIONAL NORM RATIO 3.0(H) 0.9 - 1.1 [facility] Comment:INTERNATIONAL NORMAL IZED RATIO (INR) [...] 7:14 AM EDT 01/12/2023 7:14 AM EDT [facility] External Provider LAB BLO OD ORDERABLES Final Result Performing Organization Address City/State/[facility] Co de Phone Number [facility] [address] [place] [phone] * (ABNORMAL) Prothrombin Time-INR (12/29/2022 7:02 AM EST) Prothrombin Time 35.3(H) 10.0 - 13.1 [facility] INTERNATIONAL NORM RATIO 2.9(H) 0.9 - 1.1 [facility] Comment:INTERNATIONAL NORMAL IZED RATIO (INR) [...] 7:02 AM EST 12/29/2022 7:02 AM EST [facility] External Provider LAB BLO OD ORDERABLES Final Result Performing Organization Address [facility] Co de Phone Number [facility] [address] [place] [phone] * (ABNORMAL) Prothrombin Time-INR (12/22/2022 7:14 AM EST) Prothrombin Time 39.4(H) 10.0 - 13.1 [facility] INTERNATIONAL NORM RATIO 3.3(H) 0.9 - 1.1 [facility] Comment:INTERNATIONAL NORMAL IZED RATIO (INR) [...] 7:14 AM EST 12/22/2022 7:15 AM EST [facility] External Provider LAB BLO OD ORDERABLES Final Result Performing Organization Address [facility] de Phone Number [facility] [address] [place] [phone] * (ABNORMAL) Prothrombin Time-INR (12/15/2022 6:41 AM EST) Prothrombin Time 41.0(H) 10.0 - 13.1 [facility] INTERNATIONAL NORM RATIO 3.4(H) 0.9 - 1.1 [facility] Comment:INTERNATIONAL NORMAL IZED RATIO (INR) [...] 6:41 AM EST 12/15/2022 6:41 AM EST [facility] External Provider LAB BLO OD ORDERABLES Final Result Performing Organization Address [facility] Co de Phone Number [facility] [address] [place] [phone] * (ABNORMAL) Prothrombin Time-INR (12/08/2022 6:48 AM EST) Prothrombin Time 29.0(H) 10.0 - 13.1 SEC [facility] INTERNATIONAL NORM RATIO 2.4(H) 0.9 - 1.1 [facility] Comment:INTERNATIONAL NORMAL IZED RATIO (INR) [...] 6:48 AM EST 12/08/2022 6:50 AM EST [facility] External Provider LAB BLO OD ORDERABLES Final Result Performing Organization Address [facility] Co de Phone Number [facility] [address] [place] [phone] * (ABNORMAL) Prothrombin Time-INR (12/01/2022 6:43 AM EST) Prothrombin Time 31.3(H) 10.0 - 13.1 [facility] INTERNATIONAL NORM RATIO 2.6(H) 0.9 - 1.1 [facility] Comment:INTERNATIONAL NORMAL IZED RATIO (INR) [...] 6:43 AM EST 12/01/2022 6:43 AM EST [facility] External Provider LAB BLO OD ORDERABLES Final Result Performing Organization Address [facility] Co de Phone Number [facility] [address] [place] [phone] * (ABNORMAL) Prothrombin Time-INR (11/26/2022 6:42 AM EST) Prothrombin Time 26.3(H) 10.0 - 13.1 [facility] INTERNATIONAL NORM RATIO 2.2(H) 0.9 - 1.1 [facility] Comment:INTERNATIONAL NORMAL IZED RATIO (INR) [...] 6:42 AM EST 11/26/2022 6:43 AM EST [facility] External Provider LAB BLO OD ORDERABLES Final Result Performing Organization Address [facility] de Phone Number [facility] [address] [place] [phone] documented in this encounter Visit Diagnoses Not on filedocumented in this encounter Care Teams Building Construction Superintendent Relationship Specialty Start Date End Date Eliza Carmona FNP [address] [place] [phone] PCP - General Family Medicine 08/15/21 Kale Spencer MD [address] [place], [place] [phone] Urology 11/03/24 documented as of this encounter
--- OUTSIDE RECORDS SUMMARY | 2025-10-09 07:01 | XMS_ITS | Encounter Summary ---
Author Organization [employer] Address [address] 7[address] [place] [address] Care Team Providers Care Product Introduction Manager Name Role Phone Eliza Carmona KELL Primary Care Provider [phone] Kale Spencer MD Unavailable Encounter Details Date Type Department Care Team (Late st Contact Info) Description 07/03/2024 Orders Only [facility] PEDS [address] [place], [place] [phone] Provider, MD Shakira Social History Tobacco Use [...] PROLACTIN Routine 09/11/2024 7:20 AM EST TESTOSTERONE, FREE, BIOAVAILABLE AND TOTAL, MALES (ADULT), IA Routine 09/11/2024 7:20 AM EST LH Routine 09/11/2024 7:20 AM EST FSH Routine 09/11/2024 7:20 AM EST GLUCOSE Routine 09/11/2024 7:20 AM EST HM COLONOSCOPY Routine 03/06/2021 2:24 PM EDT documented in this encounter Results * (ABNORMAL) Prothrombin Time-INR (03/21/2025 7:19 AM EDT) Prothrombin Time 31.1(H) 10.9 - 12.4 SEC [facility] INTERNATIONAL NORM RATIO 2.7(H) 0.9 - 1.1 [facility] Comment:INTERNATIONAL NORMAL IZED RATIO (INR) REFERENCE [...] ORDERAB LES Final Result Performing Organization Address [facility] de Phone Number [facility] [address] [place] [phone] * Immunofixation (NATHALIE), Urine (03/21/2025 7:13 AM EDT) NATHALIE Interpretation SEE NOTE H [facility] Comment:Normal pattern. No m onoclonal proteins detected.The supplier of the testing reagents for this assayhas changed. Detection of small monoclonal proteins mayvary by test system.THIS TEST WAS PERFORMED AT:[facility] [address] [phone] SOTO MD 03/21/2025 7:13 AM EDT 03/21/2025 7:46 AM EDT Generic External Data Provider LAB URINE ORDERAB LES Final Result Performing Organization Address [facility] Co de Phone Number [facility] [address] [place] [phone] * Protein Creatinine Ratio, Urine (03/21/2025 7:13 AM EDT) Creatinine, Urine 166.98 mg/dL [facility] Protein, Total, Random Urine 12 <12 mg/dL [facility] Protein/Creati nine Ratio, Ur 0.07 <0.2 [facility] Comment:The spot urine prote in:creatinine ratio may increase to 0.3during normal . 03/21/2025 7:13 AM EDT 03/21/2025 7:46 AM EDT us Generic External Data Provider LAB URINE ORDERAB LES Final Result Performing Organization Address City/[facility]/ZIP Co de Phone Number [facility] [address] [place] [phone] * Testosterone, Free (Dialysis) And Total, MS (09/11/2024 7:20 AM EST) Testosterone, Total 555 250 - 1100 ng/dL [facility] Comment:For additional infor matnesha, please refer tohttp://education.Upstream/faq/VxenrDpsvzkcrwkifEVWCSBECP946(This link is being provided for informational/educational purposes only.)This test was developed and its analytical performancecharacteristics have been determined by [place], [place]. It hasnot been cleared or approved by the U.S. Food and DrugAdministration. This assay has been validated pursuantto the CLIA regulations and is used for clinicalpurposes. Testosterone, Free 97.1 35.0 - 155.0 pg/mL [facility] Comment:This test was develo ped and its analytical performancecharacteristics have been determined by [employer] [place], [place]. It hasnot been cleared or approved by the U.S. Food and DrugAdministration. This assay has been validated pursuantto the CLIA regulations and is used for clinicalpurposes.THIS TEST WAS PERFORMED AT:[facility]/[employer] [id number] [place] [address]DXPHWECPRAVEEN DUBOIS MD,PHD 09/11/2024 7:20 AM EST 09/11/2024 7:20 AM EST us Generic External Data Provider LAB BLOOD ORDERAB LES Final Result [facility] [address] [place] [phone] * Prolactin (09/11/2024 7:20 AM EST) Prolactin 18.0 2.0 - 18.0 ng/mL [facility] Comment:THIS TEST WAS PERFOR MED AT:[facility] [id number] [place] [address]VKGIRBATSHEVA SOTO MD 09/11/2024 7:20 AM EST 09/11/2024 7:20 AM EST Generic External Data Provider LAB BLOOD ORDERAB LES Final Result Performing Organization Address [facility] Phone Number [facility] [address] [place] [phone] * LH (09/11/2024 7:20 AM EST) Lutenizing Hormone 4.5 1.5 - 9.3 mIU/mL [facility] Comment:THIS TEST WAS PERFOR MED AT:[facility] [address] [id number] SOTO MD 09/11/2024 7:20 AM EST 09/11/2024 7:20 AM EST Generic External Data Provider LAB BLOOD ORDERAB LES Final Result Performing Organization Address [facility] de Phone Number [facility] [address] [place] [phone] * FSH (09/11/2024 7:20 AM EST) Follicle Stimulating Hormone 5.6 1.4 - 12.8 mIU/mL [facility] Comment:THIS TEST WAS PERFOR MED AT:[facility] [id number] [place] [address]KDAKXBATSHEVA SOTO MD 09/11/2024 7:20 AM EST 09/11/2024 7:20 AM EST us Generic External Data Provider LAB BLOOD ORDERAB LES Final Result Performing Organization Address [facility] Co de Phone Number [facility] [address] [place] [phone] * PSA, Total With Reflex to PSA, Free (09/11/2024 7:20 AM EST) PSA,Total (Free>4and<10) 0.56 0.00 - 4.00 ng/mL [facility] Comment:A Free PSA was not p [...] Performing Organization Address [facility] Co de Phone Number [facility] [address] [place] [phone] * Glucose (09/11/2024 7:20 AM EST) Glucose Fasting 96 60 - 99 mg/dL [facility] 09/11/2024 7:20 AM EST 09/11/2024 7:20 AM EST us Generic External Data Provider LAB BLOOD ORDERAB LES Final Result Performing Organization Address City/[facility]/ZIP Co de Phone Number [facility] [address] [place] [phone] * Colonoscopy (03/06/2021 2:24 PM EDT) us Historical Provider HEALTH MAINTENANCE Final Result documented in this encounter Visit Diagnoses Not on filedocumented in this encounter Additional Health Concerns Assessment Noted Time PHQ-9 Depression Total Score: 7 08/13/20 23 9:49 AM EDT documented as of this encounter Care Teams Product Introduction Manager Relationship Specialty Start Date End Date Eliza Carmona FNP [address] [place] [phone] PCP - General Family Medicine 08/15/21 Kale Spencer MD [address] [place] [address] [place] [phone] Urology 11/03/24 documented as of this encounter
--- OUTSIDE RECORDS SUMMARY | 2025-10-09 07:01 | XMS_ITS | Encounter Summary ---
Author Organization [employer] Address [address] [facility] 7t [place] [address] Care Team Providers Care Negotiator Name Role Phone Eliza Carmona Primary Care Provider [phone] Kale Spencer MD Unavailable Reason for Visit * Reason Comments Med Refill Encounter Details Date Type Department Care Team ([facility] Contact Info) Description 03/13/2023 Refill [facility] MED & PEDS [address] [place], [place] [phone] Eliza Carmona FNP [address] [place], [place] [phone] Nasal congestion Social History Tobacco Use Types [...] sinuses documented in this encounter Care Teams Negotiator Relationship Specialty Start Date End Date Eliza Carmona FNP [address] [place] [address] PCP - General Family Medicine 08/15/21 Kale Spencer MD [address] [place] [address] Drive [address] [place] [address] Urology 11/03/24 documented as of this encounter
--- OUTSIDE RECORDS SUMMARY | 2025-10-09 07:01 | XMS_ITS | Encounter Summary ---
Author Organization [employer] Address [address] [facility] 7t [place] [address] Care Team Providers Care Director Life Sciences Name Role Phone Eliza Carmona Primary Care Provider [phone] Kale Spencer MD Unavailable Reason for Visit * Reason Comments Med Refill Encounter Details Date Type Department Care Team ([facility] st Contact Info) Description 01/30/2023 Refill [facility] MED & PEDS [address] [place] [address] Allyssa Yoo FNP Nasal congestion Social History [...] sinuses documented in this encounter Care Teams Director Life Sciences Relationship Specialty Start Date End Date Eliza Carmona FNP [address] [place] [address] PCP - General Family Medicine 08/15/21 Kale Spencer MD [address] [place] [address] Urology 11/03/24 documented as of this encounter
--- OUTSIDE RECORDS SUMMARY | 2025-10-09 07:01 | XMS_ITS | Clinical Summary ---
Author Organization [employer] Address [address] [facility] 7t [place] [address] Care Team Providers Care Steak Tenderizer Machine Name Role Phone Eliza Carmona KELL Primary Care Provider [phone] Kale Spencer MD Unavailable Allergies No known [...] PRN Proteinuria 04/16/2025 Overview (07/16/2025): Followed by [facility] - Dr. Salazar/ALLY Bolton 04/09/25: normal renal US Suspected secondary to vascular etiology, advised to avoid NSAIDs Erectile dysfunction 11/03/2024 Overview (07/16/2025): Following with [facility] Urology (Dr. Whelan/Dr. Martinez) Assessment & Plan (07/16/2025 9:24 AM EDT): Previous tx: tadalafil (dc January 2025 d/t affecting INR levels) Consult January 2025: discussed possible Viagra PRN, but should first consult with resource development director. Also discussed alternative tx options such as surgical therapy and penile pump May 2025: plan for high dose Viagra PRN (100mg) Cont following with specialist as scheduled Assessment & Plan (04/16/2025 9:25 AM EDT): Previous tx: tadalafil (dc January 2025 d/t affecting INR levels) Consult January 2025: discussed possible Viagra PRN, but should first consult with resource development director. Also discussed alternative tx options such as surgical therapy and penile pump Cont following with specialist as scheduled Assessment & Plan (11/03/2024 1:42 PM EST): Cont current therapy Constipation 03/14/2024 Assessment & Plan (03/14/2024 8:05 AM EDT): -Cont Colace BID PRN -Encourage fiber-rich diet and adequate hydration Routine health maintenance 03/08/2023 Overview (04/16/2025): Optometry: CEE 03/12/22 Dental: [facility] Dental Colonoscopy: 02/06/21 at [facility] - Dr. Barrios. Repeat 10 years Assessment & Plan (08/15/2023 6:17 PM EDT): Optometry: CEE 03/12/22 Dental: pt to present to [facility] Dental after today's appt to request scheduling for tooth extraction. Colonoscopy: completed January 2021 - due January 2031 COVID-19 Vaccine: primary series complete, boosted x 1. Encouraged updated booster. Flu and pneumococcal vaccines administered today. VIS sheets provided. Assessment & Plan (03/08/2023 9:32 AM EDT): Optometry: CEE 03/12/22 Dental: pt to present to [facility] Dental after today's appt to request scheduling for tooth extraction. Pre-op completed Aril 2021 Colonoscopy: completed January 2021 - due January 2031 COVID-19 Vaccine: primary series complete, boosted x 1. Encouraged bivalent booster. History of Coumadin therapy 03/08/2023 Overview (08/15/2023): Managed by [facility] Per Cards consult note [...] 43%, no sign of ischemia Followed by [facility] - Dr. Costa 08/29/24: ADRIANNA - ordered by Dr. Costa. Stable compared to previous. EF 50-55%. Mild-to-mod tricuspid regurgitation present, no evidence of pulm HTN. Assessment & Plan (07/16/2025 9:25 AM EDT): -Continue DASH diet -Continue current CARDs regimen: furosemide 20mg daily sacubetril-valsartan 24-26mg tablet BID (provider will call office to request that med be sent to [facility] pharmacy) metoprolol succinate ER [...] to request that med be sent to [facility] pharmacy) metoprolol succinate ER [...] to request that med be sent to [facility] pharmacy) metoprolol succinate ER [...] 07/16/2025 9:00 AM EDT Office Visit [facility]ED[facility] [address] [place] [address] Eliza Carmona, KELL Acute conjunctivitis of right eye, unspecified acute conjunctivitis type (Primary Dx); Encounter for immunization; Other restrictive cardiomyopathy (CMS/HCC); Erectile dysfunction, unspecified erectile dysfunction type; Essential hypertension; Proteinuria, unspecified type 07/16/2025 Travel 07/13/2025 Telephone [facility] MED & PEDS [address] [place], [place] [phone] Eliza Carmona FNP Chart Prep from Last [...] Prothrombin Time 31.3(H) 10.9 - 12.4 SEC [facility] INTERNATIONAL NORM RATIO [...] Provider LAB BLOOD ORDERAB LES Final Result [facility] [address] [place] [phone] * (ABNORMAL) Lipid Panel, Standard (05/08/2025 7:04 AM EDT) Triglycerides 115 <150 mg/dL [facility] Comment:Desirable Triglyceri de: less than 150 mg/dLBorderline High Triglyceride 150-199 mg/dLHigh Triglyceride: 200-499 mg/dLVery High Triglyceride: greater than or equal to 5OO mg/dL Cholesterol 140 <200 mg/dL [facility] Comment:Desirable Cholestero l: less than 200 mg/dLBorderline High Cholesterol: 200-239 mg/dLHigh Cholesterol: greater than 239 mg/dL LDL Cholesterol Calculated 79 <100 mg/dL [facility] Comment:Desirable LDL: less than 100 mg/dLNear Optimal/Above Optimal LDL: 110- 129 mg/dLBorderline High LDL: 130-159 mg/dLHigh LDL: 160-189 mg/dLVery High LDL: greater than or equal to 190 mg/dL HDL Cholesterol 38(L) >40 mg/dL [facility] Comment:Desirable HDL: great er than 40 mg/dL Note: This HDL assay may give artificially low results in patients with liver disease. Blood Venous blood specimen / Unknown 05/08/2025 7:04 AM EDT 05/08/2025 7:04 AM EDT us Eliza Carmona HEALTH AND PHYSICAL EDUCATION TEACHER LAB BLOOD ORDERABLES Final Res ult [facility] [address] [place] [phone] [phone] * Hepatitis C Viral RNA, Quantitative, Real-Time PCR (06/27/2024 6:57 AM EDT) Hepatitis C Viral Load <15 NOT DETECTED NOT DETECTED IU/mL [facility] HCV Log PCR <1.18 NOT DETECTED NOT DETECTED Log IU/mL [facility] Comment:For additional infor isai, please refer tohttp://education.[employer] Boat/faq/AXY97n2(This link is being provided for informational/educational purposes only.)THIS TEST WAS PERFORMED AT:[facility] [place] [id number] SOTO MD Blood 06/27/2024 6:57 AM EDT 06/27/2024 7:03 AM EDT Eliza Carmona HEALTH AND PHYSICAL EDUCATION TEACHER LAB BLOOD ORDERABLES Final Res ult Performing Organization Address City/[facility]/ZIP Co de Phone Number [facility] [address] [place] [phone] * HIV-1/2 Antigen and Antibodies, Fourth Generation, with Reflexes (06/27/2024 6:57 AM EDT) HIV AB/AG Nonreactive Nonreactive [facility] Comment:HIV-1 p24 Ag and/or HIV-1/HIV-2 Ab not detected.A test result that is nonreactive does not exclude thepossibility of exposure to or infection with HIV-1 and/orHIV-2. Nonreactive results in this assay for individualswith prior exposure to HIV-1 and/or HIV-2 may be due toantigen and antibody levels that are below the limit ofdetection of this assay.The [employer] HIV Ag/Ab Combo assay result andsupplemental assay results should be interpreted inconjunction with the patient's clinical presentation,history and other laboratory results. If the results areinconsistent with clinical evidence, additional testing issuggested to confirm the result. Blood Venous blood specimen / Unknown 06/27/2024 6:57 AM EDT 06/27/2024 7:03 AM EDT Eliza Carmona HEALTH AND PHYSICAL EDUCATION TEACHER LAB BLOOD ORDERABLES Final Res ult Performing Organization Address [facility]/ZIP Co de Phone Number [facility] [address] [place] [address] [phone] * Hm Colonoscopy (03/06/2021 2:24 PM EDT) Historical Provider HEALTH MAINTENANCE Final Result from Last 3 Months or Most Recently Relevant to Health Maintenance Insurance [facility] ONE CARE < 65 [place] [facility] Care Teams Steak Tenderizer Machine Relationship Specialty Start Date End Date Eliza Carmona FNP [address] [place] [address] PCP - General Family Medicine 08/15/21 Kale Spencer MD [address] [place] [address] Urology 11/03/24
[2025-10-09 07:19] LABS: INTERNATIONAL NORM RATIO 2.7 (0.9-1.1); Prothrombin Time 31.9 SEC (11.2-13.5)
== END 2025-10-09 06:57 | disposition home or self-care (01) ==
LOC: HO.LABR 06:56
PROVIDERS: Pharmacist; Visit Provider Pharmacist
DX: Z95.2 Presence of prosthetic heart valve (principal)
CPT/HCPCS: 36415; 85610